=== PATIENT | female | born 1940 | race Caucasian/White ===

== ENCOUNTER → 2018-02-22 09:10 | Outpatient (CLI) | payer MEDICARE, SELFPAY ==
[2018-02-22 09:52] LABS: BUN Creatinine Ratio 17.3 (6-22); Blood Urea Nitrogen 19 mg/dL (7-17); Calcium 9.4 mg/dL (8.4-10.2); Carbon Dioxide 30 mmol/L (22-32); Chloride 100 mmol/L (98-107); Estimated Glomerular Filt Rate 48.2 mL/min (>60); Glucose 88 mg/dL (80-110); HEMOLYSIS < 15 (0-50); Potassium 3.7 mmol/L (3.4-5.1); Sodium 138 mmol/L (137-145)
== END ==
PROVIDERS: PCP Family Medicine; Visit Provider Family Medicine
DX: Z51.81 Encounter for therapeutic drug level monitoring (principal)
CPT/HCPCS: 36415; 80048

== ENCOUNTER → 2018-03-13 07:02 | Outpatient (CLI) | payer MEDICARE, SELFPAY ==
[2018-03-18 13:29] LABS: Creatinine, Random Urine 60 mg/dL (20-320); Metanephrine, Ur 80 (21-153); Normetanephrine, Urine 193 (108-524)
== END ==
PROVIDERS: PCP Family Medicine; Visit Provider Family Medicine
DX: I10 Essential (primary) hypertension (principal)
CPT/HCPCS: 83835

== ENCOUNTER → 2018-06-12 11:38 | Outpatient (CLI) | payer MEDICARE, SELFPAY ==
--- NOTE | 2018-06-12 11:40 | DI.MRI.S_ITS ---
PROCEDURE: MR HEAD/BRAIN WO CON INDICATIONS: confusion TECHNIQUE: Non-contrast axial T1 spin echo, axial T2 fast spin echo, sagittal and axial FLAIR, coronal T2 fast spin echo, axial gradient echo, axial diffusion and ADC through the brain. COMPARISON: [facility], CT, HEAD WITHOUT CONTRAST, 03/12/2017, 15:09. [facility], MR, STROKE PROTOCOL, 03/21/2017, 12:25. FINDINGS: Image quality: Excellent. CSF spaces: Ventricles appear symmetric in size and shape. Basal cisterns are patent. No extra-axial fluid collections. Brain: No intracranial bleeds or mass effects. There is cerebral volume loss for age. There are relatively prominent periventricular and deep white matter chronic small vessel ischemic changes. Brainstem appears normal. Diffusion-weighted images show no acute ischemic insults. No chronic ischemic insults. Normal intravascular flow voids are present. Skull and face: Calvarial bone marrow is normal in signal. Orbits are normal. Note is made of bilateral lens replacements. Sinuses: Sinuses and mastoids are clear. IMPRESSION: No findings of acute or subacute infarction can be seen. No masses or mass effect can be seen. Relatively prominent chronic small vessel ischemic change can be seen. Brain parenchymal volume loss is noted. Dictated by: Albert Del Real M.D. on 06/12/2018 at 12:00 Approved by: Albert Del Real M.D. on 06/12/2018 at 12:02
== END ==
PROVIDERS: PCP Family Medicine; Visit Provider Family Medicine
DX: R41.0 Disorientation, unspecified (principal)
CPT/HCPCS: 70551

== ENCOUNTER 2018-07-15 13:39 | Inpatient (IN) | payer MEDICARE, SELFPAY ==
[2018-07-15] VITALS (7 sets, daily range): BP systolic 116–158; BP diastolic 49–92; PULSE 86–114; RESP 14–97; TEMP 36.4–36.7; O2SAT 97–99; BMI 23.8
[2018-07-15] MEDS: SODIUM CHLORIDE 0.9% 1,000 ML 1000 ML IV (15:24)
[2018-07-15] MEDS: ONDANSETRON 4 MG/2 ML INJ IV (15:24)
[2018-07-15 15:28] LABS: Add Manual Diff / Slide Review NO; Basophils Percent Auto 0.4 % (0-2); Eosinophils Percent Auto 3.5 % (2-4); Hematocrit 33.8 % (36-46); Hemoglobin 11.7 g/dL (12.0-16.0); Mean Corpuscular HGB Conc 34.6 % (30-36); Mean Corpuscular Hemoglobin 29.5 PG (26-34); Mean Corpuscular Volume 85.2 fL (80-100); Monocytes Percent Auto 13.4 % (3-14); Neutrophils Absolute Auto 5500 /uL (3000-5900); Neutrophils Percent Auto 70.7 % (50-75); Platelet Count 195 X10^3/uL (150-400); Red Blood Cell Count 3.97 X10^6/uL (4.0-5.2); Red Cell Distribution Width 13.9 % (11.6-14.8); White Blood Cell Count 7.8 X10^3/uL (4.5-11.0)
[2018-07-15 15:34] LABS: Alanine Aminotransferase 19 IU/L (9-52); Albumin 4.5 g/dL (3.5-5.0); Albumin Globulin Ratio 1.5 (1.0-2.8); Alkaline Phosphatase 29 U/L (38-126); BUN Creatinine Ratio 11.8 (6-22); Blood Urea Nitrogen 26 mg/dL (7-17); Calcium 9.5 mg/dL (8.4-10.2); Carbon Dioxide 19 mmol/L (22-32); Chloride 89 mmol/L (98-107); Estimated Glomerular Filt Rate 21.6 mL/min (>60); Globulin 3.1 g/dL (1.7-4.1); Glucose 87 mg/dL (80-110); Sodium 126 mmol/L (137-145); Total Protein 7.6 g/dL (6.3-8.2)
[2018-07-15 15:39] LABS: HEMOLYSIS 133 (0-50)
--- NOTE | 2018-07-15 15:47 | ED.NAVMDI ---
HPI - Nausea/Vomiting/Diarrhea <YONNY White - Last Filed: 07/15/18 22:03> General Chief complaint: Nausea/Vomiting/Diarrhea Stated complaint: vomiting nausea x4 days Time Seen by Provider: 07/15/18 15:47 Source: patient Mode of arrival: ambulatory Limitations: no limitations History of Present Illness HPI Narrative: 78-year-old female with history of diverticulitis hypertension is a former smoker here for complaint of having nausea vomiting with left lower quadrant pain over the past 4 days. She states she has been unable to keep down any fluids. She states she is no longer making urine. She denies having any fevers or chills. She denies any trauma to the left lower quadrant. She has not had a bowel movement over the last few days. She denies any stressors or relievers of her symptoms. MD complaint: nausea, vomiting and abdominal pain Related Data Home Medications Medication Instructions Recorded Confirmed Vitamin D3 1 cap PO DAILY #0 01/09/12 07/15/18 ascorbic acid (vitamin C) [Vitamin 1,000 mg PO DAILY #0 01/09/12 07/15/18 C] omega [id number] oil [Omera] 1,280 mg PO DAILY #0 03/12/17 07/15/18 vitamin B complex [B 1 tab PO DAILY #0 04/17/17 07/15/18 Complex-Vitamin B12] prednisone 10 mg tablet 10 mg PO DAILY tab 06/03/18 07/15/18 ibuprofen [Advil] 200 mg PO PRN PRN 07/15/18 07/15/18 lactobacillus comb no.10 20,000 mmu cells PO DAILY 07/15/18 07/15/18 [Probiotic] metoprolol succinate 100 mg PO QPM 07/15/18 07/15/18 olmesartan 10 mg PO QPM 07/15/18 07/15/18 omeprazole 20 mg PO QPM 07/15/18 07/15/18 prednisone 2 mg PO DAILY 07/15/18 07/15/18 trazodone 100 mg PO BEDTIME 07/15/18 07/15/18 Previous Rx's Medication Instructions Recorded hydrochlorothiazide 25 mg tablet 25 mg PO DAILY #90 tab 07/09/18 Allergies Allergy/AdvReac Type Severity Reaction Status Date / Time ciprofloxacin [CIPROFLOXACIN] Allergy Severe MUSCLE PAIN Verified 10/08/18 11:49 ceftriaxone Allergy Mild Anxiety Verified 07/15/18 19:53 methocarbamol [METHOCARBAMOL] Allergy Mild RASH/ROBAXI Verified 06/03/18 11:49 N Penicillins [PENICILLINS] Allergy Mild HIVES Verified 06/03/18 11:49 piroxicam [PIROXICAM] Allergy Mild RASH/FELDEN Verified 06/03/18 11:49 E temazepam [TEMAZEPAM] Allergy Mild NERVOUNESS/ Verified 06/03/18 11:49 RESTORIL Review of Systems <YONNY White - Last Filed: 07/15/18 22:03> Review of Systems All systems reviewed & are unremarkable except as noted in HPI and below Constitutional Denies chills, Denies fever(s), Denies lethargy and Denies weakness Eyes Denies change in vision, Denies eye discharge, Denies irritation and Denies loss of vision ENT Ears, Nose, Mouth, and Throat: Denies change in voice, Denies neck pain and Denies sore throat Cardiovascular Denies chest pain, Denies irregular heart rhythm, Denies lightheadedness, Denies palpitations, Denies dyspnea, Denies dyspnea on exertion and Denies orthopnea Respiratory Denies cough, Denies dyspnea, Denies dyspnea on exertion and Denies wheezing Gastrointestinal Gastrointestinal: Reports abdominal pain, Denies change in bowel habits, Denies diarrhea, Reports nausea and Reports vomiting Genitourinary Denies hematuria, Denies flank pain, Denies urinary incontinence and Denies urinary urgency Musculoskeletal Denies neck pain Neurologic Denies confusion, Denies loss of vision and Denies weakness Psychiatric Denies anxiety, Denies confusion, Denies depression, Denies homicidal ideation and Denies suicidal ideation Endocrine Denies palpitations Hematologic/Lymphatic Denies easy bruising Allergic/Immunologic Denies wheezing Exam <YONNY White - Last Filed: 07/15/18 22:03> Initial Vital Signs Initial Vital Signs: Vital Signs Temperature 98.0 F 07/15/18 13:44 Pulse Rate 114 H 07/15/18 13:44 Respiratory Rate 20 07/15/18 13:44 Blood Pressure 116/73 07/15/18 13:44 Pulse Oximetry 97 07/15/18 13:44 Const General: cooperative and well developed Nutritional Appearance: well nourished Orientation: alert, awake, oriented x3 and not confused [facility] Mouth: oral mucosae normal and No moist mucous membranes Eyes Conjunctivae: conjunctivae normal Sclera: sclerae normal Pupils: PERRL EOM: EOM intact bilaterally Resp Effort & Inspection: normal respiratory effort, able to speak in complete sentences, no respiratory distress and no use of accessory muscles Auscultation: clear to auscultation bilaterally, no rales, no rhonchi and no wheezes Cardio Rate: regular rate Rhythm: regular rhythm Heart Sounds: no click, no gallops, no murmurs and no rubs Pulses: normal peripheral pulses GI Inspection: non-distended Palpation: soft, no hepatosplenomegaly, No guarding, No pulsatile mass and tender (Left lower quadrant tenderness) Auscultation: normal bowel sounds General: No CVA tenderness Skin General: no rashes or lesions noted, No jaundice and No petechiae <Kellie Jones MD - Last Filed: 07/16/18 07:40> Initial Vital Signs Initial Vital Signs: Vital Signs Temperature 98.0 F 07/15/18 13:44 Pulse Rate 114 H 07/15/18 13:44 Respiratory Rate 20 07/15/18 13:44 Blood Pressure 116/73 07/15/18 13:44 Pulse Oximetry 97 07/15/18 13:44 Course <YONNY White - Last Filed: 07/15/18 22:03> Orders Ordered: ED Orders 07/16/18 06:58 Basic Metabolic Panel Routine Complete Blood Count AUTO DIFF Routine Enoxaparin Sodium (Lovenox) 40 mg SUBCUT DAILY [facility] Sodium Chloride (Normal Saline 0.9%) 1,000 mls @ 150 mls/hr IV CONT [facility] Last Admin: 07/16/18 03:39 Dose: 150 mls/hr Infusion: 07/16/18 03:39 Dose: 150 mls/hr Admin: 07/15/18 21:08 Dose: 150 mls/hr Infusion: 07/15/18 19:51 Dose: 0 mls/hr Admin: 07/15/18 16:46 Dose: 150 mls/hr Metronidazole (Flagyl) 500 mg in 100 mls @ 100 mls/hr IV Q8H [facility] Last Infusion: 07/16/18 04:39 Dose: 0 mls/hr Admin: 07/16/18 03:39 Dose: 100 mls/hr Morphine Sulfate (Morphine) 4 mg IV Q4HR PRN PRN Reason: Pain, Severe (7-10) Last Admin: 07/15/18 21:19 Dose: 4 mg Ondansetron HCl (Zofran) 4 mg IV Q8HR PRN PRN Reason: Nausea And Vomiting Pantoprazole Sodium (Protonix) 40 mg IV DAILY [facility] Last Admin: 07/16/18 01:15 Dose: Discontinued Medications Diphenhydramine HCl (Benadryl) 50 mg IV NOW ONE Stop: 07/15/18 19:39 Last Admin: 07/15/18 19:42 Dose: 50 mg Sodium Chloride (Normal Saline 0.9%) 1,000 mls @ 1,000 mls/hr IV BOLUS ONE Stop: 07/15/18 16:04 Last Infusion: 07/15/18 16:42 Dose: 0 mls/hr Admin: 07/15/18 15:24 Dose: 1,000 mls/hr Sodium Chloride (Normal Saline 0.9%) 1,000 mls @ 150 mls/hr IV CONT [facility] Last Admin: 07/15/18 21:21 Dose: Ceftriaxone Sodium/Dextrose (Rocephin) 2 gm in 50 mls @ 100 mls/hr IV Q24H [facility] Last Infusion: 07/15/18 19:42 Dose: 0 mls/hr Admin: 07/15/18 19:10 Dose: 100 mls/hr Metronidazole (Flagyl) 500 mg in 100 mls @ 100 mls/hr IV NOW ONE Stop: 07/15/18 20:05 Last Admin: 07/15/18 21:10 Dose: 100 mls/hr Ceftriaxone Sodium/Dextrose (Rocephin) 2 gm in 50 mls @ 100 mls/hr IV Q24H [facility] Stop: 07/19/18 20:29 Methylprednisolone (Solu-Medrol 125 Mg Vial) 125 mg IV NOW ONE Stop: 07/15/18 19:39 Last Admin: 07/15/18 19:42 Dose: 125 mg Ondansetron HCl (Zofran) 4 mg IV NOW ONE Stop: 07/15/18 15:06 Last Admin: 07/15/18 15:24 Dose: 4 mg Vital Signs - 8 hr 07/16/18 00:32 07/16/18 03:30 Temperature 97.3 F L Pulse Rate 85 Respiratory Rate 18 Blood Pressure 136/84 Pulse Oximetry 98 97 <Kellie Jones MD - Last Filed: 07/16/18 07:40> Orders Ordered: ED Orders 07/16/18 06:58 Basic Metabolic Panel Routine Complete Blood Count AUTO DIFF Routine Enoxaparin Sodium (Lovenox) 40 mg SUBCUT DAILY [facility] Sodium Chloride (Normal Saline 0.9%) 1,000 mls @ 150 mls/hr IV CONT [facility] Last Admin: 07/16/18 03:39 Dose: 150 mls/hr Infusion: 07/16/18 03:39 Dose: 150 mls/hr Admin: 07/15/18 21:08 Dose: 150 mls/hr Infusion: 07/15/18 19:51 Dose: 0 mls/hr Admin: 07/15/18 16:46 Dose: 150 mls/hr Metronidazole (Flagyl) 500 mg in 100 mls @ 100 mls/hr IV Q8H [facility] Last Infusion: 07/16/18 04:39 Dose: 0 mls/hr Admin: 07/16/18 03:39 Dose: 100 mls/hr Morphine Sulfate (Morphine) 4 mg IV Q4HR PRN PRN Reason: Pain, Severe (7-10) Last Admin: 07/15/18 21:19 Dose: 4 mg Ondansetron HCl (Zofran) 4 mg IV Q8HR PRN PRN Reason: Nausea And Vomiting Pantoprazole Sodium (Protonix) 40 mg IV DAILY [facility] Last Admin: 07/16/18 01:15 Dose: Discontinued Medications Diphenhydramine HCl (Benadryl) 50 mg IV NOW ONE Stop: 07/15/18 19:39 Last Admin: 07/15/18 19:42 Dose: 50 mg Sodium Chloride (Normal Saline 0.9%) 1,000 mls @ 1,000 mls/hr IV BOLUS ONE Stop: 07/15/18 16:04 Last Infusion: 07/15/18 16:42 Dose: 0 mls/hr Admin: 07/15/18 15:24 Dose: 1,000 mls/hr Sodium Chloride (Normal Saline 0.9%) 1,000 mls @ 150 mls/hr IV CONT [facility] Last Admin: 07/15/18 21:21 Dose: Ceftriaxone Sodium/Dextrose (Rocephin) 2 gm in 50 mls @ 100 mls/hr IV Q24H [facility] Last Infusion: 07/15/18 19:42 Dose: 0 mls/hr Admin: 07/15/18 19:10 Dose: 100 mls/hr Metronidazole (Flagyl) 500 mg in 100 mls @ 100 mls/hr IV NOW ONE Stop: 07/15/18 20:05 Last Admin: 07/15/18 21:10 Dose: 100 mls/hr Ceftriaxone Sodium/Dextrose (Rocephin) 2 gm in 50 mls @ 100 mls/hr IV Q24H [facility] Stop: 07/19/18 20:29 Methylprednisolone (Solu-Medrol 125 Mg Vial) 125 mg IV NOW ONE Stop: 07/15/18 19:39 Last Admin: 07/15/18 19:42 Dose: 125 mg Ondansetron HCl (Zofran) 4 mg IV NOW ONE Stop: 07/15/18 15:06 Last Admin: 07/15/18 15:24 Dose: 4 mg Vital Signs - 8 hr 07/16/18 00:32 07/16/18 03:30 Temperature 97.3 F L Pulse Rate 85 Respiratory Rate 18 Blood Pressure 136/84 Pulse Oximetry 98 97 MDM - Nausea/Vomiting/Diarrhea <YONNY White - Last Filed: 07/15/18 22:03> Lab Data Result diagrams: 07/16/18 06:58 07/15/18 19:30 Lab Results 07/15/18 07/15/18 07/15/18 Range/Units 15:15 15:15 17:05 WBC 7.8 (4.5-11.0) X10^3/uL RBC 3.97 L (4.0-5.2) X10^6/uL Hgb 11.7 L (12.0-16.0) g/dL Hct 33.8 L (36-46) % MCV 85.2 (80-100) fL MCH 29.5 (26-34) PG MCHC 34.6 (30-36) % RDW 13.9 (11.6-14.8) % Plt Count 195 (150-400) X10^3/uL Neut % (Auto) 70.7 (50-75) % Lymph % (Auto) 12.0 L (25-40) % [place] % (Auto) 13.4 (3-14) % Eos % (Auto) 3.5 (2-4) % Baso % (Auto) 0.4 (0-2) % Neut # (Auto) 5500 (2666-0154) /uL Sodium 126 L (137-145) mmol/L Potassium TNP Chloride 89 L (98-107) mmol/L Carbon Dioxide 19 L (22-32) mmol/L BUN 26 H (7-17) mg/dL Creatinine 2.20 H (0.52-1.04) mg/dL Estimated GFR 21.6 L (>60) mL/min BUN/Creatinine Ratio 11.8 (6-22) Glucose 87 (80-110) mg/dL Calcium 9.5 (8.4-10.2) mg/dL Total Bilirubin TNP AST TNP ALT 19 (9-52) IU/L Alkaline Phosphatase 29 L (38-126) U/L Total Protein 7.6 (6.3-8.2) g/dL Albumin 4.5 (3.5-5.0) g/dL Globulin 3.1 (1.7-4.1) g/dL Albumin/Globulin Ratio 1.5 (1.0-2.8) Urine RBC 1-5/hpf (0-5/HPF) Urine WBC 1-5/hpf (0-5/HPF) Ur Squamous Epith Cells 1-5 /hpf Urine Bacteria Occasional (0-1) (None) Hyaline Casts 5-10/lpf (None) Urine Mucus 1+ H (Negative) Ur Culture Indicated? Cult not indicated Micro UA Comment Not Reportable 07/15/18 07/16/18 Range/Units 19:30 06:58 WBC 3.5 L D (4.5-11.0) X10^3/uL RBC 3.86 L (4.0-5.2) X10^6/uL Hgb 11.2 L (12.0-16.0) g/dL Hct 32.9 L (36-46) % MCV 85.1 (80-100) fL MCH 29.0 (26-34) PG MCHC 34.1 (30-36) % RDW 13.7 (11.6-14.8) % Plt Count 184 (150-400) X10^3/uL Neut % (Auto) 87.9 H (50-75) % Lymph % (Auto) 9.7 L (25-40) % [place] % (Auto) 2.2 L (3-14) % Eos % (Auto) 0.1 L (2-4) % Baso % (Auto) 0.1 (0-2) % Neut # (Auto) 3000 (2062-6046) /uL Sodium (137-145) mmol/L Potassium 3.4 Chloride (98-107) mmol/L Carbon Dioxide (22-32) mmol/L BUN (7-17) mg/dL Creatinine (0.52-1.04) mg/dL Estimated GFR (>60) mL/min BUN/Creatinine Ratio (6-22) Glucose (80-110) mg/dL Calcium (8.4-10.2) mg/dL Total Bilirubin AST ALT (9-52) IU/L Alkaline Phosphatase (38-126) U/L Total Protein (6.3-8.2) g/dL Albumin (3.5-5.0) g/dL Globulin (1.7-4.1) g/dL Albumin/Globulin Ratio (1.0-2.8) Urine RBC (0-5/HPF) Urine WBC (0-5/HPF) Ur Squamous Epith Cells Urine Bacteria (None) Hyaline Casts (None) Urine Mucus (Negative) Ur Culture Indicated? Micro UA Comment Urine Dip Bedside Urine Glucose Negative Bedside Urine Bilirubin - Negative Bedside Urine Ketone + 15 Urine Specific [place] 1.020 Bedside Urine Occult Blood - Negative Bedside Urine pH 6.0 Bedside Urine Protein - Negative Bedside Urine Urobilinogen - Negative Bedside Urine Nitrite - Negative Bedside Urine Leukocytes - Negative Esterase Imaging Data CT scan - abdomen: Radiologist's impression: [address] [address] [address] Scan Report Signed Patient: Michelle Bermeo [facility]#: [id number] : 1940Acct:[id number] Age/Sex: 78 / FDate of Service: 07/15/18 Loc: ED Accession Number: [id number] Procedure: CT abdomen pelvis wo con Ordering Provider: Redd Michelle PROCEDURE: CT ABDOMEN PELVIS WO CON INDICATIONS: Left lower quadrant pain TECHNIQUE: Noncontrast 5 mm thick sections acquired from the diaphragms to the symphysis. 5 mm coronal and sagittal reformats were then performed. For radiation dose reduction, the following was used: automated exposure control, adjustment of mA and/or kV according to patient size. COMPARISON: [facility], CT, ABDOMEN/PELVIS WITH CONTRAST, 04/17/2017, 10:59. FINDINGS: Image quality: Excellent. ABDOMEN: Lung bases: There are mild subpleural groundglass opacities in the lung bases likely representing atelectasis. Heart size is normal. A small hiatal hernia is noted. Solid organs: Noncontrast evaluation of the liver demonstrates no focal hepatic lesions. Gallbladder appears within normal limits without calcified gallstones. Pancreas is normal in contours. Spleen is normal in size. No adrenal nodules. Kidneys demonstrate no hydronephrosis. Peritoneum and bowel: Small bowel loops demonstrate normal wall thickness and caliber. There is colonic diverticulosis throughout the colon. Along the proximal sigmoid colon, there is associated mild segmental wall thickening and inflammatory fat stranding compatible with diverticulitis. No macroscopic free air or evidence of diverticular abscess. There is trace adjacent fluid in the left paracolic gutter. Nodes and vessels: No retroperitoneal or mesenteric adenopathy by size criteria. Aorta and inferior vena cava are normal in caliber. There is prominent vascular calcification at the origin of the right renal artery. Miscellaneous: No ventral hernias. PELVIS: Genitourinary: Bladder wall thickness is normal. Miscellaneous: No inguinal hernias or adenopathy. Bones: No suspicious bony lesions. No vertebral body compression fractures. IMPRESSION: 1. Mild acute diverticulitis in the proximal sigmoid colon. Dictated by: Brown Zepeda M.D. on 07/15/2018 at 18:42 Approved by: Brown Zepeda M.D. on 07/15/2018 at 18:46 MDM Narrative Medical decision making narrative: CBC shows mild anemia otherwise is unremarkable. Chem panel shows decreased GFR of 21 and creatinine of 2.2 indicating acute renal failure most likely secondary to dehydration. CMP also shows hyponatremia most likely secondary to the nausea vomiting. She was given fluids and Zofran in the emergency room. CT of the abdomen shows diverticulitis with no abscess or free air. She is allergic to a ciprofloxacin so she was placed on Rocephin and Flagyl. Due to acute renal failure and hyponatremia unable to tolerate fluids discussed case with hospitalist Dr. Aldrich except patient for IV fluids and antibiotics. Patient admitted inpatient or <Kellie Jones MD - Last Filed: 07/16/18 07:40> Lab Data Lab Results 07/15/18 07/15/18 07/15/18 Range/Units 15:15 15:15 17:05 WBC 7.8 (4.5-11.0) X10^3/uL RBC 3.97 L (4.0-5.2) X10^6/uL Hgb 11.7 L (12.0-16.0) g/dL Hct 33.8 L (36-46) % MCV 85.2 (80-100) fL MCH 29.5 (26-34) PG MCHC 34.6 (30-36) % RDW 13.9 (11.6-14.8) % Plt Count 195 (150-400) X10^3/uL Neut % (Auto) 70.7 (50-75) % Lymph % (Auto) 12.0 L (25-40) % [place] % (Auto) 13.4 (3-14) % Eos % (Auto) 3.5 (2-4) % Baso % (Auto) 0.4 (0-2) % Neut # (Auto) 5500 (8725-0386) /uL Sodium 126 L (137-145) mmol/L Potassium TNP Chloride 89 L (98-107) mmol/L Carbon Dioxide 19 L (22-32) mmol/L BUN 26 H (7-17) mg/dL Creatinine 2.20 H (0.52-1.04) mg/dL Estimated GFR 21.6 L (>60) mL/min BUN/Creatinine Ratio 11.8 (6-22) Glucose 87 (80-110) mg/dL Calcium 9.5 (8.4-10.2) mg/dL Total Bilirubin TNP AST TNP ALT 19 (9-52) IU/L Alkaline Phosphatase 29 L (38-126) U/L Total Protein 7.6 (6.3-8.2) g/dL Albumin 4.5 (3.5-5.0) g/dL Globulin 3.1 (1.7-4.1) g/dL Albumin/Globulin Ratio 1.5 (1.0-2.8) Urine RBC 1-5/hpf (0-5/HPF) Urine WBC 1-5/hpf (0-5/HPF) Ur Squamous Epith Cells 1-5 /hpf Urine Bacteria Occasional (0-1) (None) Hyaline Casts 5-10/lpf (None) Urine Mucus 1+ H (Negative) Ur Culture Indicated? Cult not indicated Micro UA Comment Not Reportable 07/15/18 07/16/18 Range/Units 19:30 06:58 WBC 3.5 L D (4.5-11.0) X10^3/uL RBC 3.86 L (4.0-5.2) X10^6/uL Hgb 11.2 L (12.0-16.0) g/dL Hct 32.9 L (36-46) % MCV 85.1 (80-100) fL MCH 29.0 (26-34) PG MCHC 34.1 (30-36) % RDW 13.7 (11.6-14.8) % Plt Count 184 (150-400) X10^3/uL Neut % (Auto) 87.9 H (50-75) % Lymph % (Auto) 9.7 L (25-40) % [place] % (Auto) 2.2 L (3-14) % Eos % (Auto) 0.1 L (2-4) % Baso % (Auto) 0.1 (0-2) % Neut # (Auto) 3000 (4932-4583) /uL Sodium (137-145) mmol/L Potassium 3.4 Chloride (98-107) mmol/L Carbon Dioxide (22-32) mmol/L BUN (7-17) mg/dL Creatinine (0.52-1.04) mg/dL Estimated GFR (>60) mL/min BUN/Creatinine Ratio (6-22) Glucose (80-110) mg/dL Calcium (8.4-10.2) mg/dL Total Bilirubin AST ALT (9-52) IU/L Alkaline Phosphatase (38-126) U/L Total Protein (6.3-8.2) g/dL Albumin (3.5-5.0) g/dL Globulin (1.7-4.1) g/dL Albumin/Globulin Ratio (1.0-2.8) Urine RBC (0-5/HPF) Urine WBC (0-5/HPF) Ur Squamous Epith Cells Urine Bacteria (None) Hyaline Casts (None) Urine Mucus (Negative) Ur Culture Indicated? Micro UA Comment Urine Dip Bedside Urine Glucose Negative Bedside Urine Bilirubin - Negative Bedside Urine Ketone + 15 Urine Specific [place] 1.020 Bedside Urine Occult Blood - Negative Bedside Urine pH 6.0 Bedside Urine Protein - Negative Bedside Urine Urobilinogen - Negative Bedside Urine Nitrite - Negative Bedside Urine Leukocytes - Negative Esterase Discharge Plan Departure Patient Disposition: Admitted As Inpatient Clinical Impression: Diverticulitis, Acute hyponatremia, Acute renal failure Discharge Date/Time: 07/15/18 20:00 Interventions: ED Discharge Assessment Last Done: 07/15/18 19:20 Admit Date/Time: 07/15/18 19:14 Admit Provider: Rosemary Aldrich
[2018-07-15] MEDS: SODIUM CHLORIDE 0.9% 1,000 ML 150 ML IV ×2 (16:46→21:08)
[2018-07-15 17:37] LABS: Bacteria Urine Occasional (0-1); Culture Indicated Urine Cult Not Indicated; Hyaline Casts Urine 5-10/LPF; Mucus Urine 1+ (Negative); RBC Urine 1-5/HPF (0-5/HPF); Squamous Epithelial Cell Urine 1-5 /HPF; WBC Urine 1-5/HPF (0-5/HPF)
--- NOTE | 2018-07-15 17:59 | DI.CT.S_ITS ---
PROCEDURE: CT ABDOMEN PELVIS WO CON INDICATIONS: Left lower quadrant pain TECHNIQUE: Noncontrast 5 mm thick sections acquired from the diaphragms to the symphysis. 5 mm coronal and sagittal reformats were then performed. For radiation dose reduction, the following was used: automated exposure control, adjustment of mA and/or kV according to patient size. COMPARISON: [facility], CT, ABDOMEN/PELVIS WITH CONTRAST, 04/17/2017, 10:59. FINDINGS: Image quality: Excellent. ABDOMEN: Lung bases: There are mild subpleural groundglass opacities in the lung bases likely representing atelectasis. Heart size is normal. A small hiatal hernia is noted. Solid organs: Noncontrast evaluation of the liver demonstrates no focal hepatic lesions. Gallbladder appears within normal limits without calcified gallstones. Pancreas is normal in contours. Spleen is normal in size. No adrenal nodules. Kidneys demonstrate no hydronephrosis. Peritoneum and bowel: Small bowel loops demonstrate normal wall thickness and caliber. There is colonic diverticulosis throughout the colon. Along the proximal sigmoid colon, there is associated mild segmental wall thickening and inflammatory fat stranding compatible with diverticulitis. No macroscopic free air or evidence of diverticular abscess. There is trace adjacent fluid in the left paracolic gutter. Nodes and vessels: No retroperitoneal or mesenteric adenopathy by size criteria. Aorta and inferior vena cava are normal in caliber. There is prominent vascular calcification at the origin of the right renal artery. Miscellaneous: No ventral hernias. PELVIS: Genitourinary: Bladder wall thickness is normal. Miscellaneous: No inguinal hernias or adenopathy. Bones: No suspicious bony lesions. No vertebral body compression fractures. IMPRESSION: 1. Mild acute diverticulitis in the proximal sigmoid colon. Dictated by: Brown Zepeda M.D. on 07/15/2018 at 18:42 Approved by: Brown Zepeda M.D. on 07/15/2018 at 18:46
[2018-07-15] MEDS: CEFTRIAXONE 2 GM/50 ML FROZ.PIGGY IV (19:10)
--- NOTE | 2018-07-15 19:11 | ED_ITS ---
HPI - Nausea/Vomiting/Diarrhea <YONNY White - Last Filed: 07/15/18 22:03> General Chief complaint: Nausea/Vomiting/Diarrhea Stated complaint: vomiting nausea x4 days Time Seen by Provider: 07/15/18 15:47 Source: patient Mode of arrival: ambulatory Limitations: no limitations History of Present Illness HPI Narrative: 78-year-old female with history of diverticulitis hypertension is a former smoker here for complaint of having nausea vomiting with left lower quadrant pain over the past 4 days. She states she has been unable to keep down any fluids. She states she is no longer making urine. She denies having any fevers or chills. She denies any trauma to the left lower quadrant. She has not had a bowel movement over the last few days. She denies any stressors or relievers of her symptoms. MD complaint: nausea, vomiting and abdominal pain Related Data Home Medications Medication Instructions Recorded Confirmed Vitamin D3 1 cap PO DAILY #0 01/09/12 07/15/18 ascorbic acid (vitamin C) [Vitamin 1,000 mg PO DAILY #0 01/09/12 07/15/18 C] omega [id number] oil [Omera] 1,280 mg PO DAILY #0 03/12/17 07/15/18 vitamin B complex [B 1 tab PO DAILY #0 04/17/17 07/15/18 Complex-Vitamin B12] prednisone 10 mg tablet 10 mg PO DAILY tab 06/03/18 07/15/18 ibuprofen [Advil] 200 mg PO PRN PRN 07/15/18 07/15/18 lactobacillus comb no.10 20,000 mmu cells PO DAILY 07/15/18 07/15/18 [Probiotic] metoprolol succinate 100 mg PO QPM 07/15/18 07/15/18 olmesartan 10 mg PO QPM 07/15/18 07/15/18 omeprazole 20 mg PO QPM 07/15/18 07/15/18 prednisone 2 mg PO DAILY 07/15/18 07/15/18 trazodone 100 mg PO BEDTIME 07/15/18 07/15/18 Previous Rx's Medication Instructions Recorded hydrochlorothiazide 25 mg tablet 25 mg PO DAILY #90 tab 07/09/18 Allergies Allergy/AdvReac Type Severity Reaction Status Date / Time ciprofloxacin [CIPROFLOXACIN] Allergy Severe MUSCLE PAIN Verified 10/08/18 11:49 ceftriaxone Allergy Mild Anxiety Verified 07/15/18 19:53 methocarbamol [METHOCARBAMOL] Allergy Mild RASH/ROBAXI Verified 06/03/18 11:49 N Penicillins [PENICILLINS] Allergy Mild HIVES Verified 06/03/18 11:49 piroxicam [PIROXICAM] Allergy Mild RASH/FELDEN Verified 06/03/18 11:49 E temazepam [TEMAZEPAM] Allergy Mild NERVOUNESS/ Verified 06/03/18 11:49 RESTORIL Review of Systems <YONNY White - Last Filed: 07/15/18 22:03> Review of Systems All systems reviewed & are unremarkable except as noted in HPI and below Constitutional Denies chills, Denies fever(s), Denies lethargy and Denies weakness Eyes Denies change in vision, Denies eye discharge, Denies irritation and Denies loss of vision ENT Ears, Nose, Mouth, and Throat: Denies change in voice, Denies neck pain and Denies sore throat Cardiovascular Denies chest pain, Denies irregular heart rhythm, Denies lightheadedness, Denies palpitations, Denies dyspnea, Denies dyspnea on exertion and Denies orthopnea Respiratory Denies cough, Denies dyspnea, Denies dyspnea on exertion and Denies wheezing Gastrointestinal Gastrointestinal: Reports abdominal pain, Denies change in bowel habits, Denies diarrhea, Reports nausea and Reports vomiting Genitourinary Denies hematuria, Denies flank pain, Denies urinary incontinence and Denies urinary urgency Musculoskeletal Denies neck pain Neurologic Denies confusion, Denies loss of vision and Denies weakness Psychiatric Denies anxiety, Denies confusion, Denies depression, Denies homicidal ideation and Denies suicidal ideation Endocrine Denies palpitations Hematologic/Lymphatic Denies easy bruising Allergic/Immunologic Denies wheezing Exam <YONNY White - Last Filed: 07/15/18 22:03> Initial Vital Signs Initial Vital Signs: Vital Signs Temperature 98.0 F 07/15/18 13:44 Pulse Rate 114 H 07/15/18 13:44 Respiratory Rate 20 07/15/18 13:44 Blood Pressure 116/73 07/15/18 13:44 Pulse Oximetry 97 07/15/18 13:44 Const General: cooperative and well developed Nutritional Appearance: well nourished Orientation: alert, awake, oriented x3 and not confused [facility] Mouth: oral mucosae normal and No moist mucous membranes Eyes Conjunctivae: conjunctivae normal Sclera: sclerae normal Pupils: PERRL EOM: EOM intact bilaterally Resp Effort & Inspection: normal respiratory effort, able to speak in complete sentences, no respiratory distress and no use of accessory muscles Auscultation: clear to auscultation bilaterally, no rales, no rhonchi and no wheezes Cardio Rate: regular rate Rhythm: regular rhythm Heart Sounds: no click, no gallops, no murmurs and no rubs Pulses: normal peripheral pulses GI Inspection: non-distended Palpation: soft, no hepatosplenomegaly, No guarding, No pulsatile mass and tender (Left lower quadrant tenderness) Auscultation: normal bowel sounds General: No CVA tenderness Skin General: no rashes or lesions noted, No jaundice and No petechiae <Kellie Jones MD - Last Filed: 07/16/18 07:40> Initial Vital Signs Initial Vital Signs: Vital Signs Temperature 98.0 F 07/15/18 13:44 Pulse Rate 114 H 07/15/18 13:44 Respiratory Rate 20 07/15/18 13:44 Blood Pressure 116/73 07/15/18 13:44 Pulse Oximetry 97 07/15/18 13:44 Course <YONNY White - Last Filed: 07/15/18 22:03> Orders Ordered: ED Orders 07/16/18 06:58 Basic Metabolic Panel Routine Complete Blood Count AUTO DIFF Routine Enoxaparin Sodium (Lovenox) 40 mg SUBCUT DAILY [facility] Sodium Chloride (Normal Saline 0.9%) 1,000 mls @ 150 mls/hr IV CONT [facility] Last Admin: 07/16/18 03:39 Dose: 150 mls/hr Infusion: 07/16/18 03:39 Dose: 150 mls/hr Admin: 07/15/18 21:08 Dose: 150 mls/hr Infusion: 07/15/18 19:51 Dose: 0 mls/hr Admin: 07/15/18 16:46 Dose: 150 mls/hr Metronidazole (Flagyl) 500 mg in 100 mls @ 100 mls/hr IV Q8H [facility] Last Infusion: 07/16/18 04:39 Dose: 0 mls/hr Admin: 07/16/18 03:39 Dose: 100 mls/hr Morphine Sulfate (Morphine) 4 mg IV Q4HR PRN PRN Reason: Pain, Severe (7-10) Last Admin: 07/15/18 21:19 Dose: 4 mg Ondansetron HCl (Zofran) 4 mg IV Q8HR PRN PRN Reason: Nausea And Vomiting Pantoprazole Sodium (Protonix) 40 mg IV DAILY [facility] Last Admin: 07/16/18 01:15 Dose: Discontinued Medications Diphenhydramine HCl (Benadryl) 50 mg IV NOW ONE Stop: 07/15/18 19:39 Last Admin: 07/15/18 19:42 Dose: 50 mg Sodium Chloride (Normal Saline 0.9%) 1,000 mls @ 1,000 mls/hr IV BOLUS ONE Stop: 07/15/18 16:04 Last Infusion: 07/15/18 16:42 Dose: 0 mls/hr Admin: 07/15/18 15:24 Dose: 1,000 mls/hr Sodium Chloride (Normal Saline 0.9%) 1,000 mls @ 150 mls/hr IV CONT [facility] Last Admin: 07/15/18 21:21 Dose: Ceftriaxone Sodium/Dextrose (Rocephin) 2 gm in 50 mls @ 100 mls/hr IV Q24H [facility] Last Infusion: 07/15/18 19:42 Dose: 0 mls/hr Admin: 07/15/18 19:10 Dose: 100 mls/hr Metronidazole (Flagyl) 500 mg in 100 mls @ 100 mls/hr IV NOW ONE Stop: 07/15/18 20:05 Last Admin: 07/15/18 21:10 Dose: 100 mls/hr Ceftriaxone Sodium/Dextrose (Rocephin) 2 gm in 50 mls @ 100 mls/hr IV Q24H [facility] Stop: 07/19/18 20:29 Methylprednisolone (Solu-Medrol 125 Mg Vial) 125 mg IV NOW ONE Stop: 07/15/18 19:39 Last Admin: 07/15/18 19:42 Dose: 125 mg Ondansetron HCl (Zofran) 4 mg IV NOW ONE Stop: 07/15/18 15:06 Last Admin: 07/15/18 15:24 Dose: 4 mg Vital Signs - 8 hr 07/16/18 00:32 07/16/18 03:30 Temperature 97.3 F L Pulse Rate 85 Respiratory Rate 18 Blood Pressure 136/84 Pulse Oximetry 98 97 <Kellie Jones MD - Last Filed: 07/16/18 07:40> Orders Ordered: ED Orders 07/16/18 06:58 Basic Metabolic Panel Routine Complete Blood Count AUTO DIFF Routine Enoxaparin Sodium (Lovenox) 40 mg SUBCUT DAILY [facility] Sodium Chloride (Normal Saline 0.9%) 1,000 mls @ 150 mls/hr IV CONT [facility] Last Admin: 07/16/18 03:39 Dose: 150 mls/hr Infusion: 07/16/18 03:39 Dose: 150 mls/hr Admin: 07/15/18 21:08 Dose: 150 mls/hr Infusion: 07/15/18 19:51 Dose: 0 mls/hr Admin: 07/15/18 16:46 Dose: 150 mls/hr Metronidazole (Flagyl) 500 mg in 100 mls @ 100 mls/hr IV Q8H [facility] Last Infusion: 07/16/18 04:39 Dose: 0 mls/hr Admin: 07/16/18 03:39 Dose: 100 mls/hr Morphine Sulfate (Morphine) 4 mg IV Q4HR PRN PRN Reason: Pain, Severe (7-10) Last Admin: 07/15/18 21:19 Dose: 4 mg Ondansetron HCl (Zofran) 4 mg IV Q8HR PRN PRN Reason: Nausea And Vomiting Pantoprazole Sodium (Protonix) 40 mg IV DAILY [facility] Last Admin: 07/16/18 01:15 Dose: Discontinued Medications Diphenhydramine HCl (Benadryl) 50 mg IV NOW ONE Stop: 07/15/18 19:39 Last Admin: 07/15/18 19:42 Dose: 50 mg Sodium Chloride (Normal Saline 0.9%) 1,000 mls @ 1,000 mls/hr IV BOLUS ONE Stop: 07/15/18 16:04 Last Infusion: 07/15/18 16:42 Dose: 0 mls/hr Admin: 07/15/18 15:24 Dose: 1,000 mls/hr Sodium Chloride (Normal Saline 0.9%) 1,000 mls @ 150 mls/hr IV CONT [facility] Last Admin: 07/15/18 21:21 Dose: Ceftriaxone Sodium/Dextrose (Rocephin) 2 gm in 50 mls @ 100 mls/hr IV Q24H [facility] Last Infusion: 07/15/18 19:42 Dose: 0 mls/hr Admin: 07/15/18 19:10 Dose: 100 mls/hr Metronidazole (Flagyl) 500 mg in 100 mls @ 100 mls/hr IV NOW ONE Stop: 07/15/18 20:05 Last Admin: 07/15/18 21:10 Dose: 100 mls/hr Ceftriaxone Sodium/Dextrose (Rocephin) 2 gm in 50 mls @ 100 mls/hr IV Q24H [facility] Stop: 07/19/18 20:29 Methylprednisolone (Solu-Medrol 125 Mg Vial) 125 mg IV NOW ONE Stop: 07/15/18 19:39 Last Admin: 07/15/18 19:42 Dose: 125 mg Ondansetron HCl (Zofran) 4 mg IV NOW ONE Stop: 07/15/18 15:06 Last Admin: 07/15/18 15:24 Dose: 4 mg Vital Signs - 8 hr 07/16/18 00:32 07/16/18 03:30 Temperature 97.3 F L Pulse Rate 85 Respiratory Rate 18 Blood Pressure 136/84 Pulse Oximetry 98 97 MDM - Nausea/Vomiting/Diarrhea <YONNY White - Last Filed: 07/15/18 22:03> Lab Data Result diagrams: 07/16/18 06:58 07/15/18 19:30 Lab Results 07/15/18 07/15/18 07/15/18 Range/Units 15:15 15:15 17:05 WBC 7.8 (4.5-11.0) X10^3/uL RBC 3.97 L (4.0-5.2) X10^6/uL Hgb 11.7 L (12.0-16.0) g/dL Hct 33.8 L (36-46) % MCV 85.2 (80-100) fL MCH 29.5 (26-34) PG MCHC 34.6 (30-36) % RDW 13.9 (11.6-14.8) % Plt Count 195 (150-400) X10^3/uL Neut % (Auto) 70.7 (50-75) % Lymph % (Auto) 12.0 L (25-40) % Isabella % (Auto) 13.4 (3-14) % Eos % (Auto) 3.5 (2-4) % Baso % (Auto) 0.4 (0-2) % Neut # (Auto) 5500 (9936-3779) /uL Sodium 126 L (137-145) mmol/L Potassium TNP Chloride 89 L (98-107) mmol/L Carbon Dioxide 19 L (22-32) mmol/L BUN 26 H (7-17) mg/dL Creatinine 2.20 H (0.52-1.04) mg/dL Estimated GFR 21.6 L (>60) mL/min BUN/Creatinine Ratio 11.8 (6-22) Glucose 87 (80-110) mg/dL Calcium 9.5 (8.4-10.2) mg/dL Total Bilirubin TNP AST TNP ALT 19 (9-52) IU/L Alkaline Phosphatase 29 L (38-126) U/L Total Protein 7.6 (6.3-8.2) g/dL Albumin 4.5 (3.5-5.0) g/dL Globulin 3.1 (1.7-4.1) g/dL Albumin/Globulin Ratio 1.5 (1.0-2.8) Urine RBC 1-5/hpf (0-5/HPF) Urine WBC 1-5/hpf (0-5/HPF) Ur Squamous Epith Cells 1-5 /hpf Urine Bacteria Occasional (0-1) (None) Hyaline Casts 5-10/lpf (None) Urine Mucus 1+ H (Negative) Ur Culture Indicated? Cult not indicated Micro UA Comment Not Reportable 07/15/18 07/16/18 Range/Units 19:30 06:58 WBC 3.5 L D (4.5-11.0) X10^3/uL RBC 3.86 L (4.0-5.2) X10^6/uL Hgb 11.2 L (12.0-16.0) g/dL Hct 32.9 L (36-46) % MCV 85.1 (80-100) fL MCH 29.0 (26-34) PG MCHC 34.1 (30-36) % RDW 13.7 (11.6-14.8) % Plt Count 184 (150-400) X10^3/uL Neut % (Auto) 87.9 H (50-75) % Lymph % (Auto) 9.7 L (25-40) % Isabella % (Auto) 2.2 L (3-14) % Eos % (Auto) 0.1 L (2-4) % Baso % (Auto) 0.1 (0-2) % Neut # (Auto) 3000 (4391-1763) /uL Sodium (137-145) mmol/L Potassium 3.4 Chloride (98-107) mmol/L Carbon Dioxide (22-32) mmol/L BUN (7-17) mg/dL Creatinine (0.52-1.04) mg/dL Estimated GFR (>60) mL/min BUN/Creatinine Ratio (6-22) Glucose (80-110) mg/dL Calcium (8.4-10.2) mg/dL Total Bilirubin AST ALT (9-52) IU/L Alkaline Phosphatase (38-126) U/L Total Protein (6.3-8.2) g/dL Albumin (3.5-5.0) g/dL Globulin (1.7-4.1) g/dL Albumin/Globulin Ratio (1.0-2.8) Urine RBC (0-5/HPF) Urine WBC (0-5/HPF) Ur Squamous Epith Cells Urine Bacteria (None) Hyaline Casts (None) Urine Mucus (Negative) Ur Culture Indicated? Micro UA Comment Urine Dip Bedside Urine Glucose Negative Bedside Urine Bilirubin - Negative Bedside Urine Ketone + 15 Urine Specific [place] 1.020 Bedside Urine Occult Blood - Negative Bedside Urine pH 6.0 Bedside Urine Protein - Negative Bedside Urine Urobilinogen - Negative Bedside Urine Nitrite - Negative Bedside Urine Leukocytes - Negative Esterase Imaging Data CT scan - abdomen: Radiologist's impression: [address] [address] [address] Scan Report Signed Patient: Michelle Bermeo [facility]#: [id number] : 1940Acct:[id number] Age/Sex: 78 / FDate of Service: 07/15/18 Loc: ED Accession Number: [id number] Procedure: CT abdomen pelvis wo con Ordering Provider: Redd Michelle PROCEDURE: CT ABDOMEN PELVIS WO CON INDICATIONS: Left lower quadrant pain TECHNIQUE: Noncontrast 5 mm thick sections acquired from the diaphragms to the symphysis. 5 mm coronal and sagittal reformats were then performed. For radiation dose reduction, the following was used: automated exposure control, adjustment of mA and/or kV according to patient size. COMPARISON: [facility], CT, ABDOMEN/PELVIS WITH CONTRAST, 04/17/2017, 10: 59. FINDINGS: Image quality: Excellent. ABDOMEN: Lung bases: There are mild subpleural groundglass opacities in the lung bases likely representing atelectasis. Heart size is normal. A small hiatal hernia is noted. Solid organs: Noncontrast evaluation of the liver demonstrates no focal hepatic lesions. Gallbladder appears within normal limits without calcified gallstones. Pancreas is normal in contours. Spleen is normal in size. No adrenal nodules. Kidneys demonstrate no hydronephrosis. Peritoneum and bowel: Small bowel loops demonstrate normal wall thickness and caliber. There is colonic diverticulosis throughout the colon. Along the proximal sigmoid colon, there is associated mild segmental wall thickening and inflammatory fat stranding compatible with diverticulitis. No macroscopic free air or evidence of diverticular abscess. There is trace adjacent fluid in the left paracolic gutter. Nodes and vessels: No retroperitoneal or mesenteric adenopathy by size criteria. Aorta and inferior vena cava are normal in caliber. There is prominent vascular calcification at the origin of the right renal artery. Miscellaneous: No ventral hernias. PELVIS: Genitourinary: Bladder wall thickness is normal. Miscellaneous: No inguinal hernias or adenopathy. Bones: No suspicious bony lesions. No vertebral body compression fractures. IMPRESSION: 1. Mild acute diverticulitis in the proximal sigmoid colon. Dictated by: Brown Zepeda M.D. on 07/15/2018 at 18:42 Approved by: Brown Zepeda M.D. on 07/15/2018 at 18:46 MDM Narrative Medical decision making narrative: CBC shows mild anemia otherwise is unremarkable. Chem panel shows decreased GFR of 21 and creatinine of 2.2 indicating acute renal failure most likely secondary to dehydration. CMP also shows hyponatremia most likely secondary to the nausea vomiting. She was given fluids and Zofran in the emergency room. CT of the abdomen shows diverticulitis with no abscess or free air. She is allergic to a ciprofloxacin so she was placed on Rocephin and Flagyl. Due to acute renal failure and hyponatremia unable to tolerate fluids discussed case with hospitalist Dr. Aldrich except patient for IV fluids and antibiotics. Patient admitted inpatient or <Kellie Jones MD - Last Filed: 07/16/18 07:40> Lab Data Lab Results 07/15/18 07/15/18 07/15/18 Range/Units 15:15 15:15 17:05 WBC 7.8 (4.5-11.0) X10^3/uL RBC 3.97 L (4.0-5.2) X10^6/uL Hgb 11.7 L (12.0-16.0) g/dL Hct 33.8 L (36-46) % MCV 85.2 (80-100) fL MCH 29.5 (26-34) PG MCHC 34.6 (30-36) % RDW 13.9 (11.6-14.8) % Plt Count 195 (150-400) X10^3/uL Neut % (Auto) 70.7 (50-75) % Lymph % (Auto) 12.0 L (25-40) % Isabella % (Auto) 13.4 (3-14) % Eos % (Auto) 3.5 (2-4) % Baso % (Auto) 0.4 (0-2) % Neut # (Auto) 5500 (5253-9449) /uL Sodium 126 L (137-145) mmol/L Potassium TNP Chloride 89 L (98-107) mmol/L Carbon Dioxide 19 L (22-32) mmol/L BUN 26 H (7-17) mg/dL Creatinine 2.20 H (0.52-1.04) mg/dL Estimated GFR 21.6 L (>60) mL/min BUN/Creatinine Ratio 11.8 (6-22) Glucose 87 (80-110) mg/dL Calcium 9.5 (8.4-10.2) mg/dL Total Bilirubin TNP AST TNP ALT 19 (9-52) IU/L Alkaline Phosphatase 29 L (38-126) U/L Total Protein 7.6 (6.3-8.2) g/dL Albumin 4.5 (3.5-5.0) g/dL Globulin 3.1 (1.7-4.1) g/dL Albumin/Globulin Ratio 1.5 (1.0-2.8) Urine RBC 1-5/hpf (0-5/HPF) Urine WBC 1-5/hpf (0-5/HPF) Ur Squamous Epith Cells 1-5 /hpf Urine Bacteria Occasional (0-1) (None) Hyaline Casts 5-10/lpf (None) Urine Mucus 1+ H (Negative) Ur Culture Indicated? Cult not indicated Micro UA Comment Not Reportable 07/15/18 07/16/18 Range/Units 19:30 06:58 WBC 3.5 L D (4.5-11.0) X10^3/uL RBC 3.86 L (4.0-5.2) X10^6/uL Hgb 11.2 L (12.0-16.0) g/dL Hct 32.9 L (36-46) % MCV 85.1 (80-100) fL MCH 29.0 (26-34) PG MCHC 34.1 (30-36) % RDW 13.7 (11.6-14.8) % Plt Count 184 (150-400) X10^3/uL Neut % (Auto) 87.9 H (50-75) % Lymph % (Auto) 9.7 L (25-40) % Isabella % (Auto) 2.2 L (3-14) % Eos % (Auto) 0.1 L (2-4) % Baso % (Auto) 0.1 (0-2) % Neut # (Auto) 3000 (2416-2619) /uL Sodium (137-145) mmol/L Potassium 3.4 Chloride (98-107) mmol/L Carbon Dioxide (22-32) mmol/L BUN (7-17) mg/dL Creatinine (0.52-1.04) mg/dL Estimated GFR (>60) mL/min BUN/Creatinine Ratio (6-22) Glucose (80-110) mg/dL Calcium (8.4-10.2) mg/dL Total Bilirubin AST ALT (9-52) IU/L Alkaline Phosphatase (38-126) U/L Total Protein (6.3-8.2) g/dL Albumin (3.5-5.0) g/dL Globulin (1.7-4.1) g/dL Albumin/Globulin Ratio (1.0-2.8) Urine RBC (0-5/HPF) Urine WBC (0-5/HPF) Ur Squamous Epith Cells Urine Bacteria (None) Hyaline Casts (None) Urine Mucus (Negative) Ur Culture Indicated? Micro UA Comment Urine Dip Bedside Urine Glucose Negative Bedside Urine Bilirubin - Negative Bedside Urine Ketone + 15 Urine Specific [place] 1.020 Bedside Urine Occult Blood - Negative Bedside Urine pH 6.0 Bedside Urine Protein - Negative Bedside Urine Urobilinogen - Negative Bedside Urine Nitrite - Negative Bedside Urine Leukocytes - Negative Esterase Discharge Plan Departure Patient Disposition: Admitted As Inpatient Clinical Impression: Diverticulitis, Acute hyponatremia, Acute renal failure Discharge Date/Time: 07/15/18 20:00 Interventions: ED Discharge Assessment Last Done: 07/15/18 19:20 Admit Date/Time: 07/15/18 19:14 Admit Provider: Rosemary Aldrich
[2018-07-15] MEDS: methylPREDNISolone 125 MG/2 ML VIAL IV (19:42)
[2018-07-15] MEDS: diphenhydrAMINE 50 MG/ML VIAL IV (19:42)
[2018-07-15 19:46] LABS: HEMOLYSIS < 15 (0-50); Potassium 3.4 mmol/L (3.4-5.1)
--- NOTE | 2018-07-15 19:46 | PC.NURSE ---
Called to pt room, c/o chest tightness and nausea, feels as if it is an allergic reaction to ceftriaxone. (just completed prior to call). Pt breath sounds distant but clear. Oral pharanx w/o swelling, airway clear, no hives. C/o anxiety feeling, able to deep breathe w/ relief of anxiety. Redd in to evaluate, medicated w/ solumedrol and benedryl IV.
--- NOTE | 2018-07-15 21:06 | P.HP_ITS ---
History of Present Illness Date Patient Seen: 07/15/18 Time Patient Seen: 18:39 Chief complaint: vomiting nausea x4 days Narrative: Patient is a very pleasant 78 yo female who usually see's Dr. Trejo. She was in her normal state of health until 3 days ago, Sunday morning, when she was feeling some soreness in her abdomen. She tried eating and ended up vomiting. Since that time she has been unable to keep anything in her stomach and has vomited a number of times. She has not had diarrhea. She has not had fever. She urinated last early yesterday. Came in today because she knows that she is dehydrated. Her skin is very dry and she is unable to eat, drink or urinate. Patient History Medical History Asthma (Chronic) Diverticular disease (Chronic) GERD (gastroesophageal reflux disease) (Chronic) GI bleeding (Chronic 03/2017) H. pylori infection (Chronic) Heart murmur (Chronic) Hyperlipidemia (Chronic) Hypertension (Chronic) Polymyalgia rheumatica (Chronic) Surgical History History of carpal tunnel repair (Resolved) History of cataract removal with insertion of prosthetic lens (Resolved) History of hemicolectomy (Resolved 10/2005) Status post appendectomy (Resolved) Status post arthroscopy (Resolved) Status post cardiac catheterization (Resolved 1998) Status post vaginal hysterectomy (Resolved 1999) Family & Social History Tobacco & Substance use: Smoking Status Former smoker alcohol intake never Meds Home Medications Medication Instructions Recorded Confirmed Type Vitamin D3 1 cap PO DAILY #0 01/09/12 07/15/18 History ascorbic acid (vitamin C) [Vitamin 1,000 mg PO DAILY #0 01/09/12 07/15/18 History C] omega [id number]-fish oil [[place]a] 1,280 mg PO DAILY #0 03/12/17 07/15/18 History vitamin B complex [B 1 tab PO DAILY #0 04/17/17 07/15/18 History Complex-Vitamin B12] prednisone 10 mg tablet 10 mg PO DAILY tab 06/03/18 07/15/18 History hydrochlorothiazide 25 mg tablet 25 mg PO DAILY #90 tab 07/09/18 07/15/18 Rx ibuprofen [Advil] 200 mg PO PRN PRN 07/15/18 07/15/18 History lactobacillus comb no.10 20,000 mmu cells PO DAILY 07/15/18 07/15/18 History [Probiotic] metoprolol succinate 100 mg PO QPM 07/15/18 07/15/18 History olmesartan 10 mg PO QPM 07/15/18 07/15/18 History omeprazole 20 mg PO QPM 07/15/18 07/15/18 History prednisone 2 mg PO DAILY 07/15/18 07/15/18 History trazodone 100 mg PO BEDTIME 07/15/18 07/15/18 History Allergies Allergy/AdvReac Type Severity Reaction Status Date / Time ciprofloxacin [CIPROFLOXACIN] Allergy Severe MUSCLE PAIN Verified 06/03/18 11:49 ceftriaxone Allergy Mild Anxiety Verified 07/15/18 19:53 methocarbamol [METHOCARBAMOL] Allergy Mild RASH/ROBAXI Verified 06/03/18 11:49 N Penicillins [PENICILLINS] Allergy Mild HIVES Verified 06/03/18 11:49 piroxicam [PIROXICAM] Allergy Mild RASH/FELDEN Verified 06/03/18 11:49 E temazepam [TEMAZEPAM] Allergy Mild NERVOUNESS/ Verified 06/03/18 11:49 RESTORIL Review of Systems Constitutional Constitutional: Reports anorexia, Reports difficulty sleeping, Denies fever(s), Reports lack of energy, Reports malaise and Reports weakness Cardiovascular Cardiovascular: Reports system reviewed; no additional complaints, except as documented Gastrointestinal Gastrointestinal: Reports abdominal pain, Denies melena, Reports change in bowel habits, Reports cramping, Reports nausea and Reports vomiting Genitourinary Genitourinary: Reports system reviewed and no additional complaints, except as documented Neurologic Neurologic: Reports weakness Exam Vital Signs (past 8 hours): - 07/15/18 13:44 07/15/18 16:05 07/15/18 18:38 Temperature 98.0 F Pulse Rate 114 H 91 H 98 H Respiratory Rate 20 14 14 Blood Pressure 116/73 Blood Pressure [Left Arm] 128/92 H 142/49 H Pulse Oximetry 97 99 98 07/15/18 19:43 07/15/18 19:50 Temperature Pulse Rate 105 H 100 H Respiratory Rate 97 H Blood Pressure Blood Pressure [Left Arm] 153/63 H 148/81 H Pulse Oximetry 97 97 Oxygen Delivery Method Room Air Const General: cooperative and well developed Nutritional Appearance: average body habitus and well nourished Orientation: alert, awake and oriented x3 Resp Effort & Inspection: normal respiratory effort and able to speak in complete sentences Auscultation: clear to auscultation bilaterally, no rales, no rhonchi and no wheezes Cardio Palpation: normal PMI Rate: regular rate Rhythm: regular rhythm Heart Sounds: murmur (LLSB) Pulses: radial pulses present and dorsalis pedis present GI Palpation: soft and guarding Extrem General: normal to inspection, no clubbing, cyanosis or edema and No pedal edema Psych Appearance: grossly normal and well kempt Mental Status: mental status grossly normal Speech and Movement: speech and movement normal Affect: normal affect Attitude: cooperative Thought Process: normal Thought Content: normal Judgment: judgment good Objective Labs Result Diagrams: 07/15/18 15:15 07/15/18 19:30 Labs: Laboratory Results - last 24 hr 07/15/18 07/15/18 07/15/18 15:15 15:15 17:05 WBC 7.8 RBC 3.97 L Hgb 11.7 L Hct 33.8 L MCV 85.2 MCH 29.5 MCHC 34.6 RDW 13.9 Plt Count 195 Neut % (Auto) 70.7 Lymph % (Auto) 12.0 L [place] % (Auto) 13.4 Eos % (Auto) 3.5 Baso % (Auto) 0.4 Neut # (Auto) 5500 Sodium 126 L Potassium TNP Chloride 89 L Carbon Dioxide 19 L BUN 26 H Creatinine 2.20 H Estimated GFR 21.6 L BUN/Creatinine Ratio 11.8 Glucose 87 Calcium 9.5 Total Bilirubin TNP AST TNP ALT 19 Alkaline Phosphatase 29 L Total Protein 7.6 Albumin 4.5 Globulin 3.1 Albumin/Globulin Ratio 1.5 Urine RBC 1-5/hpf Urine WBC 1-5/hpf Ur Squamous Epith Cells 1-5 /hpf Urine Bacteria Occasional (0-1) Hyaline Casts 5-10/lpf Urine Mucus 1+ H Ur Culture Indicated? Cult not indicated Micro UA Comment Not Reportable 07/15/18 19:30 WBC RBC Hgb Hct MCV MCH MCHC RDW Plt Count Neut % (Auto) Lymph % (Auto) [place] % (Auto) Eos % (Auto) Baso % (Auto) Neut # (Auto) Sodium Potassium 3.4 Chloride Carbon Dioxide BUN Creatinine Estimated GFR BUN/Creatinine Ratio Glucose Calcium Total Bilirubin AST ALT Alkaline Phosphatase Total Protein Albumin Globulin Albumin/Globulin Ratio Urine RBC Urine WBC Ur Squamous Epith Cells Urine Bacteria Hyaline Casts Urine Mucus Ur Culture Indicated? Micro UA Comment Assessment & Plan Plan: Assessment/Plan Narrative: 78 yo female with history of diverticulitis here today with another episode of diverticulitis. She has also developed acute renal failure secondary to dehydration. She did urinate after a liter of fluid in the emergency department. 1. Plan was to treat diverticulitis with ceftriaxone and metronidazole. Patient reacted to the ceftriaxone and was given benedryl and solumedrol. Unclear from chart if this was on her allergy list prior to administration. She has been treated for diverticulitis in the past and will discuss further with her in the morning about a replacement antibiotic for the ceftriaxone. 2. Will continue fluids for her dhydration and acute renal failure and hyponatremia. Repeat bmp in am. 3. NPO with sips and chips for now. Zofran. Consider NG tube if necessary. 4. Change omeprazole to protonix IV. 5. Resume home meds if able to tolerate PO in the morning. CODE STATUS: full code DVT prophylaxis: lovenox DISPOSITION: Home once recovered from the infection. She will require at least 2 midnights with fluids and parental antiboitics to make sure that this does not worsen. She has required colectomy for this in the past.
[2018-07-15] MEDS: metroNIDAZOLE 500 MG/100 ML PIGGYBACK 100 MG IV (21:10)
[2018-07-15] MEDS: MORPHINE 4 MG/ML INJ IV (21:19)
--- NOTE | 2018-07-15 21:39 | PC.NURSE ---
Pt arrived from ER this evening, stating weakness. Alert/awake oriented. States discomfort is on left side, hip, and across abdomen. Med w/ morphine 2mg per pt request (instead of 4mg as ordered) w/good relief. \ IV NS infusing into the LFA @ 150cc/hr via pump as per orders. Pt oriented to room and call system. Call light w/in reach, bed alarm on for pt safety.
[2018-07-16] VITALS (11 sets, daily range): BP systolic 131–150; BP diastolic 72–89; PULSE 66–85; RESP 16–19; TEMP 35.9–37.2; O2SAT 97–99
[2018-07-16] MEDS: metroNIDAZOLE 500 MG/100 ML PIGGYBACK 100 MG IV ×3 (03:39→20:02)
[2018-07-16] MEDS: SODIUM CHLORIDE 0.9% 1,000 ML 150 ML IV ×2 (03:39→12:24)
[2018-07-16 07:22] LABS: Add Manual Diff / Slide Review NO; Basophils Percent Auto 0.1 % (0-2); Eosinophils Percent Auto 0.1 % (2-4); Hematocrit 32.9 % (36-46); Hemoglobin 11.2 g/dL (12.0-16.0); Lymphocytes Percent Auto 9.7 % (25-40); Mean Corpuscular HGB Conc 34.1 % (30-36); Mean Corpuscular Volume 85.1 fL (80-100); Monocytes Percent Auto 2.2 % (3-14); Neutrophils Absolute Auto 3000 /uL (3000-5900); Neutrophils Percent Auto 87.9 % (50-75); Platelet Count 184 X10^3/uL (150-400); Red Blood Cell Count 3.86 X10^6/uL (4.0-5.2); Red Cell Distribution Width 13.7 % (11.6-14.8); White Blood Cell Count 3.5 X10^3/uL (4.5-11.0)
[2018-07-16 07:37] LABS: BUN Creatinine Ratio 12.8 (6-22); Blood Urea Nitrogen 23 mg/dL (7-17); Calcium 8.5 mg/dL (8.4-10.2); Carbon Dioxide 20 mmol/L (22-32); Chloride 97 mmol/L (98-107); Estimated Glomerular Filt Rate 27.2 mL/min (>60); Glucose 112 mg/dL (80-110); HEMOLYSIS < 15 (0-50); Potassium 4.1 mmol/L (3.4-5.1); Sodium 135 mmol/L (137-145)
--- NOTE | 2018-07-16 08:41 | CM.DANOTE ---
DCP: Case received, EMR reviewed and met with patient. Introduced self and role. DCP template completed with information currently available. Patient is a 78 year old female who admitted yesterday evening to the care of the hospitalist team. PCP: Dr. Trejo. Payer: confirmed: Medicare/[employer] Patient is a 78 year old female who presented symptoms of vomiting and dehydration. Patient carries diagnosis of acute renal failure, hyponatremia. Has had history of Diverticulitis. Patient alert and pleasant. Independent at home, lives with son. Stated she had not been feeling well for the last few days. P: DCP to continue to follow. Should be able to return home when stable. Sofya Durant RN/[employer] Machine Operator
[2018-07-16] MEDS: ENOXAPARIN 40 MG/0.4 ML SYRINGE SUBCUT (09:14)
--- NOTE | 2018-07-16 10:42 | PC.NURSE ---
Michelle is feeling a bit better this AM. She has tolerated taking in clear liquids. Denies nausea. Denies abd. pain. Labs slightly improved. VSS. Per Dr. Trejo she will select a new antibiotic for treatment. Michelle is able to move around in room and sit up in chair this AM.
--- NOTE | 2018-07-16 10:45 | PC.NURSE ---
Agree with student nurse assessment charting, though would add pt. does have a soft murmur, which she states is long-standing.
[2018-07-16] MEDS: DOXYCYCLINE 100 MG in SODIUM CHLORIDE 0.9% 100 ML IV ×2 (12:14→22:22)
--- NOTE | 2018-07-16 13:48 | P.PN_ITS ---
Subjective Date Patient Seen: 07/16/18 Time Patient Seen: 08:00 Interval history: Patient reports that she is feeling significantly improved this morning. She was able to sleep well last night. Her pain has decreased, and she is now feeling hungry again. She denies any significant nausea since coming into the hospital. She is very pleased with her progress. Exam Vital Signs (past 8 hours): - 07/16/18 07:00 07/16/18 07:40 07/16/18 11:00 Temperature 97.3 F L 97.4 F L Pulse Rate 82 83 Respiratory Rate 16 18 Blood Pressure 136/73 146/89 H Pulse Oximetry 98 97 97 Oxygen Delivery Method Room Air Oxygen Flow Rate 0 Narrative Exam Narrative: General: No acute distress, laying comfortably in bed, appears well Neck: No lymphadenopathy CV: Regular rate and rhythm, no murmurs Respiratory: Clear to auscultation bilaterally, no wheezes or crackles Abdomen: Soft, nondistended, normoactive bowel sounds, slight tenderness to the lower quadrants without rebound, guarding, or rigidity Extremities: No edema Objective Labs Result Diagrams: 07/16/18 06:58 07/16/18 06:58 Labs: Laboratory Results - last 24 hr 07/15/18 07/15/18 07/15/18 15:15 15:15 17:05 WBC 7.8 RBC 3.97 L Hgb 11.7 L Hct 33.8 L MCV 85.2 MCH 29.5 MCHC 34.6 RDW 13.9 Plt Count 195 Neut % (Auto) 70.7 Lymph % (Auto) 12.0 L [place] % (Auto) 13.4 Eos % (Auto) 3.5 Baso % (Auto) 0.4 Neut # (Auto) 5500 Sodium 126 L Potassium TNP Chloride 89 L Carbon Dioxide 19 L BUN 26 H Creatinine 2.20 H Estimated GFR 21.6 L BUN/Creatinine Ratio 11.8 Glucose 87 Calcium 9.5 Total Bilirubin TNP AST TNP ALT 19 Alkaline Phosphatase 29 L Total Protein 7.6 Albumin 4.5 Globulin 3.1 Albumin/Globulin Ratio 1.5 Urine RBC 1-5/hpf Urine WBC 1-5/hpf Ur Squamous Epith Cells 1-5 /hpf Urine Bacteria Occasional (0-1) Hyaline Casts 5-10/lpf Urine Mucus 1+ H Ur Culture Indicated? Cult not indicated Micro UA Comment Not Reportable 07/15/18 07/16/18 07/16/18 19:30 06:58 06:58 WBC 3.5 L D RBC 3.86 L Hgb 11.2 L Hct 32.9 L MCV 85.1 MCH 29.0 MCHC 34.1 RDW 13.7 Plt Count 184 Neut % (Auto) 87.9 H Lymph % (Auto) 9.7 L [place] % (Auto) 2.2 L Eos % (Auto) 0.1 L Baso % (Auto) 0.1 Neut # (Auto) 3000 Sodium 135 L Potassium 3.4 4.1 Chloride 97 L Carbon Dioxide 20 L BUN 23 H Creatinine 1.80 H Estimated GFR 27.2 L BUN/Creatinine Ratio 12.8 Glucose 112 H Calcium 8.5 Total Bilirubin AST ALT Alkaline Phosphatase Total Protein Albumin Globulin Albumin/Globulin Ratio Urine RBC Urine WBC Ur Squamous Epith Cells Urine Bacteria Hyaline Casts Urine Mucus Ur Culture Indicated? Micro UA Comment Assessment & Plan (1) Diverticulitis: Current visit: Yes Status: Acute (2) Acute hyponatremia: Current visit: Yes Status: Acute (3) Acute renal failure: Qualifiers: Acute renal failure type: unspecified Qualified Code(s): N17.9 - Acute kidney failure, unspecified Current visit: Yes Status: Acute (4) Essential hypertension: Current visit: No Status: Chronic Plan: Assessment/Plan Narrative: 78-year-old woman with hypertension, history of diverticulitis, and PMR who presented with abdominal pain and nausea. Found to have mild diverticulitis on CT scan of the abdomen, and evidence of MAKENNA with elevated creatinine. 1) Diverticulitis: Improving. Reaction to Ceftriaxone yesterday. - Doxycycline and Metronidazole - Continue mIVF - Advance to clear liquid diet 2) MAKENNA due to dehydration: Cr improved today - Continue to trend BMP - mIVF 3) HTN: BP stable - Continue HCTZ, Metoprolol, Olmesartan 4) PMR: - Continue Prednisone FEN: clear liquid diet Dispo: Pending continued improvement in abdominal pain and ability to advance diet. At least one additional midnight. Quality VTE Deep Vein Thrombosis/Pulmonary Embolism Present on Admission: No
[2018-07-16] MEDS: PANTOPRAZOLE 40 MG VIAL IV (14:17)
--- NOTE | 2018-07-16 14:27 | DIET.PN ---
Admit last night. Pt states she's been here before. Had colectomy r/t diverticulosis in 2005. Since then had small flairs which lead to blockage and difficulty with elimination. States she knows all about diet needs during different phases of diverticular dz. DX: Diverticulitis HX: colectomy 2005 Diet: Clear liquid MNA: 12 Normal nutrition status Assessment: Pt appears knowledgeable of diet recs for diverticular dz Intervention: Recommend when ready to start with low fiber diet. Once diverticular flare subsides, start advancing to high fiber diet. Encouraged a lot of fluid. Plan: Monitor progress
[2018-07-16] MEDS: predniSONE 1 MG TABLET 2 MG PO (15:47)
[2018-07-16] MEDS: predniSONE 10 MG TABLET PO (15:47)
[2018-07-16] MEDS: METOPROLOL ER 50 MG TABLET 100 MG PO (16:44)
[2018-07-16] MEDS: OLMESARTAN 5 MG TABLET 10 MG PO (16:45)
[2018-07-16] MEDS: TRAZODONE 100 MG TABLET PO (20:04)
[2018-07-16] MEDS: diphenhydrAMINE 25 MG TABLET PO (20:55)
[2018-07-17] VITALS (11 sets, daily range): BP systolic 131–152; BP diastolic 73–87; PULSE 62–83; RESP 16–18; TEMP 35.8–36.8; O2SAT 94–98
[2018-07-17] MEDS: HYDROCODONE/ACET 5/325 TABLET 1 TAB PO (00:04)
[2018-07-17] MEDS: metroNIDAZOLE 500 MG/100 ML PIGGYBACK 100 MG IV ×3 (03:54→20:25)
--- NOTE | 2018-07-17 08:51 | PM.PN.1 ---
Subjective Date Patient Seen: 07/17/18 Time Patient Seen: 08:20 Interval history: The pt reports that she feels significantly improved today. She is ready to try more advanced foods such as pudding. She states that her abdominal pain is minimal at this point. Her main concern is her weakness, which she feels has improved mildly since being in the hospital. She denies any nausea, diarrhea, blood in her stool, fevers, chills. Exam Vital Signs (past 8 hours): - 07/17/18 04:00 Temperature 97.4 F L Pulse Rate 83 Respiratory Rate 18 Blood Pressure 144/78 H Pulse Oximetry 97 Oxygen Delivery Method Room Air Oxygen Flow Rate 0 Narrative Exam Narrative: General: No acute distress, sitting comfortably in bed drinking tea, appears well Neck: No lymphadenopathy CV: Regular rate and rhythm, no murmurs Respiratory: Clear to auscultation bilaterally, no wheezes or crackles Abdomen: Soft, nondistended, normoactive bowel sounds, nontender to palpation Extremities: No edema Objective Labs Result Diagrams: 07/16/18 06:58 07/17/18 08:46 Assessment & Plan (1) Diverticulitis: Current visit: Yes Status: Acute (2) Acute hyponatremia: Current visit: Yes Status: Acute (3) Acute renal failure: Qualifiers: Acute renal failure type: unspecified Qualified Code(s): N17.9 - Acute kidney failure, unspecified Current visit: Yes Status: Acute (4) Essential hypertension: Current visit: No Status: Chronic Plan: Assessment/Plan Narrative: 78-year-old woman with hypertension, history of diverticulitis, and PMR who presented with abdominal pain and nausea. Found to have mild diverticulitis on CT scan of the abdomen, and evidence of MAKENNA with elevated creatinine. 1) Diverticulitis: Improved significantly. Reaction to Ceftriaxone on day of admission. - Continue IV Doxycycline and Metronidazole - Continue mIVF - Advance diet as tolerated 2) MAKENNA due to dehydration: Cr improved again today, not yet at baseline - Continue to trend BMP - mIVF 3) HTN: BP stable - Continue HCTZ, Metoprolol, Olmesartan 4) PMR: - Continue Prednisone Physical therapy evaluation today due to ongoing weakness. FEN: clear liquid diet Dispo: Likely ready for d/c tomorrow pending PT evaluation. Quality VTE Deep Vein Thrombosis/Pulmonary Embolism Present on Admission: No
[2018-07-17 09:51] LABS: BUN Creatinine Ratio 15.7 (6-22); Blood Urea Nitrogen 22 mg/dL (7-17); Calcium 7.3 mg/dL (8.4-10.2); Carbon Dioxide 20 mmol/L (22-32); Chloride 103 mmol/L (98-107); Estimated Glomerular Filt Rate 36.4 mL/min (>60); Glucose 91 mg/dL (80-110); HEMOLYSIS < 15 (0-50); Potassium 3.3 mmol/L (3.4-5.1); Sodium 136 mmol/L (137-145)
[2018-07-17] MEDS: FISH OIL 1,000 MG CAPSULE 1000 MG PO (10:21)
[2018-07-17] MEDS: ASCORBIC ACID 500 MG TABLET 1000 MG PO (10:21)
[2018-07-17] MEDS: predniSONE 1 MG TABLET 2 MG PO (10:21)
[2018-07-17] MEDS: predniSONE 10 MG TABLET PO (10:21)
[2018-07-17] MEDS: PANTOPRAZOLE 40 MG VIAL IV (10:22)
[2018-07-17] MEDS: hydroCHLOROthiazide 25 MG TABLET PO (10:22)
[2018-07-17] MEDS: DOXYCYCLINE 100 MG in SODIUM CHLORIDE 0.9% 100 ML IV ×2 (10:22→22:01)
[2018-07-17] MEDS: VITAMIN B COMPLEX 1 CAPSULE 1 CAP PO (10:22)
[2018-07-17] MEDS: LACTOBACILLUS ACIDOPHILUS TABLET 1 EACH PO (10:23)
[2018-07-17] MEDS: ENOXAPARIN 40 MG/0.4 ML SYRINGE SUBCUT (10:23)
--- NOTE | 2018-07-17 11:58 | PT.IPTN ---
Current Diagnoses Hypo-osmolality and hyponatremia (07/15/18) Essential (primary) hypertension (07/15/18) Diverticulitis of large intestine without perforation or abscess without bleeding (07/15/18) Diverticulitis of intestine, part unspecified, without perforation or abscess without bleeding (07/15/18) Acute kidney failure, unspecified (07/15/18) Physical Therapy Treatment Note M2 PT-IP Current Condition Start: 07/17/18 11:46 Freq: NEEDED Status: Active Protocol: Document 07/17/18 11:15 DCW (Rec: 07/17/18 11:57 DCW [id number]) Physical Therapy Current Condition Current Condition Evaluation Date 07/17/18 Treatment Diagnosis Weakness Onset Date 07/15/18 Weight Bearing Status Weight Bearing Status Full Weight Bearing M3 PT-IP Subjective Start: 07/17/18 11:46 Freq: NEEDED Status: Active Protocol: Document 07/17/18 11:15 DCW (Rec: 07/17/18 11:57 DCW [id number]) Subjective Physical Therapy Visit Type Type Initial Evaluation Visit Start Time 11:15 Visit Stop Time 11:43 Total Visit Minutes 28 Number of HANGERSMITH Visits 0 Physical Therapy Visit Comments Patient Comments I told them not to let me go home until I'm strong enough, because I don't want to come back here again. Therapy Pain Assessment Pain When Pain Assessed At Rest Pain Present Pain Present Pain Reported Location Abdomen Intensity 2 Scale Used Numeric (1 - 10) Description Aching M4 PT-IP Mobility and Gait Start: 07/17/18 11:46 Freq: NEEDED Status: Active Protocol: Document 07/17/18 11:15 DCW (Rec: 07/17/18 11:57 DCW [id number]) PT-Bed Mobility Assessment Rolling Type of Rolling Roll to Right Roll to Left Level of Assist Independent Supine to Sit Supine to Sit Independent Sit to Supine Sit to Supine Independent Scooting Scooting to Edge of Bed Independent PT-Transfer Assessment Sit to and From Stand Sit to and from Stand Standby Assistance Equipment Transfer Assistive Device Front Wheeled Walker Orthotic/Prosthetic Devices or Brace: No Transfer Ability Level of Assist Independent Gait Assessment Gait Gait Assistance Required: Standby Assistance Distance (Feet) 230 Able to Maintain Weight Bearing Status Yes During Gait Assistive Devices Assistive Device Gait Belt Front Wheeled Walker Orthotic/Prosthetic Devices or Brace: No Gait Deviations General Gait Pattern Within Normal Limits Comments Gait Comments Pt ambulated 200' using FWW, 30' using no assistive device Stair Climbing Assessment Evaluation Level of Assist On Stairs Standby Assistance Devices Stair Climbing Assistive Devices Left Railing Right Railing Technique/Endurance Stair Climbing Direction Ascend and Descend Stair Climbing Technique Step Over Step Number of Steps Climbed 3 Query Text: PT-Balance Assessment Sitting Balance and Reactions Static Sitting Balance Ability Normal Dynamic Sitting Balance Ability Normal Standing Balance and Reactions Static Standing Balance Ability Normal Dynamic Standing Balance Ability Good M5 PT-IP Objective Assessments Start: 07/17/18 11:46 Freq: NEEDED Status: Active Protocol: Document 07/17/18 11:15 DCW (Rec: 07/17/18 11:57 DCW [id number]) Orientation Orientation/Cognition Level of Alertness Alert Orientation Name Birthday Date Place Situation Language Function Ability No Deficits Noted Safety Awareness Understands Safety Issues Memory Description No Deficits Noted Gross Range of Motion Upper Extremity ROM Assessment Within Functional Limits Lower Extremity ROM Assessment Within Functional Limits Strength Upper Extremity Strength Assessment Within Functional Limits Lower Extremity Strength Assessment Bilaterally Impaired Comments Strength Comments LE MMT grossly 4/5, except left hip flexion 3+/5 M6 PT-IP Treatment Start: 07/17/18 11:46 Freq: NEEDED Status: Active Protocol: Document 07/17/18 11:15 DCW (Rec: 07/17/18 11:57 DCW [id number]) Physical Therapy Treatment Education Education Provided Safety M7 PT-IP Assessment and Plan Start: 07/17/18 11:46 Freq: NEEDED Status: Active Protocol: Document 07/17/18 11:15 DCW (Rec: 07/17/18 11:57 DCW [id number]) PT Summary Assessment and Plan Potential Rehabilitation Potential Excellent Status of Condition at Evaluation Stable Summary Impairments Strength Assessment Summary Pt admitted to [facility] two days ago due to vomiting, dehydration, and weakness secondary to Diverticulitis, as well as Acute Renal Failure and HTN. Pt is currently feeling much better, and displays safe ambulation both with and without an assistive device. Pt also demonstrates safe ascent/descent on stairs, and will likely be safe to return home when medically stable. Until pt is discharged , she would likely benefit from continuing with PT for LE strengthening. Goals Other Goals LE MMT grossly to 4+/5 Frequency of Treatment Frequency Of Treatment Once a Day Treatment Plan Physical Therapy Treatment Plan Therapeutic Exercise Balance Retraining Neuromuscular Re-ed Recommendations To Nursing Amount of Assist Needed Standby Assistance Discharge Recommendations PT Discharge Recommendations Home
--- NOTE | 2018-07-17 12:49 | PC.NURSE ---
Addendum entered by Ingrid Shepard R.N. 07/17/18 14:46: This Rn supervised and agrees with all SN charting. Original Note: Addendum entered by Jordan Bunch 07/17/18 13:31: pt c/o headache at 1330, medicated with tylenol per eMAR. Original Note: shift note assumed pt care at 0700. pt is a/o x3, no c/o nausea or pain during shift. ambulating SBA in room and with PT with FWW. pts diet was advanced and was able to tolerate full liquids for breakfast and regular diet for lunch. still presents with loose stools during shift. plan for d/c tomorrow. POC continues, bed in lowest locked position and call light within reach.
[2018-07-17] MEDS: ACETAMINOPHEN 325 MG TABLET 650 MG PO (13:27)
[2018-07-17] MEDS: SODIUM CHLORIDE 0.9% 1,000 ML 150 ML IV (16:25)
[2018-07-17] MEDS: IBUPROFEN 400 MG TABLET PO (16:49)
[2018-07-17] MEDS: OLMESARTAN 5 MG TABLET 10 MG PO (16:49)
[2018-07-17] MEDS: METOPROLOL ER 50 MG TABLET 100 MG PO (16:49)
[2018-07-17] MEDS: PANTOPRAZOLE 20 MG TABLET PO (21:59)
[2018-07-17] MEDS: ONDANSETRON 4 MG/2 ML INJ IV (22:30)
[2018-07-18] VITALS (9 sets, daily range): BP systolic 147–160; BP diastolic 79–99; PULSE 65–99; RESP 16–18; TEMP 36.4–36.8; O2SAT 98–100
--- NOTE | 2018-07-18 | DI.ECHO.S_ITS ---
[facility]---------+ [facility] +---------+ : : [address] : [place] [address] : : : : [id number] : : : : Phone: [phone]+ Echocardiogram Report + + :Name: SID SANCHEZ Study Date: 07/20/2018 Height: 66 in : :[facility] Exam Location: [facility] Weight: 161 lb : : Gender: Female BSA: 1.8 m2 : :: 1940 Age: 78 yrs BP: 160/90 mmHg: :Reason For Study: ELEVATED TROPONIN : : Performed By: James Amin : :Referring: ADITHYA ISLAS : + + Interpretation Summary Afib with controlled rate. Normal LV size, wall thickness, mild global hypokinesis. EF is 40-45%. Normal chamber sizes. Aortic sclerosis without stenosis. Otherwise no significant valvular abnormalities. Compared to prior study 09/14/2017 afib is new; cardiomyopathy is new. Procedure: A two-dimensional transthoracic echocardiogram with color flow and Doppler was performed. The study quality was technically adequate. Comparison is made with the echocardiogram of 09/14/17. The patient was in atrial fibrillation with controlled ventricular rate during the exam. Left Ventricle: The left ventricle is normal in size. There is normal left ventricular wall thickness. The ejection fraction is estimated to be 40-45%. Septal motion is consistent with conduction abnormality. Right Ventricle: The right ventricle is normal in size and function. Atria: Both atria are normal in size. The interatrial septum is intact with no evidence for an atrial septal defect. Mitral Valve: The mitral valve is normal in structure and function. There is mild mitral regurgitation. Aortic Valve: The aortic valve is trileaflet. The aortic valve is mildly calcified. There is no hemodynamically significant valvular aortic stenosis. No aortic regurgitation is present. Tricuspid Valve: The tricuspid valve is normal in structure and function. No tricuspid regurgitation. Pulmonary artery pressures cannot be estimated because of the lack of a measurable TR jet velocity. Pulmonic Valve: The pulmonic valve is normal in structure and function. There is no pulmonic valvular regurgitation. Great Vessels: The aortic root is normal size. The dimensions of the ascending aorta are normal. The pulmonary artery is normal size. The IVC is of normal diameter and collapses greater than 50% with a sniff. This suggests a low right atrial pressure of 3 mm Hg. Pericardium/ Pleura There is no pericardial effusion. There is no pleural effusion. MMode/2D Measurements & Calculations LVIDd: 5.3 cm LVOT diam: 2.1 cm LVIDs: 3.9 cm Ao root diam: 3.1 cm FS: 25.9 % Aortic Jxn: 2.4 cm EPSS: 1.1 cm asc Aorta Diam: 3.1 cm IVSd: 0.81 cm Ao Arch Diam (Prox Trans): 2.4 cm LVPWd: 0.89 cm LV arriaga. diameter/BSA (cm/m^2): 2.9 LV sys. diameter/BSA (cm/m^2): 2.1 LA dimension: 3.6 cm RA long axis: 4.1 cm LA A2 area: 19.0 cm2 RA area: 13.9 cm2 LA A4 area: 13.9 cm2 RA vol: 39.6 ml LA length (vol): 4.5 cm RA : 21.7 ml/m2 LA vol: 49.1 ml IVC diam: 1.2 cm LA vol index: 26.9 ml/m2 Doppler Measurements & Calculations Ao V2 max: 170.8 cm/sec LVOT Max Thony: 82.8 cm/sec Ao V2 mean: 132.0 cm/sec LV V1 max P.7 mmHg Ao max P.7 mmHg LV V1 VTI: 18.7 cm Ao mean P.5 mmHg VIC(I,D): 1.9 cm2 Ao V2 VTI: 35.1 cm VIC(V,D): 1.7 cm2 sev ratio: 0.53 VIC indexed to BSA (cm^2/m^2): 1.0 MV E max thony: 108.7 cm/sec PA V2 max: 61.6 cm/sec MV A max thony: 1.3 cm/sec PA V2 mean: 42.1 cm/sec MV E/A: 81.2 PA mean P.80 mmHg Med Peak E' Thony: 3.0 cm/sec PA pr(Accel): 44.1 mmHg E/E' med: 36.3 PA Accel Time: 0.07 sec Lat Peak E' Thony: 4.6 cm/sec E/E' lat: 23.4 E/e' average: 29.9 MV dec time: 0.10 sec Pulm A Revs Thony: 21.1 cm/sec Reading Physician:07:29 PM
--- NOTE | 2018-07-18 | DI.RAD.S_ITS ---
PROCEDURE: XR CHEST 1V INDICATIONS: short of breath TECHNIQUE: One view of the chest was acquired. COMPARISON: [facility], , CHEST 1 VIEW, 03/12/2017, 14:59. FINDINGS: Surgical changes and devices: None. Lungs and pleura: No pleural effusions or pneumothorax. Mild increased pulmonary vascularity is present. Calcification is unchanged overlying the right midlung. Mediastinum: Mediastinal contours appear normal. Heart size is normal. Bones and chest wall: No suspicious bony lesions. Overlying soft tissues appear unremarkable. IMPRESSION: Mild increased vascularity suggestive of edema. Dictated by: Prema Townsend M.D. on 07/18/2018 at 9:16 Approved by: Prema Townsend M.D. on 07/18/2018 at 9:17
[2018-07-18] MEDS: TRAZODONE 100 MG TABLET PO (00:37)
[2018-07-18] MEDS: SODIUM CHLORIDE 0.9% 1,000 ML 150 ML IV (00:43)
[2018-07-18] MEDS: FUROSEMIDE 40 MG/4 ML VIAL IV ×2 (03:20→13:15)
[2018-07-18] MEDS: metroNIDAZOLE 500 MG/100 ML PIGGYBACK 100 MG IV ×3 (04:05→15:52)
--- NOTE | 2018-07-18 05:23 | PC.NURSE ---
Addendum entered by Annmarie Luu R.N. 07/18/18 05:38: 0415 up to bed bs, voided 350ml yellow urine Original Note: [address] Michael w/call returned; notified of Pt incr'd sob, audible wheezing, crackles in L base, scattered wheezes, bp incr'd to 160/96 -171/92 hr 65-80. also that fluids had been stopped, hob incr'd to high fowlers and 02 at 2L placed. pt denied chest or other pain but did report heaviness in chest w/deep breaths & that it felt a bit better sitting up w/and 02 on. new orders rec'd for 40mg of iv lasix x's 1 now and to SL IV.
[2018-07-18 06:38] LABS: BUN Creatinine Ratio 15.8 (6-22); Blood Urea Nitrogen 19 mg/dL (7-17); Carbon Dioxide 19 mmol/L (22-32); Chloride 105 mmol/L (98-107); Estimated Glomerular Filt Rate 43.4 mL/min (>60); Glucose 78 mg/dL (80-110); HEMOLYSIS < 15 (0-50); Potassium 3.3 mmol/L (3.4-5.1); Sodium 136 mmol/L (137-145)
--- NOTE | 2018-07-18 07:51 | PM.PN.1 ---
Subjective Date Patient Seen: 07/18/18 Time Patient Seen: 07:51 Interval history: Patient seen and evaluated this morning. Had a difficult night last night. Had some chest heaviness and shortness of breath. Required her to be able to sit up in bed. Could not lay down flat. She has never had this before. She is requiring some oxygen. On duty night physician gave Lasix. It has helped a little bit. On my evaluation this morning she has nasal cannula oxygen. She is not in significant respiratory distress or oxygen status is stable and vital signs are stable. She says she did not sleep well she is tired and she does not want to go home. Has minimal abdominal discomfort. Exam Vital Signs (past 8 hours): - 07/18/18 03:05 07/18/18 07:30 Temperature 97.7 F Pulse Rate 66 Respiratory Rate 18 Blood Pressure 160/96 H Pulse Oximetry 98 99 Oxygen Delivery Method Nasal Cannula Oxygen Flow Rate 2 Narrative Exam Narrative: Gen.: Alert and oriented x3 no apparent distress. HEENT: NCAT PERRLA oral mucosa is moist no tonsillar hypertrophy neck is supple without lymphadenopathy Cardio: S1-S2 regular rate and rhythm no murmurs appreciated. Respiratory: Lungs show crackles at lung bases normal respiratory effort Abdomen: Mild tenderness right lower quadrant Extremities: Edema to the lower extremities. Mild Objective Labs Result Diagrams: 07/16/18 06:58 07/18/18 06:10 Labs: Laboratory Results - last 24 hr 07/17/18 07/18/18 08:46 06:10 Sodium 136 L 136 L Potassium 3.3 L 3.3 L Chloride 103 105 Carbon Dioxide 20 L 19 L BUN 22 H 19 H Creatinine 1.40 H 1.20 H Estimated GFR 36.4 L 43.4 L BUN/Creatinine Ratio 15.7 15.8 Glucose 91 78 L Calcium 7.3 L 7.0 L Assessment & Plan Plan: Assessment/Plan Narrative: Acute respiratory failure. Happened last night. Unsure etiology. Requiring oxygen. She was quite hypertensive tachycardic and hypoxic. She was given a dose of Lasix. Differential diagnosis includes fluid overload. Versus acute coronary event verses possible pulmonary emboli. Most likely is fluid overload. Obtain chest x-ray cardiac enzymes EKG BNP this morning. If all that is normal. May add in her included D-dimer and further evaluation of her lungs although I am reluctant to do that due to her recent kidney injury and giving her contrast. Diverticulitis. Currently on antibiotics. Afebrile white blood cell count is stable. Patient states she is improved from that standpoint. Diet was advanced yesterday and she is tolerating. Acute kidney injury. Kidney function is returning back to baseline. Although still not normal. Electrolytes are little bit out of balance. Continue to monitor kidney function. Hypokalemia. Given Lasix last night. Acute kidney injury. Provided K rider today of 40 mEq of potassium re-evaluate tomorrow. Essential hypertension. Blood pressure was a little high last night better now. Will continue to monitor. Disposition plan. Patient will be in the hospital for an additional 24-48 allergies further workup and evaluation of her acute respiratory event although she stabilized now. She will continue with her antibiotics for her diverticulitis monitor electrolytes and kidney function. Quality VTE Deep Vein Thrombosis/Pulmonary Embolism Present on Admission: No
[2018-07-18 08:34] LABS: Creatine Kinase 80 U/L (30-135)
--- NOTE | 2018-07-18 08:56 | PT.IPTN ---
Current Diagnoses Hypo-osmolality and hyponatremia (07/15/18) Essential (primary) hypertension (07/15/18) Diverticulitis of large intestine without perforation or abscess without bleeding (07/15/18) Diverticulitis of intestine, part unspecified, without perforation or abscess without bleeding (07/15/18) Acute kidney failure, unspecified (07/15/18) Physical Therapy Treatment Note M2 PT-IP Current Condition Start: 07/17/18 11:46 Freq: NEEDED Status: Active Protocol: Document 07/17/18 11:15 DCW (Rec: 07/17/18 11:57 DCW [id number]) Physical Therapy Current Condition Current Condition Evaluation Date 07/17/18 Treatment Diagnosis Weakness Onset Date 07/15/18 Weight Bearing Status Weight Bearing Status Full Weight Bearing M3 PT-IP Subjective Start: 07/17/18 11:46 Freq: NEEDED Status: Active Protocol: Document 07/18/18 08:55 LR (Rec: 07/18/18 11:56 LR [id number]) Subjective Physical Therapy Visit Type Type Patient Refusal Notes Pt refused treatment d/t difficulty breathing & a difficult night d/t breathing issues. Check on pt again in PM M4 PT-IP Mobility and Gait Start: 07/17/18 11:46 Freq: NEEDED Status: Active Protocol: Document 07/17/18 11:15 DCW (Rec: 07/17/18 11:57 DCW [id number]) PT-Bed Mobility Assessment Rolling Type of Rolling Roll to Right Roll to Left Level of Assist Independent Supine to Sit Supine to Sit Independent Sit to Supine Sit to Supine Independent Scooting Scooting to Edge of Bed Independent PT-Transfer Assessment Sit to and From Stand Sit to and from Stand Standby Assistance Equipment Transfer Assistive Device Front Wheeled Walker Orthotic/Prosthetic Devices or Brace: No Transfer Ability Level of Assist Independent Gait Assessment Gait Gait Assistance Required: Standby Assistance Distance (Feet) 230 Able to Maintain Weight Bearing Status Yes During Gait Assistive Devices Assistive Device Gait Belt Front Wheeled Walker Orthotic/Prosthetic Devices or Brace: No Gait Deviations General Gait Pattern Within Normal Limits Comments Gait Comments Pt ambulated 200' using FWW, 30' using no assistive device Stair Climbing Assessment Evaluation Level of Assist On Stairs Standby Assistance Devices Stair Climbing Assistive Devices Left Railing Right Railing Technique/Endurance Stair Climbing Direction Ascend and Descend Stair Climbing Technique Step Over Step Number of Steps Climbed 3 Query Text: PT-Balance Assessment Sitting Balance and Reactions Static Sitting Balance Ability Normal Dynamic Sitting Balance Ability Normal Standing Balance and Reactions Static Standing Balance Ability Normal Dynamic Standing Balance Ability Good M5 PT-IP Objective Assessments Start: 07/17/18 11:46 Freq: NEEDED Status: Active Protocol: Document 07/17/18 11:15 DCW (Rec: 07/17/18 11:57 DC [id number]) Orientation Orientation/Cognition Level of Alertness Alert Orientation Name Birthday Date Place Situation Language Function Ability No Deficits Noted Safety Awareness Understands Safety Issues Memory Description No Deficits Noted Gross Range of Motion Upper Extremity ROM Assessment Within Functional Limits Lower Extremity ROM Assessment Within Functional Limits Strength Upper Extremity Strength Assessment Within Functional Limits Lower Extremity Strength Assessment Bilaterally Impaired Comments Strength Comments LE MMT grossly 4/5, except left hip flexion 3+/5 M6 PT-IP Treatment Start: 07/17/18 11:46 Freq: NEEDED Status: Active Protocol: Document 07/17/18 11:15 DCW (Rec: 07/17/18 11:57 DCW [id number]) Physical Therapy Treatment Education Education Provided Safety M7 PT-IP Assessment and Plan Start: 07/17/18 11:46 Freq: NEEDED Status: Active Protocol: Document 07/17/18 11:15 DCW (Rec: 07/17/18 11:57 DC [id number]) PT Summary Assessment and Plan Potential Rehabilitation Potential Excellent Status of Condition at Evaluation Stable Summary Impairments Strength Assessment Summary Pt admitted to [facility] two days ago due to vomiting, dehydration, and weakness secondary to Diverticulitis, as well as Acute Renal Failure and HTN. Pt is currently feeling much better, and displays safe ambulation both with and without an assistive device. Pt also demonstrates safe ascent/descent on stairs, and will likely be safe to return home when medically stable. Until pt is discharged , she would likely benefit from continuing with PT for LE strengthening. Goals Other Goals LE MMT grossly to 4+/5 Frequency of Treatment Frequency Of Treatment Once a Day Treatment Plan Physical Therapy Treatment Plan Therapeutic Exercise Balance Retraining Neuromuscular Re-ed Recommendations To Nursing Amount of Assist Needed Standby Assistance Discharge Recommendations PT Discharge Recommendations Home
[2018-07-18 09:30] LABS: Troponin I 0.139 ng/mL (0.01-0.034)
[2018-07-18] MEDS: PANTOPRAZOLE 40 MG VIAL IV (10:17)
[2018-07-18] MEDS: ASPIRIN 325 MG TABLET PO (10:17)
[2018-07-18] MEDS: POTASSIUM CHLORIDE 40 MEQ in SODIUM CHLORIDE 0.9% 500 ML 130 ML IV (10:17)
[2018-07-18] MEDS: ENOXAPARIN 40 MG/0.4 ML SYRINGE SUBCUT (10:21)
[2018-07-18] MEDS: hydroCHLOROthiazide 25 MG TABLET PO (10:24)
[2018-07-18] MEDS: LACTOBACILLUS ACIDOPHILUS TABLET 1 EACH PO (10:24)
[2018-07-18] MEDS: predniSONE 10 MG TABLET PO (10:25)
[2018-07-18] MEDS: predniSONE 1 MG TABLET 2 MG PO (10:25)
--- NOTE | 2018-07-18 11:44 | PM.PN.1 ---
Subjective Date Patient Seen: 07/18/18 Time Patient Seen: 11:44 Interval history: Re-evaluation patient's blood work. Patient stable vital signs are stable respiratory status is stable. She is on oxygen and metal control coordinator. Reviewed recent cardiac enzymes and EKG chest x-ray. Exam Vital Signs (past 8 hours): - 07/18/18 07:30 07/18/18 10:27 Pulse Oximetry 99 99 Oxygen Delivery Method Nasal Cannula Oxygen Flow Rate 1 Objective Labs Result Diagrams: 07/16/18 06:58 07/18/18 06:10 Labs: Laboratory Results - last 24 hr 07/18/18 07/18/18 07/18/18 06:10 06:10 06:10 Sodium 136 L Potassium 3.3 L Chloride 105 Carbon Dioxide 19 L BUN 19 H Creatinine 1.20 H Estimated GFR 43.4 L BUN/Creatinine Ratio 15.8 Glucose 78 L Calcium 7.0 L Total Creatine Kinase 80 CK-MB (CK-2) TNP CK-MB (CK-2) Rel Index TNP Troponin I 0.139 H* B-Natriuretic Peptide 881.0 H Assessment & Plan Plan: Assessment/Plan Narrative: Elevated cardiac enzyme with episode of chest pressure last evening and respiratory distress. This could be acute coronary syndrome although her EKG looks completely normal now she is asymptomatic no pain no chest pressure shortness of breath has resolved. I am not sure if her elevated troponin is from an acute event or underlying kidney injury. Her BNP is elevated as well as well as her chest x-ray shows increased bronchovascular markings consistent with fluid overload. Will go ahead and add an aspirin into her daily regiment. He is already on a beta-pro. She is on Lovenox and we written for morphine. Patient is stable and having no pain or pressure. Will continue to monitor serial cardiac enzymes throughout the day. If they continue to elevate then that would make me consider more an acute event been something in the past. At that point we may be want to get Cardiology involved although she may not be a good candidate for cardiac catheterization due to her recent kidney injury and her elevated creatinine. So medical treatment may be best at this time. Will go ahead and treat her with aspirin beta-pro morphine she is already on an PATTIE-inhibitor oxygen and monitor with metal control coordinator serial cardiac enzymes. Acute respiratory distress. Chest x-ray shows fluid overload. Order an echocardiogram her BMP is elevated. The cause of the pulmonary edema could be fluid overload could be due to underlying heart event or heart failure. Echocardiogram is pending will give her another dose of Lasix. She is getting potassium are ready for her low potassium and will continue to monitor electrolytes. Quality VTE Deep Vein Thrombosis/Pulmonary Embolism Present on Admission: No
--- NOTE | 2018-07-18 11:47 | P.PN_ITS ---
Subjective Date Patient Seen: 07/18/18 Time Patient Seen: 11:44 Interval history: Re-evaluation patient's blood work. Patient stable vital signs are stable respiratory status is stable. She is on oxygen and library monitor. Reviewed recent cardiac enzymes and EKG chest x-ray. Exam Vital Signs (past 8 hours): - 07/18/18 07:30 07/18/18 10:27 Pulse Oximetry 99 99 Oxygen Delivery Method Nasal Cannula Oxygen Flow Rate 1 Objective Labs Result Diagrams: 07/16/18 06:58 07/18/18 06:10 Labs: Laboratory Results - last 24 hr 07/18/18 07/18/18 07/18/18 06:10 06:10 06:10 Sodium 136 L Potassium 3.3 L Chloride 105 Carbon Dioxide 19 L BUN 19 H Creatinine 1.20 H Estimated GFR 43.4 L BUN/Creatinine Ratio 15.8 Glucose 78 L Calcium 7.0 L Total Creatine Kinase 80 CK-MB (CK-2) TNP CK-MB (CK-2) Rel Index TNP Troponin I 0.139 H* B-Natriuretic Peptide 881.0 H Assessment & Plan Plan: Assessment/Plan Narrative: Elevated cardiac enzyme with episode of chest pressure last evening and respiratory distress. This could be acute coronary syndrome although her EKG looks completely normal now she is asymptomatic no pain no chest pressure shortness of breath has resolved. I am not sure if her elevated troponin is from an acute event or underlying kidney injury. Her BNP is elevated as well as well as her chest x-ray shows increased bronchovascular markings consistent with fluid overload. Will go ahead and add an aspirin into her daily regiment. He is already on a beta-pro. She is on Lovenox and we written for morphine. Patient is stable and having no pain or pressure. Will continue to monitor serial cardiac enzymes throughout the day. If they continue to elevate then that would make me consider more an acute event been something in the past. At that point we may be want to get Cardiology involved although she may not be a good candidate for cardiac catheterization due to her recent kidney injury and her elevated creatinine. So medical treatment may be best at this time. Will go ahead and treat her with aspirin beta-pro morphine she is already on an PATTIE-inhibitor oxygen and monitor with library monitor serial cardiac enzymes. Acute respiratory distress. Chest x-ray shows fluid overload. Order an echocardiogram her BMP is elevated. The cause of the pulmonary edema could be fluid overload could be due to underlying heart event or heart failure. Echocardiogram is pending will give her another dose of Lasix. She is getting potassium are ready for her low potassium and will continue to monitor electrolytes. Quality VTE Deep Vein Thrombosis/Pulmonary Embolism Present on Admission: No
[2018-07-18] MEDS: ONDANSETRON 4 MG/2 ML INJ IV (12:48)
--- NOTE | 2018-07-18 14:22 | PT.IPTN ---
Current Diagnoses Hypo-osmolality and hyponatremia (07/15/18) Essential (primary) hypertension (07/15/18) Diverticulitis of large intestine without perforation or abscess without bleeding (07/15/18) Diverticulitis of intestine, part unspecified, without perforation or abscess without bleeding (07/15/18) Acute kidney failure, unspecified (07/15/18) Physical Therapy Treatment Note M2 PT-IP Current Condition Start: 07/17/18 11:46 Freq: NEEDED Status: Active Protocol: Document 07/17/18 11:15 DCW (Rec: 07/17/18 11:57 DCW [id number]) Physical Therapy Current Condition Current Condition Evaluation Date 07/17/18 Treatment Diagnosis Weakness Onset Date 07/15/18 Weight Bearing Status Weight Bearing Status Full Weight Bearing M3 PT-IP Subjective Start: 07/17/18 11:46 Freq: NEEDED Status: Active Protocol: Document 07/18/18 14:21 GGD (Rec: 07/18/18 14:22 GGD [id number]) Subjective Physical Therapy Visit Type Notes Hold per RN, pt is very tired and been up to BSC a lot. Will check on pt in the AM. Amount of Assist Needed Standby Assistance Discharge Recommendations PT Discharge Recommendations Home
--- NOTE | 2018-07-18 14:28 | PC.NURSE ---
Day Shift-Pt states feeling slightly SOB on rest and SOBOE, less than the episode at 0300 this AM. OOB frequently to BSC, approx 10 times. Total urine output at this time has been 4680mls. Spoke with Dr. Oswald at 0750 and again at 1000 to be made aware of critical value of Troponin 0.139 and BNP of 881. New order rec'd for 325mg aspirin X1 and Telemetry monitoring. 2 Attempts made starting at [address] Oswald's office answering service. Spoke again with Dr. Oswald at 1150 for update, plan for cardiac emzymes repeat at 1500, ECHO, additional dose of 40mg IV lasix that was given at 1230. Potassium bolus IV started through left FA PIV, PIV attempt made by another RN that was unsuccessul, pt did not want another try, aware that staff wanted to place another IV for ABX infusion. Therefor ABX infusions are late on administration due to K+ infusion.
[2018-07-18] MEDS: DOXYCYCLINE 100 MG in SODIUM CHLORIDE 0.9% 100 ML IV ×2 (14:35→21:16)
[2018-07-18 14:59] LABS: Creatine Kinase 82 U/L (30-135)
[2018-07-18 15:13] LABS: Troponin I 0.219 ng/mL (0.01-0.034)
--- NOTE | 2018-07-18 16:36 | PM.PN.1 ---
Subjective Date Patient Seen: 07/18/18 Time Patient Seen: 16:37 Interval history: Patient seen and evaluated. Doing better. Respiratory status is improved. On oxygen. She says she feels better a little bit tired. Updated on recent laboratory tests. Reviewed labs and EKGs. Exam Vital Signs (past 8 hours): - 07/18/18 10:27 07/18/18 11:10 Temperature 98.0 F Pulse Rate 71 Respiratory Rate 18 Blood Pressure 147/80 H Pulse Oximetry 99 100 Oxygen Delivery Method Nasal Cannula Oxygen Flow Rate 1 Narrative Exam Narrative: General: Alert no apparent distress Cardio: S1-S2 Respiratory: Mild increased work of breathing mild crackles Extremities: Mild edema Objective Labs Result Diagrams: 07/16/18 06:58 07/18/18 06:10 Labs: Laboratory Results - last 24 hr 07/18/18 07/18/18 07/18/18 06:10 06:10 06:10 Sodium 136 L Potassium 3.3 L Chloride 105 Carbon Dioxide 19 L BUN 19 H Creatinine 1.20 H Estimated GFR 43.4 L BUN/Creatinine Ratio 15.8 Glucose 78 L Calcium 7.0 L Total Creatine Kinase 80 CK-MB (CK-2) TNP CK-MB (CK-2) Rel Index TNP Troponin I 0.139 H* B-Natriuretic Peptide 881.0 H 07/18/18 14:43 Sodium Potassium Chloride Carbon Dioxide BUN Creatinine Estimated GFR BUN/Creatinine Ratio Glucose Calcium Total Creatine Kinase 82 CK-MB (CK-2) TNP CK-MB (CK-2) Rel Index TNP Troponin I 0.219 H* B-Natriuretic Peptide Assessment & Plan Plan: Assessment/Plan Narrative: Non ST wave myocardial infarction. Patient's troponins have increased. EKG shows no changes. No a current chest pain. Discussed with Cardiology. Continue with medical treatment at this point due to no EKG changes. Also concerned about her recent elevation of her creatinine. Continue with beta-pro aspirin will go ahead and put her on a statin. She is on DVT prophylaxis thinks Lovenox. Continue to monitor for. Echocardiogram is pending at this point. Acute respiratory distress. Pulmonary edema. Can't exclude DVT. Go ahead and by a lateral duplex Doppler of her lower extremities as I imagine her to D-dimer is going to be high any ways. I will hold off on CT angiogram of her chest due to the fact that she recently had kidney failure and I do not want to have exacerbated that problem. Await echocardiogram results to determine if there is systemic heart failure. Or right heart strain due to possible DVT Discussed care with Cardiology on-call. Quality VTE Deep Vein Thrombosis/Pulmonary Embolism Present on Admission: No
--- NOTE | 2018-07-18 16:40 | P.PN_ITS ---
Subjective Date Patient Seen: 07/18/18 Time Patient Seen: 16:37 Interval history: Patient seen and evaluated. Doing better. Respiratory status is improved. On oxygen. She says she feels better a little bit tired. Updated on recent laboratory tests. Reviewed labs and EKGs. Exam Vital Signs (past 8 hours): - 07/18/18 10:27 07/18/18 11:10 Temperature 98.0 F Pulse Rate 71 Respiratory Rate 18 Blood Pressure 147/80 H Pulse Oximetry 99 100 Oxygen Delivery Method Nasal Cannula Oxygen Flow Rate 1 Narrative Exam Narrative: General: Alert no apparent distress Cardio: S1-S2 Respiratory: Mild increased work of breathing mild crackles Extremities: Mild edema Objective Labs Result Diagrams: 07/16/18 06:58 07/18/18 06:10 Labs: Laboratory Results - last 24 hr 07/18/18 07/18/18 07/18/18 06:10 06:10 06:10 Sodium 136 L Potassium 3.3 L Chloride 105 Carbon Dioxide 19 L BUN 19 H Creatinine 1.20 H Estimated GFR 43.4 L BUN/Creatinine Ratio 15.8 Glucose 78 L Calcium 7.0 L Total Creatine Kinase 80 CK-MB (CK-2) TNP CK-MB (CK-2) Rel Index TNP Troponin I 0.139 H* B-Natriuretic Peptide 881.0 H 07/18/18 14:43 Sodium Potassium Chloride Carbon Dioxide BUN Creatinine Estimated GFR BUN/Creatinine Ratio Glucose Calcium Total Creatine Kinase 82 CK-MB (CK-2) TNP CK-MB (CK-2) Rel Index TNP Troponin I 0.219 H* B-Natriuretic Peptide Assessment & Plan Plan: Assessment/Plan Narrative: Non ST wave myocardial infarction. Patient's troponins have increased. EKG shows no changes. No a current chest pain. Discussed with Cardiology. Continue with medical treatment at this point due to no EKG changes. Also concerned about her recent elevation of her creatinine. Continue with beta- pro aspirin will go ahead and put her on a statin. She is on DVT prophylaxis thinks Lovenox. Continue to monitor for. Echocardiogram is pending at this point. Acute respiratory distress. Pulmonary edema. Can't exclude DVT. Go ahead and by a lateral duplex Doppler of her lower extremities as I imagine her to D- dimer is going to be high any ways. I will hold off on CT angiogram of her chest due to the fact that she recently had kidney failure and I do not want to have exacerbated that problem. Await echocardiogram results to determine if there is systemic heart failure. Or right heart strain due to possible DVT Discussed care with Cardiology on-call. Quality VTE Deep Vein Thrombosis/Pulmonary Embolism Present on Admission: No
[2018-07-18] MEDS: METOPROLOL ER 50 MG TABLET 100 MG PO (17:28)
[2018-07-18] MEDS: OLMESARTAN 5 MG TABLET 10 MG PO (17:29)
[2018-07-18] MEDS: ATORVASTATIN 20 MG TABLET 40 MG PO (21:16)
[2018-07-18] MEDS: PANTOPRAZOLE 20 MG TABLET PO (21:16)
[2018-07-18 21:19] LABS: Creatine Kinase 57 U/L (30-135)
[2018-07-18 21:34] LABS: Troponin I 0.205 ng/mL (0.01-0.034)
[2018-07-19] VITALS (12 sets, daily range): BP systolic 123–151; BP diastolic 68–85; PULSE 67–85; RESP 16–18; TEMP 36.6–36.7; O2SAT 94–100
--- NOTE | 2018-07-19 | DI.US.S_ITS ---
PROCEDURE: US PERIPH VENOUS LOW EXTREM BI INDICATIONS: SOB TECHNIQUE: Real-time imaging, as well as color and pulse Doppler interrogation, were performed of the deep veins of both legs from the inguinal ligament to the popliteal fossa. COMPARISON: None. FINDINGS: The deep veins are normally compressible, and free of intraluminal thrombus. Color and pulse Doppler demonstrate normal phasic intravascular flow. There is normal augmentation response to distal compression maneuver. IMPRESSION: No DVT found bilaterally. Dictated by: Manoj Crum M.D. on 07/19/2018 at 9:10 Approved by: Manoj Crum M.D. on 07/19/2018 at 9:10
[2018-07-19] MEDS: TRAZODONE 100 MG TABLET PO ×2 (00:36→20:21)
[2018-07-19] MEDS: metroNIDAZOLE 500 MG/100 ML PIGGYBACK 100 MG IV ×2 (00:37→08:23)
[2018-07-19 07:45] LABS: BUN Creatinine Ratio 14.6 (6-22); Blood Urea Nitrogen 19 mg/dL (7-17); Calcium 7.5 mg/dL (8.4-10.2); Carbon Dioxide 27 mmol/L (22-32); Chloride 99 mmol/L (98-107); Estimated Glomerular Filt Rate 39.6 mL/min (>60); Glucose 75 mg/dL (80-110); HEMOLYSIS < 15 (0-50); Potassium 3.4 mmol/L (3.4-5.1); Sodium 137 mmol/L (137-145)
[2018-07-19] MEDS: SODIUM CHLORIDE 0.9% FLUSH 10 ML IV ×2 (08:22→20:21)
[2018-07-19] MEDS: SODIUM CHLORIDE 0.9% 250 ML 21 ML IV (08:23)
[2018-07-19] MEDS: ENOXAPARIN 40 MG/0.4 ML SYRINGE SUBCUT (08:30)
--- NOTE | 2018-07-19 08:39 | PM.PN.1 ---
Subjective Date Patient Seen: 07/19/18 Time Patient Seen: 08:15 Interval history: The pt reports that she is feeling significantly improved today. She primarily is just feeling tired. She is no longer feeling SOB. She has been able to get up to the bedside commode without any difficulty. She is anxious to find out more about what happened, and is very concerned that she had a NSTEMI. Exam Vital Signs (past 8 hours): - 07/19/18 06:30 07/19/18 08:21 07/19/18 08:38 Temperature 97.9 F Pulse Rate 67 Respiratory Rate 18 Blood Pressure 145/85 H Pulse Oximetry 100 99 97 Oxygen Delivery Method Room Air Oxygen Flow Rate 0 Narrative Exam Narrative: General: No acute distress, sitting comfortably in bed, appears well CV: Regular rate and rhythm, no murmurs Respiratory: Clear to auscultation bilaterally, no wheezes or crackles Abdomen: Soft, nondistended, normoactive bowel sounds, nontender to palpation Extremities: No edema Objective Imaging Venous US: Radiologist's impression: PROCEDURE: US PERIPH VENOUS LOW EXTREM BI INDICATIONS: SOB TECHNIQUE: Real-time imaging, as well as color and pulse Doppler interrogation, were performed of the deep veins of both legs from the inguinal ligament to the popliteal fossa. COMPARISON: None. FINDINGS: The deep veins are normally compressible, and free of intraluminal thrombus. Color and pulse Doppler demonstrate normal phasic intravascular flow. There is normal augmentation response to distal compression maneuver. IMPRESSION: No DVT found bilaterally. Labs Result Diagrams: 07/16/18 06:58 07/19/18 05:00 Labs: Laboratory Results - last 24 hr 07/18/18 07/18/18 07/18/18 06:10 06:10 14:43 Sodium Potassium Chloride Carbon Dioxide BUN Creatinine Estimated GFR BUN/Creatinine Ratio Glucose Calcium Total Creatine Kinase 80 82 CK-MB (CK-2) TNP TNP CK-MB (CK-2) Rel Index TNP TNP Troponin I 0.139 H* 0.219 H* B-Natriuretic Peptide 881.0 H 07/18/18 07/19/18 21:00 05:00 Sodium 137 Potassium 3.4 Chloride 99 Carbon Dioxide 27 BUN 19 H Creatinine 1.30 H Estimated GFR 39.6 L BUN/Creatinine Ratio 14.6 Glucose 75 L Calcium 7.5 L Total Creatine Kinase 57 CK-MB (CK-2) TNP CK-MB (CK-2) Rel Index TNP Troponin I 0.205 H* B-Natriuretic Peptide Assessment & Plan (1) NSTEMI (non-ST elevated myocardial infarction): Current visit: Yes Status: Acute (2) Diverticulitis: Current visit: Yes Status: Acute (3) Acute hyponatremia: Current visit: Yes Status: Acute (4) Acute renal failure: Qualifiers: Acute renal failure type: unspecified Qualified Code(s): N17.9 - Acute kidney failure, unspecified Current visit: Yes Status: Acute (5) Essential hypertension: Current visit: No Status: Chronic Plan: Assessment/Plan Narrative: 78-year-old woman with hypertension, history of diverticulitis, and PMR who presented with abdominal pain and nausea. Found to have mild diverticulitis on CT scan of the abdomen, and evidence of MAKENNA with elevated creatinine. While in the hospital with acute SOB and hypoxia. Evidence of pulmonary edema on CXR with mildly elevated BNP in addition to elevated troponin. No EKG changes. Dr Oswald discussed with Cardiology yesterday, consistent with NSTEMI. Negative LE doppler today, decreasing concern for PE. 1) NSTEMI: Pt currently asymptomatic, off oxygen now. Medical management - On beta-pro, ACEi - Started on statin yesterday, continue - Echocardiogram not completed today, should be done tomorrow AM - Start baby aspirin 2) Diverticulitis: Resolved. - D/C antibiotics today - Regular diet 3) MAKENNA due to dehydration: Cr increased slightly today, relatively stable - Continue to trend BMP 4) HTN: BP stable - Continue HCTZ, Metoprolol, Olmesartan 5) PMR: - Continue Prednisone FEN: Regular diet Dispo: Pending Echocardiogram. Should be ready for d/c tomorrow Quality VTE Deep Vein Thrombosis/Pulmonary Embolism Present on Admission: No
[2018-07-19] MEDS: predniSONE 1 MG TABLET 2 MG PO (09:38)
[2018-07-19] MEDS: predniSONE 10 MG TABLET PO (09:38)
[2018-07-19] MEDS: LACTOBACILLUS ACIDOPHILUS TABLET 1 EACH PO (09:38)
[2018-07-19] MEDS: hydroCHLOROthiazide 25 MG TABLET PO (09:38)
--- NOTE | 2018-07-19 09:49 | PT.IPTN ---
Current Diagnoses Hypo-osmolality and hyponatremia (07/15/18) Essential (primary) hypertension (07/15/18) Diverticulitis of large intestine without perforation or abscess without bleeding (07/15/18) Diverticulitis of intestine, part unspecified, without perforation or abscess without bleeding (07/15/18) Acute kidney failure, unspecified (07/15/18) Physical Therapy Treatment Note M2 PT-IP Current Condition Start: 07/17/18 11:46 Freq: NEEDED Status: Active Protocol: Document 07/17/18 11:15 DCW (Rec: 07/17/18 11:57 DCW [id number]) Physical Therapy Current Condition Current Condition Evaluation Date 07/17/18 Treatment Diagnosis Weakness Onset Date 07/15/18 Weight Bearing Status Weight Bearing Status Full Weight Bearing M3 PT-IP Subjective Start: 07/17/18 11:46 Freq: NEEDED Status: Active Protocol: Document 07/19/18 08:55 LJ (Rec: 07/19/18 09:40 LJ [id number]) Subjective Physical Therapy Visit Type Type Treatment Note Visit Start Time 08:55 Visit Stop Time 09:10 Total Visit Minutes 15 Physical Therapy Visit Comments Patient Comments Pt states she is feeling better and needs to use the toilet. Therapy Pain Assessment Pain Present Pain Present Denied Pain M4 PT-IP Mobility and Gait Start: 07/17/18 11:46 Freq: NEEDED Status: Active Protocol: Document 07/19/18 08:55 LJ (Rec: 07/19/18 09:40 LJ [id number]) PT-Bed Mobility Assessment Rolling Type of Rolling Roll to Right Roll to Left Level of Assist Standby Assistance Supine to Sit Supine to Sit Independent Sit to Supine Sit to Supine Independent Scooting Scooting to Edge of Bed Independent PT-Transfer Assessment Sit to and From Stand Sit to and from Stand Standby Assistance Equipment Transfer Assistive Device Front Wheeled Walker Orthotic/Prosthetic Devices or Brace: No Transfer Ability Level of Assist Independent Comments Mobility Comments Pt independent for mobility and transfers other than assist with IV tower Gait Assessment Gait Gait Assistance Required: Standby Assistance Distance (Feet) 250 Able to Maintain Weight Bearing Status Yes During Gait Assistive Devices Assistive Device Gait Belt Front Wheeled Walker Orthotic/Prosthetic Devices or Brace: No Gait Deviations General Gait Pattern Within Normal Limits Comments Gait Comments Pt ambulated in hallway using FWW. Gait within normal limits . Cues for slowing down. Ambulsted in room ~25' w/o assistive device. Stair Climbing Assessment Comments Stair Climbing Comments Pt states she has ramp into house and 13 steps into bedroom. She plans to sleep on first floor when returning home. M5 PT-IP Objective Assessments Start: 07/17/18 11:46 Freq: NEEDED Status: Active Protocol: Document 07/17/18 11:15 DCW (Rec: 07/17/18 11:57 DCW [id number]) Orientation Orientation/Cognition Level of Alertness Alert Orientation Name Birthday Date Place Situation Language Function Ability No Deficits Noted Safety Awareness Understands Safety Issues Memory Description No Deficits Noted Gross Range of Motion Upper Extremity ROM Assessment Within Functional Limits Lower Extremity ROM Assessment Within Functional Limits Strength Upper Extremity Strength Assessment Within Functional Limits Lower Extremity Strength Assessment Bilaterally Impaired Comments Strength Comments LE MMT grossly 4/5, except left hip flexion 3+/5 M6 PT-IP Treatment Start: 07/17/18 11:46 Freq: NEEDED Status: Active Protocol: Document 07/19/18 08:55 LAVONNE (Rec: 07/19/18 09:40 LAVONNE [id number]) Physical Therapy Treatment Education Education Provided Safety M7 PT-IP Assessment and Plan Start: 07/17/18 11:46 Freq: NEEDED Status: Active Protocol: Document 07/19/18 08:55 LAVONNE (Rec: 07/19/18 09:40 LAVONNE [id number]) PT Summary Assessment and Plan Frequency of Treatment Frequency Of Treatment Once a Day Treatment Plan Physical Therapy Treatment Plan Therapeutic Exercise Balance Retraining Neuromuscular Re-ed Recommendations To Nursing Amount of Assist Needed Standby Assistance
[2018-07-19] MEDS: DOXYCYCLINE 100 MG in SODIUM CHLORIDE 0.9% 100 ML IV (09:55)
[2018-07-19] MEDS: METOPROLOL ER 50 MG TABLET 100 MG PO (17:04)
[2018-07-19] MEDS: OLMESARTAN 5 MG TABLET 10 MG PO (17:04)
[2018-07-19] MEDS: ATORVASTATIN 20 MG TABLET 40 MG PO (20:21)
[2018-07-19] MEDS: PANTOPRAZOLE 20 MG TABLET PO (20:21)
[2018-07-20 00:09] VITALS: BP 146/71; PULSE 68; RESP 18; TEMP 36.9; O2SAT 99
[2018-07-20 04:36] VITALS: BP 135/76; PULSE 60; RESP 18; TEMP 36.7; O2SAT 99
[2018-07-20 08:00] VITALS: BP 167/90; PULSE 61; RESP 18; TEMP 36.8; O2SAT 100
[2018-07-20] MEDS: ENOXAPARIN 40 MG/0.4 ML SYRINGE SUBCUT (09:26)
[2018-07-20] MEDS: predniSONE 10 MG TABLET PO (09:26)
[2018-07-20] MEDS: LACTOBACILLUS ACIDOPHILUS TABLET 1 EACH PO (09:27)
[2018-07-20] MEDS: predniSONE 1 MG TABLET 2 MG PO (09:27)
[2018-07-20] MEDS: hydroCHLOROthiazide 25 MG TABLET PO (09:28)
[2018-07-20] MEDS: SODIUM CHLORIDE 0.9% FLUSH 10 ML IV (09:28)
[2018-07-20] MEDS: ASPIRIN EC 81 MG TABLET PO (09:29)
--- NOTE | 2018-07-20 10:04 | PM.DS.1 ---
History of Present Illness Chief complaint: vomiting nausea x4 days Discharge Providers Date of admission: 07/15/18 19:14 Primary care physician: Mary Trejo MD Consults: 07/15/18 19:41 Consult to Dietitian, Adult Routine Comment: Reason For Exam: diverticulitis 07/17/18 08:37 Consult to Physical Therapy Evaluate & Treat Comment: Physician Instructions: Evaluate and Treat Discharge provider: Edwin Oswald MD Discharge Date: 07/20/18 Summary Discharge Diagnosis: Non ST wave myocardial infarction Acute respiratory failure due to pulmonary edema Acute diverticulitis Acute kidney injury Hypertension PMR Hospital Course: Patient was admitted the hospital with abdominal pain and diverticulitis. Patient has a history of diverticulitis. On admission to the hospital she was started on appropriate IV antibiotics. She also was found to have an acute kidney injury. She was treated with IV fluids antibiotics and had gradual improvement. On the 3rd day of admission in the hospital she had sudden onset of acute shortness of breath and respiratory distress and failure. Required oxygen and Lasix. In the workup process of this. She was found have a normal EKG but elevated troponins. Her troponin was 0.2. During her acute shortness of breath she had an episode of chest pressure. This was resolved rather quickly with oxygen and Lasix. She was already on a beta-pro. She was started on aspirin and statin. She had further workup and evaluation for shortness of breath with bilateral lower extremity DVTs to rule out pulmonary emboli. Patient is unable to tolerate contrast because of her recent kidney injury. We discussed case with Cardiology. Patient was paced on a beta-pro which she already was on aspirin and started on a statin. Her echocardiogram is still pending at this point. Exam Vital Signs (past 8 hours): - 07/20/18 04:36 07/20/18 08:00 Temperature 98.0 F 98.3 F Pulse Rate 60 61 Respiratory Rate 18 18 Blood Pressure 135/76 167/90 H Pulse Oximetry 99 100 Oxygen Delivery Method Room Air Oxygen Flow Rate 0 Narrative Exam Narrative: Gen.: Alert and oriented x3 no apparent distress. HEENT: NCAT PERRLA tympanic membranes are clear nares are patent oral mucosa is moist no tonsillar hypertrophy neck is supple without lymphadenopathy no thyroid enlargement. Cardio: S1-S2 regular rate and rhythm no murmurs appreciated. Respiratory: Lungs are clear to auscultation no wheezes or crackles normal respiratory effort. Abdomen: Soft nontender no rebound or guarding no liver spleen enlargement no appreciable hernias Extremities: Full range of motion no appreciable weakness no cyanosis or edema. Neurologic: Grossly intact. Objective Labs Result Diagrams: 07/16/18 06:58 07/19/18 05:00 Discharge Plan Discharge Plan Discharge Problem: Diverticulitis, Acute hyponatremia, Acute renal failure Patient Disposition: Home Discharge comment: Follow-up with Dr. noemy rodriguez in 7 days Discharge Med Rec/Prescriptions Prescriptions: New atorvastatin [Lipitor] 20 mg Tablet 40 mg PO BEDTIME Qty: 30 RF: 0 aspirin 81 mg Tablet,Delayed Release (Dr/Ec) 81 mg PO DAILY Qty: 30 RF: 0 Continue Vitamin D3 1 cap PO DAILY Qty: 0 RF: 0 ascorbic acid (vitamin C) [Vitamin C] 1,000 mg Tablet 1,000 mg PO DAILY Qty: 0 RF: 0 omega 7-tfo-asj-fish oil [Omera] 1 EACH capsule 1,280 mg PO DAILY Qty: 0 RF: 0 vitamin B complex [B Complex-Vitamin B12] 1 EACH tablet 1 tab PO DAILY Qty: 0 RF: 0 prednisone 10 mg tablet 10 mg PO DAILY RF: 0 hydrochlorothiazide 25 mg tablet 25 mg PO DAILY Qty: 90 RF: 2 prednisone 1 mg tablet 2 mg PO DAILY RF: 0 olmesartan 5 mg tablet 10 mg PO QPM RF: 0 trazodone 100 MG tablet 100 mg PO BEDTIME RF: 0 ibuprofen [Advil] 200 mg Tablet 200 mg PO PRN PRN (Reason: pain) RF: 0 lactobacillus comb no.10 [Probiotic] 20 billion cell Capsule 20,000 mmu cells PO DAILY RF: 0 metoprolol succinate 100 mg tablet extended release 24 hr 100 mg PO QPM RF: 0 omeprazole 20 MG tablet,delayed release (DR/EC) 20 mg PO QPM RF: 0 Discharge Data Primary Care Provider: Mary Trejo Attending Provider: Mary Trejo Admit Date/Time: 07/15/18 19:14 Quality VTE Deep Vein Thrombosis/Pulmonary Embolism Present on Admission: No
--- NOTE | 2018-07-20 11:06 | CM.DPC ---
DCP Cont: Met with patient, pleasant lady. Stated, she really wants to go home, she has been here long enough. Patient lives on [address] [facility] [address] near her son. Stated that while she was here in hospital, she had mild heart attach. Patient had originally been in with dehydration secondary to Diverticulitis, and renal insufficiency. Patient stated that she is waiting for her echo, then she can go home. Patient indicated that her son will be picking her up. P: Patient is to be discharged home today after echocardiogram is complete. She will also follow up with her primary care provider, Dr. Stewart. Sofya Durant RN/[employer]
--- NOTE | 2018-07-20 11:50 | PT.IPTN ---
Current Diagnoses Hypo-osmolality and hyponatremia (07/15/18) Essential (primary) hypertension (07/15/18) Non-ST elevation (NSTEMI) myocardial infarction (07/15/18) Diverticulitis of large intestine without perforation or abscess without bleeding (07/15/18) Diverticulitis of intestine, part unspecified, without perforation or abscess without bleeding (07/15/18) Acute kidney failure, unspecified (07/15/18) Physical Therapy Treatment Note M2 PT-IP Current Condition Start: 07/17/18 11:46 Freq: NEEDED Status: Active Protocol: Document 07/17/18 11:15 DCW (Rec: 07/17/18 11:57 DCW [id number]) Physical Therapy Current Condition Current Condition Evaluation Date 07/17/18 Treatment Diagnosis Weakness Onset Date 07/15/18 Weight Bearing Status Weight Bearing Status Full Weight Bearing M3 PT-IP Subjective Start: 07/17/18 11:46 Freq: NEEDED Status: Active Protocol: Document 07/20/18 11:49 LJ (Rec: 07/20/18 11:50 LJ [id number]) Subjective Physical Therapy Visit Type Type Patient Refusal Notes Pt states she's tired of waiting and just wants to go home. States she can get up and move around just fine by herself. M4 PT-IP Mobility and Gait Start: 07/17/18 11:46 Freq: NEEDED Status: Active Protocol: Document 07/19/18 08:55 LJ (Rec: 07/19/18 09:40 LJ [id number]) PT-Bed Mobility Assessment Rolling Type of Rolling Roll to Right Roll to Left Level of Assist Standby Assistance Supine to Sit Supine to Sit Independent Sit to Supine Sit to Supine Independent Scooting Scooting to Edge of Bed Independent PT-Transfer Assessment Sit to and From Stand Sit to and from Stand Standby Assistance Equipment Transfer Assistive Device Front Wheeled Walker Orthotic/Prosthetic Devices or Brace: No Transfer Ability Level of Assist Independent Comments Mobility Comments Pt independent for mobility and transfers other than assist with IV tower Gait Assessment Gait Gait Assistance Required: Standby Assistance Distance (Feet) 250 Able to Maintain Weight Bearing Status Yes During Gait Assistive Devices Assistive Device Gait Belt Front Wheeled Walker Orthotic/Prosthetic Devices or Brace: No Gait Deviations General Gait Pattern Within Normal Limits Comments Gait Comments Pt ambulated in hallway using FWW. Gait within normal limits . Cues for slowing down. Ambulsted in room ~25' w/o assistive device. Stair Climbing Assessment Comments Stair Climbing Comments Pt states she has ramp into house and 13 steps into bedroom. She plans to sleep on first floor when returning home. M5 PT-IP Objective Assessments Start: 07/17/18 11:46 Freq: NEEDED Status: Active Protocol: Document 07/17/18 11:15 DCW (Rec: 07/17/18 11:57 DCW [id number]) Orientation Orientation/Cognition Level of Alertness Alert Orientation Name Birthday Date Place Situation Language Function Ability No Deficits Noted Safety Awareness Understands Safety Issues Memory Description No Deficits Noted Gross Range of Motion Upper Extremity ROM Assessment Within Functional Limits Lower Extremity ROM Assessment Within Functional Limits Strength Upper Extremity Strength Assessment Within Functional Limits Lower Extremity Strength Assessment Bilaterally Impaired Comments Strength Comments LE MMT grossly 4/5, except left hip flexion 3+/5 M6 PT-IP Treatment Start: 07/17/18 11:46 Freq: NEEDED Status: Active Protocol: Document 07/19/18 08:55 LAVONNE (Rec: 07/19/18 09:40 LAVONNE [id number]) Physical Therapy Treatment Education Education Provided Safety M7 PT-IP Assessment and Plan Start: 07/17/18 11:46 Freq: NEEDED Status: Active Protocol: Document 07/19/18 08:55 LAVONNE (Rec: 07/19/18 09:40 LAVONNE [id number]) PT Summary Assessment and Plan Frequency of Treatment Frequency Of Treatment Once a Day Treatment Plan Physical Therapy Treatment Plan Therapeutic Exercise Balance Retraining Neuromuscular Re-ed Recommendations To Nursing Amount of Assist Needed Standby Assistance
--- NOTE | 2018-07-20 14:41 | PC.NURSE ---
1305 ECHO completed. IV dc'd intact. Patient states understanding of discharge instructions and follow up care. She states she has no further questions or concerns and very eager to go home. Son in to pick patient up. Patient states she will follow up with Dr. Perez. Escorted out via wheelchair with all belongings to be discharged to home with son.
== END 2018-07-20 13:05 | disposition home or self-care (01) | DRG 391 ==
LOC: ED 15:47 → AC 19:15
PROVIDERS: Emergency Medicine; Family Medicine; Admitting Provider Family Medicine; Emergency Provider Nurse Practitioner Family; PCP Family Medicine; Visit Provider Family Medicine
DX: K57.32 Diverticulitis of large intestine without perforation or abscess without bleeding (principal); I21.4 Non-ST elevation (NSTEMI) myocardial infarction; N17.9 Acute kidney failure, unspecified; E87.1 Hypo-osmolality and hyponatremia; E86.0 Dehydration; R06.03 Acute respiratory distress; J45.909 Unspecified asthma, uncomplicated; K21.9 Gastro-esophageal reflux disease without esophagitis; R01.1 Cardiac murmur, unspecified; I10 Essential (primary) hypertension; E78.5 Hyperlipidemia, unspecified; M35.3 Polymyalgia rheumatica; Z79.52 Long term (current) use of systemic steroids; I50.9 Heart failure, unspecified
CPT/HCPCS: 36415; 36591; 71045; 74176; 80048; 80053; 81003; 81015; 82550; 83880; 84132; 84484; 85025; 93005; 93306; 93970; 96361; 96365; 96375; 97116; 97161; 99223; 99232; 99233; 99238; 99283; 99284; A9270; C9113; J0696; J1200; J1650; J1940; J2270; J2405; J2930; J3480

== ENCOUNTER 2018-07-23 21:06 | Emergency (ER) | payer MEDICARE, SELFPAY ==
[2018-07-15 20:58] VITALS: BMI 23.8
[2018-07-23 21:12] VITALS: BP 160/101; PULSE 108; RESP 15; TEMP 36.7; O2SAT 98
[2018-07-23 21:13] VITALS: PULSE 108; RESP 15; TEMP 36.7; O2SAT 98; BMI 23.8
[2018-07-23 21:30] VITALS: BP 150/84; O2SAT 97
--- NOTE | 2018-07-23 21:30 | ED.ABDPAIN ---
HPI - Abdominal Pain General Chief Complaint: Abdominal Pain Stated Complaint: Abd Pain Time Seen by Provider: 07/23/18 21:09 Source: patient Mode of arrival: EMS Limitations: no limitations History of Present Illness HPI narrative: Patient is a 78-year-old female who was recently admitted to the hospital for diverticulitis receiving IV antibiotics. No surgical intervention. Was not sent home with any antibiotics. Brought in by EMS for concerns of left lower quadrant abdominal pain. Patient states that this is the same pain that she had a brought her in to the hospital last week where she was diagnosed with diverticulitis. She expressed nausea and vomiting. Has not taken any of her medications because the nausea and vomiting. No fevers. No urinary symptoms. Related Data Home Medications Medication Instructions Recorded Confirmed Vitamin D3 1 cap PO DAILY #0 01/09/12 07/15/18 ascorbic acid (vitamin C) [Vitamin 1,000 mg PO DAILY #0 01/09/12 07/15/18 C] omega 2-lbh-otg-fish oil [Omera] 1,280 mg PO DAILY #0 03/12/17 07/15/18 vitamin B complex [B 1 tab PO DAILY #0 04/17/17 07/15/18 Complex-Vitamin B12] prednisone 10 mg tablet 10 mg PO DAILY tab 06/03/18 07/15/18 ibuprofen [Advil] 200 mg PO PRN PRN 07/15/18 07/15/18 lactobacillus comb no.10 20,000 mmu cells PO DAILY 07/15/18 07/15/18 [Probiotic] metoprolol succinate 100 mg PO QPM 07/15/18 07/15/18 olmesartan 10 mg PO QPM 07/15/18 07/15/18 omeprazole 20 mg PO QPM 07/15/18 07/15/18 prednisone 2 mg PO DAILY 07/15/18 07/15/18 trazodone 100 mg PO BEDTIME 07/15/18 07/15/18 Previous Rx's Medication Instructions Recorded hydrochlorothiazide 25 mg tablet 25 mg PO DAILY #90 tab 07/09/18 aspirin 81 mg PO DAILY #30 tab 07/20/18 atorvastatin [Lipitor] 40 mg PO BEDTIME #30 tab 07/20/18 doxycycline hyclate 100 mg PO BID 10 Days #20 tab 07/24/18 metronidazole 500 mg PO TID 10 Days #30 tab 07/24/18 ondansetron 4 mg PO Q6-8H PRN #10 tab 07/24/18 Allergies Allergy/AdvReac Type Severity Reaction Status Date / Time ciprofloxacin [CIPROFLOXACIN] Allergy Severe MUSCLE PAIN Verified 06/03/18 11:49 ceftriaxone Allergy Mild Anxiety Verified 07/15/18 19:53 methocarbamol [METHOCARBAMOL] Allergy Mild RASH/ROBAXI Verified 06/03/18 11:49 N Penicillins [PENICILLINS] Allergy Mild HIVES Verified 06/03/18 11:49 piroxicam [PIROXICAM] Allergy Mild RASH/FELDEN Verified 06/03/18 11:49 E temazepam [TEMAZEPAM] Allergy Mild NERVOUNESS/ Verified 06/03/18 11:49 RESTORIL Review of Systems Constitutional Denies fatigue, Denies fever(s) and Denies headache(s) ENT Ears, Nose, Mouth, and Throat: Denies headache(s) and Denies lip swelling Cardiovascular Denies chest pain and Denies dyspnea Respiratory Denies dyspnea Gastrointestinal Gastrointestinal: Reports abdominal pain, Reports bloating, Denies change in bowel habits, Denies coffee ground emesis, Reports nausea and Reports vomiting Genitourinary Denies dysuria Musculoskeletal Denies myalgias and Denies arthralgias Integumentary/Breasts Denies rash Neurologic Denies confusion and Denies headache(s) Psychiatric Denies confusion Endocrine Denies fatigue Hematologic/Lymphatic Comments: Not on anticoagulation Allergic/Immunologic Denies urticaria and Denies lip swelling PFSH Medical History NSTEMI (non-ST elevated myocardial infarction) (Acute) Asthma (Chronic) Diverticular disease (Chronic) GERD (gastroesophageal reflux disease) (Chronic) GI bleeding (Chronic 03/2017) H. pylori infection (Chronic) Heart murmur (Chronic) Hyperlipidemia (Chronic) Hypertension (Chronic) Polymyalgia rheumatica (Chronic) Surgical History History of carpal tunnel repair (Resolved) History of cataract removal with insertion of prosthetic lens (Resolved) History of hemicolectomy (Resolved 10/2005) Status post appendectomy (Resolved) Status post arthroscopy (Resolved) Status post cardiac catheterization (Resolved 1998) Status post vaginal hysterectomy (Resolved 1999) Social History household members: children Smoking Status: Former smoker alcohol intake: former substance use type: does not use Exam Initial Vital Signs Initial Vital Signs: Vital Signs Temperature 98.1 F 07/23/18 21:12 Pulse Rate 108 H 07/23/18 21:12 Respiratory Rate 15 07/23/18 21:12 Blood Pressure 160/101 H 07/23/18 21:12 Pulse Oximetry 98 07/23/18 21:12 Const General: cooperative, comfortable, well developed, well groomed and No acute distress Orientation: alert, awake and oriented x3 HENMT Head: normal to inspection and normocephalic Resp Effort & Inspection: normal respiratory effort Auscultation: clear to auscultation bilaterally Cardio Rate: regular rate Pulses: radial pulses present GI Inspection: non-distended Palpation: soft, No firm, No guarding, No rigid and tender ( left lower quadrant) Back/Spine/Pelvis Back: No CVA tenderness Skin Lesions: no lesions Rashes: no rashes Neuro General: alert and oriented x3 Cognition: normal cognition Speech: speech normal Sensory Exam: no sensory deficits noted Extrem General: normal to inspection, capillary refill normal, no pedal edema and No edema Psych Appearance: grossly normal and well kempt Course Orders Ordered: ED Orders 07/23/18 21:32 CT abdomen pelvis w con Stat 07/23/18 22:17 Complete Blood Count AUTO DIFF Stat Comprehensive Metabolic Panel Stat Lactate (Lactic Acid) Stat Lipase Stat Discontinued Medications Doxycycline Hyclate (Vibramycin) 100 mg PO NOW ONE Stop: 07/24/18 00:32 Last Admin: 07/24/18 00:42 Dose: 100 mg Hydromorphone HCl (Dilaudid) 1 mg IV NOW ONE Stop: 07/23/18 21:32 Last Admin: 07/23/18 21:43 Dose: 1 mg Sodium Chloride (Normal Saline 0.9%) 1,000 mls @ 1,000 mls/hr IV BOLUS ONE Stop: 07/23/18 22:30 Last Infusion: 07/23/18 23:44 Dose: 1,000 mls/hr Admin: 07/23/18 21:43 Dose: 1,000 mls/hr Metronidazole (Metronidazole) 500 mg PO NOW ONE Stop: 07/24/18 00:32 Last Admin: 07/24/18 00:47 Dose: 500 mg Ondansetron HCl (Zofran) 4 mg IV NOW ONE Stop: 07/23/18 21:32 Last Admin: 07/23/18 21:43 Dose: 4 mg Ondansetron HCl (Zofran Odt) 4 mg PO NOW ONE Stop: 07/24/18 00:32 Last Admin: 07/24/18 00:42 Dose: 4 mg Ondansetron HCl (Zofran Odt Prepack) 1 bottle MISC SEEINSTR ONE Stop: 07/24/18 00:57 Last Admin: 07/24/18 01:13 Dose: 1 bottle Vital Signs - 8 hr 07/23/18 21:12 07/23/18 21:13 07/23/18 21:30 Temperature 98.1 F 98.1 F Pulse Rate 108 H 108 H Respiratory Rate 15 15 Blood Pressure Blood Pressure [Left Arm] 160/101 H 150/84 H Pulse Oximetry 98 98 97 07/23/18 22:30 07/23/18 22:52 07/24/18 01:15 Temperature 98.1 F Pulse Rate 104 H 104 H 90 Respiratory Rate 17 17 15 Blood Pressure 140/74 Blood Pressure [Left Arm] 158/79 H Pulse Oximetry 95 95 95 MDM - Abdominal Pain Medical Records Attestation: I reviewed the patient's medical records. Lab Data Attestation: I reviewed the patient's lab results. Result diagrams: 07/23/18 22:17 07/23/18 22:17 Lab Results 07/23/18 07/23/18 07/23/18 Range/Units 22:17 22:17 22:17 WBC 8.0 (4.5-11.0) X10^3/uL RBC 4.12 (4.0-5.2) X10^6/uL Hgb 11.8 L (12.0-16.0) g/dL Hct 35.0 L (36-46) % MCV 84.9 (80-100) fL MCH 28.7 (26-34) PG MCHC 33.8 (30-36) % RDW 13.9 (11.6-14.8) % Plt Count 276 (150-400) X10^3/uL Neut % (Auto) 67.7 (50-75) % Lymph % (Auto) 16.2 L (25-40) % [place] % (Auto) 12.2 (3-14) % Eos % (Auto) 3.4 (2-4) % Baso % (Auto) 0.5 (0-2) % Neut # (Auto) 5400 (6743-4200) /uL Sodium 134 L (137-145) mmol/L Potassium 3.0 L (3.4-5.1) mmol/L Chloride 93 L (98-107) mmol/L Carbon Dioxide 30 (22-32) mmol/L BUN 10 (7-17) mg/dL Creatinine 1.00 (0.52-1.04) mg/dL Estimated GFR 53.6 L (>60) mL/min BUN/Creatinine Ratio 10.0 (6-22) Glucose 95 (80-110) mg/dL Lactate 0.9 (0.7-2.1) mmol/L Calcium 9.1 (8.4-10.2) mg/dL Total Bilirubin 0.9 (0.2-1.3) mg/dL AST 25 (14-36) IU/L ALT 20 (9-52) IU/L Alkaline Phosphatase 44 (38-126) U/L Total Protein 6.6 (6.3-8.2) g/dL Albumin 3.8 (3.5-5.0) g/dL Globulin 2.8 (1.7-4.1) g/dL Albumin/Globulin Ratio 1.4 (1.0-2.8) Lipase (23-300) U/L //18 Range/Units 22:17 WBC (4.5-11.0) X10^3/uL RBC (4.0-5.2) X10^6/uL Hgb (12.0-16.0) g/dL Hct (36-46) % MCV (80-100) fL MCH (26-34) PG MCHC (30-36) % RDW (11.6-14.8) % Plt Count (150-400) X10^3/uL Neut % (Auto) (50-75) % Lymph % (Auto) (25-40) % [place] % (Auto) (3-14) % Eos % (Auto) (2-4) % Baso % (Auto) (0-2) % Neut # (Auto) (5296-5549) /uL Sodium (137-145) mmol/L Potassium (3.4-5.1) mmol/L Chloride (98-107) mmol/L Carbon Dioxide (22-32) mmol/L BUN (7-17) mg/dL Creatinine (0.52-1.04) mg/dL Estimated GFR (>60) mL/min BUN/Creatinine Ratio (6-22) Glucose (80-110) mg/dL Lactate (0.7-2.1) mmol/L Calcium (8.4-10.2) mg/dL Total Bilirubin (0.2-1.3) mg/dL AST (14-36) IU/L ALT (9-52) IU/L Alkaline Phosphatase (38-126) U/L Total Protein (6.3-8.2) g/dL Albumin (3.5-5.0) g/dL Globulin (1.7-4.1) g/dL Albumin/Globulin Ratio (1.0-2.8) Lipase 58 (23-300) U/L Point of care testing: Urine Dip Bedside Urine Glucose Negative Bedside Urine Bilirubin - Negative Bedside Urine Ketone - Negative Urine Specific [place] 1.015 Bedside Urine Occult Blood - Negative Bedside Urine pH 6.0 Bedside Urine Protein - Negative Bedside Urine Urobilinogen - Negative Bedside Urine Nitrite - Negative Bedside Urine Leukocytes - Negative Esterase Imaging Data CT scan - abdomen: Radiologist's impression: findings consistent with acute diverticulitis of the transverse colon. There may also be a secondary diverticulitis involving the mid descending colon. [facility] Narrative Medical decision making narrative: Patient with CT scan finding consistent with diverticulitis. Her exam is consistent with diverticulitis plus the patient states that her symptoms that brought her in were consistent with a prior history of diverticulitis. Patient had a relatively benign abdominal exam. No signs of abscesses noted on the CT. The patient's renal function that she had a problem with during her last admission seem to have improved/ resolved. Patient was nontoxic appearing. Was tolerating oral intake. Patient states she cannot take Cipro. Is allergic to penicillins. It appears the last time she was admitted she was given doxycycline and Flagyl IV. that seem to have improved her symptoms during her hospital stay. Will send home with a prescription for these medications. I have some suspicion that her symptoms today are not a new episode of diverticulitis just a continuation of her prior episodes. Do not feel the patient needs emergent admission to the hospital. She was given her 1st dose of antibiotics here in the emergency department. She was given return precautions. She expressed understanding and agreement with plan. Discharge Plan Departure Patient Disposition: Home Clinical Impression: Diverticulitis Discharge Date/Time: 07/24/18 01:16 Interventions: ED Discharge Assessment Last Done: 07/24/18 01:15 Instructions: Diverticulitis, DI for Abdominal Pain-Adult Activity Restrictions/Additional Instructions: the CT scan today did show diverticulitis without any signs of an abscess. This can be managed at home with oral antibiotics. I do recommend you contact your primary care doctor for a follow-up. Return to the emergency department for any new or worsening symptoms Prescriptions: New metronidazole 500 mg tablet 500 mg PO TID 10 Days Qty: 30 RF: 0 ondansetron 4 mg tablet,disintegrating 4 mg PO Q6-8H PRN (Reason: nausea and vomiting) Qty: 10 RF: 0 doxycycline hyclate 100 mg tablet 100 mg PO BID 10 Days Qty: 20 RF: 0 No Action Vitamin D3 1 cap PO DAILY Qty: 0 RF: 0 ascorbic acid (vitamin C) [Vitamin C] 1,000 mg Tablet 1,000 mg PO DAILY Qty: 0 RF: 0 omega 5-nky-ulr-fish oil [Omera] 1 EACH capsule 1,280 mg PO DAILY Qty: 0 RF: 0 vitamin B complex [B Complex-Vitamin B12] 1 EACH tablet 1 tab PO DAILY Qty: 0 RF: 0 prednisone 10 mg tablet 10 mg PO DAILY RF: 0 hydrochlorothiazide 25 mg tablet 25 mg PO DAILY Qty: 90 RF: 2 prednisone 1 mg tablet 2 mg PO DAILY RF: 0 olmesartan 5 mg tablet 10 mg PO QPM RF: 0 trazodone 100 MG tablet 100 mg PO BEDTIME RF: 0 ibuprofen [Advil] 200 mg Tablet 200 mg PO PRN PRN (Reason: pain) RF: 0 lactobacillus comb no.10 [Probiotic] 20 billion cell Capsule 20,000 mmu cells PO DAILY RF: 0 metoprolol succinate 100 mg tablet extended release 24 hr 100 mg PO QPM RF: 0 omeprazole 20 MG tablet,delayed release (DR/EC) 20 mg PO QPM RF: 0 atorvastatin [Lipitor] 20 mg Tablet 40 mg PO BEDTIME Qty: 30 RF: 0 aspirin 81 mg Tablet,Delayed Release (Dr/Ec) 81 mg PO DAILY Qty: 30 RF: 0
--- NOTE | 2018-07-23 21:32 | DI.CT.S_ITS ---
PROCEDURE: CT ABDOMEN PELVIS W CON INDICATIONS: Left-sided abdominal pain TECHNIQUE: After the administration of intravenous contrast, 5 mm thick sections acquired from the diaphragm to the symphysis. 5 mm coronal and sagittal reformats were acquired. For radiation dose reduction, the following was used: automated exposure control, adjustment of mA and/or kV according to patient size. COMPARISON: [facility], CT, CT ABDOMEN PELVIS WO CON, 07/15/2018, 18:17. FINDINGS: Image quality: Excellent. ABDOMEN: Lung bases: Lung bases are clear. Heart size is normal. 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 Solid organs: Liver is normal in size and enhancement. Gallbladder is normal. Biliary system is non dilated. Pancreas enhances normally. Spleen is normal in size and enhancement. No adrenal nodules. Kidneys demonstrate normal size and enhancement, without hydronephrosis. Peritoneum and bowel: There are scattered colonic diverticula. There is fat stranding adjacent to a diverticulum in the transverse colon near the splenic flexure, consistent with acute diverticulitis. A second area of fat stranding is noted involving the descending colon consistent with acute diverticulitis. Bowel loops demonstrate normal wall thickness and caliber. No free air. A small amount of free fluid is noted in the left paracolic cutter. Nodes and vessels: No retroperitoneal or mesenteric adenopathy by size criteria. Aorta and inferior vena cava are normal in size. There is aortic atherosclerosis. Miscellaneous: No ventral hernias. PELVIS: Genitourinary: Bladder wall thickness is normal. Miscellaneous: No inguinal hernias or adenopathy. Bones: No suspicious bony lesions. No vertebral body compression fractures. Degenerative changes in lumbar spine. IMPRESSION: 1. Acute diverticulitis involving the transverse colon and descending colon. There is a trace amount of free fluid in the left paracolic cutter. No diverticular abscess at this time. No significant discrepancy with the highway technician radiology preliminary report. Dictated by: Karel Mckoy M.D. on 07/24/2018 at 8:02 Approved by: Karel Mckoy M.D. on 07/24/2018 at 8:10
[2018-07-23] MEDS: SODIUM CHLORIDE 0.9% 1,000 ML 1000 ML IV (21:43)
[2018-07-23] MEDS: HYDROMORPHONE 0.5 MG INJ 1 MG IV (21:43)
[2018-07-23] MEDS: ONDANSETRON 4 MG/2 ML INJ IV (21:43)
[2018-07-23 22:30] VITALS: BP 158/79; PULSE 104; RESP 17; O2SAT 95
[2018-07-23 22:34] LABS: Lactate (Lactic Acid) 0.9 mmol/L (0.7-2.1); Lipase 58 U/L (23-300)
[2018-07-23 22:36] LABS: Alanine Aminotransferase 20 IU/L (9-52); Albumin 3.8 g/dL (3.5-5.0); Albumin Globulin Ratio 1.4 (1.0-2.8); Alkaline Phosphatase 44 U/L (38-126); Aspartate Aminotransferase 25 IU/L (14-36); Bilirubin Total 0.9 mg/dL (0.2-1.3); Blood Urea Nitrogen 10 mg/dL (7-17); Calcium 9.1 mg/dL (8.4-10.2); Carbon Dioxide 30 mmol/L (22-32); Chloride 93 mmol/L (98-107); Estimated Glomerular Filt Rate 53.6 mL/min (>60); Globulin 2.8 g/dL (1.7-4.1); Glucose 95 mg/dL (80-110); HEMOLYSIS < 15 (0-50); Sodium 134 mmol/L (137-145); Total Protein 6.6 g/dL (6.3-8.2)
[2018-07-23 22:42] LABS: Add Manual Diff / Slide Review NO; Basophils Percent Auto 0.5 % (0-2); Eosinophils Percent Auto 3.4 % (2-4); Hemoglobin 11.8 g/dL (12.0-16.0); Lymphocytes Percent Auto 16.2 % (25-40); Mean Corpuscular HGB Conc 33.8 % (30-36); Mean Corpuscular Hemoglobin 28.7 PG (26-34); Mean Corpuscular Volume 84.9 fL (80-100); Monocytes Percent Auto 12.2 % (3-14); Neutrophils Absolute Auto 5400 /uL (3000-5900); Neutrophils Percent Auto 67.7 % (50-75); Platelet Count 276 X10^3/uL (150-400); Red Blood Cell Count 4.12 X10^6/uL (4.0-5.2); Red Cell Distribution Width 13.9 % (11.6-14.8)
[2018-07-23 22:52] VITALS: PULSE 104; RESP 17; TEMP 36.7; O2SAT 95; BMI 23.8
[2018-07-24] MEDS: DOXYCYCLINE HYCLATE 100 MG TABLET PO (00:42)
[2018-07-24] MEDS: ONDANSETRON 4 MG ODT PO (00:42)
[2018-07-24] MEDS: metroNIDAZOLE 250 MG TABLET 500 MG PO (00:47)
[2018-07-24] MEDS: ONDANSETRON 4 MG ODT PREPACK 1 BOTTLE MISC (01:13)
[2018-07-24 01:15] VITALS: BP 140/74; PULSE 90; RESP 15; O2SAT 95
== END 2018-07-24 01:16 | disposition home or self-care (01) ==
PROVIDERS: Emergency Provider Emergency Medicine; Family Provider Family Medicine; PCP Family Medicine
DX: R10.9 Unspecified abdominal pain (principal)
CPT/HCPCS: 36591; 74177; 80053; 81003; 83605; 83690; 85025; J1170; J2405; Q9967

== ENCOUNTER 2018-07-24 21:16 | Inpatient (IN) | payer MEDICARE, SELFPAY ==
[2018-07-15 20:58] VITALS: BMI 23.8
[2018-07-24 21:27] VITALS: BP 176/105; PULSE 128; RESP 26; O2SAT 95
--- NOTE | 2018-07-24 21:29 | ED_ITS ---
HPI - Abdominal Pain General Chief Complaint: Abdominal Pain Stated Complaint: Abdominal pain x2 days, nausea Time Seen by Provider: 07/24/18 21:28 Source: patient Mode of arrival: EMS Limitations: no limitations History of Present Illness HPI narrative: Patient is a 70-year-old female who I evaluated in the emergency department last evening and diagnosed with diverticulitis. She was just recently discharged from the hospital for the same diagnosis. Last evening she had a CT scan which showed transverse and descending colon diverticulitis. She was given doxycycline and Flagyl secondary to her allergies. This is what she was receiving during her last admission to the hospital. She did tolerate these medications last evening. Was discharged with these medications as a prescription. She returns today for worsening pain in her abdomen. She states is the same pain she had last evening just worse. Unable to tolerate oral intake. Related Data Home Medications Medication Instructions Recorded Confirmed Vitamin D3 1 cap PO DAILY #0 01/09/12 07/15/18 ascorbic acid (vitamin C) [Vitamin 1,000 mg PO DAILY #0 01/09/12 07/15/18 C] omega 0-zhf-noz-fish oil [Omera] 1,280 mg PO DAILY #0 03/12/17 07/15/18 vitamin B complex [B 1 tab PO DAILY #0 04/17/17 07/15/18 Complex-Vitamin B12] prednisone 10 mg tablet 10 mg PO DAILY tab 06/03/18 07/15/18 ibuprofen [Advil] 200 mg PO PRN PRN 07/15/18 07/15/18 lactobacillus comb no.10 20,000 mmu cells PO DAILY 07/15/18 07/15/18 [Probiotic] metoprolol succinate 100 mg PO QPM 07/15/18 07/15/18 olmesartan 10 mg PO QPM 07/15/18 07/15/18 omeprazole 20 mg PO QPM 07/15/18 07/15/18 prednisone 2 mg PO DAILY 07/15/18 07/15/18 trazodone 100 mg PO BEDTIME 07/15/18 07/15/18 Previous Rx's Medication Instructions Recorded hydrochlorothiazide 25 mg tablet 25 mg PO DAILY #90 tab 07/09/18 aspirin 81 mg PO DAILY #30 tab 07/20/18 atorvastatin [Lipitor] 40 mg PO BEDTIME #30 tab 07/20/18 doxycycline hyclate 100 mg PO BID 10 Days #20 tab 07/24/18 metronidazole 500 mg PO TID 10 Days #30 tab 07/24/18 ondansetron 4 mg PO Q6-8H PRN #10 tab 07/24/18 Allergies Allergy/AdvReac Type Severity Reaction Status Date / Time ciprofloxacin [CIPROFLOXACIN] Allergy Severe MUSCLE PAIN Verified 06/03/18 11:49 ceftriaxone Allergy Mild Anxiety Verified 07/15/18 19:53 methocarbamol [METHOCARBAMOL] Allergy Mild RASH/ROBAXI Verified 06/03/18 11:49 N Penicillins [PENICILLINS] Allergy Mild HIVES Verified 06/03/18 11:49 piroxicam [PIROXICAM] Allergy Mild RASH/FELDEN Verified 06/03/18 11:49 E temazepam [TEMAZEPAM] Allergy Mild NERVOUNESS/ Verified 06/03/18 11:49 RESTORIL Review of Systems Constitutional Denies fever(s) ENT Ears, Nose, Mouth, and Throat: Denies vertigo and Denies dizziness Cardiovascular Denies chest pain and Denies dyspnea Respiratory Denies dyspnea Gastrointestinal Gastrointestinal: Reports abdominal pain, Reports nausea and Reports vomiting Genitourinary Denies dysuria and Denies pelvic pain Musculoskeletal Denies myalgias and Denies arthralgias Integumentary/Breasts Denies rash Neurologic Denies vertigo and Denies dizziness Hematologic/Lymphatic Comments: Not on anticoagulation PFSH Medical History NSTEMI (non-ST elevated myocardial infarction) (Acute) Asthma (Chronic) Diverticular disease (Chronic) GERD (gastroesophageal reflux disease) (Chronic) GI bleeding (Chronic 03/2017) H. pylori infection (Chronic) Heart murmur (Chronic) Hyperlipidemia (Chronic) Hypertension (Chronic) Polymyalgia rheumatica (Chronic) Surgical History History of carpal tunnel repair (Resolved) History of cataract removal with insertion of prosthetic lens (Resolved) History of hemicolectomy (Resolved 10/2005) Status post appendectomy (Resolved) Status post arthroscopy (Resolved) Status post cardiac catheterization (Resolved 1998) Status post vaginal hysterectomy (Resolved 1999) Social History household members: children Smoking Status: Former smoker alcohol intake: former substance use type: does not use Exam Initial Vital Signs Initial Vital Signs: Vital Signs Pulse Rate 128 H 07/24/18 21:27 Respiratory Rate 26 H 07/24/18 21:27 Blood Pressure 176/105 H 07/24/18 21:27 Pulse Oximetry 95 07/24/18 21:27 Const General: cooperative, No comfortable ( uncomfortable.), well developed and well groomed Orientation: alert, awake and oriented x3 HENMT Head: normal to inspection and normocephalic Resp Effort & Inspection: normal respiratory effort Auscultation: clear to auscultation bilaterally Cardio Rate: tachycardic Rhythm: regular rhythm GI Inspection: non-distended Palpation: soft, No firm and tender ( Left-sided abdominal tenderness) Skin Lesions: no lesions Rashes: no rashes Neuro General: alert, awake and oriented x3 Extrem General: normal to inspection and capillary refill normal Psych Appearance: grossly normal and well kempt Course Orders Ordered: ED Orders 07/24/18 21:52 Consult to Physician Routine 07/24/18 21:55 Basic Metabolic Panel Stat Complete Blood Count AUTO DIFF Stat Sodium Chloride (Normal Saline 0.9%) 1,000 mls @ 150 mls/hr IV CONT [facility] Last Admin: 07/24/18 22:59 Dose: Metronidazole (Flagyl) 500 mg in 100 mls @ 100 mls/hr IV Q8H [facility] Last Infusion: 07/25/18 00:14 Dose: 0 mls/hr Admin: 07/24/18 22:57 Dose: 100 mls/hr Doxycycline Hyclate 100 mg/ (Sodium Chloride) 100 mls @ 100 mls/hr IV Q12HR [facility] Last Admin: 07/25/18 00:16 Dose: 100 mls/hr Sodium Chloride (Normal Saline 0.9%) 1,000 mls @ 125 mls/hr IV CONT [facility] Last Admin: 07/24/18 23:00 Dose: 125 mls/hr Morphine Sulfate (Morphine) 2 mg IV Q4HR PRN PRN Reason: Pain, Mild (1-3) Ondansetron HCl (Zofran) 4 mg IV Q4HR PRN PRN Reason: Nausea And Vomiting Discontinued Medications Hydroxyzine HCl (Vistaril) 50 mg IM NOW ONE Stop: 07/24/18 21:30 Last Admin: 07/24/18 21:35 Dose: 50 mg Sodium Chloride (Normal Saline 0.9%) 1,000 mls @ 1,000 mls/hr IV BOLUS ONE Stop: 07/24/18 22:30 Last Admin: 07/24/18 21:45 Dose: 1,000 mls/hr Vital Signs - 8 hr 07/24/18 21:27 07/24/18 22:10 07/24/18 22:15 Temperature 97.9 F 99.0 F Pulse Rate 128 H 104 H 117 H Respiratory Rate 26 H 19 18 Blood Pressure 176/105 H 143/101 H 148/97 H Pulse Oximetry 95 94 97 07/25/18 00:15 Temperature 98.4 F Pulse Rate 112 H Respiratory Rate 16 Blood Pressure 159/98 H Pulse Oximetry 98 MDM - Abdominal Pain Lab Data Attestation: I reviewed the patient's lab results. Result diagrams: 07/24/18 21:55 07/24/18 21:55 Lab Results 07/24/18 07/24/18 Range/Units 21:55 21:55 WBC 11.7 H (4.5-11.0) X10^3/uL RBC 4.04 (4.0-5.2) X10^6/uL Hgb 11.7 L (12.0-16.0) g/dL Hct 33.9 L (36-46) % MCV 83.8 (80-100) fL MCH 28.8 (26-34) PG MCHC 34.4 (30-36) % RDW 13.6 (11.6-14.8) % Plt Count 265 (150-400) X10^3/uL Neut % (Auto) 78.9 H (50-75) % Lymph % (Auto) 8.7 L (25-40) % [place] % (Auto) 10.4 (3-14) % Eos % (Auto) 1.1 L (2-4) % Baso % (Auto) 0.9 (0-2) % Neut # (Auto) 9200 H (9908-3430) /uL Sodium 131 L (137-145) mmol/L Potassium 2.9 L (3.4-5.1) mmol/L Chloride 90 L (98-107) mmol/L Carbon Dioxide 27 (22-32) mmol/L BUN 10 (7-17) mg/dL Creatinine 1.10 H (0.52-1.04) mg/dL Estimated GFR 48.0 L (>60) mL/min BUN/Creatinine Ratio 9.1 (6-22) Glucose 101 (80-110) mg/dL Calcium 9.1 (8.4-10.2) mg/dL MDM Narrative Medical decision making narrative: patient with no diverticulitis. Has worsening left-sided abdominal pain. Unable to take her medications at home. Discussed the case with Dr. Aldrich who is on-call for the patient's primary care doctor group. Will admit for IV antibiotics Had fluid. Discussed admission with the patient and the family. They expressed understanding and agreement. Discharge Plan Departure Patient Disposition: Admitted As Inpatient Clinical Impression: Diverticulitis Discharge Date/Time: 07/24/18 22:26 Interventions: ED Discharge Assessment Last Done: 07/24/18 22:10 Admit Date/Time: 07/24/18 22:01 Admit Provider: Rosemary Aldrich
[2018-07-24] MEDS: hydrOXYzine 50 MG/ML INJ IM (21:35)
[2018-07-24] MEDS: SODIUM CHLORIDE 0.9% 1,000 ML 1000 ML IV (21:45)
[2018-07-24 22:07] LABS: Add Manual Diff / Slide Review NO; Basophils Percent Auto 0.9 % (0-2); Eosinophils Percent Auto 1.1 % (2-4); Hematocrit 33.9 % (36-46); Hemoglobin 11.7 g/dL (12.0-16.0); Lymphocytes Percent Auto 8.7 % (25-40); Mean Corpuscular HGB Conc 34.4 % (30-36); Mean Corpuscular Hemoglobin 28.8 PG (26-34); Mean Corpuscular Volume 83.8 fL (80-100); Monocytes Percent Auto 10.4 % (3-14); Neutrophils Absolute Auto 9200 /uL (3000-5900); Neutrophils Percent Auto 78.9 % (50-75); Platelet Count 265 X10^3/uL (150-400); Red Blood Cell Count 4.04 X10^6/uL (4.0-5.2); Red Cell Distribution Width 13.6 % (11.6-14.8); White Blood Cell Count 11.7 X10^3/uL (4.5-11.0)
[2018-07-24 22:10] VITALS: BP 143/101; PULSE 104; RESP 19; TEMP 36.6; O2SAT 94
[2018-07-24 22:15] VITALS: BP 148/97; PULSE 117; RESP 18; TEMP 37.2; O2SAT 97
[2018-07-24 22:15] LABS: BUN Creatinine Ratio 9.1 (6-22); Blood Urea Nitrogen 10 mg/dL (7-17); Calcium 9.1 mg/dL (8.4-10.2); Carbon Dioxide 27 mmol/L (22-32); Chloride 90 mmol/L (98-107); Glucose 101 mg/dL (80-110); HEMOLYSIS < 15 (0-50); Potassium 2.9 mmol/L (3.4-5.1); Sodium 131 mmol/L (137-145)
[2018-07-24 22:38] VITALS: BMI 24.3
[2018-07-24] MEDS: metroNIDAZOLE 500 MG/100 ML PIGGYBACK 100 MG IV (22:57)
[2018-07-24] MEDS: SODIUM CHLORIDE 0.9% 1,000 ML 125 ML IV (23:00)
--- NOTE | 2018-07-24 23:20 | PC.NURSE ---
Addendum entered by Naila Aguillon R.N. 07/25/18 00:21: Pt mostly sleeping. Rouses easily to voice. Denies need to void. NPO. Original Note: Pt to room 216 from [facility]. drowsy, but rousable. Appropriate mentation and conversation. Accompanied by son and [id number]. Pt c/o nausea, but is sleeping soundly when not roused by staff. Denies pain. IV antibiotics infusing as ordered to right forearm iv site. Bed alarm in place. Pt's son is uncertain of pt's home meds and pt too somnulent s/p medication administration to address.
--- NOTE | 2018-07-24 23:57 | PC.NURSE ---
ns bolus continues at time of transfer to acute care
[2018-07-25] VITALS (9 sets, daily range): BP systolic 121–159; BP diastolic 73–98; PULSE 90–115; RESP 16–18; TEMP 36.7–38.5; O2SAT 95–99
[2018-07-25] MEDS: DOXYCYCLINE 100 MG in SODIUM CHLORIDE 0.9% 100 ML IV (00:16)
--- NOTE | 2018-07-25 03:43 | PC.NURSE ---
Patient c/o pain to LLQ 05/06. Refused morphine IVP. Call placed to waqas Liang MD of patients potassium of 2.9 and blood glucose of 84 by finger stick. New orders received.
[2018-07-25] MEDS: HYDROMORPHONE 2 MG INJ 1 MG IV (03:55)
[2018-07-25] MEDS: DEXTROSE 5%-0.45NS W/KCL 20MEQ 1,000 ML 125 MEQ IV ×2 (03:56→13:38)
[2018-07-25] MEDS: metroNIDAZOLE 500 MG/100 ML PIGGYBACK 100 MG IV ×2 (05:43→17:55)
[2018-07-25 09:14] LABS: Add Manual Diff / Slide Review NO; Basophils Percent Auto 0.3 % (0-2); Eosinophils Percent Auto 2.4 % (2-4); Hematocrit 29.7 % (36-46); Hemoglobin 10.4 g/dL (12.0-16.0); Lymphocytes Percent Auto 12.6 % (25-40); Mean Corpuscular HGB Conc 35.1 % (30-36); Mean Corpuscular Hemoglobin 29.5 PG (26-34); Monocytes Percent Auto 10.7 % (3-14); Neutrophils Absolute Auto 6600 /uL (3000-5900); Platelet Count 224 X10^3/uL (150-400); Red Blood Cell Count 3.53 X10^6/uL (4.0-5.2); Red Cell Distribution Width 13.8 % (11.6-14.8); White Blood Cell Count 8.9 X10^3/uL (4.5-11.0)
[2018-07-25 09:28] LABS: Blood Urea Nitrogen 11 mg/dL (7-17); Calcium 8.2 mg/dL (8.4-10.2); Carbon Dioxide 28 mmol/L (22-32); Chloride 93 mmol/L (98-107); Estimated Glomerular Filt Rate 53.6 mL/min (>60); Glucose 108 mg/dL (80-110); HEMOLYSIS < 15 (0-50); Potassium 2.8 mmol/L (3.4-5.1); Sodium 132 mmol/L (137-145)
--- NOTE | 2018-07-25 12:11 | CM.DANOTE ---
DCP: Case received, EMR reviewed and met with family. Patient ill, and has been resting. Spoke to son, Arjun. Introduced self and role to son. DCP template completed with information currently available. Patient is a 78 year old female who admitted yesterday evening to the care of the hospitalist team. PCP: Dr. Trejo. Payer: confirmed: Medicare/[employer]. Patient came to hospital via ambulance with increased abdominal pain. Patient had been here recently with same symptoms. Patient carries diagnosis of Diverticulitis. Patient has been sleeping, quite ill with nausea. Met with son, Arjun. His phone number is: [phone], which is his cell phone. Stated that he lives with patient, but they have stairs in their home. Stated that she has been independent at home, but this abdominal pain has been a problem. Discussed discharge planning, and son is wanting her to remain here until she is medically stable, since she was here for the same problem recently. Discussed discharge planning, and he does not feel that intermediate is necessary, but home health may be an option. Also stated that at discharge, patient may need to stay with his significant other, who was with son today, because she has no stairs in her home. When medically stable, it is hopeful that patient would work with therapy team here in hospital. P: DCP to continue to follow closely as plan unfolds, and will be determined by her progress here in hospital. Sofya Durant RN/[employer]
--- NOTE | 2018-07-25 13:11 | PC.NURSE ---
Pt reports hallucinating, hearing her sister talk to her, which is distressing to her. Pt sleeps intermittently and moves her arms around in the air. Her son is at the bedside and has expressed some concern. Dr. Aldrich has been contacted and a request for change in pain med has been made as the dosing of IV dilaudid is suspected to be the cause of the hallucinations. Pt reports that pain is intollerable and would like to have something for pain. Orders have been placed for PO dilaudid in place of IV dose.
[2018-07-25] MEDS: HYDROMORPHONE 2 MG TABLET PO (13:39)
[2018-07-25 14:06] LABS: Magnesium 0.7 mg/dL (1.6-2.3)
--- NOTE | 2018-07-25 14:25 | PC.NURSE ---
Critical lab reported on this pt by familia manzo at 14:17 for a Magnesium level of 0.7. Dr. Aldrich has been notified through her nurse at 14:20. Orders placed for IV supplementation.
[2018-07-25] MEDS: MAGNESIUM SULFATE 2 GM/50 ML PIGGYBACK IV (15:37)
[2018-07-25] MEDS: CEFTRIAXONE 1 GM/50 ML FROZ.PIGGY IV (17:11)
--- NOTE | 2018-07-25 17:23 | PC.NURSE ---
Addendum entered by Leilani Bhat R.N. 07/25/18 22:24: LARGE BROWN SOFT BM, EXPRESSED RELIEF. Original Note: Starr shift note: Patient awake and alert, oriented to self, place, time and situation. Son at bedside providing supportive care. Required to replace PIV by a midline IV to JORGE, and Peripheral IV to left forearm, place by Monique BOLANOS. Dr. Harris at patients bedside updating patient regarding plan of care. C/O left shoulder discomfort, post IV placement, MD aware. K-pad to be ordered. Call light within reach. Will continue to monitor closely.
[2018-07-25] MEDS: POTASSIUM CHLORIDE 40 MEQ in SODIUM CHLORIDE 0.9% 500 ML 130 ML IV (17:56)
[2018-07-25] MEDS: ONDANSETRON 4 MG/2 ML INJ IV ×2 (18:19→22:06)
--- NOTE | 2018-07-25 19:19 | P.HP_ITS ---
History of Present Illness Date Patient Seen: 07/25/18 Time Patient Seen: 07:30 Chief complaint: Abdominal pain x2 days, nausea Narrative: Patient is a 78 yo female with history of prior partial colectomy for diverticular disease who was discharge 5 days ago after a 5 day hospitalization for an acute episode of diverticulitis. She was treated with 5 days of metronidalzole and doxycycline. She started vomiting about 2 days ago again and has not been able to keep anything down. She was seen in the ED [address] scan showing transverse colon diverticulitis and was given antibiotics and fluids and discharged home. She was unable to tolerate the oral antibiotics so returned again to the ED last night because of ongoing vomiting. She hasn't stooled since then but has been passing gas. Her abdomen is very tender. She has not had any fever or diarrhea. She feels loopy and very sedated with the IV hydromorphone pain medication and is wondering if something else could be given. Patient History Medical History NSTEMI (non-ST elevated myocardial infarction) (Acute) Asthma (Chronic) Diverticular disease (Chronic) GERD (gastroesophageal reflux disease) (Chronic) GI bleeding (Chronic 03/2017) H. pylori infection (Chronic) Heart murmur (Chronic) Hyperlipidemia (Chronic) Hypertension (Chronic) Polymyalgia rheumatica (Chronic) Surgical History History of carpal tunnel repair (Resolved) History of cataract removal with insertion of prosthetic lens (Resolved) History of hemicolectomy (Resolved 10/2005) Status post appendectomy (Resolved) Status post arthroscopy (Resolved) Status post cardiac catheterization (Resolved 1998) Status post vaginal hysterectomy (Resolved 1999) Family & Social History Social History: household members children Prior Living Arrangements House Safety & Behavioral: Feels Safe in Current Yes Environment Been Physically Hurt or No Threatened By a Person Suicidal Ideation Description None Suicide Plan Description No Plan Tobacco & Substance use: Tobacco type cigars Smoking Status Former smoker alcohol intake former alcohol intake frequency holiday/special occasion Substance Use Type does not use Meds Home Medications Medication Instructions Recorded Confirmed Type Vitamin D3 1 cap PO DAILY #0 01/09/12 07/25/18 History ascorbic acid (vitamin C) [Vitamin 1 tab PO DAILY #0 01/09/12 07/25/18 History C] omega 0-[id number]-fish oil [Omera] 1 cap PO DAILY #0 03/12/17 07/25/18 History vitamin B complex [B 1 tab PO DAILY #0 04/17/17 07/25/18 History Complex-Vitamin B12] prednisone 10 mg tablet 10 mg PO DAILY tab 06/03/18 07/25/18 History hydrochlorothiazide 25 mg tablet 25 mg PO DAILY #90 tab 07/09/18 07/25/18 Rx ibuprofen [Advil] 200 mg PO PRN PRN 07/15/18 07/25/18 History lactobacillus comb no.10 20,000 mmu cells PO DAILY 07/15/18 07/25/18 History [Probiotic] metoprolol succinate 100 mg PO QPM 07/15/18 07/25/18 History olmesartan 15 mg PO QPM 07/15/18 07/25/18 History omeprazole 20 mg PO QPM 07/15/18 07/25/18 History prednisone 2 mg PO DAILY 07/15/18 07/25/18 History trazodone 100 mg PO BEDTIME 07/15/18 07/25/18 History aspirin 81 mg PO DAILY #30 tab 07/20/18 07/25/18 Rx atorvastatin [Lipitor] 40 mg PO BEDTIME #30 tab 07/20/18 07/25/18 Rx doxycycline hyclate 100 mg PO BID 10 Days #20 tab 07/24/18 07/25/18 Rx metronidazole 500 mg PO TID 10 Days #30 tab 07/24/18 07/25/18 Rx ondansetron 4 mg PO Q6-8H PRN #10 tab 07/24/18 07/25/18 Rx Allergies Allergy/AdvReac Type Severity Reaction Status Date / Time ciprofloxacin [CIPROFLOXACIN] Allergy Severe MUSCLE PAIN Verified 06/03/18 11:49 ceftriaxone Allergy Mild Anxiety Verified 07/15/18 19:53 methocarbamol [METHOCARBAMOL] Allergy Mild RASH/ROBAXI Verified 06/03/18 11:49 N Penicillins [PENICILLINS] Allergy Mild HIVES Verified 06/03/18 11:49 piroxicam [PIROXICAM] Allergy Mild RASH/FELDEN Verified 06/03/18 11:49 E temazepam [TEMAZEPAM] Allergy Mild NERVOUNESS/ Verified 06/03/18 11:49 RESTORIL Review of Systems Review of Systems All systems reviewed & are unremarkable except as noted in HPI and below Exam Vital Signs (past 8 hours): - 07/25/18 11:42 07/25/18 15:40 07/25/18 18:02 Temperature 98.1 F 98.4 F Pulse Rate 106 H 90 103 H Respiratory Rate 18 18 Blood Pressure 144/78 H 154/76 H 159/79 H Pulse Oximetry 97 98 Oxygen Delivery Method Room Air Oxygen Flow Rate 0 Const General: cooperative and well developed Nutritional Appearance: average body habitus and well nourished Orientation: alert, awake and oriented x3 Resp Effort & Inspection: normal respiratory effort and able to speak in complete sentences Auscultation: clear to auscultation bilaterally, no rales, no rhonchi and no wheezes Cardio Palpation: normal PMI Rate: regular rate Rhythm: regular rhythm Heart Sounds: S1 normal and S2 normal Pulses: brachial pulses present and dorsalis pedis present GI Palpation: soft and tender (left side) Auscultation: normal bowel sounds Extrem General: normal to inspection, no clubbing, cyanosis or edema and No pedal edema Psych Appearance: grossly normal and well kempt Mental Status: mental status grossly normal Speech and Movement: speech and movement normal Affect: normal affect Attitude: cooperative Thought Process: normal Thought Content: normal Judgment: judgment good Objective Labs Result Diagrams: 07/25/18 08:55 07/25/18 08:55 Labs: Laboratory Results - last 24 hr 07/24/18 07/24/18 07/25/18 21:55 21:55 08:55 WBC 11.7 H 8.9 RBC 4.04 3.53 L Hgb 11.7 L 10.4 L Hct 33.9 L 29.7 L MCV 83.8 84.0 MCH 28.8 29.5 MCHC 34.4 35.1 RDW 13.6 13.8 Plt Count 265 224 Neut % (Auto) 78.9 H 74.0 Lymph % (Auto) 8.7 L 12.6 L Sampson % (Auto) 10.4 10.7 Eos % (Auto) 1.1 L 2.4 Baso % (Auto) 0.9 0.3 Neut # (Auto) 9200 H 6600 H Sodium 131 L Potassium 2.9 L Chloride 90 L Carbon Dioxide 27 BUN 10 Creatinine 1.10 H Estimated GFR 48.0 L BUN/Creatinine Ratio 9.1 Glucose 101 Calcium 9.1 Magnesium B-Natriuretic Peptide 07/25/18 07/25/18 07/25/18 08:55 08:55 08:55 WBC RBC Hgb Hct MCV MCH MCHC RDW Plt Count Neut % (Auto) Lymph % (Auto) Sampson % (Auto) Eos % (Auto) Baso % (Auto) Neut # (Auto) Sodium 132 L Potassium 2.8 L Chloride 93 L Carbon Dioxide 28 BUN 11 Creatinine 1.00 Estimated GFR 53.6 L BUN/Creatinine Ratio 11.0 Glucose 108 Calcium 8.2 L Magnesium 0.7 L* B-Natriuretic Peptide 263.0 H Assessment & Plan Plan: Assessment/Plan Narrative: 78 yo female with recent history of diverticulitis presented last night with more pain, vomiting unable to tolerate PO antibiotics and diverticulitis on CT scan likely the same episode. 1. Plan to treat diverticulitis with ceftriaxone and metronidazole. She had been treated with this combination successfully in the past. Will give her bowel rest. She does have history of abscess and bleeding diverticuli. Consider surgical consult. 2. Electrolyte abnormalities from her vomiting, hyponatremia, hypokalemia, hypomagnesium. Replete magnesium, K-agustina, potassium in her fluids. Small bump in her creatinine. Repeat labs in AM. 3. NPO with sips and chips for now. Zofran. 4. Change omeprazole to protonix IV. 5. Will continue her metoprolol and will add back other antihypertensives as needed. 6. Prednisone for her PMR. CODE STATUS: full code DVT prophylaxis: SCD's, she has history of bleed with her diverticulitis DISPOSITION: Home once recovered from the infection. She will require at least 2 midnights and likely more with fluids and parental antiboitics to make sure she has recovered sufficiently. She has required colectomy for this in the past and may need surgical intervention in the future. Quality VTE Deep Vein Thrombosis/Pulmonary Embolism Present on Admission: No
[2018-07-25] MEDS: PANTOPRAZOLE 40 MG VIAL IV (20:36)
[2018-07-26] VITALS (12 sets, daily range): BP systolic 146–161; BP diastolic 78–88; PULSE 77–93; RESP 16–18; TEMP 36.2–37.7; O2SAT 96–99
[2018-07-26] MEDS: DEXTROSE 5%-0.45NS W/KCL 20MEQ 1,000 ML 125 MEQ IV ×2 (00:25→11:50)
--- NOTE | 2018-07-26 02:32 | PC.NURSE ---
Addendum entered by Ingrid Shepard R.N. 07/26/18 04:08: Orders for Reglan rec'd, given. Pt Continues with nausea, 1PA BSC. Small BM, soft and brown. Pt feels like pain is ok, but it would be nice to be comfortable. Supportive care given. Original Note: NOC Shift Pt A/o x3, anxious, gripping bedrails. I dont want to get sick, I think I need to throw up Zofran has been given by off going RN, Pt does not want to have PO meds with this level of nausea. will address nausea with score caller MD.
[2018-07-26] MEDS: metroNIDAZOLE 500 MG/100 ML PIGGYBACK 100 MG IV ×3 (03:56→19:59)
[2018-07-26 06:09] LABS: Add Manual Diff / Slide Review NO; Basophils Percent Auto 0.7 % (0-2); Eosinophils Percent Auto 1.9 % (2-4); Hemoglobin 9.7 g/dL (12.0-16.0); Lymphocytes Percent Auto 6.5 % (25-40); Mean Corpuscular HGB Conc 35.9 % (30-36); Mean Corpuscular Hemoglobin 30.2 PG (26-34); Mean Corpuscular Volume 84.3 fL (80-100); Monocytes Percent Auto 11.8 % (3-14); Neutrophils Absolute Auto 6300 /uL (3000-5900); Neutrophils Percent Auto 79.1 % (50-75); Platelet Count 225 X10^3/uL (150-400); Red Blood Cell Count 3.21 X10^6/uL (4.0-5.2); Red Cell Distribution Width 14.1 % (11.6-14.8)
[2018-07-26 06:14] LABS: BUN Creatinine Ratio 5.5 (6-22); Blood Urea Nitrogen 6 mg/dL (7-17); Calcium 7.7 mg/dL (8.4-10.2); Carbon Dioxide 23 mmol/L (22-32); Chloride 100 mmol/L (98-107); Glucose 121 mg/dL (80-110); HEMOLYSIS < 15 (0-50); Magnesium 1.3 mg/dL (1.6-2.3); Sodium 132 mmol/L (137-145)
[2018-07-26] MEDS: CEFTRIAXONE 1 GM/50 ML FROZ.PIGGY IV ×2 (06:24→19:00)
[2018-07-26] MEDS: predniSONE 10 MG TABLET PO (08:52)
[2018-07-26] MEDS: PANTOPRAZOLE 40 MG VIAL IV (09:17)
--- NOTE | 2018-07-26 17:06 | PM.PN.1 ---
Subjective Date Patient Seen: 07/26/18 Time Patient Seen: 08:00 Interval history: The pt reports that she is feeling approximately 2000 times improved from when she came into the hospital. She denies any recurrent nausea. Her abdominal pain is now relatively mild. She did have a BM this morning, which she states was still slightly loose but did have some formed components. She is pleased with her progress, and would like to try some Jello. She is primarily concerned about her ongoing weakness now. Exam Vital Signs (past 8 hours): - 07/26/18 11:57 07/26/18 15:50 07/26/18 17:00 Temperature 98.6 F 98.6 F Pulse Rate 88 89 Respiratory Rate 16 16 Blood Pressure 161/87 H 154/86 H Pulse Oximetry 99 97 97 Oxygen Delivery Method Room Air Oxygen Flow Rate 0 Narrative Exam Narrative: Gen: NAD, laying comfortably in bed, appears fatigued CV: RRR, grade 2/6 systolic murmur Resp: clear to auscultation bilaterally Abd: soft, normoactive bowel sounds, nondistended, tender to palpation LLQ without rebound/guarding rigidity, very mild tenderness LUQ, otherwise nontender to palpation Ext: no edema Objective Labs Result Diagrams: 07/26/18 05:45 07/26/18 05:45 Labs: Laboratory Results - last 24 hr 07/26/18 07/26/18 05:45 05:45 WBC 8.0 RBC 3.21 L Hgb 9.7 L Hct 27.0 L MCV 84.3 MCH 30.2 MCHC 35.9 RDW 14.1 Plt Count 225 Neut % (Auto) 79.1 H Lymph % (Auto) 6.5 L [place] % (Auto) 11.8 Eos % (Auto) 1.9 L Baso % (Auto) 0.7 Neut # (Auto) 6300 H Sodium 132 L Potassium 4.0 D Chloride 100 Carbon Dioxide 23 BUN 6 L Creatinine 1.10 H Estimated GFR 48.0 L BUN/Creatinine Ratio 5.5 L Glucose 121 H Calcium 7.7 L Magnesium 1.3 L Assessment & Plan (1) Diverticulitis: Current visit: Yes Status: Acute (2) Essential hypertension: Current visit: No Status: Chronic (3) Polymyalgia rheumatica: Current visit: No Status: Chronic (4) Atrial fibrillation: Current visit: Yes Status: Acute Plan: Assessment/Plan Narrative: 78-year-old woman with hypertension, history of diverticulitis with partial colectomy, and PMR who presented with abdominal pain and nausea after recent hospitalizations for diverticulitis. Found to have recurrent vs persistent diverticulitis on CT scan from the ER. Was unable to tolerate PO antibiotics, therefore was readmitted for further treatment. 1) Diverticulitis: Improving already on IV antibiotics - Continue Ceftriaxone and Flagyl - Advance to clear liquid diet - Zofran PRN for nausea - Continue mIVF, if able to tolerate clears plan to d/c tomorrow 2) Electrolyte abnormalities: Improved after replacement yesterday - Continue to track BMP 3) HTN: BP slightly elevated - Continue Metoprolol - Restart home HCTZ, Olmesartan 4) PMR: - Continue Prednisone 5) Atrial fibrillation: New diagnosis after last hospitalization. Seen on Echo obtained due to NSTEMI. Also noted to have EF 40-45%. - Telemetry while here to determine how prevalent DVT prophylaxis: SCDs Dispo: Pending continued improvement in pain and ability to advance diet. Anticipate at least 2 additional midnights. Quality VTE Deep Vein Thrombosis/Pulmonary Embolism Present on Admission: No
[2018-07-26] MEDS: METOPROLOL ER 50 MG TABLET 100 MG PO (17:13)
[2018-07-26] MEDS: ATORVASTATIN 20 MG TABLET 40 MG PO (20:37)
--- NOTE | 2018-07-26 22:11 | PC.NURSE ---
pt A&O x3, pleasant and cooperative. Pt is req. to not take 2100 Trazadone until noc shift comes on and assessments are done. Will notify nurse of this.
[2018-07-27] VITALS (11 sets, daily range): BP systolic 137–157; BP diastolic 72–91; PULSE 69–81; RESP 16–21; TEMP 36–36.4; O2SAT 94–99
[2018-07-27] MEDS: DEXTROSE 5%-0.45NS W/KCL 20MEQ 1,000 ML 125 MEQ IV ×2 (00:26→09:30)
[2018-07-27] MEDS: TRAZODONE 100 MG TABLET PO (00:26)
[2018-07-27] MEDS: metroNIDAZOLE 500 MG/100 ML PIGGYBACK 100 MG IV ×3 (03:10→18:29)
[2018-07-27] MEDS: CEFTRIAXONE 1 GM/50 ML FROZ.PIGGY IV ×2 (07:00→17:25)
[2018-07-27] MEDS: predniSONE 10 MG TABLET PO (08:40)
[2018-07-27] MEDS: LACTOBACILLUS ACIDOPHILUS TABLET 1 EACH PO (08:40)
[2018-07-27] MEDS: hydroCHLOROthiazide 25 MG TABLET PO (08:40)
[2018-07-27] MEDS: ASPIRIN EC 81 MG TABLET PO (08:40)
[2018-07-27] MEDS: PANTOPRAZOLE 40 MG VIAL IV (08:40)
--- NOTE | 2018-07-27 12:09 | PM.PN.1 ---
Subjective Date Patient Seen: 07/27/18 Time Patient Seen: 12:09 Interval history: Patient resting quietly in bed today. She tells me that she did not sleep well last night secondary to sleeping all day the day before. She is tolerating her clears and wants to know when she can start eating more food. She tells me that she is very hungry. No more abdominal pain. She is stooling with out melena or hematochezia. Exam Vital Signs (past 8 hours): - 07/27/18 08:00 07/27/18 10:31 Temperature 97.3 F L Pulse Rate 69 Respiratory Rate 18 Blood Pressure 142/77 H Pulse Oximetry 98 94 Oxygen Delivery Method Room Air Oxygen Flow Rate 0 Narrative Exam Narrative: General: Well-developed, well-nourished, female, no acute distress. Heart: Regular rate and rhythm, murmur heard at the right upper sternal border Lungs: Clear to auscultation bilaterally, no wheezes, rales or rhonchi Abdomen: Soft, bowel sounds present, minimal tenderness on the left side Extremities: Warm and well perfused, no edema Objective Labs Result Diagrams: 07/26/18 05:45 07/26/18 05:45 Assessment & Plan Plan: Assessment/Plan Narrative: 78-year-old woman with hypertension, history of diverticulitis with partial colectomy, and PMR who presented with abdominal pain and nausea after recent hospitalizations for diverticulitis. Found to have recurrent vs persistent diverticulitis on CT scan from the ER. Was unable to tolerate PO antibiotics, therefore was readmitted for further treatment. 1. Plan to treat diverticulitis with ceftriaxone and metronidazole. She had been treated with this combination successfully in the past and has improved considerably on this regimen. Will advance diet today. Stop fluids. Continue Protonix. 2. Electrolyte abnormalities from her vomiting, hyponatremia, hypokalemia, hypomagnesium. These have been replaced. Continue monitoring 3. Hypertension. Will continue her metoprolol, hydrochlorothiazide and olmesartan 4. Prednisone for her PMR. 5. Atrial fibrillation was seen on echo at last admission after her NSTEMI. Telemetry monitoring to see if this is persisting. CODE STATUS: full code DVT prophylaxis: SCD's, she has history of bleed with her diverticulitis DISPOSITION: Pending continued improvement will likely discharge tomorrow. Quality VTE Deep Vein Thrombosis/Pulmonary Embolism Present on Admission: No
[2018-07-27 15:41] LABS: Add Manual Diff / Slide Review NO; BUN Creatinine Ratio 4.4 (6-22); Basophils Percent Auto 0.5 % (0-2); Blood Urea Nitrogen 4 mg/dL (7-17); Calcium 8.1 mg/dL (8.4-10.2); Carbon Dioxide 22 mmol/L (22-32); Chloride 102 mmol/L (98-107); Eosinophils Percent Auto 0.3 % (2-4); Estimated Glomerular Filt Rate > 60.0 mL/min (>60); Glucose 165 mg/dL (80-110); HEMOLYSIS 48 (0-50); Hematocrit 28.2 % (36-46); Hemoglobin 9.7 g/dL (12.0-16.0); Lymphocytes Percent Auto 5.8 % (25-40); Mean Corpuscular HGB Conc 34.5 % (30-36); Mean Corpuscular Hemoglobin 29.4 PG (26-34); Mean Corpuscular Volume 85.1 fL (80-100); Neutrophils Absolute Auto 6700 /uL (3000-5900); Neutrophils Percent Auto 88.4 % (50-75); Platelet Count 268 X10^3/uL (150-400); Potassium 4.8 mmol/L (3.4-5.1); Red Blood Cell Count 3.31 X10^6/uL (4.0-5.2); Red Cell Distribution Width 13.6 % (11.6-14.8); Sodium 135 mmol/L (137-145); White Blood Cell Count 7.6 X10^3/uL (4.5-11.0)
[2018-07-27] MEDS: METOPROLOL ER 50 MG TABLET 100 MG PO (17:22)
[2018-07-27] MEDS: OLMESARTAN 5 MG TABLET 15 MG PO (17:23)
[2018-07-27] MEDS: ATORVASTATIN 20 MG TABLET 40 MG PO (20:13)
[2018-07-28] MEDS: TRAZODONE 100 MG TABLET PO
[2018-07-28] MEDS: metroNIDAZOLE 500 MG/100 ML PIGGYBACK 100 MG IV ×2 (03:03→12:20)
[2018-07-28 04:05] VITALS: BP 144/74; PULSE 71; RESP 18; TEMP 36.4; O2SAT 97
[2018-07-28 07:00] VITALS: O2SAT 97
[2018-07-28 07:25] VITALS: BP 147/91; PULSE 83; RESP 18; TEMP 36.4; O2SAT 99
[2018-07-28] MEDS: LACTOBACILLUS ACIDOPHILUS TABLET 1 EACH PO (08:11)
[2018-07-28] MEDS: ASPIRIN EC 81 MG TABLET PO (08:11)
[2018-07-28] MEDS: PANTOPRAZOLE 40 MG VIAL IV (08:11)
[2018-07-28] MEDS: predniSONE 10 MG TABLET PO (08:12)
[2018-07-28] MEDS: hydroCHLOROthiazide 25 MG TABLET PO (08:12)
[2018-07-28] MEDS: CEFTRIAXONE 1 GM/50 ML FROZ.PIGGY IV (08:31)
[2018-07-28] MEDS: MAGNESIUM SULFATE 2 GM/50 ML PIGGYBACK IV (10:02)
[2018-07-28 11:25] VITALS: BP 146/86; PULSE 79; RESP 16; TEMP 36.3; O2SAT 97
--- NOTE | 2018-07-28 11:31 | P.DS_ITS ---
History of Present Illness Date Patient Seen: 07/28/18 Time Patient Seen: 11:23 Chief complaint: Abdominal pain x2 days, nausea Narrative: Patient is a 78 yo female with history of prior partial colectomy for diverticular disease who was discharge 5 days ago after a 5 day hospitalization for an acute episode of diverticulitis. She was treated with 5 days of metronidalzole and doxycycline. She started vomiting about 2 days ago again and has not been able to keep anything down. She was seen in the ED [address] scan showing transverse colon diverticulitis and was given antibiotics and fluids and discharged home. She was unable to tolerate the oral antibiotics so returned again to the ED last night because of ongoing vomiting. She hasn't stooled since then but has been passing gas. Her abdomen is very tender. She has not had any fever or diarrhea. She feels loopy and very sedated with the IV hydromorphone pain medication and is wondering if something else could be given. Discharge Providers Date of admission: 07/24/18 22:01 Primary care physician: Mary Trejo MD Consults: 07/24/18 21:52 Consult to Physician Routine Comment: Consulting Provider: Rosemary Aldrich Reason for consultation: admission Has provider been notified: Yes 07/25/18 02:45 Consult to Dietitian, Adult Routine Comment: Reason For Exam: poor po intake Discharge provider: Rosemary Aldrich DO Discharge Date: 07/28/18 Summary Discharge Diagnosis: Relapsing diverticulitis Hypokalemia Hypomagnesium Hyponatremia Hypertension PMR Atrial fibrillation Hospital Course: 78-year-old woman with hypertension, history of diverticulitis with partial colectomy, and PMR who presented with abdominal pain and nausea after recent hospitalizations for diverticulitis. Found to have recurrent vs persistent diverticulitis on CT scan from the ER. Was unable to tolerate PO antibiotics, therefore was readmitted for further treatment. 1. Treated with ceftriaxone and metronidazole. She had been treated with this combination successfully in the past and has improved considerably on this regimen. Diet was advanced and she was tolerated a soft diet at discharge. 2. Electrolyte abnormalities from her vomiting, hyponatremia, hypokalemia, hypomagnesium. These have been replaced. Will need continued magnesium supplementation going forward. 3. Hypertension. Will continue her metoprolol, hydrochlorothiazide and olmesartan 4. Prednisone for her PMR. 5. Atrial fibrillation was seen on echo at last admission after her NSTEMI. Telemetry monitoring showed an incidence of this. Likely due to her significant magnesium deficiency. Consider monitoring as outpatient with normal magnesium levels. CODE STATUS: full code DVT prophylaxis: SCD's, she has history of bleed with her diverticulitis DISPOSITION: home with follow up with Dr. Trejo in the next week. Will have her electrolytes checked prior to this visit. Exam Vital Signs (past 8 hours): - 07/28/18 04:05 07/28/18 07:25 Temperature 97.5 F L 97.5 F L Pulse Rate 71 83 Respiratory Rate 18 18 Blood Pressure 144/74 H 147/91 H Pulse Oximetry 97 99 Oxygen Delivery Method Room Air Oxygen Flow Rate 0 Narrative Exam Narrative: General: Well-developed, well-nourished, female, no acute distress. Heart: Regular rate and rhythm, murmur heard at the right upper sternal border Lungs: Clear to auscultation bilaterally, no wheezes, rales or rhonchi Abdomen: Soft, bowel sounds present, minimal tenderness on the left side Extremities: Warm and well perfused, no edema Objective Imaging CT scan - abdomen: Radiologist's impression: IMPRESSION: 1. Acute diverticulitis involving the transverse colon and descending colon. There is a trace amount of free fluid in the left paracolic cutter. No diverticular abscess at this time. No significant discrepancy with the [facility] shift lead radiology preliminary report. Labs Result Diagrams: 07/27/18 15:00 07/27/18 15:00 Labs: Laboratory Results - last 24 hr 07/27/18 07/27/18 15:00 15:00 WBC 7.6 RBC 3.31 L Hgb 9.7 L Hct 28.2 L MCV 85.1 MCH 29.4 MCHC 34.5 RDW 13.6 Plt Count 268 Neut % (Auto) 88.4 H Lymph % (Auto) 5.8 L [place] % (Auto) 5.0 Eos % (Auto) 0.3 L Baso % (Auto) 0.5 Neut # (Auto) 6700 H Sodium 135 L Potassium 4.8 Chloride 102 Carbon Dioxide 22 BUN 4 L Creatinine 0.90 Estimated GFR > 60.0 BUN/Creatinine Ratio 4.4 L Glucose 165 H Calcium 8.1 L Magnesium 1.0 L Discharge Plan Discharge Plan Discharge Problem: Diverticulitis Patient Disposition: Home Discharge Med Rec/Prescriptions Prescriptions: New magnesium 250 mg tablet 250 mg PO BID Qty: 60 RF: 0 cefdinir 300 mg capsule 300 mg PO Q12H 5 Days Qty: 10 RF: 0 Continue Vitamin D3 1 cap PO DAILY Qty: 0 RF: 0 ascorbic acid (vitamin C) [Vitamin C] 1,000 mg Tablet 1 tab PO DAILY Qty: 0 RF: 0 omega [id number]-fish oil [Omera] 1 EACH capsule 1 cap PO DAILY Qty: 0 RF: 0 vitamin B complex [B Complex-Vitamin B12] 1 EACH tablet 1 tab PO DAILY Qty: 0 RF: 0 prednisone 10 mg tablet 10 mg PO DAILY RF: 0 hydrochlorothiazide 25 mg tablet 25 mg PO DAILY Qty: 90 RF: 2 prednisone 1 mg tablet 2 mg PO DAILY RF: 0 olmesartan 5 mg tablet 15 mg PO QPM RF: 0 trazodone 100 MG tablet 100 mg PO BEDTIME RF: 0 ibuprofen [Advil] 200 mg Tablet 200 mg PO PRN PRN (Reason: pain) RF: 0 lactobacillus comb no.10 [Probiotic] 20 billion cell Capsule 20,000 mmu cells PO DAILY RF: 0 metoprolol succinate 100 mg tablet extended release 24 hr 100 mg PO QPM RF: 0 omeprazole 20 MG tablet,delayed release (DR/EC) 20 mg PO QPM RF: 0 atorvastatin [Lipitor] 20 mg Tablet 40 mg PO BEDTIME Qty: 30 RF: 0 aspirin 81 mg Tablet,Delayed Release (Dr/Ec) 81 mg PO DAILY Qty: 30 RF: 0 metronidazole 500 mg tablet 500 mg PO TID 10 Days Qty: 30 RF: 0 ondansetron 4 mg tablet,disintegrating 4 mg PO Q6-8H PRN (Reason: nausea and vomiting) Qty: 10 RF: 0 Discontinued doxycycline hyclate 100 mg tablet 100 mg PO BID 10 Days Qty: 20 RF: 0 Other Ambulatory Orders: Basic Metabolic Panel (Stat) Timeframe: 1 Week Location: Laboratory Ordered By: Rosemary Aldrich Magnesium (Stat) Timeframe: 1 Week Location: Laboratory Ordered By: Rosemary Aldrich Follow up/Referrals: Mary Trejo MD [Primary Care Provider] - 1 Week Provider Discharge Instructions Diet: Diet as Tolerated Diet comment: low residue Activity: as tolerated Skin/Wound/Dressing Care Report to your healthcare provider any signs of infection, such as:: chills, fever, night sweats, increased pain, unusual drainage and unusual redness Discharge Data Primary Care Provider: Mary Trejo Attending Provider: Mary Trejo Admit Date/Time: 07/24/18 22:01 Quality VTE Deep Vein Thrombosis/Pulmonary Embolism Present on Admission: No
--- NOTE | 2018-07-28 11:48 | CM.DPC ---
DCP Continued: Discharge orders received for patient. Went to room to meet with her. She is sitting up in bed. She is in agreement with the discharge plan. She lives with her son and he will be her ride home. She does not identify any discharge needs or barriers to discharge. Plan: Home with son. Lucille Mosley RN Case Manager
--- NOTE | 2018-07-28 11:48 | PC.NURSE ---
Michelle is adamant that she Is going home today no matter what. VSS. Denies nausea or abd. pain. Taking full liquid diet. Able to amb. with only SBA in room. Currrently has Mg infusion running. This to be followed by Flagyl IV dose. Then OK to D/C home per Dr. Enciso.
--- NOTE | 2018-07-28 15:29 | PC.NURSE ---
Michelle was disch. in stable condition via w. chair to care of son to home at 1445. She verbalizes understanding of all disch. instructions.
== END 2018-07-28 14:45 | disposition home or self-care (01) | DRG 392 ==
LOC: ED 21:51 → AC 22:02
PROVIDERS: Admitting Provider Family Medicine; Emergency Provider Emergency Medicine; Family Provider Family Medicine; PCP Family Medicine; Visit Provider Family Medicine
DX: K57.32 Diverticulitis of large intestine without perforation or abscess without bleeding (principal); E87.1 Hypo-osmolality and hyponatremia; E87.6 Hypokalemia; E83.42 Hypomagnesemia; R10.9 Unspecified abdominal pain; K21.9 Gastro-esophageal reflux disease without esophagitis; I10 Essential (primary) hypertension; E78.5 Hyperlipidemia, unspecified; M35.3 Polymyalgia rheumatica; Z87.891 Personal history of nicotine dependence; I48.91 Unspecified atrial fibrillation; R01.1 Cardiac murmur, unspecified
CPT/HCPCS: 36415; 36591; 74177; 80048; 80053; 81003; 82962; 83605; 83690; 83735; 83880; 85025; 99223; 99232; 99238; 99282; 99283; C9113; J1170; J2405; J3410; J3480; Q9967

== ENCOUNTER 2018-08-01 09:00 | Emergency (ER) | payer MEDICARE, SELFPAY ==
[2018-08-01 09:10] VITALS: BP 153/75; PULSE 78; RESP 20; TEMP 36.4; O2SAT 98
[2018-08-01] MEDS: ONDANSETRON 4 MG/2 ML INJ IV (09:27)
[2018-08-01] MEDS: SODIUM CHLORIDE 0.9% 1,000 ML 150 ML IV (09:27)
--- NOTE | 2018-08-01 09:29 | ED_ITS ---
HPI - Nausea/Vomiting/Diarrhea General Chief complaint: Nausea/Vomiting/Diarrhea Stated complaint: nausea,not drinking/eating Time Seen by Provider: 08/01/18 09:23 Source: patient and old records reviewed Mode of arrival: ambulatory Limitations: no limitations History of Present Illness HPI Narrative: Patient is a 70-year-old female who presents with nausea and vomiting. She has actually been admitted twice for the same. She was most recently discharged on 07/28/2018. She was diagnosed with diverticulitis on . She was previously admitted July 15 through the for vomiting and diverticulitis. Today she is unable to keep anything down feels extremely nauseated despite Zofran at home. She has not been vomiting in the ED. Although she does appear dry. MD complaint: nausea and vomiting Related Data Home Medications Medication Instructions Recorded Confirmed Vitamin D3 1 cap PO DAILY #0 01/09/12 08/01/18 ascorbic acid (vitamin C) [Vitamin 1 tab PO DAILY #0 01/09/12 08/01/18 C] omega 9-bqe-vip-fish oil [Omera] 1 cap PO DAILY #0 03/12/17 08/01/18 vitamin B complex [B 1 tab PO DAILY #0 04/17/17 08/01/18 Complex-Vitamin B12] prednisone 10 mg tablet 10 mg PO DAILY tab 06/03/18 08/01/18 ibuprofen [Advil] 200 mg PO PRN PRN 07/15/18 08/01/18 lactobacillus comb no.10 20,000 mmu cells PO DAILY 07/15/18 08/01/18 [Probiotic] metoprolol succinate 100 mg PO QPM 07/15/18 08/01/18 olmesartan 10 mg PO QPM 07/15/18 08/01/18 omeprazole 20 mg PO QPM 07/15/18 08/01/18 trazodone 100 mg PO BEDTIME 07/15/18 08/01/18 atorvastatin 40 mg PO BEDTIME 08/01/18 08/01/18 doxycycline hyclate 100 mg PO BID 08/01/18 08/01/18 prednisone 2 mg PO DAILY 08/01/18 08/01/18 Previous Rx's Medication Instructions Recorded hydrochlorothiazide 25 mg tablet 25 mg PO DAILY #90 tab 07/09/18 aspirin 81 mg PO DAILY #30 tab 07/20/18 metronidazole 500 mg PO TID 10 Days #30 tab 07/24/18 ondansetron 4 mg PO Q6-8H PRN #10 tab 07/24/18 cefdinir 300 mg PO Q12H 5 Days #10 cap 07/28/18 magnesium 250 mg PO BID #60 tab 07/28/18 promethazine [Phenergan] 25 mg PA Q6H PRN #1 each 08/01/18 Allergies Allergy/AdvReac Type Severity Reaction Status Date / Time ciprofloxacin [CIPROFLOXACIN] Allergy Severe MUSCLE PAIN Verified 06/03/18 11:49 methocarbamol [METHOCARBAMOL] Allergy Mild RASH/ROBAXI Verified 06/03/18 11:49 N Penicillins [PENICILLINS] Allergy Mild HIVES Verified 06/03/18 11:49 piroxicam [PIROXICAM] Allergy Mild RASH/FELDEN Verified 06/03/18 11:49 E temazepam [TEMAZEPAM] Allergy Mild NERVOUNESS/ Verified 06/03/18 11:49 RESTORIL Review of Systems Review of Systems All systems reviewed & are unremarkable except as noted in HPI and below Constitutional Denies chills, Denies fever(s), Denies lethargy and Denies weakness Cardiovascular Denies chest pain, Denies irregular heart rhythm, Denies lightheadedness, Denies palpitations, Denies dyspnea, Denies dyspnea on exertion and Denies orthopnea Respiratory Denies cough, Denies dyspnea, Denies dyspnea on exertion and Denies wheezing Gastrointestinal Gastrointestinal: Reports as per HPI and Reports abdominal pain Musculoskeletal Denies back pain, Denies muscle weakness, Denies numbness and Denies tingling Integumentary/Breasts Denies pruritus, Denies erythema, Denies rash and Denies wounds Neurologic Denies numbness, Denies tingling and Denies weakness Endocrine Denies palpitations Allergic/Immunologic Denies wheezing PFSH Medical History CHF (congestive heart failure) (Acute) NSTEMI (non-ST elevated myocardial infarction) (Acute) Asthma (Chronic) Diverticular disease (Chronic) GERD (gastroesophageal reflux disease) (Chronic) GI bleeding (Chronic 03/2017) H. pylori infection (Chronic) Heart murmur (Chronic) Hyperlipidemia (Chronic) Hypertension (Chronic) Polymyalgia rheumatica (Chronic) Surgical History History of carpal tunnel repair (Resolved) History of cataract removal with insertion of prosthetic lens (Resolved) History of hemicolectomy (Resolved 10/2005) Status post appendectomy (Resolved) Status post arthroscopy (Resolved) Status post cardiac catheterization (Resolved 1998) Status post vaginal hysterectomy (Resolved 1999) Social History household members: children Smoking Status: Former smoker alcohol intake: former substance use type: does not use Exam Initial Vital Signs Initial Vital Signs: Vital Signs Temperature 97.6 F 08/01/18 09:10 Pulse Rate 78 08/01/18 09:10 Respiratory Rate 20 08/01/18 09:10 Blood Pressure 153/75 H 08/01/18 09:10 Pulse Oximetry 98 08/01/18 09:10 GENERAL: Weak elderly female no acute distress HEENT: Head atraumatic,EOMI, pupils reactive, dry mucous membranes CARDIOVASCULAR: Regular rate and rhythm without murmurs, rubs or gallops. RESPIRATORY: Breath sounds equal bilaterally, no wheezes rales or rhonchi. ABDOMEN: Soft, mild tenderness left lower quadrant no guarding or rebound EXTREMITIES: Normal range of motion, no clubbing or edema. Neurovascularly intact NEUROLOGICAL: Alert and oriented x4.Normal gait and speech. SKIN: Warm, dry, no laceration, no petechiae, no rashes or lesions. Skin has poor elasticity Course Orders Ordered: ED Orders 08/01/18 09:41 Complete Blood Count AUTO DIFF Stat Comprehensive Metabolic Panel Stat Lipase Stat 08/01/18 10:49 Urine Culture Stat Urine Microscopic Stat 08/01/18 12:32 XR acute abdomen series Stat Discontinued Medications Sodium Chloride (Normal Saline 0.9%) 1,000 mls @ 150 mls/hr IV CONT RADHA Last Infusion: 08/01/18 12:47 Dose: 0 mls/hr Admin: 08/01/18 09:27 Dose: 150 mls/hr Lorazepam (Ativan) 0.5 mg IV NOW ONE Stop: 08/01/18 11:52 Last Admin: 08/01/18 11:53 Dose: 0.5 mg Ondansetron HCl (Zofran) 4 mg IV NOW ONE Stop: 08/01/18 09:24 Last Admin: 08/01/18 09:27 Dose: 4 mg Vital Signs - 8 hr 08/01/18 10:30 08/01/18 11:25 08/01/18 13:11 Pulse Rate 69 71 73 Respiratory Rate 18 Blood Pressure 166/80 H Blood Pressure [Left Arm] 158/71 H 154/69 H Pulse Oximetry 97 98 98 MDM - Nausea/Vomiting/Diarrhea Lab Data Attestation: I reviewed the patient's lab results. Result diagrams: 08/01/18 09:41 08/01/18 09:41 Lab Results 08/01/18 08/01/18 08/01/18 Range/Units 09:41 09:41 10:49 WBC 7.3 (4.5-11.0) X10^3/uL RBC 3.97 L (4.0-5.2) X10^6/uL Hgb 11.3 L (12.0-16.0) g/dL Hct 33.3 L (36-46) % MCV 83.8 (80-100) fL MCH 28.4 (26-34) PG MCHC 33.9 (30-36) % RDW 13.6 (11.6-14.8) % Plt Count 293 (150-400) X10^3/uL Neut % (Auto) 64.4 (50-75) % Lymph % (Auto) 17.3 L (25-40) % [place] % (Auto) 14.0 (3-14) % Eos % (Auto) 3.6 (2-4) % Baso % (Auto) 0.7 (0-2) % Neut # (Auto) 4700 (6793-7396) /uL Sodium 132 L (137-145) mmol/L Potassium 3.8 (3.4-5.1) mmol/L Chloride 93 L (98-107) mmol/L Carbon Dioxide 24 (22-32) mmol/L BUN 8 (7-17) mg/dL Creatinine 1.00 (0.52-1.04) mg/dL Estimated GFR 53.6 L (>60) mL/min BUN/Creatinine Ratio 8.0 (6-22) Glucose 81 (80-110) mg/dL Calcium 9.3 (8.4-10.2) mg/dL Total Bilirubin 0.9 (0.2-1.3) mg/dL AST 32 (14-36) IU/L ALT 22 (9-52) IU/L Alkaline Phosphatase 37 L (38-126) U/L Total Protein 6.9 (6.3-8.2) g/dL Albumin 4.0 (3.5-5.0) g/dL Globulin 2.9 (1.7-4.1) g/dL Albumin/Globulin Ratio 1.4 (1.0-2.8) Lipase 62 (23-300) U/L Urine RBC 0-1/hpf (0-5/HPF) Urine WBC 1-5/hpf (0-5/HPF) Ur Squamous Epith Cells 1-5 /hpf Urine Bacteria Few (2-10) H (None) Hyaline Casts 1-5/lpf (None) Ur Culture Indicated? Specimen cultured Micro UA Comment Not Reportable Urine Dip Bedside Urine Glucose Negative Bedside Urine Bilirubin - Negative Bedside Urine Ketone +++ 80 Urine Specific Hersey 1.015 Bedside Urine Occult Blood - Negative Bedside Urine pH 6.0 Bedside Urine Protein +/- 15 Bedside Urine Urobilinogen - Negative Bedside Urine Nitrite - Negative Bedside Urine Leukocytes +/- 15 Esterase Imaging Data Abdominal x-ray: Radiologist's impression: [address] [id number] XRay Report Signed Patient: Michelle Bermeo [facility]#: [id number] : 1940Acct:[id number] Age/Sex: 78 / FDate of Service: 08/01/18 Loc: ED Accession Number: [id number] Procedure: XR acute abdomen series Ordering Provider: Cammie Fuller D.O. PROCEDURE: XR ACUTE ABDOMEN SERIES INDICATIONS: persistant vomiting TECHNIQUE: One view chest and two views of the abdomen were acquired. COMPARISON: [facility], CR, XR CHEST 1V, 07/18/2018, 8:37. [facility], CT, CT ABDOMEN PELVIS W CON, 07/23/2018, 21:33. FINDINGS: Surgical changes and devices: None. Chest: The original lungs is similar to the prior examination. No focal consolidation, effusion, or pneumothorax is evident. The distal right 3rd rib area sclerosis versus calcified pulmonary nodules in the right upper lobe is unchanged. Heart size is normal. There is aortic atherosclerosis. No pleural effusions. No pneumoperitoneum. Degenerative changes of the spine and shoulders are present. Abdomen: Bowel gas pattern is normal. No air filled distended small bowel loops are identified demonstrating air-fluid levels. Air is identified and stool throughout the colon. No suspicious calcifications. Visualized solid organ contours appear normal. Moderate degenerative changes of the lower lumbar spine and sacroiliac joints are present. There are mild to moderate degenerative changes of the bilateral hips and pubis symphysis. Nonspecific periostitis of the superior bilateral pubic rami and the bilateral ischial tuberosities is of doubtful significance. IMPRESSION: 1. No bowel obstruction. 2. No acute cardiopulmonary process is evident. Dictated by: Trent Edmondson M.D. on 08/01/2018 at 12:27 MDM Narrative Medical decision making narrative: patient really does have any vomiting while in the ED. She continues to feel nauseated. I discussed case with Dr. Michael who was on-call for Dr. Trejo. Recommend Ativan for persistent nausea. Patient tolerating oral fluids. She has appoint with her PCP tomorrow. At this time no need for the admission. Discharge Plan Departure Patient Disposition: Home Clinical Impression: Nausea & vomiting Discharge Date/Time: 08/01/18 13:12 Interventions: ED Discharge Assessment Last Done: 08/01/18 13:11 Instructions: Nausea and Vomiting-Adult Activity Restrictions/Additional Instructions: 1) You have been diagnosed with vomiting 2) What to do: Drink frequent but small amounts of fluids. -at this time there is no sign of dehydration and blood work is within normal limits I recommend Gatorade or a Gatorade-like product, as it has small amounts of sugar and salts that improve fluid retention. 3) Take medications as directed: FAXED TO [facility] [place] -Phenergan suppository every 6-8 hours if needed for persistent vomiting -take antibiotics after nausea medication 4) Follow up with your primary care provider tomorrow as previously scheduled 5) Return to ER if you should have any new or worsening symptoms such as, unable to hold down fluids despite use of anti-nausea medications and the small volume oral rehydration strategy. Prescriptions: New promethazine [Phenergan] 25 mg suppository 25 mg PA Q6H PRN (Reason: nausea and vomiting) Qty: 1 RF: 0 No Action Vitamin D3 1 cap PO DAILY Qty: 0 RF: 0 ascorbic acid (vitamin C) [Vitamin C] 1,000 mg Tablet 1 tab PO DAILY Qty: 0 RF: 0 omega 5-loj-uzh-fish oil [Omera] 1 EACH capsule 1 cap PO DAILY Qty: 0 RF: 0 vitamin B complex [B Complex-Vitamin B12] 1 EACH tablet 1 tab PO DAILY Qty: 0 RF: 0 prednisone 10 mg tablet 10 mg PO DAILY RF: 0 hydrochlorothiazide 25 mg tablet 25 mg PO DAILY Qty: 90 RF: 2 olmesartan 5 mg tablet 10 mg PO QPM RF: 0 trazodone 100 MG tablet 100 mg PO BEDTIME RF: 0 ibuprofen [Advil] 200 mg Tablet 200 mg PO PRN PRN (Reason: pain) RF: 0 lactobacillus comb no.10 [Probiotic] 20 billion cell Capsule 20,000 mmu cells PO DAILY RF: 0 metoprolol succinate 100 mg tablet extended release 24 hr 100 mg PO QPM RF: 0 omeprazole 20 MG tablet,delayed release (DR/EC) 20 mg PO QPM RF: 0 aspirin 81 mg Tablet,Delayed Release (Dr/Ec) 81 mg PO DAILY Qty: 30 RF: 0 metronidazole 500 mg tablet 500 mg PO TID 10 Days Qty: 30 RF: 0 ondansetron 4 mg tablet,disintegrating 4 mg PO Q6-8H PRN (Reason: nausea and vomiting) Qty: 10 RF: 0 cefdinir 300 mg capsule 300 mg PO Q12H 5 Days Qty: 10 RF: 0 magnesium 250 mg tablet 250 mg PO BID Qty: 60 RF: 0 atorvastatin 40 mg tablet 40 mg PO BEDTIME RF: 0 doxycycline hyclate 100 mg tablet 100 mg PO BID RF: 0 prednisone 1 mg tablet 2 mg PO DAILY RF: 0 Referrals: Mary Trejo MD [Primary Care Provider] -
[2018-08-01 09:54] LABS: Add Manual Diff / Slide Review NO; Basophils Percent Auto 0.7 % (0-2); Eosinophils Percent Auto 3.6 % (2-4); Hematocrit 33.3 % (36-46); Hemoglobin 11.3 g/dL (12.0-16.0); Lymphocytes Percent Auto 17.3 % (25-40); Mean Corpuscular HGB Conc 33.9 % (30-36); Mean Corpuscular Hemoglobin 28.4 PG (26-34); Mean Corpuscular Volume 83.8 fL (80-100); Neutrophils Absolute Auto 4700 /uL (3000-5900); Neutrophils Percent Auto 64.4 % (50-75); Platelet Count 293 X10^3/uL (150-400); Red Blood Cell Count 3.97 X10^6/uL (4.0-5.2); Red Cell Distribution Width 13.6 % (11.6-14.8); White Blood Cell Count 7.3 X10^3/uL (4.5-11.0)
[2018-08-01 10:12] LABS: Alanine Aminotransferase 22 IU/L (9-52); Albumin Globulin Ratio 1.4 (1.0-2.8); Alkaline Phosphatase 37 U/L (38-126); Aspartate Aminotransferase 32 IU/L (14-36); Bilirubin Total 0.9 mg/dL (0.2-1.3); Blood Urea Nitrogen 8 mg/dL (7-17); Calcium 9.3 mg/dL (8.4-10.2); Carbon Dioxide 24 mmol/L (22-32); Chloride 93 mmol/L (98-107); Estimated Glomerular Filt Rate 53.6 mL/min (>60); Globulin 2.9 g/dL (1.7-4.1); Glucose 81 mg/dL (80-110); HEMOLYSIS 28 (0-50); Lipase 62 U/L (23-300); Potassium 3.8 mmol/L (3.4-5.1); Sodium 132 mmol/L (137-145); Total Protein 6.9 g/dL (6.3-8.2)
[2018-08-01 10:30] VITALS: BP 158/71; PULSE 69; O2SAT 97
[2018-08-01 11:04] LABS: RBC Urine 0-1/HPF (0-5/HPF); WBC Urine 1-5/HPF (0-5/HPF)
[2018-08-01 11:07] LABS: Bacteria Urine Few (2-10); Hyaline Casts Urine 1-5/LPF; Squamous Epithelial Cell Urine 1-5 /HPF
[2018-08-01 11:08] LABS: Culture Indicated Urine Specimen Cultured
[2018-08-01 11:25] VITALS: BP 154/69; PULSE 71; O2SAT 98
[2018-08-01] MEDS: LORazepam 2 MG/ML SYRINGE 0.5 MG IV (11:53)
--- NOTE | 2018-08-01 12:32 | DI.RAD.S_ITS ---
PROCEDURE: XR ACUTE ABDOMEN SERIES INDICATIONS: persistant vomiting TECHNIQUE: One view chest and two views of the abdomen were acquired. COMPARISON: [facility], CR, XR CHEST 1V, 07/18/2018, 8:37. [facility], CT, CT ABDOMEN PELVIS W CON, 07/23/2018, 21:33. FINDINGS: Surgical changes and devices: None. Chest: The original lungs is similar to the prior examination. No focal consolidation, effusion, or pneumothorax is evident. The distal right 3rd rib area sclerosis versus calcified pulmonary nodules in the right upper lobe is unchanged. Heart size is normal. There is aortic atherosclerosis. No pleural effusions. No pneumoperitoneum. Degenerative changes of the spine and shoulders are present. Abdomen: Bowel gas pattern is normal. No air filled distended small bowel loops are identified demonstrating air-fluid levels. Air is identified and stool throughout the colon. No suspicious calcifications. Visualized solid organ contours appear normal. Moderate degenerative changes of the lower lumbar spine and sacroiliac joints are present. There are mild to moderate degenerative changes of the bilateral hips and pubis symphysis. Nonspecific periostitis of the superior bilateral pubic rami and the bilateral ischial tuberosities is of doubtful significance. IMPRESSION: 1. No bowel obstruction. 2. No acute cardiopulmonary process is evident. Dictated by: Trent Edmondson M.D. on 08/01/2018 at 12:27 Approved by: Trent Edmondson M.D. on 08/01/2018 at 12:30
[2018-08-01 13:11] VITALS: BP 166/80; PULSE 73; RESP 18; O2SAT 98
== END 2018-08-01 13:12 | disposition home or self-care (01) ==
PROVIDERS: Emergency Provider Emergency Medicine; Family Provider Family Medicine; PCP Family Medicine
DX: R11.2 Nausea with vomiting, unspecified (principal)
CPT/HCPCS: 36415; 74022; 80053; 81003; 81015; 83690; 85025; 87077; 87086; 96361; 96374; 96375; 99283; 99284; J2060; J2405

== ENCOUNTER 2018-09-03 09:48 | Observation (INO) | payer MEDICARE, SELFPAY ==
[2018-09-03] VITALS (9 sets, daily range): BP systolic 109–181; BP diastolic 56–89; PULSE 64–70; RESP 15–26; TEMP 36.3–36.9; O2SAT 98–100; BMI 22.8; BMI 23.3
--- NOTE | 2018-09-03 10:01 | DI.RAD.S_ITS ---
PROCEDURE: XR CHEST 1V INDICATIONS: chest pain, light headed dizzy TECHNIQUE: One view of the chest was acquired. COMPARISON: [facility], [facility], CHEST 1 VIEW, 03/12/2017, 14:59. [facility], [facility], XR CHEST 1V, 07/18/2018, 8:37. FINDINGS: Surgical changes and devices: None. Lungs and pleura: No pleural effusions or pneumothorax. No change in calcified right midlung granuloma. Lungs are otherwise clear. Mediastinum: Mediastinal contours appear normal. Heart size is normal. Bones and chest wall: No suspicious bony lesions. Overlying soft tissues appear unremarkable. IMPRESSION: No acute process. Dictated by: David Johnson M.D. on 09/03/2018 at 10:37 Approved by: David Johnson M.D. on 09/03/2018 at 10:37
[2018-09-03 10:18] LABS: Add Manual Diff / Slide Review NO; Basophils Percent Auto 0.5 % (0-2); Eosinophils Percent Auto 1.3 % (2-4); Hematocrit 29.6 % (36-46); Hemoglobin 10.2 g/dL (12.0-16.0); Lymphocytes Percent Auto 24.4 % (25-40); Mean Corpuscular HGB Conc 34.4 % (30-36); Mean Corpuscular Hemoglobin 29.4 PG (26-34); Mean Corpuscular Volume 85.4 fL (80-100); Monocytes Percent Auto 10.8 % (3-14); Neutrophils Absolute Auto 4800 /uL (1500-7000); Platelet Count 165 X10^3/uL (150-400); Red Blood Cell Count 3.47 X10^6/uL (4.0-5.2); Red Cell Distribution Width 15.2 % (11.6-14.8); White Blood Cell Count 7.7 X10^3/uL (4.5-11.0)
[2018-09-03 10:29] LABS: BUN Creatinine Ratio 13.3 (6-22); Blood Urea Nitrogen 12 mg/dL (7-17); Calcium 8.7 mg/dL (8.4-10.2); Carbon Dioxide 28 mmol/L (22-32); Chloride 89 mmol/L (98-107); Creatine Kinase 31 U/L (30-135); Estimated Glomerular Filt Rate > 60.0 mL/min (>60); Glucose 87 mg/dL (80-110); HEMOLYSIS < 15 (0-50); Potassium 3.2 mmol/L (3.4-5.1); Sodium 126 mmol/L (137-145)
[2018-09-03 10:41] LABS: Troponin I 0.068 ng/mL (0.01-0.034)
--- NOTE | 2018-09-03 12:08 | ED_ITS ---
HPI - Arrhythmia/Palpitations General Chief Complaint: Arrhythmia/Palpitations Stated Complaint: high heart rate/ light headedness Time Seen by Provider: 09/03/18 12:05 Source: patient and old records reviewed Mode of arrival: ambulatory Limitations: no limitations History of Present Illness HPI narrative: This 78-year-old female who comes to the emergency department with complaint of flip-flopping in her chest or palpitations. Patient states she has been having symptoms similar to atrial fibrillation for the last 2 weeks. She states that the frequency has actually been a little bit less intense and not as frequent but she has been noticing it continuing. She has not had any chest pain or pressure but has had a little bit of shortness of breath with these episodes. She often feels little bit dizzy. She had 1 episode that felt like she was going to pass out but that was several weeks ago. She has not been having any nausea or vomiting recently with them. She has not been diaphoretic. She denies any swelling in her lower extremities. She contacted her physician and they recommended that she take a full-dose aspirin last night come to the emergency department but she was undergoing [facility] and had difficulty getting here and did not wish to call aid car so she came today. She was in the hospital in June with diverticulitis she had congestive heart failure and was diagnosed with an NSTEMI when she had some chest pain and elevation in her troponin. She had an echo which she describes as normal. She states she has never had a stress test. She has never had a cardiac catheterization. She is set up to follow up with Cardiology but has not seen them yet. She does take medication for hypertension, she was prescribed a cholesterol medication but when it ran out she stopped it. She has been taking aspirin 81 mg daily, she denies any diabetes. She does have polymyalgia rheumatica. She has a history of colon resection from a twisted colon, hysterectomy, appendectomy and carpal tunnel surgery bilaterally. Related Data Home Medications Medication Instructions Recorded Confirmed Vitamin D3 1 cap PO DAILY #0 01/09/12 09/03/18 ascorbic acid (vitamin C) [Vitamin 1 tab PO DAILY #0 01/09/12 09/03/18 C] omega 3-gvj-mbs-fish oil [Omera] 1 cap PO DAILY #0 03/12/17 09/03/18 vitamin B complex [B 1 tab PO DAILY #0 04/17/17 09/03/18 Complex-Vitamin B12] prednisone 10 mg tablet 10 mg PO DAILY tab 06/03/18 09/03/18 ibuprofen [Advil] 200 mg PO PRN PRN 07/15/18 09/03/18 lactobacillus comb no.10 20,000 mmu cells PO DAILY 07/15/18 09/03/18 [Probiotic] metoprolol succinate 100 mg PO QPM 07/15/18 09/03/18 olmesartan 10 mg PO QPM 07/15/18 09/03/18 omeprazole 20 mg PO QPM 07/15/18 09/03/18 atorvastatin 40 mg PO BEDTIME 08/01/18 09/03/18 prednisone 2 mg PO DAILY 08/01/18 09/03/18 Previous Rx's Medication Instructions Recorded aspirin 81 mg PO DAILY #30 tab 07/20/18 ondansetron 4 mg PO Q6-8H PRN #10 tab 07/24/18 magnesium 250 mg PO BID #60 tab 07/28/18 promethazine 25 mg rectal 25 mg [place] Q6H PRN #12 each 08/02/18 suppository hydrochlorothiazide 25 mg tablet 25 mg PO DAILY #90 tab 08/12/18 trazodone 100 mg tablet 100 mg PO BEDTIME #90 tab 08/28/18 Allergies Allergy/AdvReac Type Severity Reaction Status Date / Time ciprofloxacin [CIPROFLOXACIN] Allergy Severe MUSCLE PAIN Verified 09/03/18 09:54 methocarbamol [METHOCARBAMOL] Allergy Mild RASH/ROBAXI Verified 09/03/18 09:54 N Penicillins [PENICILLINS] Allergy Mild HIVES Verified 09/03/18 09:54 piroxicam [PIROXICAM] Allergy Mild RASH/FELDEN Verified 09/03/18 09:54 E temazepam [TEMAZEPAM] Allergy Mild NERVOUNESS/ Verified 09/03/18 09:54 RESTORIL Review of Systems Review of Systems All systems reviewed & are unremarkable except as noted in HPI and below Constitutional Denies chills, Denies excessive sweating, Denies fever(s), Denies lethargy, Denies malaise and Denies weakness ENT Ears, Nose, Mouth, and Throat: Reports dizziness Cardiovascular Denies chest pain, Denies diaphoresis, Denies syncope, Denies rapid heart rate, Denies edema, Denies irregular heart rhythm, Reports lightheadedness, Reports palpitations, Reports dyspnea and Denies orthopnea Respiratory Denies change in phlegm color, Denies chest congestion, Denies cough and Reports dyspnea Gastrointestinal Gastrointestinal: Denies abdominal pain, Denies change in bowel habits, Denies diarrhea, Denies nausea and Denies vomiting Integumentary/Breasts Reports unusual bruising (Occasionally) Neurologic Reports dizziness, Denies syncope and Denies weakness Endocrine Denies excessive sweating and Reports palpitations PFSH Medical History CHF (congestive heart failure) (Acute) NSTEMI (non-ST elevated myocardial infarction) (Acute) Asthma (Chronic) Diverticular disease (Chronic) GERD (gastroesophageal reflux disease) (Chronic) GI bleeding (Chronic 03/2017) H. pylori infection (Chronic) Heart murmur (Chronic) Hyperlipidemia (Chronic) Hypertension (Chronic) Polymyalgia rheumatica (Chronic) Surgical History History of carpal tunnel repair (Resolved) History of cataract removal with insertion of prosthetic lens (Resolved) History of hemicolectomy (Resolved 10/2005) Status post appendectomy (Resolved) Status post arthroscopy (Resolved) Status post cardiac catheterization (Resolved 1998) Status post vaginal hysterectomy (Resolved 1999) Social History household members: children Smoking Status: Former smoker alcohol intake: current substance use type: does not use Exam Narrative Exam Narrative: GENERAL: Alert and oriented x three, well-nourished, well- appearing female in no acute distress. HEENT: Head normocephalic, atraumatic, EOMI, pupils reactive, face symmetric, moist mucous membranes NECK: Supple, full range of motion CARDIOVASCULAR: Regular rate and rhythm without murmurs, rubs or gallops. No JVD. No edema bilateral lower extremities. 2+ pulses in upper and lower extremities. RESPIRATORY: Breath sounds equal bilaterally, no wheezes rales or rhonchi. ABDOMEN: Soft, nontender. Normoactive bowel sounds all 4 quadrants. No guarding or rebound, rigidity, no mass : No CVA tenderness EXTREMITIES: Normal range of motion, no clubbing or edema. Neurovascularly intact NEUROLOGICAL: Cranial nerves II through XII grossly intact. Moving all extremities SKIN: Warm, dry, no petechiae, no rashes or lesions, patient has some mild bruising on her anterior shins bilaterally. Initial Vital Signs Initial Vital Signs: Vital Signs Temperature 97.7 F 09/03/18 09:54 Pulse Rate 66 09/03/18 09:54 Respiratory Rate 15 09/03/18 09:54 Blood Pressure 161/73 H 09/03/18 09:54 Pulse Oximetry 100 09/03/18 09:54 Scores HEART Score Heart Score history: Slightly Suspicious Heart Score EKG: Non-Specific repolarization disturbance Heart Score Age: > or = 65 years old Heart Score risk factors: > 3 risk factors or hx of atherosclerotic disease Heart Score troponin: 1-3 times normal limit Heart Score Total: 6 Course Orders Ordered: ED Orders 09/03/18 10:01 XR chest 1V Stat EKG-12 Lead Stat 09/03/18 10:10 Basic Metabolic Panel Stat Complete Blood Count AUTO DIFF Stat Troponin & CK Cardiac Panel Stat 09/03/18 14:33 Education, smoking cessation ONGOING 09/03/18 14:40 MRSA PCR Stat 09/03/18 16:26 Troponin I Stat Discontinued Medications Aspirin (Aspirin Ec) 81 mg PO DAILY [facility] Atorvastatin Calcium (Lipitor) 40 mg PO BEDTIME [facility] Hydrochlorothiazide (Hydrochlorothiazide) 25 mg PO DAILY [facility] Sodium Chloride (Normal Saline 0.9%) 1,000 mls @ 100 mls/hr IV CONT RADHA Last Admin: 09/03/18 14:43 Dose: 100 mls/hr Olmesartan (Benicar) 10 mg PO QPM RADHA Pantoprazole Sodium (Protonix) 20 mg PO QPM [facility] Potassium Chloride (Potassium Chloride) 40 meq PO NOW ONE Stop: 09/03/18 12:28 Last Admin: 09/03/18 12:49 Dose: 40 meq Prednisone (Deltasone) 10 mg PO DAILY [facility] Prednisone (Deltasone) 2 mg PO DAILY [facility] Trazodone HCl (Desyrel) 100 mg PO BEDTIME [facility] Vital Signs - 8 hr 09/03/18 11:00 09/03/18 11:30 09/03/18 12:00 Temperature Pulse Rate 64 64 66 Respiratory Rate 17 18 22 Blood Pressure Blood Pressure [Right Arm] 142/61 H 150/89 H 150/69 H Pulse Oximetry 99 100 100 09/03/18 12:30 09/03/18 13:00 09/03/18 13:30 Temperature Pulse Rate 65 70 67 Respiratory Rate 16 24 18 Blood Pressure Blood Pressure [Right Arm] 163/70 H 181/72 H 142/61 H Pulse Oximetry 100 99 09/03/18 14:28 09/03/18 15:48 Temperature 98.4 F 97.3 F L Pulse Rate 67 67 Respiratory Rate 22 26 H Blood Pressure 131/66 109/56 L Blood Pressure [Right Arm] Pulse Oximetry 100 98 MDM - Arrhythmia/Palpitations Lab Data Attestation: I reviewed the patient's lab results. Result diagrams: 09/03/18 10:10 09/03/18 10:10 Lab Results 09/03/18 09/03/18 09/03/18 Range/Units 10:10 10:10 14:40 WBC 7.7 (4.5-11.0) X10^3/uL RBC 3.47 L (4.0-5.2) X10^6/uL Hgb 10.2 L (12.0-16.0) g/dL Hct 29.6 L (36-46) % MCV 85.4 (80-100) fL MCH 29.4 (26-34) PG MCHC 34.4 (30-36) % RDW 15.2 H (11.6-14.8) % Plt Count 165 (150-400) X10^3/uL Neut % (Auto) 63.0 (50-75) % Lymph % (Auto) 24.4 L (25-40) % [place] % (Auto) 10.8 (3-14) % Eos % (Auto) 1.3 L (2-4) % Baso % (Auto) 0.5 (0-2) % Neut # (Auto) 4800 (6634-0715) /uL Sodium 126 L (137-145) mmol/L Potassium 3.2 L (3.4-5.1) mmol/L Chloride 89 L (98-107) mmol/L Carbon Dioxide 28 (22-32) mmol/L BUN 12 (7-17) mg/dL Creatinine 0.90 (0.52-1.04) mg/dL Estimated GFR > 60.0 (>60) mL/min BUN/Creatinine Ratio 13.3 (6-22) Glucose 87 (80-110) mg/dL Calcium 8.7 (8.4-10.2) mg/dL Total Creatine Kinase 31 (30-135) U/L CK-MB (CK-2) TNP CK-MB (CK-2) Rel Index TNP Troponin I 0.068 H (0.01-0.034) ng/mL Nasal Screen MRSA (PCR) Negative for mrsa (Negative) 09/03/18 Range/Units 16:26 WBC (4.5-11.0) X10^3/uL RBC (4.0-5.2) X10^6/uL Hgb (12.0-16.0) g/dL Hct (36-46) % MCV (80-100) fL MCH (26-34) PG MCHC (30-36) % RDW (11.6-14.8) % Plt Count (150-400) X10^3/uL Neut % (Auto) (50-75) % Lymph % (Auto) (25-40) % [place] % (Auto) (3-14) % Eos % (Auto) (2-4) % Baso % (Auto) (0-2) % Neut # (Auto) (0058-9596) /uL Sodium (137-145) mmol/L Potassium (3.4-5.1) mmol/L Chloride (98-107) mmol/L Carbon Dioxide (22-32) mmol/L BUN (7-17) mg/dL Creatinine (0.52-1.04) mg/dL Estimated GFR (>60) mL/min BUN/Creatinine Ratio (6-22) Glucose (80-110) mg/dL Calcium (8.4-10.2) mg/dL Total Creatine Kinase (30-135) U/L CK-MB (CK-2) CK-MB (CK-2) Rel Index Troponin I 0.059 H (0.01-0.034) ng/mL Nasal Screen MRSA (PCR) (Negative) Imaging Data Chest x-ray: Attestation: I personally reviewed and interpreted this imaging study as follows: Radiologist's impression: [address] [address] XRay Report Signed Patient: Michelle Bermeo MR#: [id number] : 1940 Acct:[id number] Age/Sex: 78 / F Date of Service: 09/03/18 Loc: ED Accession Number: [id number] Procedure: XR chest 1V Ordering Provider: Aicha Jaramillo D.O. PROCEDURE: XR CHEST 1V INDICATIONS: chest pain, light headed dizzy TECHNIQUE: One view of the chest was acquired. COMPARISON: [facility], , CHEST 1 VIEW, 03/12/2017, 14:59. [facility], , XR CHEST 1V, 07/18/2018, 8:37. FINDINGS: Surgical changes and devices: None. Lungs and pleura: No pleural effusions or pneumothorax. No change in calcified right midlung granuloma. Lungs are otherwise clear. Mediastinum: Mediastinal contours appear normal. Heart size is normal. Bones and chest wall: No suspicious bony lesions. Overlying soft tissues appear unremarkable. IMPRESSION: No acute process. Dictated by: David Johnson M.D. on 09/03/2018 at 10:37 Approved by: David Johnson M.D. on 09/03/2018 at 10:37 ECG Data Attestation: I personally reviewed and interpreted this ECG as follows: Prior ECG tracings: available for review Interpretation: Sinus bradycardia with a ventricular rate of 58, P are interval of 201, [place] 95 and QTC of 453. Patient has left axis deviation. Nonspecific ST changes. EKG appears similar from 07/18/2018. [facility] Narrative Medical decision making narrative: Patient comes in more with atrial fibrillation symptoms. She has had a little bit of shortness of breath occasionally with episodes. Patient's sodium is decreased at 126 which is slowly dropping from her last labs. Her potassium is 3.2 today which could be attributing or playing into her palpitations symptoms. Chloride was 89, she has a troponin that is indeterminate at 0.068. In June she had positive troponins in the 0.2+ range while having an NSTEMI after being treated for diverticulitis. She has not had a cardiac catheterization any time recently. With her symptoms she does not have any new EKG changes but I would recommend observation. Patient took aspirin 324 mg at home today. Plan replace her potassium, and speak with Dr. Trejo who accepts for observation. Patient has been asymptomatic, has not had any changes on telemetry here in the department. Discharge Plan Departure Patient Disposition: Admitted as Observation Clinical Impression: Arrhythmia, Hypokalemia Discharge Date/Time: 09/03/18 14:24 Interventions: ED Discharge Assessment Last Done: 09/03/18 14:24 Admit Date/Time: 09/03/18 13:04 Admit Provider: Mary Trejo
[2018-09-03] MEDS: POTASSIUM CHLORIDE 20 MEQ/15 ML UDC 40 MEQ PO (12:49)
--- NOTE | 2018-09-03 13:07 | PM.HP.1 ---
History of Present Illness Date Patient Seen: 09/03/18 Time Patient Seen: 12:30 Chief complaint: high heart rate/ light headedness Narrative: The pt is a 78yo woman with hx of diverticulitis, hyponatremia, hypokalemia, HTN, PMR and new diagnosis of atrial fibrillation and compensated systolic CHFT, with recent hospitalizations for diverticulitis during which she had an NSTEMI, who presents with palpitations. The pt reports that for the past several days she has been intermittently feeling that her heart is irregularly racing for very brief periods of time, and then self-resolves. She does sometimes feel slightly lightheaded when this happens. She denies passing out or needed to sit down due to the lightheadedness. His sensation usually lasts for a couple seconds. It seemed to be increasing in frequency over the past day. The patient contacted the clinic yesterday, and was told by the triage nurse to come to the emergency department for evaluation. The patient denies any associated chest pain, shortness of breath. She has no lower extremity edema. She has otherwise been feeling very well. She states that generally speaking she has been feeling significantly better than any time recently. Patient History Medical History CHF (congestive heart failure) (Acute) NSTEMI (non-ST elevated myocardial infarction) (Acute) Asthma (Chronic) Diverticular disease (Chronic) GERD (gastroesophageal reflux disease) (Chronic) GI bleeding (Chronic 03/2017) H. pylori infection (Chronic) Heart murmur (Chronic) Hyperlipidemia (Chronic) Hypertension (Chronic) Polymyalgia rheumatica (Chronic) Surgical History History of carpal tunnel repair (Resolved) History of cataract removal with insertion of prosthetic lens (Resolved) History of hemicolectomy (Resolved 10/2005) Status post appendectomy (Resolved) Status post arthroscopy (Resolved) Status post cardiac catheterization (Resolved 1998) Status post vaginal hysterectomy (Resolved 1999) Family & Social History Social History: household members children Tobacco & Substance use: Tobacco type cigars Smoking Status Former smoker alcohol intake former alcohol intake frequency holiday/special occasion Substance Use Type does not use Meds Home Medications Medication Instructions Recorded Confirmed Type Vitamin D3 1 cap PO DAILY #0 01/09/12 08/06/18 History ascorbic acid (vitamin C) [Vitamin 1 tab PO DAILY #0 01/09/12 09/03/18 History C] omega 6-ano-mxv-fish oil [Omera] 1 cap PO DAILY #0 03/12/17 08/06/18 History vitamin B complex [B 1 tab PO DAILY #0 04/17/17 08/06/18 History Complex-Vitamin B12] prednisone 10 mg tablet 10 mg PO DAILY tab 06/03/18 08/06/18 History ibuprofen [Advil] 200 mg PO PRN PRN 07/15/18 08/06/18 History lactobacillus comb no.10 20,000 mmu cells PO DAILY 07/15/18 08/06/18 History [Probiotic] metoprolol succinate 100 mg PO QPM 07/15/18 08/06/18 History olmesartan 10 mg PO QPM 07/15/18 08/06/18 History omeprazole 20 mg PO QPM 07/15/18 08/06/18 History aspirin 81 mg PO DAILY #30 tab 07/20/18 09/03/18 Rx ondansetron 4 mg PO Q6-8H PRN #10 tab 07/24/18 08/06/18 Rx magnesium 250 mg PO BID #60 tab 07/28/18 08/06/18 Rx atorvastatin 40 mg PO BEDTIME 08/01/18 09/03/18 History prednisone 2 mg PO DAILY 08/01/18 08/06/18 History promethazine 25 mg rectal 25 mg [place] Q6H PRN #12 each 08/02/18 08/06/18 Rx suppository hydrochlorothiazide 25 mg tablet 25 mg PO DAILY #90 tab 08/12/18 Rx trazodone 100 mg tablet 100 mg PO BEDTIME #90 tab 08/28/18 Rx Allergies Allergy/AdvReac Type Severity Reaction Status Date / Time ciprofloxacin [CIPROFLOXACIN] Allergy Severe MUSCLE PAIN Verified 09/03/18 09:54 methocarbamol [METHOCARBAMOL] Allergy Mild RASH/ROBAXI Verified 09/03/18 09:54 N Penicillins [PENICILLINS] Allergy Mild HIVES Verified 09/03/18 09:54 piroxicam [PIROXICAM] Allergy Mild RASH/FELDEN Verified 09/03/18 09:54 E temazepam [TEMAZEPAM] Allergy Mild NERVOUNESS/ Verified 09/03/18 09:54 RESTORIL Review of Systems Constitutional Constitutional: Denies chills, Denies fever(s) and Denies frequent falls Cardiovascular Cardiovascular: Denies chest pain, Denies excessive sweating, Reports fast heart rate, Denies foot swelling, Denies generalize swelling, Reports irregular heart rhythm, Reports lightheadedness and Denies shortness of breath Respiratory Respiratory: Denies cough, Denies dyspnea and Denies wheezing Gastrointestinal Gastrointestinal: Denies abdominal pain, Denies constipation, Denies nausea and Denies vomiting Neurologic Neurologic: Denies frequent falls Allergic/Immunologic Allergic/Immunologic: Denies wheezing Exam Vital Signs (past 8 hours): - 09/03/18 09:54 09/03/18 11:00 09/03/18 11:30 Temperature 97.7 F Pulse Rate 66 64 64 Respiratory Rate 15 17 18 Blood Pressure 161/73 H Blood Pressure [Right Arm] 142/61 H 150/89 H Pulse Oximetry 100 99 100 09/03/18 12:00 09/03/18 12:30 Temperature Pulse Rate 66 65 Respiratory Rate 22 16 Blood Pressure Blood Pressure [Right Arm] 150/69 H 163/70 H Pulse Oximetry 100 100 Oxygen Delivery Method Room Air Narrative Exam Narrative: General: No acute distress, sitting comfortably in bed, appears well, speaking easily in complete sentences HEENT: Normocephalic, atraumatic, sclera clear Neck: No JVD, no lymphadenopathy CV: Regular rate and rhythm, grade 3/6 systolic murmur Respiratory: Clear to auscultation Abdomen: Soft, nontender, nondistended Extremities: No edema Objective Labs Result Diagrams: 09/03/18 10:10 09/03/18 10:10 Labs: Laboratory Results - last 24 hr 09/03/18 09/03/18 10:10 10:10 WBC 7.7 RBC 3.47 L Hgb 10.2 L Hct 29.6 L MCV 85.4 MCH 29.4 MCHC 34.4 RDW 15.2 H Plt Count 165 Neut % (Auto) 63.0 Lymph % (Auto) 24.4 L [place] % (Auto) 10.8 Eos % (Auto) 1.3 L Baso % (Auto) 0.5 Neut # (Auto) 4800 Sodium 126 L Potassium 3.2 L Chloride 89 L Carbon Dioxide 28 BUN 12 Creatinine 0.90 Estimated GFR > 60.0 BUN/Creatinine Ratio 13.3 Glucose 87 Calcium 8.7 Total Creatine Kinase 31 CK-MB (CK-2) TNP CK-MB (CK-2) Rel Index TNP Troponin I 0.068 H Assessment & Plan (1) Atrial fibrillation: Current visit: Yes Status: Acute (2) Acute hyponatremia: Current visit: Yes Status: Acute (3) Hypokalemia: Current visit: Yes Status: Acute (4) Essential hypertension: Current visit: Yes Status: Chronic (5) Polymyalgia rheumatica: Current visit: Yes Status: Chronic (6) CHF (congestive heart failure): Problem details: EF 40-45% on 06/2018 Current visit: Yes Status: Acute Plan: Assessment/Plan Narrative: The pt is a 78yo woman with hx of diverticulitis, hyponatremia, hypokalemia, HTN, PMR and new diagnosis of atrial fibrillation and compensated systolic CHF, with recent hospitalizations for diverticulitis during which she had an NSTEMI, who presents with palpitations. Most likely symptoms due to atrial fibrillation, however symptoms not currently present, and pt is in sinus rhythm. Pt was found to have mildly elevated troponin, no EKG changes. 1) Atrial fibrillation: Currently not in a-fib, rate controlled - Continue Metoprolol - Telemetry while in the hospital 2) Elevated troponin: Improved from prior hospitalization with NSTEMI, however still elevated above baseline. Possibly due to strain if pt in and out of atrial fibrillation. - Continue to trend troponin - Repeat EKG if troponin trending up 3) Hypokalemia and hyponatremia: - Potassium bolus received in the ER - Gentle hydration with 100cc/hr NS for several hours to help with hyponatremia, being cautious due to CHF 4) PMR: Stable - Continue home Prednisone 5) HTN: BP elevated currently, however pt states currently very stressed. Will continue to monitor. - Continue home Olmesartan, Metoprolol, HCTZ FEN: Cardiac diet DVT prophylaxis: SCDs for now Dispo: Pending repeat Troponin. If improving/stable, will be okay for d/c today. Has f/u with Cardiology scheduled for
--- NOTE | 2018-09-03 14:22 | PC.NURSE ---
at time this nurse assumed care of pt, pt is alert, oriented x3, talkative, denies pain or discomfort, NSR on monitor, amb to restroom with steady gait and SBA
[2018-09-03] MEDS: SODIUM CHLORIDE 0.9% 1,000 ML 100 ML IV (14:43)
--- NOTE | 2018-09-03 14:53 | PC.ADMIT ---
[id number] Admission Note: The patient,Michelle Bermeo,78 y/o, was given written information regarding hospital policies, unit procedures and contact persons. Patient's smoking status: Former smoker. Vital Signs - 8 hr 09/03/18 09:54 09/03/18 11:00 09/03/18 11:30 Temperature 97.7 F Pulse Rate 66 64 64 Respiratory Rate 15 17 18 Blood Pressure 161/73 H Blood Pressure [Right Arm] 142/61 H 150/89 H Pulse Oximetry 100 99 100 09/03/18 12:00 09/03/18 12:30 09/03/18 13:00 Temperature Pulse Rate 66 65 70 Respiratory Rate 22 16 24 Blood Pressure Blood Pressure [Right Arm] 150/69 H 163/70 H 181/72 H Pulse Oximetry 100 100 09/03/18 13:30 09/03/18 14:28 Temperature 98.4 F Pulse Rate 67 67 Respiratory Rate 18 22 Blood Pressure 131/66 Blood Pressure [Right Arm] 142/61 H Pulse Oximetry 99 100 Pt rec'd from ED via stretcher to room 101 at 1420. AAO x3 and making needs known with clear, logical speech. Able to [id number] from stretcher to bed independently. Admission assessment and physical assessment complete. Pt denies any CP, palpitations, dizziness, lightheadedness at this time. Oriented to room, unit routine, and call light. Educated to fall risk. Pt verbalizes understanding and agrees to use call light before getting OOB or for any needs.
[2018-09-03 17:06] LABS: Troponin I 0.059 ng/mL (0.01-0.034)
== END 2018-09-03 17:45 | disposition home or self-care (01) ==
LOC: ED 12:30 → AC 13:05 → ICU 14:26
PROVIDERS: Admitting Provider Family Medicine; Emergency Provider Emergency Medicine; Family Provider Family Medicine; PCP Family Medicine; Visit Provider Family Medicine
DX: I48.91 Unspecified atrial fibrillation (principal); E87.1 Hypo-osmolality and hyponatremia; E87.6 Hypokalemia; M35.3 Polymyalgia rheumatica; I11.0 Hypertensive heart disease with heart failure; I50.9 Heart failure, unspecified; Z87.891 Personal history of nicotine dependence; I25.2 Old myocardial infarction; J45.909 Unspecified asthma, uncomplicated
CPT/HCPCS: 36591; 71045; 80048; 82550; 84484; 85025; 87797; 93005; 99235; 99283; 99285; G0378

== ENCOUNTER → 2018-09-10 07:56 | Outpatient (CLI) | payer MEDICARE, SELFPAY ==
[2018-09-04 13:25] VITALS: BMI 23.3
[2018-09-10 09:21] LABS: BUN Creatinine Ratio 14.6 (6-22); Blood Urea Nitrogen 19 mg/dL (7-17); Calcium 9.4 mg/dL (8.4-10.2); Carbon Dioxide 28 mmol/L (22-32); Chloride 93 mmol/L (98-107); Estimated Glomerular Filt Rate 39.6 mL/min (>60); Glucose 77 mg/dL (80-110); HEMOLYSIS < 15 (0-50); Potassium 3.9 mmol/L (3.4-5.1); Sodium 130 mmol/L (137-145)
[2018-09-10 10:10] LABS: Magnesium 1.5 mg/dL (1.6-2.3)
== END ==
PROVIDERS: Family Medicine; PCP Family Medicine; Visit Provider Family Medicine
DX: E87.1 Hypo-osmolality and hyponatremia (principal); E87.6 Hypokalemia; E61.2 Magnesium deficiency
CPT/HCPCS: 36415; 80048; 83735

== ENCOUNTER → 2018-09-18 09:43 | Outpatient (CLI) | payer MEDICARE, SELFPAY ==
[2018-09-04 13:25] VITALS: BMI 23.3
[2018-09-18 10:36] LABS: Blood Urea Nitrogen 14 mg/dL (7-17); Calcium 9.3 mg/dL (8.4-10.2); Carbon Dioxide 28 mmol/L (22-32); Chloride 85 mmol/L (98-107); Estimated Glomerular Filt Rate 53.6 mL/min (>60); Glucose 82 mg/dL (80-110); HEMOLYSIS < 15 (0-50); Potassium 3.8 mmol/L (3.4-5.1); Sodium 124 mmol/L (137-145)
== END ==
PROVIDERS: Family Provider Family Medicine; PCP Family Medicine; Visit Provider Family Medicine
DX: E87.1 Hypo-osmolality and hyponatremia (principal); I10 Essential (primary) hypertension; N17.9 Acute kidney failure, unspecified
CPT/HCPCS: 36415; 80048

== ENCOUNTER → 2018-10-03 09:42 | Outpatient (CLI) | payer MEDICARE, SELFPAY ==
[2018-09-04 13:25] VITALS: BMI 23.3
--- NOTE | 2018-10-03 09:45 | DI.MG.S_ITS ---
BILATERAL DIGITAL SCREENING MAMMOGRAM 3D/2D WITH CAD: 10/03/2018 CLINICAL: Routine screening. Comparison is made to exams dated: 10/21/2015 mammogram, 06/30/2014 mammogram, and 06/25/2013 mammogram - [facility]. The tissue of both breasts is heterogeneously dense. This may lower the sensitivity of mammography. Current study was also evaluated with a Computer Aided Detection (CAD) system. No significant masses, calcifications, or other findings are seen in either breast. There has been no significant interval change. IMPRESSION: NEGATIVE There is no mammographic evidence of malignancy. A 1 year screening mammogram is recommended. This exam was interpreted at Station ID: [id number]. NOTE: For mammograms, a report in lay terms will be sent to the patient. Approximately 15% of breast malignancies will not be visualized mammographically. In the management of a palpable breast mass, a negative mammogram must not discourage biopsy of a clinically suspicious lesion. Electronically Signed By: Brown [email or web address]/ugo:10/03/2018 10:20:23 letter sent: Normal Exam ACR BI-RADS Category 1: Negative [id number]
== END ==
PROVIDERS: Family Provider Family Medicine; PCP Family Medicine; Visit Provider Family Medicine
DX: Z12.31 Encounter for screening mammogram for malignant neoplasm of breast (principal)
CPT/HCPCS: 77063; 77067

== ENCOUNTER 2018-10-12 06:11 | Emergency (ER) | payer MEDICARE, SELFPAY ==
[2018-09-04 13:25] VITALS: BMI 23.3
--- NOTE | 2018-10-12 06:20 | ED.NAVMDI ---
HPI - Nausea/Vomiting/Diarrhea General Chief complaint: Nausea/Vomiting/Diarrhea Stated complaint: n/v x8 hours Time Seen by Provider: 10/12/18 06:20 Source: patient Mode of arrival: EMS Limitations: no limitations History of Present Illness HPI Narrative: The patient developed nausea with vomiting last night. She has had no associated diarrhea. She has had no hematemesis. She has no significant abdominal pain. She denies fever or chills. She has no sweats. She denies dysuria, or hematuria. She denies chronic GI problems. She has no associated chest pain. She was evaluated by EMS. She has received sublingual Zofran, and IV Zofran. She has ongoing nausea. She tells me she feels like she can vomit now. Related Data Home Medications Medication Instructions Recorded Confirmed Vitamin D3 1 cap PO DAILY #0 01/09/12 09/05/18 ascorbic acid (vitamin C) [Vitamin 1 tab PO DAILY #0 01/09/12 10/12/18 C] [place] 1 cap PO DAILY #0 03/12/17 10/12/18 vitamin B complex [B 1 tab PO DAILY #0 04/17/17 09/05/18 Complex-Vitamin B12] prednisone 10 mg tablet 10 mg PO DAILY tab 06/03/18 10/12/18 Probiotic 20,000 mmu cells PO DAILY 07/15/18 10/12/18 ibuprofen [Advil] 200 mg PO PRN PRN 07/15/18 10/12/18 omeprazole 20 mg PO QPM 07/15/18 10/12/18 prednisone 2 mg PO DAILY 08/01/18 10/12/18 olmesartan 15 mg PO QPM 10/12/18 Previous Rx's Medication Instructions Recorded aspirin 81 mg PO DAILY #30 tab 07/20/18 promethazine 25 mg rectal 25 mg CO Q6H PRN #12 each 08/02/18 suppository trazodone 100 mg tablet 100 mg PO BEDTIME #90 tab 08/28/[address] #2 each 09/10/18 metoprolol succinate ER 100 mg 100 mg PO QPM #90 tab 09/10/18 tablet,extended release 24 hr ondansetron 4 mg PO Q4H PRN #10 tab 10/12/18 Allergies Allergy/AdvReac Type Severity Reaction Status Date / Time ciprofloxacin [CIPROFLOXACIN] Allergy Severe MUSCLE PAIN Verified 10/12/18 06:35 methocarbamol [METHOCARBAMOL] Allergy Mild RASH/ROBAXI Verified 10/12/18 06:35 N Penicillins [PENICILLINS] Allergy Mild HIVES Verified 10/12/18 06:35 piroxicam [PIROXICAM] Allergy Mild RASH/FELDEN Verified 10/12/18 06:35 E temazepam [TEMAZEPAM] Allergy Mild NERVOUNESS/ Verified 10/12/18 06:35 RESTORIL Review of Systems Review of Systems ROS Unobtainable: All systems reviewed & are unremarkable except as noted in HPI and below Constitutional Denies body ache(s), Denies chills, Denies fever(s), Denies lethargy and Denies weakness ENT Ears, Nose, Mouth, and Throat: Denies change in voice, Denies neck pain and Denies sore throat Cardiovascular Denies chest pain, Denies diaphoresis, Denies syncope, Denies irregular heart rhythm, Denies lightheadedness, Denies palpitations, Denies dyspnea and Denies orthopnea Respiratory Denies cough, Denies dyspnea and Denies wheezing Gastrointestinal Gastrointestinal: Denies abdominal pain, Denies melena, Denies bloating, Denies change in bowel habits, Denies diarrhea, Reports nausea and Reports vomiting Genitourinary Denies dysuria Musculoskeletal Denies back pain and Denies neck pain Integumentary/Breasts Denies pruritus, Denies erythema, Denies rash and Denies wounds Neurologic Denies syncope and Denies weakness Endocrine Denies palpitations Allergic/Immunologic Denies wheezing [facility] Medical History CHF (congestive heart failure) (Acute) NSTEMI (non-ST elevated myocardial infarction) (Acute) Asthma (Chronic) Diverticular disease (Chronic) GERD (gastroesophageal reflux disease) (Chronic) GI bleeding (Chronic 03/2017) H. pylori infection (Chronic) Heart murmur (Chronic) Hyperlipidemia (Chronic) Hypertension (Chronic) Polymyalgia rheumatica (Chronic) Surgical History History of carpal tunnel repair (Resolved) History of cataract removal with insertion of prosthetic lens (Resolved) History of hemicolectomy (Resolved 10/2005) Status post appendectomy (Resolved) Status post arthroscopy (Resolved) Status post cardiac catheterization (Resolved 1998) Status post vaginal hysterectomy (Resolved 1999) Social History household members: children Smoking Status: Former smoker alcohol intake: current substance use type: does not use Social History household members: children Smoking Status: Former smoker alcohol intake: current substance use type: does not use Exam Initial Vital Signs Initial Vital Signs: Vital Signs Temperature 99.2 F 10/12/18 06:25 Pulse Rate 102 H 10/12/18 06:25 Respiratory Rate 18 10/12/18 06:25 Blood Pressure 186/112 H 10/12/18 06:25 Pulse Oximetry 97 10/12/18 06:25 See RN notes. Const General: cooperative and well developed Nutritional Appearance: well nourished Orientation: alert, awake, oriented x3 and not confused HENMT Head: normocephalic and atraumatic Nose: external nose normal Face and sinus: sinuses nontender, face symmetric and no sinus tenderness Mouth: oral mucosae normal and moist mucous membranes Throat: posterior oropharynx normal, tonsils normal and uvula midline Eyes General: appearance normal, both eyes and all related structures Eyelids: eyelids normal Conjunctivae: conjunctivae normal and other (No icterus.) Sclera: sclerae normal Pupils: PERRL EOM: EOM intact bilaterally Neck Neck: No JVD Lymphatic: No lymphadenopathy Chest Chest: normal inspection of the chest Resp Effort & Inspection: normal respiratory effort, able to speak in complete sentences, no respiratory distress and no use of accessory muscles Auscultation: clear to auscultation bilaterally, no rales, no rhonchi and no wheezes Cardio Rate: regular rate Rhythm: regular rhythm Heart Sounds: no click, no gallops, no murmurs and no rubs Pulses: normal peripheral pulses GI Inspection: normal to inspection and non-distended Palpation: no hepatosplenomegaly, No pulsatile mass and tender (Mild upper abdominal tenderness without guarding or rebound.) Auscultation: normal bowel sounds Back/Spine/Pelvis Back: No CVA tenderness Skin General: no rashes or lesions noted, No jaundice and No petechiae Neuro General: alert, oriented x3, gait normal and no focal motor deficits Speech: speech normal Extrem General: full ROM, no pedal edema and no calf tenderness Course Orders Ordered: Discontinued Medications Diphenhydramine HCl (Benadryl) 50 mg IV NOW ONE Stop: 10/12/18 06:22 Last Admin: 10/12/18 06:23 Dose: 50 mg Hydromorphone HCl (Dilaudid) 1 mg IV NOW ONE Stop: 10/12/18 08:46 Last Admin: 10/12/18 08:48 Dose: 1 mg Sodium Chloride (Normal Saline 0.9%) 1,000 mls @ 1,000 mls/hr IV BOLUS ONE Stop: 10/12/18 07:22 Last Infusion: 10/12/18 07:28 Dose: 0 mls/hr Admin: 10/12/18 06:34 Dose: 1,000 mls/hr Metoclopramide HCl (Reglan) 10 mg IV NOW ONE Stop: 10/12/18 06:22 Last Admin: 10/12/18 06:24 Dose: 10 mg Vital Signs - 8 hr 10/12/18 06:25 10/12/18 06:56 Temperature 99.2 F Pulse Rate 102 H 89 Respiratory Rate 18 19 Blood Pressure 186/112 H Blood Pressure [Left Arm] 182/94 H Pulse Oximetry 97 98 MDM - Nausea/Vomiting/Diarrhea Lab Data Result diagrams: 10/12/18 06:38 10/12/18 06:38 Lab Results 10/12/18 10/12/18 10/12/18 Range/Units 06:38 06:38 06:38 WBC 13.4 H (4.5-11.0) X10^3/uL RBC 3.95 L (4.0-5.2) X10^6/uL Hgb 11.6 L (12.0-16.0) g/dL Hct 35.3 L (36-46) % MCV 89.3 (80-100) fL MCH 29.5 (26-34) PG MCHC 33.0 (30-36) % RDW 15.2 H (11.6-14.8) % Plt Count 211 (150-400) X10^3/uL Neut % (Auto) 77.2 H (50-75) % Lymph % (Auto) 15.3 L (25-40) % [place] % (Auto) 7.1 (3-14) % Eos % (Auto) 0.3 L (2-4) % Baso % (Auto) 0.1 (0-2) % Neut # (Auto) 04841 H (4623-1282) /uL Lymph # (Auto) 2100 (2346-6983) /uL [place] # (Auto) 1000 H (0-900) /uL Eos # (Auto) 0 (0-450) /uL Baso # (Auto) 0 (0-100) /uL Sodium 134 L (137-145) mmol/L Potassium 3.2 L (3.4-5.1) mmol/L Chloride 96 L (98-107) mmol/L Carbon Dioxide 28 (22-32) mmol/L BUN 14 (7-17) mg/dL Creatinine 1.20 H (0.52-1.04) mg/dL Estimated GFR 43.4 L (>60) mL/min BUN/Creatinine Ratio 11.7 (6-22) Glucose 96 (80-110) mg/dL Calcium 9.7 (8.4-10.2) mg/dL Magnesium 1.4 L (1.6-2.3) mg/dL Total Bilirubin 0.9 (0.2-1.3) mg/dL AST 29 (14-36) IU/L ALT 25 (9-52) IU/L Alkaline Phosphatase 57 (38-126) U/L Total Protein 7.6 (6.3-8.2) g/dL Albumin 4.6 (3.5-5.0) g/dL Globulin 3.0 (1.7-4.1) g/dL Albumin/Globulin Ratio 1.5 (1.0-2.8) Lipase 85 (23-300) U/L Urine Dip Bedside Urine Glucose Negative Bedside Urine Bilirubin - Negative Bedside Urine Ketone - Negative Urine Specific [place] 1.015 Bedside Urine Occult Blood - Negative Bedside Urine pH 7.0 Bedside Urine Protein - Negative Bedside Urine Urobilinogen - Negative Bedside Urine Nitrite - Negative Bedside Urine Leukocytes - Negative Esterase Imaging Data Abdominal x-ray: My impression: No acute findings. No evidence of bowel obstruction or free air. ECG Data Attestation: I personally reviewed and interpreted this ECG as follows: (Normal sinus rhythm rate 99 bpm. Occasional PVCs. Incomplete RBBB. Left anterior fascicular block. LVH. No acute ST elevation.) MDM Narrative Medical decision making narrative: Her nausea has improved dramatically, vomiting has ceased. She has been hydrated. Her potassium is slightly low but labs are acceptable. She will be discharged home with antiemetics. Discharge Plan Departure Patient Disposition: Home Clinical Impression: Intractable nausea and vomiting Qualifiers: Vomiting type: unspecified Qualified Code(s): R11.2 - Nausea with vomiting, unspecified Discharge Date/Time: 10/12/18 09:31 Interventions: ED Discharge Assessment Last Done: 10/12/18 09:30 Instructions: DI for Nausea -- Adult Activity Restrictions/Additional Instructions: Rest at home. Zofran every 4 hr as needed for nausea. Sip clear fluids, advance her diet slowly at home. Return here if worse. Prescriptions: New ondansetron 4 mg tablet,disintegrating 4 mg PO Q4H PRN (Reason: nausea and vomiting) Qty: 10 RF: 0 No Action Vitamin D3 1 cap PO DAILY Qty: 0 RF: 0 ascorbic acid (vitamin C) [Vitamin C] 1,000 mg Tablet 1 tab PO DAILY Qty: 0 RF: 0 Omer[place] 1 EACH capsule 1 cap PO DAILY Qty: 0 RF: 0 vitamin B complex [B Complex-Vitamin B12] 1 EACH tablet 1 tab PO DAILY Qty: 0 RF: 0 trazodone 100 mg tablet 100 mg PO BEDTIME Qty: 90 RF: 1 metoprolol succinate 100 mg tablet extended release 24 hr 100 mg PO QPM Qty: 90 RF: 3 Disabled [address]ing .MEDSUPPLY Qty: 2 RF: 0 prednisone 10 mg tablet 10 mg PO DAILY RF: 0 promethazine [Phenergan] 25 mg suppository 25 mg CO Q6H PRN (Reason: nausea and vomiting) Qty: 12 RF: 2 ibuprofen [Advil] 200 mg Tablet 200 mg PO PRN PRN (Reason: pain) RF: 0 Probiotic 20 billion cell Capsule 20,000 mmu cells PO DAILY RF: 0 omeprazole 20 MG tablet,delayed release (DR/EC) 20 mg PO QPM RF: 0 aspirin 81 mg Tablet,Delayed Release (Dr/Ec) 81 mg PO DAILY Qty: 30 RF: 0 prednisone 1 mg tablet 2 mg PO DAILY RF: 0 olmesartan 5 mg tablet 15 mg PO QPM RF: 0 Referrals: Mary Trejo MD [Primary Care Provider] -
[2018-10-12] MEDS: diphenhydrAMINE 50 MG/ML VIAL IV (06:23)
--- NOTE | 2018-10-12 06:23 | DI.RAD.S_ITS ---
PROCEDURE: XR ACUTE ABDOMEN SERIES INDICATIONS: Abdominal pain. Vomiting. TECHNIQUE: One view chest and two views of the abdomen were acquired. COMPARISON: [facility], CR, XR ACUTE ABDOMEN SERIES, 08/01/2018, 12:46. FINDINGS: Surgical changes and devices: None. Chest: There is chronic small nodular right midlung density, and a few scattered parenchymal opacities in the right mid and lower lung. Heart size is normal. No pleural effusions. No pneumoperitoneum. Abdomen: Nondistended stomach. Relative paucity of bowel gas suggesting either decompressed bowel loops, less likely fluid filled bowel loops. No suspicious calcifications. Visualized solid organ contours appear normal. Bones: No suspicious bony lesions. Degenerative changes in lumbar spine and bilateral hip joints. IMPRESSION: 1. No radiographic evidence of acute bowel obstruction. 2. Chronic right midlung density with development of a few small parenchymal right mid and lower lung densities. This may be early infectious process. Correlate clinically and consider follow up 2 view chest following treatment. Dictated by: Kristen Conley M.D. on 10/12/2018 at 8:29 Approved by: Kristen Conley M.D. on 10/12/2018 at 8:34
[2018-10-12] MEDS: METOCLOPRAMIDE 10 MG/2 ML INJ IV (06:24)
[2018-10-12 06:25] VITALS: BP 186/112; PULSE 102; RESP 18; TEMP 37.3; O2SAT 97; BMI 22.8
[2018-10-12] MEDS: SODIUM CHLORIDE 0.9% 1,000 ML 1000 ML IV (06:34)
[2018-10-12 06:46] LABS: Add Manual Diff / Slide Review NO; Basophils Absolute Auto 0 /uL (0-100); Basophils Percent Auto 0.1 % (0-2); Eosinophils Absolute Auto 0 /uL (0-450); Eosinophils Percent Auto 0.3 % (2-4); Hematocrit 35.3 % (36-46); Hemoglobin 11.6 g/dL (12.0-16.0); Lymphocytes Absolute Auto 2100 /uL (1100-4500); Lymphocytes Percent Auto 15.3 % (25-40); Mean Corpuscular Hemoglobin 29.5 PG (26-34); Mean Corpuscular Volume 89.3 fL (80-100); Monocytes Absolute Auto 1000 /uL (0-900); Monocytes Percent Auto 7.1 % (3-14); Neutrophils Absolute Auto 10400 /uL (1500-7000); Neutrophils Percent Auto 77.2 % (50-75); Platelet Count 211 X10^3/uL (150-400); Red Blood Cell Count 3.95 X10^6/uL (4.0-5.2); Red Cell Distribution Width 15.2 % (11.6-14.8); White Blood Cell Count 13.4 X10^3/uL (4.5-11.0)
[2018-10-12 06:55] LABS: Alanine Aminotransferase 25 IU/L (9-52); Albumin 4.6 g/dL (3.5-5.0); Albumin Globulin Ratio 1.5 (1.0-2.8); Alkaline Phosphatase 57 U/L (38-126); Aspartate Aminotransferase 29 IU/L (14-36); BUN Creatinine Ratio 11.7 (6-22); Bilirubin Total 0.9 mg/dL (0.2-1.3); Blood Urea Nitrogen 14 mg/dL (7-17); Calcium 9.7 mg/dL (8.4-10.2); Carbon Dioxide 28 mmol/L (22-32); Chloride 96 mmol/L (98-107); Estimated Glomerular Filt Rate 43.4 mL/min (>60); Glucose 96 mg/dL (80-110); HEMOLYSIS < 15 (0-50); Lipase 85 U/L (23-300); Potassium 3.2 mmol/L (3.4-5.1); Sodium 134 mmol/L (137-145); Total Protein 7.6 g/dL (6.3-8.2)
[2018-10-12 06:56] VITALS: BP 182/94; PULSE 89; RESP 19; O2SAT 98
[2018-10-12 07:07] LABS: Magnesium 1.4 mg/dL (1.6-2.3)
[2018-10-12 07:45] VITALS: BP 171/78; PULSE 87; RESP 18; O2SAT 98
[2018-10-12] MEDS: HYDROMORPHONE 1 MG INJ IV (08:48)
[2018-10-12 09:30] VITALS: BP 146/71; PULSE 88; RESP 20; O2SAT 97
== END 2018-10-12 09:31 | disposition home or self-care (01) ==
PROVIDERS: Emergency Provider Emergency Medicine; Family Provider Family Medicine; PCP Family Medicine
DX: R11.2 Nausea with vomiting, unspecified (principal)
CPT/HCPCS: 36415; 74022; 80053; 81003; 83690; 83735; 85025; 93005; 96361; 96374; 96375; 99283; 99285; J1170; J1200; J2765

== ENCOUNTER → 2018-10-15 15:22 | Outpatient (CLI) | payer MEDICARE, SELFPAY ==
[2018-09-04 13:25] VITALS: BMI 23.3
[2018-10-15 15:50] LABS: Add Manual Diff / Slide Review NO; Basophils Absolute Auto 100 /uL (0-100); Basophils Percent Auto 1.5 % (0-2); Eosinophils Absolute Auto 100 /uL (0-450); Eosinophils Percent Auto 0.9 % (2-4); Hematocrit 35.9 % (36-46); Hemoglobin 11.9 g/dL (12.0-16.0); Lymphocytes Absolute Auto 2500 /uL (1100-4500); Lymphocytes Percent Auto 28.6 % (25-40); Mean Corpuscular HGB Conc 33.1 % (30-36); Mean Corpuscular Hemoglobin 29.3 PG (26-34); Mean Corpuscular Volume 88.4 fL (80-100); Monocytes Absolute Auto 1000 /uL (0-900); Neutrophils Absolute Auto 5100 /uL (1500-7000); Platelet Count 189 X10^3/uL (150-400); Red Blood Cell Count 4.06 X10^6/uL (4.0-5.2); Red Cell Distribution Width 14.7 % (11.6-14.8); White Blood Cell Count 8.8 X10^3/uL (4.5-11.0)
[2018-10-15 16:15] LABS: BUN Creatinine Ratio 13.3 (6-22); Blood Urea Nitrogen 20 mg/dL (7-17); Calcium 10.1 mg/dL (8.4-10.2); Carbon Dioxide 28 mmol/L (22-32); Chloride 99 mmol/L (98-107); Estimated Glomerular Filt Rate 33.6 mL/min (>60); Glucose 100 mg/dL (80-110); Potassium 3.8 mmol/L (3.4-5.1); Sodium 138 mmol/L (137-145); Triglycerides 177 mg/dL (35-150)
[2018-10-15 16:22] LABS: HEMOLYSIS 31 (0-50)
[2018-10-15 16:23] LABS: Cholesterol 337 mg/dL (140-199); HDL Cholesterol 177 mg/dL (40-60); LDL Cholesterol Calculated 125 mg/dL (<100)
== END ==
PROVIDERS: Family Provider Family Medicine; PCP Family Medicine; Visit Provider Internal Medicine Cardiovascular Disease
DX: I10 Essential (primary) hypertension (principal); E78.5 Hyperlipidemia, unspecified
CPT/HCPCS: 36415; 80048; 80061; 85025

== ENCOUNTER 2018-11-14 19:25 | Emergency (ER) | payer MEDICARE, SELFPAY ==
[2018-11-14 15:27] VITALS: BMI 23.3
[2018-11-14 19:24] VITALS: BP 120/61; PULSE 113; RESP 20; TEMP 36.4; O2SAT 100
[2018-11-14] MEDS: SODIUM CHLORIDE 0.9% 1,000 ML 1000 ML IV ×2 (19:50→23:22)
[2018-11-14 19:51] VITALS: BP 120/61; PULSE 117
[2018-11-14 19:51] LABS: Add Manual Diff / Slide Review NO; Basophils Absolute Auto 0 /uL (0-100); Basophils Percent Auto 0.6 % (0-2); Eosinophils Absolute Auto 100 /uL (0-450); Eosinophils Percent Auto 0.9 % (2-4); Hematocrit 43.2 % (36-46); Hemoglobin 14.5 g/dL (12.0-16.0); Lymphocytes Absolute Auto 1600 /uL (1100-4500); Lymphocytes Percent Auto 19.9 % (25-40); Mean Corpuscular HGB Conc 33.4 % (30-36); Mean Corpuscular Hemoglobin 28.3 PG (26-34); Mean Corpuscular Volume 84.8 fL (80-100); Monocytes Absolute Auto 800 /uL (0-900); Monocytes Percent Auto 10.1 % (3-14); Neutrophils Absolute Auto 5400 /uL (1500-7000); Neutrophils Percent Auto 68.5 % (50-75); Platelet Count 161 X10^3/uL (150-400); Red Cell Distribution Width 14.2 % (11.6-14.8); White Blood Cell Count 7.9 X10^3/uL (4.5-11.0)
[2018-11-14] MEDS: PROCHLORPERAZINE 10 MG/2 ML VIAL IV (19:51)
[2018-11-14 20:03] LABS: Alanine Aminotransferase 26 IU/L (9-52); Albumin 4.4 g/dL (3.5-5.0); Albumin Globulin Ratio 1.4 (1.0-2.8); Alkaline Phosphatase 43 U/L (38-126); Aspartate Aminotransferase 48 IU/L (14-36); BUN Creatinine Ratio 14.4 (6-22); Bilirubin Total 1.6 mg/dL (0.2-1.3); Blood Urea Nitrogen 23 mg/dL (7-17); Calcium 10.3 mg/dL (8.4-10.2); Carbon Dioxide 19 mmol/L (22-32); Chloride 96 mmol/L (98-107); Estimated Glomerular Filt Rate 31.2 mL/min (>60); Globulin 3.2 g/dL (1.7-4.1); Glucose 101 mg/dL (80-110); HEMOLYSIS 49 (0-50); Potassium 3.4 mmol/L (3.4-5.1); Sodium 135 mmol/L (137-145); Total Protein 7.6 g/dL (6.3-8.2)
--- NOTE | 2018-11-14 20:31 | ED_ITS ---
HPI - Arrhythmia/Palpitations General Chief Complaint: Arrhythmia/Palpitations Stated Complaint: Abdominal pain, nausea, vomiting Time Seen by Provider: 11/14/18 19:29 Source: patient and EMS Mode of arrival: EMS Limitations: no limitations History of Present Illness HPI narrative: Patient comes to the emergency department complaining of vomiting, diarrhea, and left lower quadrant abdominal pain for the last 2 days. Patient states it feels like her diverticulitis, which she has had on several occasions before. Patient denies fevers. She states that she vomited all day today, and felt very dehydrated, so decided to come in. She states that she has had a combination of runny stools and clear liquid coming from her rectum. Patient states she is not currently on antibiotics. She is an established patient of Dr. Mccormick on for this issue, and did try calling Dr. Mccormick's office today. However, the patient lives in [facility], and felt concerned about her situation worsening tonight, so decided to come in. She felt some palpitations prior to coming, and medics found the patient to be in atrial fibrillation RVR at 190. They gave her a dose of diltiazem en route, after which her heart rate did come down to the 90s. However, they did state that this also dropped her blood pressure, which had previously been borderline normal to high. Patient denies any chest pain or shortness of breath. No cough. No dysuria. No back pain. Related Data Home Medications Medication Instructions Recorded Confirmed Vitamin D3 1 cap PO DAILY #0 01/09/12 09/05/18 ascorbic acid (vitamin C) [Vitamin 1 tab PO DAILY #0 01/09/12 10/12/18 C] Omera 1 cap PO DAILY #0 03/12/17 10/12/18 vitamin B complex [B 1 tab PO DAILY #0 04/17/17 09/05/18 Complex-Vitamin B12] Probiotic 20,000 mmu cells PO DAILY 07/15/18 10/12/18 ibuprofen [Advil] 200 mg PO PRN PRN 07/15/18 10/12/18 olmesartan 15 mg PO QPM 10/12/18 Previous Rx's Medication Instructions Recorded aspirin 81 mg PO DAILY #30 tab 07/20/18 promethazine 25 mg rectal 25 mg OH Q6H PRN #12 each 12/07/18 suppository trazodone 100 mg tablet 100 mg PO BEDTIME #90 tab 08/28/18 [address]ing #2 each 09/10/18 metoprolol succinate ER 100 mg 100 mg PO QPM #90 tab 09/10/18 tablet,extended release 24 hr ondansetron 4 mg PO Q4H PRN #10 tab 10/12/18 omeprazole 20 mg tablet,delayed 20 mg PO QPM #90 tab 10/14/18 release prednisone 1 mg tablet 2 mg PO DAILY #180 tab 10/16/18 prednisone 10 mg tablet 10 mg PO DAILY #100 tab 10/16/18 ondansetron 4 mg PO QID PRN #20 tab 11/15/18 prochlorperazine [Compazine] 25 mg OH Q12H PRN #12 each 11/15/18 Allergies Allergy/AdvReac Type Severity Reaction Status Date / Time ciprofloxacin [CIPROFLOXACIN] Allergy Severe MUSCLE PAIN Verified 10/12/18 06:35 methocarbamol [METHOCARBAMOL] Allergy Mild RASH/ROBAXI Verified 10/12/18 06:35 N Penicillins [PENICILLINS] Allergy Mild HIVES Verified 10/12/18 06:35 piroxicam [PIROXICAM] Allergy Mild RASH/FELDEN Verified 10/12/18 06:35 E temazepam [TEMAZEPAM] Allergy Mild NERVOUNESS/ Verified 10/12/18 06:35 RESTORIL Review of Systems Constitutional Denies chills, Denies fever(s), Denies lethargy and Denies weakness Eyes Denies change in vision, Denies eye discharge, Denies irritation and Denies loss of vision ENT Ears, Nose, Mouth, and Throat: Denies change in voice, Denies neck pain and Denies sore throat Cardiovascular Denies chest pain, Denies irregular heart rhythm, Denies lightheadedness, Reports palpitations, Denies dyspnea, Denies dyspnea on exertion and Denies orthopnea Respiratory Denies cough, Denies dyspnea, Denies dyspnea on exertion and Denies wheezing Gastrointestinal Gastrointestinal: Reports abdominal pain, Denies change in bowel habits, Reports diarrhea, Reports nausea and Reports vomiting Genitourinary Denies hematuria, Denies flank pain, Denies urinary incontinence and Denies urinary urgency Musculoskeletal Denies neck pain Integumentary/Breasts Denies pruritus, Denies erythema, Denies rash and Denies wounds Neurologic Denies confusion, Denies loss of vision and Denies weakness Psychiatric Denies anxiety, Denies confusion, Denies depression, Denies homicidal ideation and Denies suicidal ideation Endocrine Reports palpitations Hematologic/Lymphatic Denies easy bruising Allergic/Immunologic Denies wheezing [facility] Medical History CHF (congestive heart failure) (Acute) NSTEMI (non-ST elevated myocardial infarction) (Acute) Asthma (Chronic) Diverticular disease (Chronic) GERD (gastroesophageal reflux disease) (Chronic) GI bleeding (Chronic 03/2017) H. pylori infection (Chronic) Heart murmur (Chronic) Hyperlipidemia (Chronic) Hypertension (Chronic) Polymyalgia rheumatica (Chronic) Surgical History History of carpal tunnel repair (Resolved) History of cataract removal with insertion of prosthetic lens (Resolved) History of hemicolectomy (Resolved 10/2005) Status post appendectomy (Resolved) Status post arthroscopy (Resolved) Status post cardiac catheterization (Resolved 1998) Status post vaginal hysterectomy (Resolved 1999) Social History household members: children Smoking Status: Former smoker alcohol intake: current substance use type: does not use Social History household members: children Smoking Status: Former smoker alcohol intake: current substance use type: does not use Exam Initial Vital Signs Initial Vital Signs: Vital Signs Temperature 97.6 F 11/14/18 19:24 Pulse Rate 113 H 11/14/18 19:24 Respiratory Rate 20 11/14/18 19:24 Blood Pressure 120/61 11/14/18 19:24 Pulse Oximetry 100 11/14/18 19:24 Const General: cooperative and well developed Nutritional Appearance: well nourished Orientation: alert, awake, oriented x3 and not confused [facility] Head: normocephalic and atraumatic Ears: external ears normal and TM's normal bilaterally Nose: external nose normal and No nasal discharge Face and sinus: sinuses nontender, face symmetric, no sinus tenderness and No dry mucous membranes Mouth: oral mucosae normal and moist mucous membranes Teeth and gingiva: dentition normal Throat: tonsils normal and uvula midline Eyes General: appearance normal, both eyes and all related structures Eyelids: eyelids normal Conjunctivae: conjunctivae normal Sclera: sclerae normal Pupils: PERRL EOM: EOM intact bilaterally Neck Neck: normal visual inspection, trachea midline, No lymphadenopathy, No midline deformity and No JVD Lymphatic: No lymphedema Chest Chest: normal inspection of the chest Resp Effort & Inspection: normal respiratory effort, able to speak in complete sentences, no respiratory distress and no use of accessory muscles Auscultation: clear to auscultation bilaterally, no rales, no rhonchi and no wheezes Cardio Rate: regular rate Rhythm: regular rhythm Heart Sounds: no click, no gallops, no murmurs and no rubs Pulses: normal peripheral pulses GI Inspection: non-distended Palpation: soft, no hepatosplenomegaly, No guarding, No pulsatile mass and tender (Moderate, left lower quadrant) Auscultation: normal bowel sounds Back/Spine/Pelvis Back: No CVA tenderness Cervical Spine: cervical ROM normal and No pain with cervical ROM Thoracic/Lumbar Spine: thoracic and lumbar spine normal to inspection Skin General: no rashes or lesions noted, No jaundice and No petechiae Neuro General: alert, oriented x3, gait normal and no focal motor deficits Speech: speech normal Extrem General: full ROM, no clubbing, cyanosis or edema, no pedal edema and no calf tenderness Psych Appearance: well kempt Mental Status: mental status grossly normal Attitude: cooperative Thought Content: normal and suicidality Judgment: judgment good Course Course Narrative: Patient was given a L of IV fluid in the emergency department, as well as a dose of Compazine, as she was still nauseated after the Zofran. Patient did not display vomiting in the ED. She was worked up with labs and CT scan of the abdomen and pelvis, given her symptoms and history. She was also given a dose of digoxin, as she was still mildly hypotensive after the Cardizem, and her heart rate was creeping back up into the 130s, in the setting of un derlying atrial fibrillation. this did improve her heart rate somewhat, but the patient still stayed mildly tachycardic in the low 100s. She ultimately received 2 L of 0.9 normal saline, with improvement in her blood pressure. Her workup, including CT scan of the abdomen and pelvis was arm remarkable for acute pathology. Her kidney function was roughly at baseline. After hydration, patient's heart rate responded very well to diltiazem, and sustained a normal rate in the 80s after this. The patient tolerated p.o. fluids in the emergency department, and during her 6 hr stay, did not have a single episode of vomiting. I felt she was stable for discharge with her companions. We have discussed the use of Zofran and Compazine, both of which patient has received in the emergency department, at home. We have discussed that patient should take only small amounts of clear liquids at a time, until her symptoms have passed. Patient's recreational sports director expresses concern that patient has had 3 episodes of this sort of illness in the last 5 months, and we have discussed that patient should speak with her primary care physician about GI follow-up. We have discussed the usual indications for return. Orders Ordered: Discontinued Medications Digoxin (Lanoxin) 250 mcg IV NOW ONE Stop: 11/14/18 20:26 Last Admin: 11/14/18 20:44 Dose: 250 mcg Diltiazem HCl (Cardizem) 20 mg IV NOW ONE Stop: 11/15/18 00:44 Last Admin: 11/15/18 00:55 Dose: 20 mg Sodium Chloride (Normal Saline 0.9%) 1,000 mls @ 1,000 mls/hr IV BOLUS ONE Stop: 11/14/18 20:28 Last Infusion: 11/14/18 23:20 Dose: 0 mls/hr Admin: 11/14/18 19:50 Dose: 1,000 mls/hr Sodium Chloride (Normal Saline 0.9%) 1,000 mls @ 1,000 mls/hr IV BOLUS ONE Stop: 11/15/18 00:19 Last Infusion: 11/15/18 00:48 Dose: 0 mls/hr Admin: 11/14/18 23:22 Dose: 1,000 mls/hr Prochlorperazine (Compazine) 10 mg IV NOW ONE Stop: 11/14/18 19:50 Last Admin: 11/14/18 19:51 Dose: 10 mg Vital Signs - 8 hr 11/14/18 19:24 11/14/18 19:51 Temperature 97.6 F Pulse Rate 113 H 117 H Respiratory Rate 20 Blood Pressure 120/61 120/61 Pulse Oximetry 100 MDM - Arrhythmia/Palpitations Medical Records Attestation: I reviewed the patient's medical records. Lab Data Attestation: I reviewed the patient's lab results. Result diagrams: 11/14/18 19:45 11/14/18 19:45 Lab Results 11/14/18 11/14/18 Range/Units 19:45 19:45 WBC 7.9 (4.5-11.0) X10^3/uL RBC 5.10 (4.0-5.2) X10^6/uL Hgb 14.5 (12.0-16.0) g/dL Hct 43.2 (36-46) % MCV 84.8 (80-100) fL MCH 28.3 (26-34) PG MCHC 33.4 (30-36) % RDW 14.2 (11.6-14.8) % Plt Count 161 (150-400) X10^3/uL Neut % (Auto) 68.5 (50-75) % Lymph % (Auto) 19.9 L (25-40) % [place] % (Auto) 10.1 (3-14) % Eos % (Auto) 0.9 L (2-4) % Baso % (Auto) 0.6 (0-2) % Neut # (Auto) 5400 (3082-0830) /uL Lymph # (Auto) 1600 (9320-2168) /uL [place] # (Auto) 800 (0-900) /uL Eos # (Auto) 100 (0-450) /uL Baso # (Auto) 0 (0-100) /uL Sodium 135 L (137-145) mmol/L Potassium 3.4 (3.4-5.1) mmol/L Chloride 96 L (98-107) mmol/L Carbon Dioxide 19 L (22-32) mmol/L BUN 23 H (7-17) mg/dL Creatinine 1.60 H (0.52-1.04) mg/dL Estimated GFR 31.2 L (>60) mL/min BUN/Creatinine Ratio 14.4 (6-22) Glucose 101 (80-110) mg/dL Calcium 10.3 H (8.4-10.2) mg/dL Total Bilirubin 1.6 H (0.2-1.3) mg/dL AST 48 H (14-36) IU/L ALT 26 (9-52) IU/L Alkaline Phosphatase 43 (38-126) U/L Total Protein 7.6 (6.3-8.2) g/dL Albumin 4.4 (3.5-5.0) g/dL Globulin 3.2 (1.7-4.1) g/dL Albumin/Globulin Ratio 1.4 (1.0-2.8) Imaging Data CT scan - abdomen: Radiologist's impression: PROCEDURE: CT ABDOMEN PELVIS W CON INDICATIONS: LLQ abd pain, nausea/vomiting TECHNIQUE: After the administration of rectal, oral and intravenous contrast, 5 mm thick sections acquired from the diaphragms to the symphysis. 5 mm thick coronal and sagittal reformats were performed. For radiation dose reduction, the following was used: automated exposure control, adjustment of mA and/or kV according to patient size. COMPARISON: [facility], CT, CT ABDOMEN PELVIS W CON, 07/23/2018, 21:33. [facility], CT, ABDOMEN/PELVIS WITH CONTRAST, 04/17/2017, 10:59. FINDINGS: Image quality: Excellent. ABDOMEN: Lung bases: Lung bases are clear. Heart size is normal. Solid organs: Liver is normal in size and enhancement. Gallbladder is decompressed but otherwise unremarkable in CT appearance. Biliary system is non-dilated. Pancreas enhances normally. Spleen is normal in size and enhancement. No adrenal nodules. Kidneys are normal in size and enhancement, without hydronephrosis. Peritoneum and bowel: Stomach, and small bowel are normal in caliber and wall thickness. Stable postoperative changes from partial colonic resection of the distal sigmoid colon. Numerous scattered colonic diverticula without acute inflammation. Previously noted peridiverticular inflammatory changes involving the distal descending colon and proximal sigmoid colon has resolved. There is mild wall thickening of this segment of previously inflamed colon. Suggestion of mild asymmetric wall thickening at this segment. No free fluid or air. Nodes and vessels: No retroperitoneal or mesenteric adenopathy. Aorta and inferior vena cava are normal in caliber. Miscellaneous: No ventral hernias. PELVIS: Genitourinary: Bladder wall thickness is normal. Miscellaneous: No inguinal hernias or adenopathy. Bones: No suspicious bony lesions. No acute vertebral body compression fractures. Multilevel lumbar spondylosis. IMPRESSION: Scattered colonic diverticula without acute diverticulitis. There is mild wall thickening, somewhat asymmetric in appearance involving the segment of distal descending colon/proximal sigmoid colon that was previously inflamed as noted on CT dated 04/17/2017. This may be related to sequela of prior/chronic inflammation although an und erlying neoplastic process not excluded. Recommend outpatient evaluation with direct visualization. Otherwise, no acute abnormalities identified in the abdomen or pelvis to explain patient's left lower quadrant pain. Dictated by: Dillon Rosa M.D. on 11/14/2018 at 21:53 Approved by: Dillon Roas M.D. on 11/14/2018 at 22:06 Discharge Plan Departure Patient Disposition: Home Clinical Impression: Gastroenteritis Discharge Date/Time: 11/15/18 01:47 Interventions: ED Discharge Assessment Last Done: 11/15/18 01:45 Instructions: DI for Vomiting -- Adult Activity Restrictions/Additional Instructions: Your labs look good. Your CT scan does not show diverticulitis or any other acute problems. You have been given two full bags of IV fluids to help rehydrate you. You have also been without vomiting for 6 hr in the emergency department, and have tolerated oral fluids. It is important that you take the nausea medicine at home, and take only small amounts of fluid at a time, as frequently as 20 min apart. Now that your hydrated, your heart rate has responded very well to medication. Please continue your plans to follow up with Dr. Mccormick, as you have previously scheduled. Prescriptions: New prochlorperazine [Compazine] 25 mg suppository 25 mg OH Q12H PRN (Reason: nausea and vomiting) Qty: 12 RF: 0 ondansetron 4 mg tablet,disintegrating 4 mg PO QID PRN (Reason: nausea and vomiting) Qty: 20 RF: 0 No Action Vitamin D3 1 cap PO DAILY Qty: 0 RF: 0 ascorbic acid (vitamin C) [Vitamin C] 1,000 mg Tablet 1 tab PO DAILY Qty: 0 RF: 0 Omera 1 EACH capsule 1 cap PO DAILY Qty: 0 RF: 0 vitamin B complex [B Complex-Vitamin B12] 1 EACH tablet 1 tab PO DAILY Qty: 0 RF: 0 trazodone 100 mg tablet 100 mg PO BEDTIME Qty: 90 RF: 1 metoprolol succinate 100 mg tablet extended release 24 hr 100 mg PO QPM Qty: 90 RF: 3 [address] .MEDSUPPLY Qty: 2 RF: 0 omeprazole 20 mg tablet,delayed release (DR/EC) 20 mg PO QPM Qty: 90 RF: 3 prednisone 10 mg tablet 10 mg PO DAILY Qty: 100 RF: 0 prednisone 1 mg tablet 2 mg PO DAILY Qty: 180 RF: 3 promethazine [Phenergan] 25 mg suppository 25 mg OH Q6H PRN (Reason: nausea and vomiting) Qty: 12 RF: 2 ibuprofen [Advil] 200 mg Tablet 200 mg PO PRN PRN (Reason: pain) RF: 0 Probiotic 20 billion cell Capsule 20,000 mmu cells PO DAILY RF: 0 aspirin 81 mg Tablet,Delayed Release (Dr/Ec) 81 mg PO DAILY Qty: 30 RF: 0 olmesartan 5 mg tablet 15 mg PO QPM RF: 0 ondansetron 4 mg tablet,disintegrating 4 mg PO Q4H PRN (Reason: nausea and vomiting) Qty: 10 RF: 0 Referrals: Mary Trejo MD [Primary Care Provider] - Amna Mccormick MD [Physician] -
[2018-11-14 20:35] VITALS: BP 108/65; PULSE 97; RESP 18; O2SAT 96
--- NOTE | 2018-11-14 20:40 | DI.CT.S_ITS ---
PROCEDURE: CT ABDOMEN PELVIS W CON INDICATIONS: LLQ abd pain, nausea/vomiting TECHNIQUE: After the administration of rectal, oral and intravenous contrast, 5 mm thick sections acquired from the diaphragms to the symphysis. 5 mm thick coronal and sagittal reformats were performed. For radiation dose reduction, the following was used: automated exposure control, adjustment of mA and/or kV according to patient size. COMPARISON: [facility], CT, CT ABDOMEN PELVIS W CON, 07/23/2018, 21:33. [facility], CT, ABDOMEN/PELVIS WITH CONTRAST, 04/17/2017, 10:59. FINDINGS: Image quality: Excellent. ABDOMEN: Lung bases: Lung bases are clear. Heart size is normal. Solid organs: Liver is normal in size and enhancement. Gallbladder is decompressed but otherwise unremarkable in CT appearance. Biliary system is non-dilated. Pancreas enhances normally. Spleen is normal in size and enhancement. No adrenal nodules. Kidneys are normal in size and enhancement, without hydronephrosis. Peritoneum and bowel: Stomach, and small bowel are normal in caliber and wall thickness. Stable postoperative changes from partial colonic resection of the distal sigmoid colon. Numerous scattered colonic diverticula without acute inflammation. Previously noted peridiverticular inflammatory changes involving the distal descending colon and proximal sigmoid colon has resolved. There is mild wall thickening of this segment of previously inflamed colon. Suggestion of mild asymmetric wall thickening at this segment. No free fluid or air. Nodes and vessels: No retroperitoneal or mesenteric adenopathy. Aorta and inferior vena cava are normal in caliber. Miscellaneous: No ventral hernias. PELVIS: Genitourinary: Bladder wall thickness is normal. Miscellaneous: No inguinal hernias or adenopathy. Bones: No suspicious bony lesions. No acute vertebral body compression fractures. Multilevel lumbar spondylosis. IMPRESSION: Scattered colonic diverticula without acute diverticulitis. There is mild wall thickening, somewhat asymmetric in appearance involving the segment of distal descending colon/proximal sigmoid colon that was previously inflamed as noted on CT dated 04/17/2017. This may be related to sequela of prior/chronic inflammation although an underlying neoplastic process not excluded. Recommend outpatient evaluation with direct visualization. Otherwise, no acute abnormalities identified in the abdomen or pelvis to explain patient's left lower quadrant pain. Dictated by: Dillon Rosa M.D. on 11/14/2018 at 21:53 Approved by: Dillon Rosa M.D. on 11/14/2018 at 22:06
[2018-11-14] MEDS: DIGOXIN 500 MCG/2 ML AMPUL 250 MCG IV (20:44)
[2018-11-14 22:36] VITALS: PULSE 126
--- NOTE | 2018-11-14 22:36 | PC.NURSE ---
Pts HR increased with sitting up.
[2018-11-14 23:08] VITALS: BP 135/57; PULSE 94; RESP 18; O2SAT 97
[2018-11-14 23:30] VITALS: BP 140/81; PULSE 99; RESP 17; O2SAT 96
[2018-11-15] MEDS: dilTIAZem 5 MG/ML SDV 20 MG IV (00:55)
[2018-11-15 00:58] VITALS: BP 145/85; PULSE 115; RESP 14; O2SAT 98
[2018-11-15 01:38] VITALS: BP 127/56; PULSE 87; RESP 20; O2SAT 99
== END 2018-11-15 01:47 | disposition home or self-care (01) ==
PROVIDERS: Emergency Provider Emergency Medicine; Family Provider Family Medicine; PCP Family Medicine
DX: K52.9 Noninfective gastroenteritis and colitis, unspecified (principal)
CPT/HCPCS: 36415; 74177; 80053; 85025; 93005; 96361; 96374; 96375; 99283; 99285; J0780; J1160

== ENCOUNTER → 2018-11-20 10:48 | Outpatient (CLI) | payer MEDICARE, SELFPAY ==
[2018-11-14 15:27] VITALS: BMI 23.3
--- NOTE | 2018-11-20 10:51 | DI.RAD.S_ITS ---
PROCEDURE: XR HIP W PEL IF DONE RT 2V INDICATIONS: right hip pain TECHNIQUE: AP pelvis with lateral view(s) of the right hip. COMPARISON: None. FINDINGS: Bones: No fractures or dislocations. Pelvic ring appears intact. No suspicious bony lesions. Soft tissues: The visualized bowel gas pattern is normal. No suspicious soft tissue calcifications. IMPRESSION: Bilateral mild hip arthroplasty, symmetric on the frontal view of the pelvis. No trauma found. Dictated by: Manoj Crum M.D. on 11/20/2018 at 11:25 Approved by: Manoj Crum M.D. on 11/20/2018 at 11:26
== END ==
PROVIDERS: PCP Family Medicine; Visit Provider Family Medicine
DX: M25.551 Pain in right hip (principal); Z96.643 Presence of artificial hip joint, bilateral
CPT/HCPCS: 73502

== ENCOUNTER → 2018-11-26 08:22 | Outpatient (CLI) | payer MEDICARE, SELFPAY ==
[2018-11-14 15:27] VITALS: BMI 23.3
--- NOTE | 2018-11-26 | DI.ECHO.S_ITS ---
[facility] +[facility]+ : : [address] : : : : [id number] : : : : Phone: [phone] Echocardiogram Report + + :Name: SID SANCHEZ Study Date: 11/26/2018 Height: 66 in : :[facility] Weight: 150 lb : : Gender: Female BSA: 1.8 m2 : :: 1940 Age: 78 yrs BP: 150/88 mmHg: :Reason For Study: Cardiomyopathy : :Ordering Physician: Maribel : :Chayami Performed By: Denia Lakhani : :Referring: Dr. Edwin Oswald : + + Interpretation Summary 1) Normal left ventricular thickness and size with low normal systolic function (EF 50-55%). 2) Mild basal to mid inferolateral wall hypokinesis. 3) Grossly, normal right ventricular size and function. 4) 'The left atrium is moderately dilated. 5) There is moderate mitral regurgitation. 6) Mild aortic stenosis present. 7) The right ventricular systolic pressure is estimated to be at least 42 mmHg based on an estimated right atrial pressure of 3 mm Hg. 8) There is mild luminal irregularity and echogenicity in the abdominal aorta, suggestive of aortic atherosclerotic disease. 9) Compared to the Echo done 07/20/2018, LVEF has improved from 40-45% to about 50-55% but the mitral regurgitation is has worsened from mild to moderate on this study. Procedure: A two-dimensional transthoracic echocardiogram with color flow and Doppler was performed. The study quality was technically adequate. Comparison is made with the echocardiogram of 07-20-18. The patient was in normal sinus rhythm during the exam. Left Ventricle: The left ventricle is normal in size. There is normal left ventricular wall thickness. The ejection fraction is estimated to be 50-55%. Left ventricular systolic function is low normal. Mild basal to mid inferolateral wall hypokinesis. Diastolic parameters suggest a pseudonormalization pattern, consistent with probable elevated filling pressures. Right Ventricle: The right ventricle grossly appears normal in size with probable normal systolic function. Atria: The left atrium is moderately dilated. Right atrial size is normal. The interatrial septum is intact with no evidence for an atrial septal defect. Mitral Valve: The mitral valve leaflets appear borderline thickened, but open well. There is moderate mitral regurgitation. Aortic Valve: The aortic valve is trileaflet. There is mild aortic valve sclerosis. Leaflet mobility is mild to moderately reduced. The aortic valve area is 1.3 centimeters squared by planimetry. The peak aortic velocity is 2.2 m/sec. The peak aortic velocity on the previous exam was 1.7 m/sec. No aortic regurgitation is present. Tricuspid Valve: The tricuspid valve leaflets are thin and pliable. There is mild tricuspid regurgitation. The right ventricular systolic pressure is estimated to be at least 42 mmHg based on an estimated right atrial pressure of 3 mm Hg. Pulmonic Valve: The pulmonic valve is normal in structure and function. There is no pulmonic valvular regurgitation. Great Vessels: The aortic root is normal size. The dimensions of the ascending aorta are normal. The aortic arch is normal in size. There is mild luminal irregularity and echogenicity in the abdominal aorta, suggestive of aortic atherosclerotic disease. The IVC is of normal diameter and collapses greater than 50% with a sniff. This suggests a low right atrial pressure of 3 mm Hg. Pericardium/ Pleura There is no pericardial effusion. There is no pleural effusion. MMode/2D Measurements & Calculations LVIDd: 4.8 cm Ao root diam: 3.1 cm LVIDs: 3.7 cm Aortic Jxn: 2.4 cm FS: 21.3 % asc Aorta Diam: 3.2 cm EPSS: 0.93 cm Ao Arch Diam (Prox Trans): 2.1 cm IVSd: 1.0 cm LVPWd: 1.00 cm LV arriaga. diameter/BSA (cm/m^2): 2.7 LV sys. diameter/BSA (cm/m^2): 2.1 LA dimension: 4.8 cm RA long axis: 4.9 cm LA A2 area: 26.9 cm2 RA area: 16.4 cm2 LA A4 area: 21.3 cm2 RA vol: 46.7 ml LA length (vol): 5.7 cm RA : 26.4 ml/m2 LA vol: 86.0 ml IVC diam: 1.9 cm LA vol index: 48.6 ml/m2 RVDd major: 6.0 cm RVD1 (basal): 2.5 cm RVD2 (mid): 2.5 cm VIC (plan): 1.3 cm2 Doppler Measurements & Calculations Ao V2 max: 217.8 cm/sec MV E max thony: 112.0 cm/sec Ao V2 mean: 148.9 cm/sec MV A max thony: 60.0 cm/sec Ao max P.0 mmHg MV E/A: 1.9 Ao mean P.3 mmHg Med Peak E' Thony: 4.1 cm/sec Ao V2 VTI: 47.9 cm E/E' med: 27.3 Lat Peak E' Thony: 6.3 cm/sec E/E' lat: 17.7 E/e' average: 22.5 MV dec time: 0.17 sec MV P1/2t: 41.8 msec MR ERO: 0.13 cm2 TR max thony: 310.2 cm/sec MV P1/2t max thony: 100.4 cm/sec TR max P.5 mmHg MVA(P1/2t): 5.3 cm2 PA V2 max: 90.1 cm/sec PA V2 mean: 54.6 cm/sec PA mean P.4 mmHg MR flow rate: 81.4 cm3/sec MR PISA radius: 0.58 cm Reading Physician:01:56 PM
== END ==
PROVIDERS: PCP Family Medicine; Visit Provider Internal Medicine Cardiovascular Disease
DX: I08.3 Combined rheumatic disorders of mitral, aortic and tricuspid valves (principal); I42.9 Cardiomyopathy, unspecified
CPT/HCPCS: 93306

== ENCOUNTER → 2018-12-15 09:59 | Outpatient (CLI) | payer MEDICARE, SELFPAY | PROVIDERS: PCP Family Medicine; Visit Provider Physician Assistant | DX: R30.0 Dysuria (principal) | CPT/HCPCS: 87077; 87086; 87186 ==

== ENCOUNTER → 2019-02-14 17:21 | Outpatient (CLI) | payer MEDICARE, SELFPAY | PROVIDERS: PCP Family Medicine; Visit Provider Physician Assistant | DX: N39.0 Urinary tract infection, site not specified (principal); R31.9 Hematuria, unspecified | CPT/HCPCS: 87077; 87086; 87186 ==

== ENCOUNTER 2019-02-16 10:53 | Emergency (ER) | payer MEDICARE, SELFPAY ==
[2019-02-16] VITALS (10 sets, daily range): BP systolic 150–165; BP diastolic 94–114; PULSE 77–95; RESP 18–23; TEMP 37.1; O2SAT 96–99
--- NOTE | 2019-02-16 10:57 | DI.RAD.S_ITS ---
PROCEDURE: XR CHEST 1V INDICATIONS: chest pain TECHNIQUE: One view of the chest was acquired. COMPARISON: None. FINDINGS: Surgical changes and devices: None. Lungs and pleura: Mild patchy bilateral perihilar and basilar airspace opacity. No pleural effusions or pneumothorax. Mediastinum: Mediastinal contours appear normal. Heart size is normal. Bones and chest wall: No suspicious bony lesions. Overlying soft tissues appear unremarkable. IMPRESSION: Atypical pneumonia. Dictated by: David Johnson M.D. on 02/16/2019 at 10:25 Approved by: David Johnson M.D. on 02/16/2019 at 10:25
[2019-02-16 11:39] LABS: Add Manual Diff / Slide Review NO; Basophils Absolute Auto 0 /uL (0-100); Basophils Percent Auto 0.3 % (0-2); Eosinophils Absolute Auto 100 /uL (0-450); Eosinophils Percent Auto 1.1 % (2-4); Hematocrit 32.7 % (36-46); Hemoglobin 10.7 g/dL (12.0-16.0); Lymphocytes Absolute Auto 1600 /uL (1100-4500); Lymphocytes Percent Auto 18.5 % (25-40); Mean Corpuscular HGB Conc 32.6 % (30-36); Mean Corpuscular Hemoglobin 26.2 PG (26-34); Mean Corpuscular Volume 80.3 fL (80-100); Monocytes Absolute Auto 700 /uL (0-900); Monocytes Percent Auto 8.3 % (3-14); Neutrophils Absolute Auto 6200 /uL (1500-7000); Neutrophils Percent Auto 71.8 % (50-75); Platelet Count 192 X10^3/uL (150-400); Red Blood Cell Count 4.07 X10^6/uL (4.0-5.2); Red Cell Distribution Width 15.9 % (11.6-14.8); White Blood Cell Count 8.7 X10^3/uL (4.5-11.0)
[2019-02-16 11:45] LABS: INR 1.5 (0.9-1.3); Prothrombin Time 17.9 SECONDS (10.1-12.7)
[2019-02-16 11:48] LABS: PTT Partial Thromboplastin Tim 32 SECONDS (26.4-36.2)
[2019-02-16 11:49] LABS: Alanine Aminotransferase 33 IU/L (9-52); Albumin 3.7 g/dL (3.5-5.0); Albumin Globulin Ratio 1.4 (1.0-2.8); Alkaline Phosphatase 59 U/L (38-126); Aspartate Aminotransferase 27 IU/L (14-36); BUN Creatinine Ratio 15.7 (6-22); Bilirubin Total 1.3 mg/dL (0.2-1.3); Blood Urea Nitrogen 22 mg/dL (7-17); Calcium 9.4 mg/dL (8.4-10.2); Carbon Dioxide 25 mmol/L (22-32); Chloride 104 mmol/L (98-107); Creatine Kinase 23 U/L (30-135); Estimated Glomerular Filt Rate 36.4 mL/min (>60); Globulin 2.6 g/dL (1.7-4.1); Glucose 90 mg/dL (80-110); HEMOLYSIS < 15 (0-50); Lipase 60 U/L (23-300); Potassium 3.4 mmol/L (3.4-5.1); Sodium 138 mmol/L (137-145); Total Protein 6.3 g/dL (6.3-8.2)
--- NOTE | 2019-02-16 12:00 | ED.CHESTPAIN ---
HPI - Chest Pain General Chief Complaint: Chest Pain Stated Complaint: Chest Pressure Time Seen by Provider: 02/16/19 11:00 Source: patient and EMS Mode of arrival: EMS Limitations: no limitations History of Present Illness HPI narrative: Patient comes emergency department complaining of chest pressure and shortness of breath for the last few days. She states she was seeing on the initial day in [facility]iology [facility], brine tank tender found her to be in AFib. She was started on Eliquis and amiodarone, but states she is not feeling any better. She also was found to have a urinary tract infection on the same day, and was started on Macrobid for this. She states she has had 3 doses of this, but did not take her dose this morning, secondary to nausea. Patient's son points out that the patient is very sensitive to antibiotics, and gets nauseated easily with them. Patient denies pain in her chest, but states that she just has a constant pressure sensation. She denies swelling or pain in her lower extremities. No known history of heart problems prior to the AFib, though she does see a brine tank tender for reasons she cannot explain. Patient denies any lung problems that she knows of. No history DVT or PE. No history of coronary artery disease. No other complaints at this time. Related Data Home Medications Medication Instructions Recorded Confirmed Omera 1 cap PO DAILY #0 03/12/17 02/16/19 vitamin B complex [B 1 tab PO DAILY #0 04/17/17 02/16/19 Complex-Vitamin B12] Probiotic 20,000 mmu cells PO DAILY 07/15/18 02/16/19 ibuprofen [Advil] 200 mg PO PRN PRN 07/15/18 02/16/19 olmesartan 10 mg PO QPM 10/12/18 02/16/19 amiodarone 200 mg PO BID 02/16/19 02/16/19 apixaban [Eliquis] 5 mg PO BID 02/16/19 02/16/19 trazodone 50 mg PO BEDTIME 02/16/19 02/16/19 Previous Rx's Medication Instructions Recorded Disabled Parking #2 each 09/10/18 omeprazole 20 mg tablet,delayed 20 mg PO QPM #90 tab 10/14/18 release prednisone 1 mg tablet 2 mg PO DAILY #180 tab 10/16/18 ondansetron 4 mg PO QID PRN #20 tab 11/15/18 tramadol 50 mg tablet 50 mg PO Q6H PRN #20 tab 11/20/18 prednisone 10 mg tablet 10 mg PO DAILY #100 tab 01/27/19 nitrofurantoin 100 mg PO BID 7 Days #14 cap 02/14/19 monohydrate/macrocrystals 100 mg capsule azithromycin [Zithromax Z-Aba] See Rx Instructions .ROUTE 02/16/19 .COMPLEX #6 tab ondansetron 4 mg PO Q6H PRN #14 tab 02/16/19 cephalexin 500 mg capsule 500 mg PO BID #10 cap 02/18/19 Allergies Allergy/AdvReac Type Severity Reaction Status Date / Time ciprofloxacin [CIPROFLOXACIN] Allergy Severe MUSCLE PAIN Verified 02/16/19 11:01 methocarbamol [METHOCARBAMOL] Allergy Mild RASH/ROBAXI Verified 02/16/19 11:01 N Penicillins [PENICILLINS] Allergy Mild HIVES Verified 02/16/19 11:01 piroxicam [PIROXICAM] Allergy Mild RASH/FELDEN Verified 02/16/19 11:01 E temazepam [TEMAZEPAM] Allergy Mild NERVOUNESS/ Verified 02/16/19 11:01 RESTORIL nitrofurantoin AdvReac Intermediate Horrible Verified 02/17/19 16:26 Nausea Review of Systems Review of Systems ROS Unobtainable: All systems reviewed & are unremarkable except as noted in HPI and below Constitutional Denies chills, Denies fever(s), Denies lethargy and Denies weakness Eyes Denies change in vision, Denies eye discharge, Denies irritation and Denies loss of vision ENT Ears, Nose, Mouth, and Throat: Denies change in voice, Denies neck pain and Denies sore throat Cardiovascular Reports irregular heart rhythm, Denies lightheadedness, Denies palpitations, Reports dyspnea, Denies dyspnea on exertion and Denies orthopnea Comments: Chest pressure Respiratory Denies cough, Reports dyspnea, Denies dyspnea on exertion and Denies wheezing Gastrointestinal Gastrointestinal: Denies abdominal pain, Denies change in bowel habits, Denies diarrhea, Reports nausea and Denies vomiting Genitourinary Denies hematuria, Denies flank pain, Denies urinary incontinence and Denies urinary urgency Musculoskeletal Denies neck pain Integumentary/Breasts Denies pruritus, Denies erythema, Denies rash and Denies wounds Neurologic Denies confusion, Denies loss of vision and Denies weakness Psychiatric Denies anxiety, Denies confusion, Denies depression, Denies homicidal ideation and Denies suicidal ideation Endocrine Denies palpitations Hematologic/Lymphatic Denies easy bruising Allergic/Immunologic Denies wheezing [facility] Medical History CHF (congestive heart failure) (Acute) NSTEMI (non-ST elevated myocardial infarction) (Acute) Asthma (Chronic) Diverticular disease (Chronic) GERD (gastroesophageal reflux disease) (Chronic) GI bleeding (Chronic 03/2017) H. pylori infection (Chronic) Heart murmur (Chronic) Hyperlipidemia (Chronic) Hypertension (Chronic) Polymyalgia rheumatica (Chronic) Surgical History History of carpal tunnel repair (Resolved) History of cataract removal with insertion of prosthetic lens (Resolved) History of hemicolectomy (Resolved 10/2005) Status post appendectomy (Resolved) Status post arthroscopy (Resolved) Status post cardiac catheterization (Resolved 1998) Status post vaginal hysterectomy (Resolved 1999) Social History household members: children Smoking Status: Former smoker alcohol intake: current substance use type: does not use Social History household members: children Smoking Status: Former smoker alcohol intake: current substance use type: does not use Exam Initial Vital Signs Initial Vital Signs: Vital Signs Temperature 98.7 F 02/16/19 11:01 Pulse Rate 91 H 02/16/19 11:01 Respiratory Rate 20 02/16/19 11:01 Blood Pressure 152/103 H 02/16/19 11:01 Pulse Oximetry 98 02/16/19 11:01 Const General: cooperative and well developed Nutritional Appearance: well nourished Orientation: alert, awake, oriented x3 and not confused HENHI Head: normocephalic and atraumatic Ears: external ears normal Nose: external nose normal and No nasal discharge Face and sinus: face symmetric and No dry mucous membranes Mouth: oral mucosae normal and moist mucous membranes Teeth and gingiva: dentition normal Eyes General: appearance normal, both eyes and all related structures Eyelids: eyelids normal Conjunctivae: conjunctivae normal Sclera: sclerae normal Pupils: PERRL EOM: EOM intact bilaterally Neck Neck: normal visual inspection, trachea midline, No lymphadenopathy, No midline deformity and No JVD Lymphatic: No lymphedema Chest Chest: normal inspection of the chest Resp Effort & Inspection: normal respiratory effort, no respiratory distress and no use of accessory muscles Auscultation: clear to auscultation bilaterally, no rales, no rhonchi and no wheezes Other: Patient displays no respiratory distress, and breathes very comfortably while sitting in bed. She will occasionally speak full sentences but trails off into a whisper at the end of phrases while speaking. Cardio Rate: regular rate Rhythm: abnormal rhythm irregularly irregular Heart Sounds: no click, no gallops, no murmurs and no rubs Pulses: normal peripheral pulses GI Inspection: non-distended Palpation: soft, no hepatosplenomegaly, No guarding, No pulsatile mass and No tender Auscultation: normal bowel sounds Back/Spine/Pelvis Back: No CVA tenderness Cervical Spine: cervical ROM normal and No pain with cervical ROM Thoracic/Lumbar Spine: thoracic and lumbar spine normal to inspection Skin General: no rashes or lesions noted, No jaundice and No petechiae Neuro General: alert, oriented x3, gait normal and no focal motor deficits Speech: speech normal Extrem General: full ROM, no clubbing, cyanosis or edema, no pedal edema and no calf tenderness Psych Appearance: well kempt Mental Status: mental status grossly normal Attitude: cooperative Thought Content: normal and suicidality Judgment: judgment good Course Course Narrative: Patient overall appeared fairly well, but was worked up for her shortness of breath and chest pressure. Labs were unremarkable. Patient was found to be in atrial fibrillation with out rapid ventricular response. Her chest x-ray showed evidence of atypical pneumonia, and for this, patient was started on antibiotics. Her results were discussed with her. On re-evaluation, patient was found to be feeling much better. We have discussed home management of the symptoms, the need for follow-up, and the usual indications for return. No emergent condition identified today. Orders Ordered: Discontinued Medications Azithromycin (Zithromax) 500 mg PO NOW ONE Stop: 02/16/19 15:26 Last Admin: 02/16/19 15:39 Dose: 500 mg Ceftriaxone Sodium/Dextrose (Rocephin) 1 gm in 50 mls @ 100 mls/hr IV NOW ONE Stop: 02/16/19 15:55 Last Infusion: 02/16/19 16:14 Dose: 0 mls/hr Admin: 02/16/19 15:38 Dose: 100 mls/hr Lorazepam (Ativan) 0.5 mg IV NOW ONE Stop: 02/16/19 12:08 Last Admin: 02/16/19 12:35 Dose: 0.5 mg Ondansetron HCl (Zofran) 4 mg IV NOW ONE Stop: 02/16/19 16:26 Last Admin: 02/16/19 16:24 Dose: 4 mg Vital Signs - 8 hr 02/16/19 11:01 02/16/19 11:30 Temperature 98.7 F Pulse Rate 91 H 89 Respiratory Rate 20 18 Blood Pressure 152/103 H Blood Pressure [Right Arm] 159/98 H Pulse Oximetry 98 99 MDM - Chest Pain Medical Records Data Attestation: I reviewed the patient's medical records. Lab Data Attestation: I reviewed the patient's lab results. Result diagrams: 02/16/19 11:30 02/16/19 11:30 Lab Results 02/16/19 02/16/19 02/16/19 Range/Units 11:30 11:30 11:30 WBC 8.7 (4.5-11.0) X10^3/uL RBC 4.07 (4.0-5.2) X10^6/uL Hgb 10.7 L (12.0-16.0) g/dL Hct 32.7 L (36-46) % MCV 80.3 (80-100) fL MCH 26.2 (26-34) PG MCHC 32.6 (30-36) % RDW 15.9 H (11.6-14.8) % Plt Count 192 (150-400) X10^3/uL Neut % (Auto) 71.8 (50-75) % Lymph % (Auto) 18.5 L (25-40) % Edmonson % (Auto) 8.3 (3-14) % Eos % (Auto) 1.1 L (2-4) % Baso % (Auto) 0.3 (0-2) % Neut # (Auto) 6200 (9266-8963) /uL Lymph # (Auto) 1600 (2485-7390) /uL Edmonson # (Auto) 700 (0-900) /uL Eos # (Auto) 100 (0-450) /uL Baso # (Auto) 0 (0-100) /uL PT 17.9 H (10.1-12.7) SECONDS INR 1.5 H (0.9-1.3) APTT 32 (26.4-36.2) SECONDS Sodium 138 (137-145) mmol/L Potassium 3.4 (3.4-5.1) mmol/L Chloride 104 (98-107) mmol/L Carbon Dioxide 25 (22-32) mmol/L BUN 22 H (7-17) mg/dL Creatinine 1.40 H (0.52-1.04) mg/dL Estimated GFR 36.4 L (>60) mL/min BUN/Creatinine Ratio 15.7 (6-22) Glucose 90 (80-110) mg/dL Calcium 9.4 (8.4-10.2) mg/dL Total Bilirubin 1.3 (0.2-1.3) mg/dL AST 27 (14-36) IU/L ALT 33 (9-52) IU/L Alkaline Phosphatase 59 (38-126) U/L Total Creatine Kinase 23 L (30-135) U/L CK-MB (CK-2) TNP CK-MB (CK-2) Rel Index TNP Troponin I 0.052 H (0.01-0.034) ng/mL B-Natriuretic Peptide (<100) Total Protein 6.3 (6.3-8.2) g/dL Albumin 3.7 (3.5-5.0) g/dL Globulin 2.6 (1.7-4.1) g/dL Albumin/Globulin Ratio 1.4 (1.0-2.8) Lipase 60 (23-300) U/L 02/16/19 02/16/19 Range/Units 11:30 14:20 WBC (4.5-11.0) X10^3/uL RBC (4.0-5.2) X10^6/uL Hgb (12.0-16.0) g/dL Hct (36-46) % MCV (80-100) fL MCH (26-34) PG MCHC (30-36) % RDW (11.6-14.8) % Plt Count (150-400) X10^3/uL Neut % (Auto) (50-75) % Lymph % (Auto) (25-40) % Edmonson % (Auto) (3-14) % Eos % (Auto) (2-4) % Baso % (Auto) (0-2) % Neut # (Auto) (1516-2686) /uL Lymph # (Auto) (8843-4736) /uL Edmonson # (Auto) (0-900) /uL Eos # (Auto) (0-450) /uL Baso # (Auto) (0-100) /uL PT (10.1-12.7) SECONDS INR (0.9-1.3) APTT (26.4-36.2) SECONDS Sodium (137-145) mmol/L Potassium (3.4-5.1) mmol/L Chloride (98-107) mmol/L Carbon Dioxide (22-32) mmol/L BUN (7-17) mg/dL Creatinine (0.52-1.04) mg/dL Estimated GFR (>60) mL/min BUN/Creatinine Ratio (6-22) Glucose (80-110) mg/dL Calcium (8.4-10.2) mg/dL Total Bilirubin (0.2-1.3) mg/dL AST (14-36) IU/L ALT (9-52) IU/L Alkaline Phosphatase (38-126) U/L Total Creatine Kinase (30-135) U/L CK-MB (CK-2) CK-MB (CK-2) Rel Index Troponin I 0.057 H (0.01-0.034) ng/mL B-Natriuretic Peptide 1150 H (<100) Total Protein (6.3-8.2) g/dL Albumin (3.5-5.0) g/dL Globulin (1.7-4.1) g/dL Albumin/Globulin Ratio (1.0-2.8) Lipase (23-300) U/L Imaging Data Chest x-ray: Radiologist's impression: [address] [address] XRay Report Signed Patient: BermeoGloryMichelle [facility]#: [id number] : 1940Acct:[id number] Age/Sex: 78 / FDate of Service: 02/16/19 Loc: ED Accession Number: [id number] Procedure: XR chest 1V Ordering Provider: Kellie Jones MD PROCEDURE: XR CHEST 1V INDICATIONS: chest pain TECHNIQUE: One view of the chest was acquired. COMPARISON: None. FINDINGS: Surgical changes and devices: None. Lungs and pleura: Mild patchy bilateral perihilar and basilar airspace opacity. No pleural effusions or pneumothorax. Mediastinum: Mediastinal contours appear normal. Heart size is normal. Bones and chest wall: No suspicious bony lesions. Overlying soft tissues appear unremarkable. IMPRESSION: Atypical pneumonia. Dictated by: David Johnson M.D. on 02/16/2019 at 10:25 Approved by: David Johnson M.D. on 02/16/2019 at 10:25 ECG Data Attestation: I personally reviewed and interpreted this ECG as follows: (See below) Interpretation: Irregularly irregular ventricular rhythm with no P waves identified; normal rate; no significant ST T wave changes; QRS complexes are narrow; Interpretation: Atrial fibrillation with normal ventricular response; no signs of acute ischemia; abnormal EKG as interpreted by ED MD. Discharge Plan Departure Patient Disposition: Home Clinical Impression: Atypical pneumonia Atrial fibrillation Qualifiers: Atrial fibrillation type: unspecified Qualified Code(s): I48.91 - Unspecified atrial fibrillation Discharge Date/Time: 02/16/19 17:00 Interventions: ED Discharge Assessment Last Done: 02/16/19 17:00 Instructions: DI for Atrial Fibrillation, DI for Atypical Pneumonia Activity Restrictions/Additional Instructions: Your labs show no evidence of a heart attack. You do have evidence of some weakening of your heart muscle, but this is not causing you to build up fluid in your lungs or legs. As such, no ?water pill? has been added to your regimen. You were found to have a very small area of infection in your left lower lung, and this may be why you have felt short of breath. You have been started on antibiotics for this today. You should finish the antibiotics that you are on for urinary tract infection, as well. Please take the nausea medicine, as needed, while you are on the antibiotics. Please call your primary doctor and your brine tank tender for a follow-up appointment. Your prescriptions have been sent to [facility] [address]. Prescriptions: New azithromycin [Zithromax Z-Aba] 250 mg tablet See Rx Instructions .ROUTE .COMPLEX Qty: 6 RF: 0 ondansetron 4 mg tablet,disintegrating 4 mg PO Q6H PRN (Reason: nausea and vomiting) Qty: 14 RF: 0 No Action nitrofurantoin monohyd/m-cryst 100 mg capsule 100 mg PO BID 7 Days Qty: 14 RF: 0 Omera 1 EACH capsule 1 cap PO DAILY Qty: 0 RF: 0 vitamin B complex [B Complex-Vitamin B12] 1 EACH tablet 1 tab PO DAILY Qty: 0 RF: 0 Disabled [address]ing .MEDSUPPLY Qty: 2 RF: 0 omeprazole 20 mg tablet,delayed release (DR/EC) 20 mg PO QPM Qty: 90 RF: 3 prednisone 1 mg tablet 2 mg PO DAILY Qty: 180 RF: 3 prednisone 10 mg tablet 10 mg PO DAILY Qty: 100 RF: 0 cephalexin 500 mg capsule 500 mg PO BID Qty: 10 RF: 0 tramadol 50 mg tablet 50 mg PO Q6H PRN (Reason: pain) Qty: 20 RF: 0 ibuprofen [Advil] 200 mg Tablet 200 mg PO PRN PRN (Reason: pain) RF: 0 Probiotic 20 billion cell Capsule 20,000 mmu cells PO DAILY RF: 0 amiodarone 200 mg Tablet 200 mg PO BID RF: 0 Eliquis 5 mg Tablet 5 mg PO BID RF: 0 trazodone 100 mg tablet 50 mg PO BEDTIME RF: 0 olmesartan 5 mg tablet 10 mg PO QPM RF: 0 ondansetron 4 mg tablet,disintegrating 4 mg PO QID PRN (Reason: nausea and vomiting) Qty: 20 RF: 0 Referrals: Mary Trejo MD [Primary Care Provider] -
[2019-02-16 12:01] LABS: Troponin I 0.052 ng/mL (0.01-0.034)
--- NOTE | 2019-02-16 12:04 | ED_ITS ---
HPI - Chest Pain General Chief Complaint: Chest Pain Stated Complaint: Chest Pressure Time Seen by Provider: 02/16/19 11:00 Source: patient and EMS Mode of arrival: EMS Limitations: no limitations History of Present Illness HPI narrative: Patient comes emergency department complaining of chest pressure and shortness of breath for the last few days. She states she was seeing on the initial day in [facility], extermination supervisor found her to be in AFib. She was started on Eliquis and amiodarone, but states she is not feeling any better. She also was found to have a urinary tract infection on the same day, and was started on Macrobid for this. She states she has had 3 doses of this, but did not take her dose this morning, secondary to nausea. Patient's son points out that the patient is very sensitive to antibiotics, and gets nauseated easily with them. Patient denies pain in her chest, but states that she just has a constant pressure sensation. She denies swelling or pain in her lower extremities. No known history of heart problems prior to the AFib, though she does see a extermination supervisor for reasons she cannot explain. Patient denies any lung problems that she knows of. No history DVT or PE. No history of coronary artery disease. No other complaints at this time. Related Data Home Medications Medication Instructions Recorded Confirmed Omera 1 cap PO DAILY #0 03/12/17 02/16/19 vitamin B complex [B 1 tab PO DAILY #0 04/17/17 02/16/19 Complex-Vitamin B12] Probiotic 20,000 mmu cells PO DAILY 07/15/18 02/16/19 ibuprofen [Advil] 200 mg PO PRN PRN 07/15/18 02/16/19 olmesartan 10 mg PO QPM 10/12/18 02/16/19 amiodarone 200 mg PO BID 02/16/19 02/16/19 apixaban [Eliquis] 5 mg PO BID 02/16/19 02/16/19 trazodone 50 mg PO BEDTIME 02/16/19 02/16/19 Previous Rx's Medication Instructions Recorded Disabled Parking #2 each 09/10/18 omeprazole 20 mg tablet,delayed 20 mg PO QPM #90 tab 10/14/18 release prednisone 1 mg tablet 2 mg PO DAILY #180 tab 10/16/18 ondansetron 4 mg PO QID PRN #20 tab 11/15/18 tramadol 50 mg tablet 50 mg PO Q6H PRN #20 tab 11/20/18 prednisone 10 mg tablet 10 mg PO DAILY #100 tab 01/27/19 nitrofurantoin 100 mg PO BID 7 Days #14 cap 02/14/19 monohydrate/macrocrystals 100 mg capsule azithromycin [Zithromax Z-Aba] See Rx Instructions .ROUTE 02/16/19 .COMPLEX #6 tab ondansetron 4 mg PO Q6H PRN #14 tab 02/16/19 cephalexin 500 mg capsule 500 mg PO BID #10 cap 02/18/19 Allergies Allergy/AdvReac Type Severity Reaction Status Date / Time ciprofloxacin [CIPROFLOXACIN] Allergy Severe MUSCLE PAIN Verified 02/16/19 11:01 methocarbamol [METHOCARBAMOL] Allergy Mild RASH/ROBAXI Verified 02/16/19 11:01 N Penicillins [PENICILLINS] Allergy Mild HIVES Verified 02/16/19 11:01 piroxicam [PIROXICAM] Allergy Mild RASH/FELDEN Verified 02/16/19 11:01 E temazepam [TEMAZEPAM] Allergy Mild NERVOUNESS/ Verified 02/16/19 11:01 RESTORIL nitrofurantoin AdvReac Intermediate Horrible Verified 02/17/19 16:26 Nausea Review of Systems Review of Systems ROS Unobtainable: All systems reviewed & are unremarkable except as noted in HPI and below Constitutional Denies chills, Denies fever(s), Denies lethargy and Denies weakness Eyes Denies change in vision, Denies eye discharge, Denies irritation and Denies loss of vision ENT Ears, Nose, Mouth, and Throat: Denies change in voice, Denies neck pain and Denies sore throat Cardiovascular Reports irregular heart rhythm, Denies lightheadedness, Denies palpitations, Reports dyspnea, Denies dyspnea on exertion and Denies orthopnea Comments: Chest pressure Respiratory Denies cough, Reports dyspnea, Denies dyspnea on exertion and Denies wheezing Gastrointestinal Gastrointestinal: Denies abdominal pain, Denies change in bowel habits, Denies diarrhea, Reports nausea and Denies vomiting Genitourinary Denies hematuria, Denies flank pain, Denies urinary incontinence and Denies urinary urgency Musculoskeletal Denies neck pain Integumentary/Breasts Denies pruritus, Denies erythema, Denies rash and Denies wounds Neurologic Denies confusion, Denies loss of vision and Denies weakness Psychiatric Denies anxiety, Denies confusion, Denies depression, Denies homicidal ideation and Denies suicidal ideation Endocrine Denies palpitations Hematologic/Lymphatic Denies easy bruising Allergic/Immunologic Denies wheezing [facility] Medical History CHF (congestive heart failure) (Acute) NSTEMI (non-ST elevated myocardial infarction) (Acute) Asthma (Chronic) Diverticular disease (Chronic) GERD (gastroesophageal reflux disease) (Chronic) GI bleeding (Chronic 03/2017) H. pylori infection (Chronic) Heart murmur (Chronic) Hyperlipidemia (Chronic) Hypertension (Chronic) Polymyalgia rheumatica (Chronic) Surgical History History of carpal tunnel repair (Resolved) History of cataract removal with insertion of prosthetic lens (Resolved) History of hemicolectomy (Resolved 10/2005) Status post appendectomy (Resolved) Status post arthroscopy (Resolved) Status post cardiac catheterization (Resolved 1998) Status post vaginal hysterectomy (Resolved 1999) Social History household members: children Smoking Status: Former smoker alcohol intake: current substance use type: does not use Social History household members: children Smoking Status: Former smoker alcohol intake: current substance use type: does not use Exam Initial Vital Signs Initial Vital Signs: Vital Signs Temperature 98.7 F 02/16/19 11:01 Pulse Rate 91 H 02/16/19 11:01 Respiratory Rate 20 02/16/19 11:01 Blood Pressure 152/103 H 02/16/19 11:01 Pulse Oximetry 98 02/16/19 11:01 Const General: cooperative and well developed Nutritional Appearance: well nourished Orientation: alert, awake, oriented x3 and not confused HENPA Head: normocephalic and atraumatic Ears: external ears normal Nose: external nose normal and No nasal discharge Face and sinus: face symmetric and No dry mucous membranes Mouth: oral mucosae normal and moist mucous membranes Teeth and gingiva: dentition normal Eyes General: appearance normal, both eyes and all related structures Eyelids: eyelids normal Conjunctivae: conjunctivae normal Sclera: sclerae normal Pupils: PERRL EOM: EOM intact bilaterally Neck Neck: normal visual inspection, trachea midline, No lymphadenopathy, No midline deformity and No JVD Lymphatic: No lymphedema Chest Chest: normal inspection of the chest Resp Effort & Inspection: normal respiratory effort, no respiratory distress and no use of accessory muscles Auscultation: clear to auscultation bilaterally, no rales, no rhonchi and no wheezes Other: Patient displays no respiratory distress, and breathes very comfortably while sitting in bed. She will occasionally speak full sentences but trails off into a whisper at the end of phrases while speaking. Cardio Rate: regular rate Rhythm: abnormal rhythm irregularly irregular Heart Sounds: no click, no gallops, no murmurs and no rubs Pulses: normal peripheral pulses GI Inspection: non-distended Palpation: soft, no hepatosplenomegaly, No guarding, No pulsatile mass and No tender Auscultation: normal bowel sounds Back/Spine/Pelvis Back: No CVA tenderness Cervical Spine: cervical ROM normal and No pain with cervical ROM Thoracic/Lumbar Spine: thoracic and lumbar spine normal to inspection Skin General: no rashes or lesions noted, No jaundice and No petechiae Neuro General: alert, oriented x3, gait normal and no focal motor deficits Speech: speech normal Extrem General: full ROM, no clubbing, cyanosis or edema, no pedal edema and no calf tenderness Psych Appearance: well kempt Mental Status: mental status grossly normal Attitude: cooperative Thought Content: normal and suicidality Judgment: judgment good Course Course Narrative: Patient overall appeared fairly well, but was worked up for her shortness of breath and chest pressure. Labs were unremarkable. Patient was found to be in atrial fibrillation with out rapid ventricular response. Her chest x-ray showed evidence of atypical pneumonia, and for this, patient was started on antibiotics. Her results were discussed with her. On re-evaluation, patient was found to be feeling much better. We have discussed home management of the symptoms, the need for follow-up, and the usual indications for return. No emergent condition identified today. Orders Ordered: Discontinued Medications Azithromycin (Zithromax) 500 mg PO NOW ONE Stop: 02/16/19 15:26 Last Admin: 02/16/19 15:39 Dose: 500 mg Ceftriaxone Sodium/Dextrose (Rocephin) 1 gm in 50 mls @ 100 mls/hr IV NOW ONE Stop: 02/16/19 15:55 Last Infusion: 02/16/19 16:14 Dose: 0 mls/hr Admin: 02/16/19 15:38 Dose: 100 mls/hr Lorazepam (Ativan) 0.5 mg IV NOW ONE Stop: 02/16/19 12:08 Last Admin: 02/16/19 12:35 Dose: 0.5 mg Ondansetron HCl (Zofran) 4 mg IV NOW ONE Stop: 02/16/19 16:26 Last Admin: 02/16/19 16:24 Dose: 4 mg Vital Signs - 8 hr 02/16/19 11:01 02/16/19 11:30 Temperature 98.7 F Pulse Rate 91 H 89 Respiratory Rate 20 18 Blood Pressure 152/103 H Blood Pressure [Right Arm] 159/98 H Pulse Oximetry 98 99 MDM - Chest Pain Medical Records Data Attestation: I reviewed the patient's medical records. Lab Data Attestation: I reviewed the patient's lab results. Result diagrams: 02/16/19 11:30 02/16/19 11:30 Lab Results 02/16/19 02/16/19 02/16/19 Range/Units 11:30 11:30 11:30 WBC 8.7 (4.5-11.0) X10^3/uL RBC 4.07 (4.0-5.2) X10^6/uL Hgb 10.7 L (12.0-16.0) g/dL Hct 32.7 L (36-46) % MCV 80.3 (80-100) fL MCH 26.2 (26-34) PG MCHC 32.6 (30-36) % RDW 15.9 H (11.6-14.8) % Plt Count 192 (150-400) X10^3/uL Neut % (Auto) 71.8 (50-75) % Lymph % (Auto) 18.5 L (25-40) % Christian % (Auto) 8.3 (3-14) % Eos % (Auto) 1.1 L (2-4) % Baso % (Auto) 0.3 (0-2) % Neut # (Auto) 6200 (7435-6564) /uL Lymph # (Auto) 1600 (7452-4642) /uL Christian # (Auto) 700 (0-900) /uL Eos # (Auto) 100 (0-450) /uL Baso # (Auto) 0 (0-100) /uL PT 17.9 H (10.1-12.7) SECONDS INR 1.5 H (0.9-1.3) APTT 32 (26.4-36.2) SECONDS Sodium 138 (137-145) mmol/L Potassium 3.4 (3.4-5.1) mmol/L Chloride 104 (98-107) mmol/L Carbon Dioxide 25 (22-32) mmol/L BUN 22 H (7-17) mg/dL Creatinine 1.40 H (0.52-1.04) mg/dL Estimated GFR 36.4 L (>60) mL/min BUN/Creatinine Ratio 15.7 (6-22) Glucose 90 (80-110) mg/dL Calcium 9.4 (8.4-10.2) mg/dL Total Bilirubin 1.3 (0.2-1.3) mg/dL AST 27 (14-36) IU/L ALT 33 (9-52) IU/L Alkaline Phosphatase 59 (38-126) U/L Total Creatine Kinase 23 L (30-135) U/L CK-MB (CK-2) TNP CK-MB (CK-2) Rel Index TNP Troponin I 0.052 H (0.01-0.034) ng/mL B-Natriuretic Peptide (<100) Total Protein 6.3 (6.3-8.2) g/dL Albumin 3.7 (3.5-5.0) g/dL Globulin 2.6 (1.7-4.1) g/dL Albumin/Globulin Ratio 1.4 (1.0-2.8) Lipase 60 (23-300) U/L 02/16/19 02/16/19 Range/Units 11:30 14:20 WBC (4.5-11.0) X10^3/uL RBC (4.0-5.2) X10^6/uL Hgb (12.0-16.0) g/dL Hct (36-46) % MCV (80-100) fL MCH (26-34) PG MCHC (30-36) % RDW (11.6-14.8) % Plt Count (150-400) X10^3/uL Neut % (Auto) (50-75) % Lymph % (Auto) (25-40) % Christian % (Auto) (3-14) % Eos % (Auto) (2-4) % Baso % (Auto) (0-2) % Neut # (Auto) (8055-8569) /uL Lymph # (Auto) (8096-3851) /uL Christian # (Auto) (0-900) /uL Eos # (Auto) (0-450) /uL Baso # (Auto) (0-100) /uL PT (10.1-12.7) SECONDS INR (0.9-1.3) APTT (26.4-36.2) SECONDS Sodium (137-145) mmol/L Potassium (3.4-5.1) mmol/L Chloride (98-107) mmol/L Carbon Dioxide (22-32) mmol/L BUN (7-17) mg/dL Creatinine (0.52-1.04) mg/dL Estimated GFR (>60) mL/min BUN/Creatinine Ratio (6-22) Glucose (80-110) mg/dL Calcium (8.4-10.2) mg/dL Total Bilirubin (0.2-1.3) mg/dL AST (14-36) IU/L ALT (9-52) IU/L Alkaline Phosphatase (38-126) U/L Total Creatine Kinase (30-135) U/L CK-MB (CK-2) CK-MB (CK-2) Rel Index Troponin I 0.057 H (0.01-0.034) ng/mL B-Natriuretic Peptide 1150 H (<100) Total Protein (6.3-8.2) g/dL Albumin (3.5-5.0) g/dL Globulin (1.7-4.1) g/dL Albumin/Globulin Ratio (1.0-2.8) Lipase (23-300) U/L Imaging Data Chest x-ray: Radiologist's impression: [address] [id number] XRay Report Signed Patient: BermeoGloryMichelle [facility]#: [id number] : 1940Acct:[id number] Age/Sex: 78 / FDate of Service: 02/16/19 Loc: ED Accession Number: [id number] Procedure: XR chest 1V Ordering Provider: Kellie Jones MD PROCEDURE: XR CHEST 1V INDICATIONS: chest pain TECHNIQUE: One view of the chest was acquired. COMPARISON: None. FINDINGS: Surgical changes and devices: None. Lungs and pleura: Mild patchy bilateral perihilar and basilar airspace opacity. No pleural effusions or pneumothorax. Mediastinum: Mediastinal contours appear normal. Heart size is normal. Bones and chest wall: No suspicious bony lesions. Overlying soft tissues appear unremarkable. IMPRESSION: Atypical pneumonia. Dictated by: David Johnson M.D. on 02/16/2019 at 10:25 Approved by: David Johnson M.D. on 02/16/2019 at 10:25 ECG Data Attestation: I personally reviewed and interpreted this ECG as follows: (See below) Interpretation: Irregularly irregular ventricular rhythm with no P waves identified; normal rate; no significant ST T wave changes; QRS complexes are narrow; Interpretation: Atrial fibrillation with normal ventricular response; no signs of acute ischemia; abnormal EKG as interpreted by ED MD. Discharge Plan Departure Patient Disposition: Home Clinical Impression: Atypical pneumonia Atrial fibrillation Qualifiers: Atrial fibrillation type: unspecified Qualified Code(s): I48.91 - Unspecified atrial fibrillation Discharge Date/Time: 02/16/19 17:00 Interventions: ED Discharge Assessment Last Done: 02/16/19 17:00 Instructions: DI for Atrial Fibrillation, DI for Atypical Pneumonia Activity Restrictions/Additional Instructions: Your labs show no evidence of a heart attack. You do have evidence of some weakening of your heart muscle, but this is not causing you to build up fluid in your lungs or legs. As such, no ?water pill? has been added to your regimen. You were found to have a very small area of infection in your left lower lung, and this may be why you have felt short of breath. You have been started on antibiotics for this today. You should finish the antibiotics that you are on for urinary tract infection, as well. Please take the nausea medicine, as needed, while you are on the antibiotics. Please call your primary doctor and your extermination supervisor for a follow-up appointment. Your prescriptions have been sent to [facility]. Prescriptions: New azithromycin [Zithromax Z-Aba] 250 mg tablet See Rx Instructions .ROUTE .COMPLEX Qty: 6 RF: 0 ondansetron 4 mg tablet,disintegrating 4 mg PO Q6H PRN (Reason: nausea and vomiting) Qty: 14 RF: 0 No Action nitrofurantoin monohyd/m-cryst 100 mg capsule 100 mg PO BID 7 Days Qty: 14 RF: 0 Omera 1 EACH capsule 1 cap PO DAILY Qty: 0 RF: 0 vitamin B complex [B Complex-Vitamin B12] 1 EACH tablet 1 tab PO DAILY Qty: 0 RF: 0 Disabled [address]ing .MEDSUPPLY Qty: 2 RF: 0 omeprazole 20 mg tablet,delayed release (DR/EC) 20 mg PO QPM Qty: 90 RF: 3 prednisone 1 mg tablet 2 mg PO DAILY Qty: 180 RF: 3 prednisone 10 mg tablet 10 mg PO DAILY Qty: 100 RF: 0 cephalexin 500 mg capsule 500 mg PO BID Qty: 10 RF: 0 tramadol 50 mg tablet 50 mg PO Q6H PRN (Reason: pain) Qty: 20 RF: 0 ibuprofen [Advil] 200 mg Tablet 200 mg PO PRN PRN (Reason: pain) RF: 0 Probiotic 20 billion cell Capsule 20,000 mmu cells PO DAILY RF: 0 amiodarone 200 mg Tablet 200 mg PO BID RF: 0 Eliquis 5 mg Tablet 5 mg PO BID RF: 0 trazodone 100 mg tablet 50 mg PO BEDTIME RF: 0 olmesartan 5 mg tablet 10 mg PO QPM RF: 0 ondansetron 4 mg tablet,disintegrating 4 mg PO QID PRN (Reason: nausea and vomiting) Qty: 20 RF: 0 Referrals: Mary Trejo MD [Primary Care Provider] -
[2019-02-16 12:32] LABS: B Type Natriuretic Peptide 1150 (<100)
[2019-02-16] MEDS: LORazepam 2 MG/ML INJ 0.5 MG IV (12:35)
[2019-02-16 14:48] LABS: Troponin I 0.057 ng/mL (0.01-0.034)
[2019-02-16] MEDS: CEFTRIAXONE 1 GM/50 ML FROZ.PIGGY IV (15:38)
[2019-02-16] MEDS: AZITHROMYCIN 250 MG TABLET 500 MG PO (15:39)
[2019-02-16] MEDS: ONDANSETRON 4 MG/2 ML INJ IV (16:24)
== END 2019-02-16 17:00 | disposition home or self-care (01) ==
PROVIDERS: Emergency Provider Emergency Medicine; PCP Family Medicine
DX: J18.9 Pneumonia, unspecified organism (principal); I48.91 Unspecified atrial fibrillation
CPT/HCPCS: 36415; 36591; 71045; 80053; 82550; 83690; 83880; 84484; 85025; 85610; 85730; 93005; 93010; 96365; 96375; 99284; 99285; J2060; J2405

== ENCOUNTER 2019-02-28 17:03 | Emergency (ER) | payer MEDICARE, SELFPAY ==
[2019-02-28] VITALS (7 sets, daily range): BP systolic 126–157; BP diastolic 80–100; PULSE 77–85; RESP 15–23; TEMP 37.1; O2SAT 95–99; BMI 23.3
--- NOTE | 2019-02-28 17:17 | DI.RAD.S_ITS ---
PROCEDURE: XR CHEST 1V INDICATIONS: chest pain TECHNIQUE: One view of the chest was acquired. COMPARISON: [facility], , CHEST 2 VIEW, 09/24/2012, 9:20. [facility], , XR CHEST 1V, 02/16/2019, 11:14. FINDINGS: Surgical changes and devices: None. Lungs and pleura: There is a small left pleural effusion. Left basilar pulmonary radiopacities have a similar appearance to the prior study. Calcified nodule is redemonstrated within the right lung. The right lung is otherwise clear. No pneumothorax. Mediastinum: Mediastinal contours appear normal. Heart size is normal. Bones and chest wall: No suspicious bony lesions. Overlying soft tissues appear unremarkable. IMPRESSION: Small left pleural effusion, new when compared with the study dated 02/16/19. Left basilar airspace opacities are unchanged. Dictated by: Bella Monsivais M.D. on 02/28/2019 at 17:29 Approved by: Bella Monsivais M.D. on 02/28/2019 at 17:34
--- NOTE | 2019-02-28 17:45 | PC.NURSE ---
treated for pneumonia and urinary infections, has been on two antibiotics, not better, still has shortness of breath,. Heavyness on chest, non radiating, generalized weakness for 3 days, appetite decrease due to nausea and vomiting.
--- NOTE | 2019-02-28 17:47 | PC.NURSE ---
chest heaviness, waiting for breathing tx. skin warm dry pink.
[2019-02-28 18:07] LABS: Add Manual Diff / Slide Review NO; Basophils Absolute Auto 100 /uL (0-100); Basophils Percent Auto 1.1 % (0-2); Eosinophils Absolute Auto 100 /uL (0-450); Eosinophils Percent Auto 1.1 % (2-4); Hematocrit 30.7 % (36-46); Lymphocytes Absolute Auto 1400 /uL (1100-4500); Lymphocytes Percent Auto 20.2 % (25-40); Mean Corpuscular HGB Conc 32.5 % (30-36); Mean Corpuscular Hemoglobin 25.8 PG (26-34); Mean Corpuscular Volume 79.4 fL (80-100); Monocytes Absolute Auto 600 /uL (0-900); Monocytes Percent Auto 8.4 % (3-14); Neutrophils Absolute Auto 4900 /uL (1500-7000); Neutrophils Percent Auto 69.2 % (50-75); Platelet Count 188 X10^3/uL (150-400); Red Blood Cell Count 3.87 X10^6/uL (4.0-5.2); Red Cell Distribution Width 15.5 % (11.6-14.8)
[2019-02-28] MEDS: ALBUTEROL 2.5 MG/3 ML NEB (ADULT) INH (18:08)
--- NOTE | 2019-02-28 18:11 | ED.CHESTPAIN ---
HPI - Chest Pain General Chief Complaint: Chest Pain Stated Complaint: SOB Time Seen by Provider: 02/28/19 17:20 Source: patient and family Mode of arrival: ambulatory Limitations: no limitations History of Present Illness HPI narrative: 70-year-old female nonsmoker with relatively recent diagnosis of atrial fibrillation presents with a chief complaint anterior chest pressure shortness of breath, fatigue and poor appetite for at least a few days him closer to about 2 weeks. Her symptoms started on the day her atrial fibrillation kicked in and was noticed and diagnosed by local cardiology. She was started on amiodarone and Eliquis. She has recent diagnoses of urinary tract infection and pneumonia. She denies any fever or shaking chills. She denies any ongoing cough. She has had poor appetite in is very intolerant of her ongoing AFib. MD complaint: chest pain Onset (ago): day(s) Duration: constant Pain location: substernal Severity: moderate Quality: heaviness Pain radiation: none Exacerbating factors: nothing Related Data Home Medications Medication Instructions Recorded Confirmed Omera 1 cap PO DAILY #0 03/12/17 02/16/19 vitamin B complex [B 1 tab PO DAILY #0 04/17/17 02/16/19 Complex-Vitamin B12] Probiotic 20,000 mmu cells PO DAILY 07/15/18 02/16/19 ibuprofen [Advil] 200 mg PO PRN PRN 07/15/18 02/16/19 olmesartan 10 mg PO QPM 10/12/18 02/16/19 amiodarone 200 mg PO BID 02/16/19 02/16/19 apixaban [Eliquis] 5 mg PO BID 02/16/19 02/16/19 trazodone 50 mg PO BEDTIME 02/16/19 02/16/19 Previous Rx's Medication Instructions Recorded Disabled Parking #2 each 09/10/18 omeprazole 20 mg tablet,delayed 20 mg PO QPM #90 tab 10/14/18 release prednisone 1 mg tablet 2 mg PO DAILY #180 tab 10/16/18 ondansetron 4 mg PO QID PRN #20 tab 11/15/18 tramadol 50 mg tablet 50 mg PO Q6H PRN #20 tab 11/20/18 prednisone 10 mg tablet 10 mg PO DAILY #100 tab 01/27/19 azithromycin [Zithromax Z-Aba] See Rx Instructions .ROUTE 02/16/19 .COMPLEX #6 tab ondansetron 4 mg PO Q6H PRN #14 tab 02/16/19 cephalexin 500 mg capsule 500 mg PO BID #10 cap 02/18/19 Allergies Allergy/AdvReac Type Severity Reaction Status Date / Time ciprofloxacin [CIPROFLOXACIN] Allergy Severe MUSCLE PAIN Verified 02/16/19 11:01 methocarbamol [METHOCARBAMOL] Allergy Mild RASH/ROBAXI Verified 02/16/19 11:01 N Penicillins [PENICILLINS] Allergy Mild HIVES Verified 02/16/19 11:01 piroxicam [PIROXICAM] Allergy Mild RASH/FELDEN Verified 02/16/19 11:01 E temazepam [TEMAZEPAM] Allergy Mild NERVOUNESS/ Verified 02/16/19 11:01 RESTORIL nitrofurantoin AdvReac Intermediate Horrible Verified 02/17/19 16:26 Nausea Review of Systems Constitutional Denies chills, Denies fever(s), Denies lethargy and Denies weakness Eyes Denies change in vision, Denies eye discharge, Denies irritation and Denies loss of vision ENT Ears, Nose, Mouth, and Throat: Denies change in voice, Denies neck pain and Denies sore throat Cardiovascular Reports chest pain, Denies irregular heart rhythm, Reports lightheadedness, Denies palpitations, Reports dyspnea and Denies orthopnea Respiratory Denies cough, Reports dyspnea and Denies wheezing Gastrointestinal Gastrointestinal: Denies abdominal pain, Denies change in bowel habits, Denies diarrhea, Denies nausea and Denies vomiting Genitourinary Denies hematuria, Denies flank pain, Denies urinary incontinence and Denies urinary urgency Musculoskeletal Denies neck pain Integumentary/Breasts Denies pruritus, Denies erythema, Denies rash and Denies wounds Neurologic Denies confusion, Denies loss of vision and Denies weakness Psychiatric Denies anxiety, Denies confusion, Denies depression, Denies homicidal ideation and Denies suicidal ideation Endocrine Denies palpitations Hematologic/Lymphatic Denies easy bruising Allergic/Immunologic Denies wheezing PFSH Medical History CHF (congestive heart failure) (Acute) NSTEMI (non-ST elevated myocardial infarction) (Acute) Asthma (Chronic) Diverticular disease (Chronic) GERD (gastroesophageal reflux disease) (Chronic) GI bleeding (Chronic 03/2017) H. pylori infection (Chronic) Heart murmur (Chronic) Hyperlipidemia (Chronic) Hypertension (Chronic) Polymyalgia rheumatica (Chronic) Surgical History History of carpal tunnel repair (Resolved) History of cataract removal with insertion of prosthetic lens (Resolved) History of hemicolectomy (Resolved 10/2005) Status post appendectomy (Resolved) Status post arthroscopy (Resolved) Status post cardiac catheterization (Resolved 1998) Status post vaginal hysterectomy (Resolved 1999) Social History household members: children Smoking Status: Former smoker alcohol intake: current substance use type: does not use Social History household members: children Smoking Status: Former smoker alcohol intake: current substance use type: does not use Exam Narrative Exam Narrative: GENERAL: 78-year-old female appears stated age, clearly not feeling well HEAD: Atraumatic. Normocephalic. No temporal or scalp tenderness. EYES: Pupils equal round and reactive. Extraocular motions intact. No scleral icterus. No injection or drainage. ENT: Nose without bleeding, purulent drainage or septal hematoma. Throat without erythema, tonsillar hypertrophy or exudate. Uvula midline. Airway patent. NECK: Trachea midline. No JVD or lymphadenopathy. Supple, nontender, no meningeal signs. CARDIOVASCULAR: Irregular rate and rhythm without murmurs, gallops, or rubs. RESPIRATORY: Faint crackles in bilateral bases GASTROINTESTINAL: Abdomen soft, non-tender, nondistended. No hepato-splenomegaly, or palpable masses. No guarding. EXTREMITIES: No clubbing, cyanosis, or edema. No joint tenderness, effusion, or edema noted. BACK: Nontender without deformity or crepitance. No flank tenderness. NEURO: AOx3. SKIN: No rash or erythema. Initial Vital Signs Initial Vital Signs: Vital Signs Temperature 98.8 F 02/28/19 17:15 Pulse Rate 78 02/28/19 17:15 Respiratory Rate 16 02/28/19 17:15 Blood Pressure 148/100 H 02/28/19 17:15 Pulse Oximetry 96 02/28/19 17:15 Course Orders Ordered: ED Orders 02/28/19 17:12 EKG-12 Lead Stat 02/28/19 17:17 XR chest 1V Stat 02/28/19 17:53 BNP [B Type Natriuretic Peptide] Stat Complete Blood Count AUTO DIFF Stat Comprehensive Metabolic Panel Stat Lipase Stat Partial Thromboplastin Time Stat Prothrombin Time INR Stat Troponin & CK Cardiac Panel Stat 02/28/19 18:50 Arterial Blood Gas Stat Discontinued Medications Albuterol (Ventolin) 2.5 mg INH NOW ONE Stop: 02/28/19 18:06 Last Admin: 02/28/19 18:08 Dose: 2.5 mg Consultations Consultation #1: Upon receipt of labs call placed to [facility]. We sure the opinion that the patient is not tolerating her atrial fibrillation and will require transfer for HUAN and electrocardioversion. Hospitalist at [facility] happy to accept Vital Signs - 8 hr 02/28/19 17:15 02/28/19 17:47 02/28/19 18:04 Temperature 98.8 F Pulse Rate 78 80 81 Respiratory Rate 16 23 16 Blood Pressure 148/100 H Blood Pressure [Right Arm] 145/95 H 126/91 H Pulse Oximetry 96 98 99 02/28/19 18:09 02/28/19 19:23 02/28/19 21:00 Temperature Pulse Rate 82 83 77 Respiratory Rate 18 19 15 Blood Pressure Blood Pressure [Right Arm] 153/95 H 157/100 H Pulse Oximetry 96 95 96 02/28/19 21:30 Temperature Pulse Rate 85 Respiratory Rate 17 Blood Pressure Blood Pressure [Right Arm] 154/80 H Pulse Oximetry 97 MDM - Chest Pain Lab Data Result diagrams: 02/28/19 17:53 02/28/19 17:53 Lab Results 02/28/19 02/28/19 02/28/19 Range/Units 17:53 17:53 17:53 WBC 7.0 (4.5-11.0) X10^3/uL RBC 3.87 L (4.0-5.2) X10^6/uL Hgb 10.0 L (12.0-16.0) g/dL Hct 30.7 L (36-46) % MCV 79.4 L (80-100) fL MCH 25.8 L (26-34) PG MCHC 32.5 (30-36) % RDW 15.5 H (11.6-14.8) % Plt Count 188 (150-400) X10^3/uL Neut % (Auto) 69.2 (50-75) % Lymph % (Auto) 20.2 L (25-40) % [place] % (Auto) 8.4 (3-14) % Eos % (Auto) 1.1 L (2-4) % Baso % (Auto) 1.1 (0-2) % Neut # (Auto) 4900 (1565-4748) /uL Lymph # (Auto) 1400 (0720-1614) /uL [place] # (Auto) 600 (0-900) /uL Eos # (Auto) 100 (0-450) /uL Baso # (Auto) 100 (0-100) /uL PT 20.2 H (10.1-12.7) SECONDS INR 1.7 H (0.9-1.3) APTT 35 D (26.4-36.2) SECONDS ABG pH (7.35-7.45) ABG pCO2 (35-45) mmHg ABG pO2 (80-100) mmHg ABG HCO3 (22-26) mmol/L ABG Total CO2 (21-31) mmol/L ABG O2 Saturation (95-100) % ABG Base Excess (-2-2) mmol/L FiO2 Sodium 137 (137-145) mmol/L Potassium 3.3 L (3.4-5.1) mmol/L Chloride 105 (98-107) mmol/L Carbon Dioxide 26 (22-32) mmol/L BUN 14 (7-17) mg/dL Creatinine 1.50 H (0.52-1.04) mg/dL Estimated GFR 33.6 L (>60) mL/min BUN/Creatinine Ratio 9.3 (6-22) Glucose 78 L (80-110) mg/dL Lactate Calcium 9.0 (8.4-10.2) mg/dL Total Bilirubin 1.4 H (0.2-1.3) mg/dL AST 19 (14-36) IU/L ALT 20 (9-52) IU/L Alkaline Phosphatase 47 (38-126) U/L Total Creatine Kinase 23 L (30-135) U/L CK-MB (CK-2) TNP CK-MB (CK-2) Rel Index TNP Troponin I 0.046 H (0.01-0.034) ng/mL B-Natriuretic Peptide 1010 H (<100) Total Protein 6.1 L (6.3-8.2) g/dL Albumin 3.6 (3.5-5.0) g/dL Globulin 2.5 (1.7-4.1) g/dL Albumin/Globulin Ratio 1.4 (1.0-2.8) Lipase 73 (23-300) U/L 02/28/19 02/28/19 Range/Units 17:53 18:50 WBC (4.5-11.0) X10^3/uL RBC (4.0-5.2) X10^6/uL Hgb (12.0-16.0) g/dL Hct (36-46) % MCV (80-100) fL MCH (26-34) PG MCHC (30-36) % RDW (11.6-14.8) % Plt Count (150-400) X10^3/uL Neut % (Auto) (50-75) % Lymph % (Auto) (25-40) % [place] % (Auto) (3-14) % Eos % (Auto) (2-4) % Baso % (Auto) (0-2) % Neut # (Auto) (5768-8535) /uL Lymph # (Auto) (5001-6104) /uL [place] # (Auto) (0-900) /uL Eos # (Auto) (0-450) /uL Baso # (Auto) (0-100) /uL PT (10.1-12.7) SECONDS INR (0.9-1.3) APTT (26.4-36.2) SECONDS ABG pH 7.41 (7.35-7.45) ABG pCO2 35.2 (35-45) mmHg ABG pO2 76 L (80-100) mmHg ABG HCO3 22 (22-26) mmol/L ABG Total CO2 23 (21-31) mmol/L ABG O2 Saturation 95 (95-100) % ABG Base Excess -2.0 (-2-2) mmol/L FiO2 0.21 Sodium (137-145) mmol/L Potassium (3.4-5.1) mmol/L Chloride (98-107) mmol/L Carbon Dioxide (22-32) mmol/L BUN (7-17) mg/dL Creatinine (0.52-1.04) mg/dL Estimated GFR (>60) mL/min BUN/Creatinine Ratio (6-22) Glucose (80-110) mg/dL Lactate Cancelled Calcium (8.4-10.2) mg/dL Total Bilirubin (0.2-1.3) mg/dL AST (14-36) IU/L ALT (9-52) IU/L Alkaline Phosphatase (38-126) U/L Total Creatine Kinase (30-135) U/L CK-MB (CK-2) CK-MB (CK-2) Rel Index Troponin I (0.01-0.034) ng/mL B-Natriuretic Peptide (<100) Total Protein (6.3-8.2) g/dL Albumin (3.5-5.0) g/dL Globulin (1.7-4.1) g/dL Albumin/Globulin Ratio (1.0-2.8) Lipase (23-300) U/L Imaging Data Chest x-ray: Radiologist's impression: Michelle Bermeo 78 [address] [place] [address] XRay Report Signed Patient: Glory Bermeoyce AMR#: [id number] : 1940Acct:[id number] Age/Sex: 78 / FDate of Service: 02/28/19 Loc: ED Accession Number: [id number] Procedure: XR chest 1V Ordering Provider: Cammie Fuller D.O. PROCEDURE: XR CHEST 1V INDICATIONS: chest pain TECHNIQUE: One view of the chest was acquired. COMPARISON: [facility], , CHEST 2 VIEW, 09/24/2012, 9:20. [facility], , XR CHEST 1V, 02/16/2019, 11:14. FINDINGS: Surgical changes and devices: None. Lungs and pleura: There is a small left pleural effusion. Left basilar pulmonary radiopacities have a similar appearance to the prior study. Calcified nodule is redemonstrated within the right lung. The right lung is otherwise clear. No pneumothorax. Mediastinum: Mediastinal contours appear normal. Heart size is normal. Bones and chest wall: No suspicious bony lesions. Overlying soft tissues appear unremarkable. IMPRESSION: Small left pleural effusion, new when compared with the study dated 02/16/19. Left basilar airspace opacities are unchanged. Dictated by: Bella Monsivais M.D. on 02/28/2019 at 17:29 ECG Data Attestation: I personally reviewed and interpreted this ECG as follows: Prior ECG tracings: available for review Interpretation: Atrial fibrillation with interventricular conduction delay, rate 73. No obvious ischemia or other ectopy MDM Narrative Medical decision making narrative: Patient with gradual, slow decline and general failure to thrive and intolerance of her atrial fibrillation. She has been feeling poorly ever since her AFib started about 2 weeks ago. No other, obviously he and easily reversible causes of her symptoms are noted. Discussion with Cardiology, we sure opinion the patient is best served being at [facility] for a more complete cardiac evaluation, with echocardiogram and cardioversion Critical Care Time Critical Care Time: Yes Total Critical Care Time: 30 Attestation: The high probability of a clinically significant, sudden or life threatening deterioration of the [cardiovascular] system(s) required my full and direct attention, intervention and personal management. The aggregate critical care time was [30] minutes. This time is in addition to time spent performing reported procedures but includes the following: [x] Data Review and interpretation [x] Patient assessment and monitoring of vital signs [x] Documentation [x] Medication orders and management Discharge Plan Departure Patient Disposition: [facility] Clinical Impression: Atrial fibrillation Qualifiers: Atrial fibrillation type: unspecified Qualified Code(s): I48.91 - Unspecified atrial fibrillation Discharge Date/Time: 02/28/19 22:00 Interventions: ED Discharge Assessment Last Done: 02/28/19 22:00 Prescriptions: No Action Omera 1 EACH capsule 1 cap PO DAILY Qty: 0 RF: 0 vitamin B complex [B Complex-Vitamin B12] 1 EACH tablet 1 tab PO DAILY Qty: 0 RF: 0 Disabled Parking .MEDSUPPLY Qty: 2 RF: 0 omeprazole 20 mg tablet,delayed release (DR/EC) 20 mg PO QPM Qty: 90 RF: 3 prednisone 1 mg tablet 2 mg PO DAILY Qty: 180 RF: 3 prednisone 10 mg tablet 10 mg PO DAILY Qty: 100 RF: 0 cephalexin 500 mg capsule 500 mg PO BID Qty: 10 RF: 0 tramadol 50 mg tablet 50 mg PO Q6H PRN (Reason: pain) Qty: 20 RF: 0 ibuprofen [Advil] 200 mg Tablet 200 mg PO PRN PRN (Reason: pain) RF: 0 Probiotic 20 billion cell Capsule 20,000 mmu cells PO DAILY RF: 0 amiodarone 200 mg Tablet 200 mg PO BID RF: 0 Eliquis 5 mg Tablet 5 mg PO BID RF: 0 trazodone 100 mg tablet 50 mg PO BEDTIME RF: 0 azithromycin [Zithromax Z-Aba] 250 mg tablet See Rx Instructions .ROUTE .COMPLEX Qty: 6 RF: 0 ondansetron 4 mg tablet,disintegrating 4 mg PO Q6H PRN (Reason: nausea and vomiting) Qty: 14 RF: 0 olmesartan 5 mg tablet 10 mg PO QPM RF: 0 ondansetron 4 mg tablet,disintegrating 4 mg PO QID PRN (Reason: nausea and vomiting) Qty: 20 RF: 0 Referrals: Mary Trejo MD [Primary Care Provider] -
[2019-02-28 18:14] LABS: Alanine Aminotransferase 20 IU/L (9-52); Albumin 3.6 g/dL (3.5-5.0); Albumin Globulin Ratio 1.4 (1.0-2.8); Alkaline Phosphatase 47 U/L (38-126); Aspartate Aminotransferase 19 IU/L (14-36); BUN Creatinine Ratio 9.3 (6-22); Bilirubin Total 1.4 mg/dL (0.2-1.3); Blood Urea Nitrogen 14 mg/dL (7-17); Carbon Dioxide 26 mmol/L (22-32); Chloride 105 mmol/L (98-107); Creatine Kinase 23 U/L (30-135); Estimated Glomerular Filt Rate 33.6 mL/min (>60); Globulin 2.5 g/dL (1.7-4.1); Glucose 78 mg/dL (80-110); HEMOLYSIS < 15 (0-50); Lipase 73 U/L (23-300); Potassium 3.3 mmol/L (3.4-5.1); Sodium 137 mmol/L (137-145); Total Protein 6.1 g/dL (6.3-8.2)
[2019-02-28 18:25] LABS: Troponin I 0.046 ng/mL (0.01-0.034)
[2019-02-28 18:30] LABS: B Type Natriuretic Peptide 1010 (<100)
[2019-02-28 18:38] LABS: INR 1.7 (0.9-1.3); Prothrombin Time 20.2 SECONDS (10.1-12.7)
[2019-02-28 18:41] LABS: PTT Partial Thromboplastin Tim 35 SECONDS (26.4-36.2)
--- NOTE | 2019-02-28 18:58 | ED_ITS ---
HPI - Chest Pain General Chief Complaint: Chest Pain Stated Complaint: SOB Time Seen by Provider: 02/28/19 17:20 Source: patient and family Mode of arrival: ambulatory Limitations: no limitations History of Present Illness HPI narrative: 70-year-old female nonsmoker with relatively recent diagnosis of atrial fibrillation presents with a chief complaint anterior chest pressure shortness of breath, fatigue and poor appetite for at least a few days him closer to about 2 weeks. Her symptoms started on the day her atrial fibrillation kicked in and was noticed and diagnosed by local cardiology. She was started on amiodarone and Eliquis. She has recent diagnoses of urinary tract infection and pneumonia. She denies any fever or shaking chills. She denies any ongoing cough. She has had poor appetite in is very intolerant of her ongoing AFib. MD complaint: chest pain Onset (ago): day(s) Duration: constant Pain location: substernal Severity: moderate Quality: heaviness Pain radiation: none Exacerbating factors: nothing Related Data Home Medications Medication Instructions Recorded Confirmed Omera 1 cap PO DAILY #0 03/12/17 02/16/19 vitamin B complex [B 1 tab PO DAILY #0 04/17/17 02/16/19 Complex-Vitamin B12] Probiotic 20,000 mmu cells PO DAILY 07/15/18 02/16/19 ibuprofen [Advil] 200 mg PO PRN PRN 07/15/18 02/16/19 olmesartan 10 mg PO QPM 10/12/18 02/16/19 amiodarone 200 mg PO BID 02/16/19 02/16/19 apixaban [Eliquis] 5 mg PO BID 02/16/19 02/16/19 trazodone 50 mg PO BEDTIME 02/16/19 02/16/19 Previous Rx's Medication Instructions Recorded Disabled Parking #2 each 09/10/18 omeprazole 20 mg tablet,delayed 20 mg PO QPM #90 tab 10/14/18 release prednisone 1 mg tablet 2 mg PO DAILY #180 tab 10/16/18 ondansetron 4 mg PO QID PRN #20 tab 11/15/18 tramadol 50 mg tablet 50 mg PO Q6H PRN #20 tab 11/20/18 prednisone 10 mg tablet 10 mg PO DAILY #100 tab 01/27/19 azithromycin [Zithromax Z-Aba] See Rx Instructions .ROUTE 02/16/19 .COMPLEX #6 tab ondansetron 4 mg PO Q6H PRN #14 tab 02/16/19 cephalexin 500 mg capsule 500 mg PO BID #10 cap 02/18/19 Allergies Allergy/AdvReac Type Severity Reaction Status Date / Time ciprofloxacin [CIPROFLOXACIN] Allergy Severe MUSCLE PAIN Verified 02/16/19 11:01 methocarbamol [METHOCARBAMOL] Allergy Mild RASH/ROBAXI Verified 02/16/19 11:01 N Penicillins [PENICILLINS] Allergy Mild HIVES Verified 02/16/19 11:01 piroxicam [PIROXICAM] Allergy Mild RASH/FELDEN Verified 02/16/19 11:01 E temazepam [TEMAZEPAM] Allergy Mild NERVOUNESS/ Verified 02/16/19 11:01 RESTORIL nitrofurantoin AdvReac Intermediate Horrible Verified 02/17/19 16:26 Nausea Review of Systems Constitutional Denies chills, Denies fever(s), Denies lethargy and Denies weakness Eyes Denies change in vision, Denies eye discharge, Denies irritation and Denies loss of vision ENT Ears, Nose, Mouth, and Throat: Denies change in voice, Denies neck pain and Denies sore throat Cardiovascular Reports chest pain, Denies irregular heart rhythm, Reports lightheadedness, Denies palpitations, Reports dyspnea and Denies orthopnea Respiratory Denies cough, Reports dyspnea and Denies wheezing Gastrointestinal Gastrointestinal: Denies abdominal pain, Denies change in bowel habits, Denies diarrhea, Denies nausea and Denies vomiting Genitourinary Denies hematuria, Denies flank pain, Denies urinary incontinence and Denies urinary urgency Musculoskeletal Denies neck pain Integumentary/Breasts Denies pruritus, Denies erythema, Denies rash and Denies wounds Neurologic Denies confusion, Denies loss of vision and Denies weakness Psychiatric Denies anxiety, Denies confusion, Denies depression, Denies homicidal ideation and Denies suicidal ideation Endocrine Denies palpitations Hematologic/Lymphatic Denies easy bruising Allergic/Immunologic Denies wheezing PFSH Medical History CHF (congestive heart failure) (Acute) NSTEMI (non-ST elevated myocardial infarction) (Acute) Asthma (Chronic) Diverticular disease (Chronic) GERD (gastroesophageal reflux disease) (Chronic) GI bleeding (Chronic 03/2017) H. pylori infection (Chronic) Heart murmur (Chronic) Hyperlipidemia (Chronic) Hypertension (Chronic) Polymyalgia rheumatica (Chronic) Surgical History History of carpal tunnel repair (Resolved) History of cataract removal with insertion of prosthetic lens (Resolved) History of hemicolectomy (Resolved 10/2005) Status post appendectomy (Resolved) Status post arthroscopy (Resolved) Status post cardiac catheterization (Resolved 1998) Status post vaginal hysterectomy (Resolved 1999) Social History household members: children Smoking Status: Former smoker alcohol intake: current substance use type: does not use Social History household members: children Smoking Status: Former smoker alcohol intake: current substance use type: does not use Exam Narrative Exam Narrative: GENERAL: 78-year-old female appears stated age, clearly not feeling well HEAD: Atraumatic. Normocephalic. No temporal or scalp tenderness. EYES: Pupils equal round and reactive. Extraocular motions intact. No scleral icterus. No injection or drainage. ENT: Nose without bleeding, purulent drainage or septal hematoma. Throat without erythema, tonsillar hypertrophy or exudate. Uvula midline. Airway patent. NECK: Trachea midline. No JVD or lymphadenopathy. Supple, nontender, no meningeal signs. CARDIOVASCULAR: Irregular rate and rhythm without murmurs, gallops, or rubs. RESPIRATORY: Faint crackles in bilateral bases GASTROINTESTINAL: Abdomen soft, non-tender, nondistended. No hepato- splenomegaly, or palpable masses. No guarding. EXTREMITIES: No clubbing, cyanosis, or edema. No joint tenderness, effusion, or edema noted. BACK: Nontender without deformity or crepitance. No flank tenderness. NEURO: AOx3. SKIN: No rash or erythema. Initial Vital Signs Initial Vital Signs: Vital Signs Temperature 98.8 F 02/28/19 17:15 Pulse Rate 78 02/28/19 17:15 Respiratory Rate 16 02/28/19 17:15 Blood Pressure 148/100 H 02/28/19 17:15 Pulse Oximetry 96 02/28/19 17:15 Course Orders Ordered: ED Orders 02/28/19 17:12 EKG-12 Lead Stat 02/28/19 17:17 XR chest 1V Stat 02/28/19 17:53 BNP [B Type Natriuretic Peptide] Stat Complete Blood Count AUTO DIFF Stat Comprehensive Metabolic Panel Stat Lipase Stat Partial Thromboplastin Time Stat Prothrombin Time INR Stat Troponin & CK Cardiac Panel Stat 02/28/19 18:50 Arterial Blood Gas Stat Discontinued Medications Albuterol (Ventolin) 2.5 mg INH NOW ONE Stop: 02/28/19 18:06 Last Admin: 02/28/19 18:08 Dose: 2.5 mg Consultations Consultation #1: Upon receipt of labs call placed to [facility]. We sure the opinion that the patient is not tolerating her atrial fibrillation and will require transfer for HUAN and electrocardioversion. Hospitalist at [facility] happy to accept Vital Signs - 8 hr 02/28/19 17:15 02/28/19 17:47 02/28/19 18:04 Temperature 98.8 F Pulse Rate 78 80 81 Respiratory Rate 16 23 16 Blood Pressure 148/100 H Blood Pressure [Right Arm] 145/95 H 126/91 H Pulse Oximetry 96 98 99 02/28/19 18:09 02/28/19 19:23 02/28/19 21:00 Temperature Pulse Rate 82 83 77 Respiratory Rate 18 19 15 Blood Pressure Blood Pressure [Right Arm] 153/95 H 157/100 H Pulse Oximetry 96 95 96 02/28/19 21:30 Temperature Pulse Rate 85 Respiratory Rate 17 Blood Pressure Blood Pressure [Right Arm] 154/80 H Pulse Oximetry 97 MDM - Chest Pain Lab Data Result diagrams: 02/28/19 17:53 02/28/19 17:53 Lab Results 02/28/19 02/28/19 02/28/19 Range/Units 17:53 17:53 17:53 WBC 7.0 (4.5-11.0) X10^3/uL RBC 3.87 L (4.0-5.2) X10^6/uL Hgb 10.0 L (12.0-16.0) g/dL Hct 30.7 L (36-46) % MCV 79.4 L (80-100) fL MCH 25.8 L (26-34) PG MCHC 32.5 (30-36) % RDW 15.5 H (11.6-14.8) % Plt Count 188 (150-400) X10^3/uL Neut % (Auto) 69.2 (50-75) % Lymph % (Auto) 20.2 L (25-40) % Clark % (Auto) 8.4 (3-14) % Eos % (Auto) 1.1 L (2-4) % Baso % (Auto) 1.1 (0-2) % Neut # (Auto) 4900 (9947-7276) /uL Lymph # (Auto) 1400 (8589-2829) /uL Clark # (Auto) 600 (0-900) /uL Eos # (Auto) 100 (0-450) /uL Baso # (Auto) 100 (0-100) /uL PT 20.2 H (10.1-12.7) SECONDS INR 1.7 H (0.9-1.3) APTT 35 D (26.4-36.2) SECONDS ABG pH (7.35-7.45) ABG pCO2 (35-45) mmHg ABG pO2 (80-100) mmHg ABG HCO3 (22-26) mmol/L ABG Total CO2 (21-31) mmol/L ABG O2 Saturation (95-100) % ABG Base Excess (-2-2) mmol/L FiO2 Sodium 137 (137-145) mmol/L Potassium 3.3 L (3.4-5.1) mmol/L Chloride 105 (98-107) mmol/L Carbon Dioxide 26 (22-32) mmol/L BUN 14 (7-17) mg/dL Creatinine 1.50 H (0.52-1.04) mg/dL Estimated GFR 33.6 L (>60) mL/min BUN/Creatinine Ratio 9.3 (6-22) Glucose 78 L (80-110) mg/dL Lactate Calcium 9.0 (8.4-10.2) mg/dL Total Bilirubin 1.4 H (0.2-1.3) mg/dL AST 19 (14-36) IU/L ALT 20 (9-52) IU/L Alkaline Phosphatase 47 (38-126) U/L Total Creatine Kinase 23 L (30-135) U/L CK-MB (CK-2) TNP CK-MB (CK-2) Rel Index TNP Troponin I 0.046 H (0.01-0.034) ng/mL B-Natriuretic Peptide 1010 H (<100) Total Protein 6.1 L (6.3-8.2) g/dL Albumin 3.6 (3.5-5.0) g/dL Globulin 2.5 (1.7-4.1) g/dL Albumin/Globulin Ratio 1.4 (1.0-2.8) Lipase 73 (23-300) U/L 02/28/19 02/28/19 Range/Units 17:53 18:50 WBC (4.5-11.0) X10^3/uL RBC (4.0-5.2) X10^6/uL Hgb (12.0-16.0) g/dL Hct (36-46) % MCV (80-100) fL MCH (26-34) PG MCHC (30-36) % RDW (11.6-14.8) % Plt Count (150-400) X10^3/uL Neut % (Auto) (50-75) % Lymph % (Auto) (25-40) % Clark % (Auto) (3-14) % Eos % (Auto) (2-4) % Baso % (Auto) (0-2) % Neut # (Auto) (1449-7965) /uL Lymph # (Auto) (3088-2555) /uL Clark # (Auto) (0-900) /uL Eos # (Auto) (0-450) /uL Baso # (Auto) (0-100) /uL PT (10.1-12.7) SECONDS INR (0.9-1.3) APTT (26.4-36.2) SECONDS ABG pH 7.41 (7.35-7.45) ABG pCO2 35.2 (35-45) mmHg ABG pO2 76 L (80-100) mmHg ABG HCO3 22 (22-26) mmol/L ABG Total CO2 23 (21-31) mmol/L ABG O2 Saturation 95 (95-100) % ABG Base Excess -2.0 (-2-2) mmol/L FiO2 0.21 Sodium (137-145) mmol/L Potassium (3.4-5.1) mmol/L Chloride (98-107) mmol/L Carbon Dioxide (22-32) mmol/L BUN (7-17) mg/dL Creatinine (0.52-1.04) mg/dL Estimated GFR (>60) mL/min BUN/Creatinine Ratio (6-22) Glucose (80-110) mg/dL Lactate Cancelled Calcium (8.4-10.2) mg/dL Total Bilirubin (0.2-1.3) mg/dL AST (14-36) IU/L ALT (9-52) IU/L Alkaline Phosphatase (38-126) U/L Total Creatine Kinase (30-135) U/L CK-MB (CK-2) CK-MB (CK-2) Rel Index Troponin I (0.01-0.034) ng/mL B-Natriuretic Peptide (<100) Total Protein (6.3-8.2) g/dL Albumin (3.5-5.0) g/dL Globulin (1.7-4.1) g/dL Albumin/Globulin Ratio (1.0-2.8) Lipase (23-300) U/L Imaging Data Chest x-ray: Radiologist's impression: Michelle Bermeo 78 [address] [place] [address] XRay Report Signed Patient: Glory Bermeoyce AMR#: [id number] : 1940Acct:[id number] Age/Sex: 78 / FDate of Service: 02/28/19 Loc: ED Accession Number: [id number] Procedure: XR chest 1V Ordering Provider: Cammie Fuller D.O. PROCEDURE: XR CHEST 1V INDICATIONS: chest pain TECHNIQUE: One view of the chest was acquired. COMPARISON: [facility], , CHEST 2 VIEW, 09/24/2012, 9:20. [facility], , XR CHEST 1V, 02/16/2019, 11:14. FINDINGS: Surgical changes and devices: None. Lungs and pleura: There is a small left pleural effusion. Left basilar pulmonary radiopacities have a similar appearance to the prior study. Calcified nodule is redemonstrated within the right lung. The right lung is otherwise clear. No pneumothorax. Mediastinum: Mediastinal contours appear normal. Heart size is normal. Bones and chest wall: No suspicious bony lesions. Overlying soft tissues appear unremarkable. IMPRESSION: Small left pleural effusion, new when compared with the study dated 02/16/19. Left basilar airspace opacities are unchanged. Dictated by: Bella Monsivais M.D. on 02/28/2019 at 17:29 ECG Data Attestation: I personally reviewed and interpreted this ECG as follows: Prior ECG tracings: available for review Interpretation: Atrial fibrillation with interventricular conduction delay, rate 73. No obvious ischemia or other ectopy MDM Narrative Medical decision making narrative: Patient with gradual, slow decline and general failure to thrive and intolerance of her atrial fibrillation. She has been feeling poorly ever since her AFib started about 2 weeks ago. No other, obviously he and easily reversible causes of her symptoms are noted. Discussion with Cardiology, we sure opinion the patient is best served being at [facility] for a more complete cardiac evaluation, with echocardiogram and cardioversion Critical Care Time Critical Care Time: Yes Total Critical Care Time: 30 Attestation: The high probability of a clinically significant, sudden or life threatening deterioration of the [cardiovascular] system(s) required my full and direct attention, intervention and personal management. The aggregate critical care time was [30] minutes. This time is in addition to time spent performing reported procedures but includes the following: [x] Data Review and interpretation [x] Patient assessment and monitoring of vital signs [x] Documentation [x] Medication orders and management Discharge Plan Departure Patient Disposition: [facility] Clinical Impression: Atrial fibrillation Qualifiers: Atrial fibrillation type: unspecified Qualified Code(s): I48.91 - Unspecified atrial fibrillation Discharge Date/Time: 02/28/19 22:00 Interventions: ED Discharge Assessment Last Done: 02/28/19 22:00 Prescriptions: No Action Omera 1 EACH capsule 1 cap PO DAILY Qty: 0 RF: 0 vitamin B complex [B Complex-Vitamin B12] 1 EACH tablet 1 tab PO DAILY Qty: 0 RF: 0 Disabled Parking .MEDSUPPLY Qty: 2 RF: 0 omeprazole 20 mg tablet,delayed release (DR/EC) 20 mg PO QPM Qty: 90 RF: 3 prednisone 1 mg tablet 2 mg PO DAILY Qty: 180 RF: 3 prednisone 10 mg tablet 10 mg PO DAILY Qty: 100 RF: 0 cephalexin 500 mg capsule 500 mg PO BID Qty: 10 RF: 0 tramadol 50 mg tablet 50 mg PO Q6H PRN (Reason: pain) Qty: 20 RF: 0 ibuprofen [Advil] 200 mg Tablet 200 mg PO PRN PRN (Reason: pain) RF: 0 Probiotic 20 billion cell Capsule 20,000 mmu cells PO DAILY RF: 0 amiodarone 200 mg Tablet 200 mg PO BID RF: 0 Eliquis 5 mg Tablet 5 mg PO BID RF: 0 trazodone 100 mg tablet 50 mg PO BEDTIME RF: 0 azithromycin [Zithromax Z-Aba] 250 mg tablet See Rx Instructions .ROUTE .COMPLEX Qty: 6 RF: 0 ondansetron 4 mg tablet,disintegrating 4 mg PO Q6H PRN (Reason: nausea and vomiting) Qty: 14 RF: 0 olmesartan 5 mg tablet 10 mg PO QPM RF: 0 ondansetron 4 mg tablet,disintegrating 4 mg PO QID PRN (Reason: nausea and vomiting) Qty: 20 RF: 0 Referrals: Mary Trejo MD [Primary Care Provider] -
[2019-02-28 19:05] LABS: Fractionated Inspired Oxygen 0.21; HCO3 ABG 22 mmol/L (22-26); Oxygen Saturation ABG 95 % (95-100); PCO2 ABG 35.2 mmHg (35-45); PO2 ABG 76 mmHg (80-100); TCO2 ABG 23 mmol/L (21-31); pH ABG 7.41 (7.35-7.45)
--- NOTE | 2019-02-28 20:50 | PC.NURSE ---
Wilner Díaz left bedside and can be reached at [phone] or cell [phone] or Evi at [phone].
== END 2019-02-28 22:00 | disposition short-term general hospital (02) ==
PROVIDERS: Emergency Medicine; Emergency Provider Emergency Medicine; PCP Family Medicine
DX: I48.91 Unspecified atrial fibrillation (principal); R06.02 Shortness of breath
CPT/HCPCS: 36415; 36600; 71045; 80053; 82550; 82805; 83690; 83880; 84484; 85025; 85610; 85730; 93005; 94640; 99285; J7613

== ENCOUNTER → 2019-03-13 11:30 | Outpatient (CLI) | payer MEDICARE, SELFPAY ==
[2019-03-13 12:28] LABS: Add Manual Diff / Slide Review NO; Basophils Absolute Auto 0 /uL (0-100); Basophils Percent Auto 0.4 % (0-2); Eosinophils Absolute Auto 100 /uL (0-450); Hematocrit 32.2 % (36-46); Hemoglobin 10.3 g/dL (12.0-16.0); Lymphocytes Absolute Auto 1500 /uL (1100-4500); Lymphocytes Percent Auto 22.7 % (25-40); Mean Corpuscular Volume 78.4 fL (80-100); Monocytes Absolute Auto 600 /uL (0-900); Monocytes Percent Auto 9.1 % (3-14); Neutrophils Absolute Auto 4300 /uL (1500-7000); Neutrophils Percent Auto 66.8 % (50-75); Platelet Count 214 X10^3/uL (150-400); Red Blood Cell Count 4.11 X10^6/uL (4.0-5.2); Red Cell Distribution Width 15.2 % (11.6-14.8); White Blood Cell Count 6.5 X10^3/uL (4.5-11.0)
== END ==
PROVIDERS: PCP Family Medicine; Visit Provider Internal Medicine Cardiovascular Disease
DX: I48.0 Paroxysmal atrial fibrillation (principal)
CPT/HCPCS: 36415; 85025

== ENCOUNTER → 2019-04-23 10:30 | Outpatient (CLI) | payer MEDICARE, SELFPAY ==
[2019-03-24 13:18] VITALS: BMI 23.3
[2019-04-23 11:07] LABS: Reticulocyte Count, Percent 1.2 % (1.06-2.63)
[2019-04-23 11:08] LABS: Add Manual Diff / Slide Review NO; Basophils Absolute Auto 0 /uL (0-100); Eosinophils Absolute Auto 0 /uL (0-450); Hematocrit 31.8 % (36-46); Hemoglobin 10.3 g/dL (12.0-16.0); Lymphocytes Absolute Auto 1100 /uL (1100-4500); Lymphocytes Percent Auto 13.8 % (25-40); Mean Corpuscular HGB Conc 32.3 % (30-36); Mean Corpuscular Hemoglobin 25.4 PG (26-34); Mean Corpuscular Volume 78.4 fL (80-100); Monocytes Absolute Auto 600 /uL (0-900); Monocytes Percent Auto 7.8 % (3-14); Neutrophils Absolute Auto 6400 /uL (1500-7000); Neutrophils Percent Auto 78.4 % (50-75); Platelet Count 225 X10^3/uL (150-400); Red Blood Cell Count 4.06 X10^6/uL (4.0-5.2); White Blood Cell Count 8.2 X10^3/uL (4.5-11.0)
[2019-04-23 11:28] LABS: Appearance Urine UA CLEAR; Bilirubin Urine UA NEGATIVE (NEGATIVE); Color Urine UA YELLOW; Glucose Urine UA NEGATIVE (Negative); Ketones Urine UA NEGATIVE (NEGATIVE); Leukocyte Esterase Urine UA NEGATIVE (NEGATIVE); Nitrite Urine UA NEGATIVE (Negative); Occult Blood Urine UA TRACE-LYSED (Negative); Protein Urine UA NEGATIVE (Negative); Urobilinogen Urine UA 0.2 E.U./dL (0.2); pH Urine UA 6.5 (4.5-8.0)
[2019-04-23 11:48] LABS: Bacteria Urine Occasional (0-1); RBC Urine 0-1/HPF (0-5/HPF); Squamous Epithelial Cell Urine 0-1 /HPF (0-5/HPF); WBC Urine 0-1/HPF (0-5/HPF)
[2019-04-23 12:17] LABS: HEMOLYSIS < 15 (0-50); Iron 48 ug/dL (37-170)
[2019-04-23 12:19] LABS: Creatinine Urine Random 88.3 mg/dL
[2019-04-23 12:22] LABS: Albumin 4.1 g/dL (3.5-5.0); Blood Urea Nitrogen 24 mg/dL (7-17); Calcium 9.2 mg/dL (8.4-10.2); Carbon Dioxide 26 mmol/L (22-32); Chloride 98 mmol/L (98-107); Estimated Glomerular Filt Rate 33.5 mL/min (>60); Glucose 91 mg/dL (80-110); HEMOLYSIS < 15 (0-50); Phosphorous 3.4 mg/dL (2.8-4.1); Potassium 3.5 mmol/L (3.4-5.1); Sodium 136 mmol/L (137-145)
[2019-04-23 12:23] LABS: Microalbumin Urine Random 0.8 mg/dL (0-1.6)
[2019-04-23 12:31] LABS: Percent Iron Saturation 14 % (15-50); Total Iron Binding Capacity 351 ug/dL (265-497); Transferrin 319 mg/dL (206-381)
[2019-04-23 12:49] LABS: Thyroid Stimulating Hormone 0.99 uIU/mL (0.47-4.68)
[2019-04-23 13:30] LABS: Folate 8.6 ng/mL (2.76-20.0); Vitamin B12 259 pg/mL (239-931)
[2019-04-26 14:12] LABS: Haptoglobin 163 mg/dL (43-212)
== END ==
PROVIDERS: PCP Family Medicine; Visit Provider Family Medicine
DX: D50.9 Iron deficiency anemia, unspecified (principal); N18.3 Chronic kidney disease, stage 3 (moderate)
CPT/HCPCS: 36415; 80069; 81001; 82043; 82570; 82607; 82728; 82746; 83010; 83540; 83550; 84443; 85025; 85045

== ENCOUNTER 2019-05-01 13:49 | Emergency (ER) | payer MEDICARE, SELFPAY ==
[2019-03-24 13:18] VITALS: BMI 23.3
[2019-05-01 13:52] VITALS: BP 178/100; PULSE 59; RESP 20; TEMP 36.4; O2SAT 98
--- NOTE | 2019-05-01 14:03 | DI.RAD.S_ITS ---
PROCEDURE: XR CHEST 1V INDICATIONS: presyncope TECHNIQUE: One view of the chest was acquired. COMPARISON: [facility], CR, XR CHEST 1 VIEW, 03/01/2019, 9:21. FINDINGS: Surgical changes and devices: None. Lungs and pleura: No focal pulmonary consolidation is evident. Calcification within the right upper lobe is unchanged since the prior study. No pleural effusions or pneumothorax. Mediastinum: Mediastinal contours appear normal. The heart is enlarged. There is aortic atherosclerosis. Bones and chest wall: No suspicious bony lesions. Overlying soft tissues appear unremarkable. IMPRESSION: Stable chest. Cardiomegaly without an acute cardiopulmonary process evident. Dictated by: Trent Edmondson M.D. on 05/01/2019 at 13:48 Approved by: Trent Edmondson M.D. on 05/01/2019 at 13:51
--- NOTE | 2019-05-01 14:06 | DI.CT.S_ITS ---
PROCEDURE: CT HEAD/BRAIN WO CON INDICATIONS: presyncope, numb/tingling both arms, greater right TECHNIQUE: Noncontrast 4.5 mm thick angled axial sections acquired from the foramen magnum to the vertex, with coronal and sagittal reformats. For radiation dose reduction, the following was used: automated exposure control, adjustment of mA and/or kV according to patient size. COMPARISON: [facility], MR, MR HEAD/BRAIN WO CON, 06/12/2018, 11:42. [facility], CT, HEAD WITHOUT CONTRAST, 03/12/2017, 15:09. FINDINGS: Image quality: Excellent. CSF spaces: Basal cisterns are patent. No extra-axial fluid collections. The ventricles are symmetric in size and shape. Brain: No intracranial bleeds or masses. There is cerebral volume loss for age, with resultant ventricular and sulcal prominence. There are moderate to severe periventricular and deep white matter chronic small vessel ischemic changes. There is intracranial internal carotid artery atherosclerosis. Skull and face: Calvarium and visualized facial bones appear intact, without suspicious lesions. Sinuses: Visualized sinuses and mastoids are clear. IMPRESSION: 1. No acute intracranial abnormalities. 2. Mild cerebral volume loss and prominent chronic microvascular ischemic changes. The result was discussed with Dr. Jaramillo in ER on 05/01/2019 at 14:31 hours. Dictated by: Karel Mckoy M.D. on 05/01/2019 at 14:29 Approved by: Karel Mckoy M.D. on 05/01/2019 at 14:34
--- NOTE | 2019-05-01 14:09 | ED.SYNCOPE ---
HPI - Syncope General Chief Complaint: Syncope Stated Complaint: Feels like she is going to pass out, tongue going Time Seen by Provider: 05/01/19 14:02 Source: patient Mode of arrival: wheelchair Limitations: no limitations History of Present Illness HPI narrative: This was a 79-year-old female comes to the emergency department with complaint of feeling like she is going to pass out. Patient was sitting in the car in the parking lot the hospital while her son was having a procedure at the spinal office. Patient was waiting with the nursing staff came out to get her states she got a car. [place] like she was going to pass out. She did tunnel vision but felt very lightheaded. She states she was able to walk a few steps that sort of fell into the nurses arms. She did hit her head or have any injuries. She denies headache, she denies vision changes, denies any chest pain or shortness of breath, she does not feel lightheaded at this time. She denies any nausea or vomiting currently. No new GI or urinary symptoms. No weakness in any of her extremities other than she felt like she was going to pass out. She states that she felt sort of numb in both her upper extremities maybe a little more on her right. Patient states that she has not had anything to eat or drink today except for some water 1st thing in the morning. She has not had breakfast or lunch. She is on a blood thinner. Related Data Home Medications Medication Instructions Recorded Confirmed vitamin B complex [B 1 tab PO DAILY #0 04/17/17 05/01/19 Complex-Vitamin B12] Probiotic 20,000 mmu cells PO QPM 07/15/18 05/01/19 ibuprofen [Advil] 200 mg PO PRN PRN 07/15/18 05/01/19 apixaban [Eliquis] 5 mg PO BID 02/16/19 05/01/19 prednisone 1 mg tablet 2 mg PO DAILY 04/11/19 05/01/19 diclofenac sodium 2 g TOPICAL QID PRN MDD 8 G 05/01/19 05/01/19 ferrous sulfate 650 mg PO Q OTHER DAY 05/01/19 05/01/19 nebivolol [Bystolic] 10 mg PO DAILY 05/01/19 05/01/19 olmesartan 20 mg PO DAILY 05/01/19 05/01/19 Previous Rx's Medication Instructions Recorded Disabled Parking #2 each 09/10/18 omeprazole 20 mg tablet,delayed 20 mg PO QPM #90 tab 10/14/18 release tramadol 50 mg tablet 50 mg PO Q6H PRN #20 tab 11/20/18 prednisone 10 mg tablet 10 mg PO DAILY #100 tab 01/27/19 trazodone 100 mg tablet 100 mg PO BEDTIME #90 tab 03/21/19 Allergies Allergy/AdvReac Type Severity Reaction Status Date / Time ciprofloxacin [CIPROFLOXACIN] Allergy Severe MUSCLE PAIN Verified 04/21/19 08:11 methocarbamol [METHOCARBAMOL] Allergy Mild RASH/ROBAXI Verified 04/21/19 08:11 N Penicillins [PENICILLINS] Allergy Mild HIVES Verified 04/21/19 08:11 piroxicam [PIROXICAM] Allergy Mild RASH/FELDEN Verified 04/21/19 08:11 E temazepam [TEMAZEPAM] Allergy Mild NERVOUNESS/ Verified 04/21/19 08:11 RESTORIL nitrofurantoin AdvReac Intermediate Horrible Verified 04/21/19 08:11 Nausea Review of Systems Review of Systems ROS Unobtainable: All systems reviewed & are unremarkable except as noted in HPI and below Constitutional Constitutional: Denies chills, Denies excessive sweating, Denies fever(s), Denies lethargy, Denies malaise and Denies weakness Eyes Eyes: Denies change in vision Cardiovascular Cardiovascular: Denies chest pain, Denies diaphoresis, Denies syncope, Denies rapid heart rate, Denies edema, Denies irregular heart rhythm, Reports lightheadedness, Denies palpitations, Denies dyspnea, Denies dyspnea on exertion and Denies orthopnea Respiratory Respiratory: Denies change in phlegm color, Denies chest congestion, Denies cough, Denies dyspnea, Denies dyspnea on exertion, Denies stridor and Denies wheezing Gastrointestinal Gastrointestinal: Denies abdominal pain, Denies melena, Denies hematochezia, Denies change in bowel habits, Denies diarrhea, Denies nausea and Denies vomiting Genitourinary Genitourinary: Denies hematuria, Denies urinary frequency, Denies flank pain, Denies urinary incontinence, Denies urinary hesitancy and Denies urinary urgency Musculoskeletal Musculoskeletal: Denies back pain, Denies muscle weakness, Denies numbness and Denies tingling Neurologic Neurologic: Denies syncope, Denies numbness, Denies tingling and Denies weakness Endocrine Endocrine: Denies excessive sweating and Denies palpitations Allergic/Immunologic Allergic/Immunologic: Denies wheezing PFSH Medical History Asthma (Chronic) CHF (congestive heart failure) (Acute) Diverticular disease (Chronic) GERD (gastroesophageal reflux disease) (Chronic) GI bleeding (Chronic 03/2017) H. pylori infection (Chronic) Heart murmur (Chronic) Hyperlipidemia (Chronic) Hypertension (Chronic) NSTEMI (non-ST elevated myocardial infarction) (Acute) Polymyalgia rheumatica (Chronic) Surgical History History of carpal tunnel repair (Resolved) History of cataract removal with insertion of prosthetic lens (Resolved) History of hemicolectomy (Resolved 10/2005) Status post appendectomy (Resolved) Status post arthroscopy (Resolved) Status post cardiac catheterization (Resolved 1998) Status post vaginal hysterectomy (Resolved 1999) Social History household members: children Smoking Status: Former smoker alcohol intake: current substance use type: does not use Social History household members: children Smoking Status: Former smoker alcohol intake: current substance use type: does not use Exam Narrative Exam Narrative: GEN: well nourished, well appearing female, alert and oriented x 3, patient appears to be in mild distress. HEENT: Atraumatic, pupils are equal round reactive to light, extraocular movements are intact, nares are clear, TMs are clear with no fluid, there is no conjunctival pallor. Throat is clear without any exudates, erythema, tonsillar enlargement or uvular deviation, no facial droop. No dysarthria. HEART: Regular rate and rhythm without murmur, clicks, rubs. No carotid bruits, pulses are equal in upper and lower extremities LUNGS:Lungs clear to auscultation, no wheezes, rales, crackles, chest moves symmetrically ABD:bowel sounds normal, soft, non-tender, no guarding, rebound, rigidity, no masses noted, no hepatosplenomegaly :No CVA tenderness MSCL: Non-tender, no muscle atrophy, muscles strength 5/5 upper and lower extremities, full range of motion, normal gait NEURO:CN 2-12 intact, sensation normal, reflexes 2/4 upper and lower extremities. finger nose finger test normal, heel morillo test normal Initial Vital Signs Initial Vital Signs: Vital Signs Temperature 97.5 F L 05/01/19 13:52 Pulse Rate 59 L 05/01/19 13:52 Respiratory Rate 20 05/01/19 13:52 Blood Pressure 178/100 H 05/01/19 13:52 Pulse Oximetry 98 05/01/19 13:52 Scores NIH Stroke Scale Level of Conciousness: Alert, keenly responsive Ask month/age: Answers both questions correctly. Open/close eyes, close hand: Performs both tasks correctly Best gaze horizontal: Normal Visual rachel: No visual loss Facial palsy: Normal symetrical movement Left arm drift: No drift for full 10 sec Right arm drift: No drift for full 10 sec Left leg drift: No drift for full 10 sec Right leg drift: No drift for full 10 sec Limb ataxia: Absent Sensory on face/arms/legs: Normal, no sensory loss Best language: No aphasia, normal Dysarthria: Normal Extinction or inattention: No abnormality Total NIH Stroke scale score: 0 Course Orders Ordered: ED Orders 05/01/19 14:02 EKG-12 Lead Stat 05/01/19 14:03 XR chest 1V Stat 05/01/19 14:06 CT head/brain wo con Stat 05/01/19 14:30 Complete Blood Count AUTO DIFF Stat Comprehensive Metabolic Panel Stat Troponin & CK Cardiac Panel Stat Heparin Sodium/Dextrose (Heparin Drip) 25,000 unit in 500 mls @ 15.023 mls/hr IV CONT RADHA; Protocol Last Admin: 05/01/19 16:44 Dose: 12 units/kg/hr, 15.023 mls/hr Documented by: VENKATA Discontinued Medications Aspirin (Aspirin Chew) 324 mg PO NOW ONE Stop: 05/01/19 15:46 Last Admin: 05/01/19 15:58 Dose: 324 mg Documented by: VENKATA Heparin Sodium (Porcine) (Heparin) 4,000 unit IV NOW ONE Stop: 05/01/19 15:58 Last Admin: 05/01/19 16:43 Dose: 4,000 unit Documented by: VENKATA Sodium Chloride (Normal Saline 0.9%) 1,000 mls @ 1,000 mls/hr IV BOLUS ONE Stop: 05/01/19 15:01 Last Admin: 05/01/19 15:04 Dose: Not Given Documented by: RONNELL Nitroglycerin (Nitro-Bid) 0.5 inch TOP NOW ONE Stop: 05/01/19 15:47 Last Admin: 05/01/19 16:00 Dose: 0.5 inch Documented by: VENKATA Vital Signs Vital signs: Vital Signs - 8 hr 05/01/19 13:52 05/01/19 15:57 05/01/19 16:00 Temperature 97.5 F L Pulse Rate 59 L 56 L 60 Respiratory Rate 20 15 Blood Pressure 178/100 H 167/73 H Blood Pressure [Right Arm] 167/73 H Pulse Oximetry 98 100 05/01/19 17:06 Temperature Pulse Rate 62 Respiratory Rate 16 Blood Pressure Blood Pressure [Right Arm] 186/87 H Pulse Oximetry 97 MDM - Syncope Lab Data Attestation: I reviewed the patient's lab results. Result diagrams: 05/01/19 14:30 05/01/19 14:30 Labs: Lab Results 05/01/19 05/01/19 Range/Units 14:30 14:30 WBC 8.4 (4.5-11.0) X10^3/uL RBC 3.83 L (4.0-5.2) X10^6/uL Hgb 9.9 L (12.0-16.0) g/dL Hct 30.4 L (36-46) % MCV 79.4 L (80-100) fL MCH 25.8 L (26-34) PG MCHC 32.5 (30-36) % RDW 18.7 H (11.6-14.8) % Plt Count 168 (150-400) X10^3/uL Neut % (Auto) 68.9 (50-75) % Lymph % (Auto) 22.4 L (25-40) % Foster % (Auto) 8.0 (3-14) % Eos % (Auto) 0.2 L (2-4) % Baso % (Auto) 0.5 (0-2) % Neut # (Auto) 5800 (1556-5731) /uL Lymph # (Auto) 1900 (7598-8095) /uL Foster # (Auto) 700 (0-900) /uL Eos # (Auto) 0 (0-450) /uL Baso # (Auto) 0 (0-100) /uL Sodium 133 L (137-145) mmol/L Potassium 3.7 (3.4-5.1) mmol/L Chloride 101 (98-107) mmol/L Carbon Dioxide 24 (22-32) mmol/L BUN 16 (7-17) mg/dL Creatinine 1.20 H (0.52-1.04) mg/dL Estimated GFR 43.3 L (>60) mL/min BUN/Creatinine Ratio 13.3 (6-22) Glucose 86 (80-110) mg/dL Calcium 8.9 (8.4-10.2) mg/dL Total Bilirubin 0.9 (0.2-1.3) mg/dL AST 26 (14-36) IU/L ALT 11 (9-52) IU/L Alkaline Phosphatase 48 (38-126) U/L Total Creatine Kinase 35 (30-135) U/L CK-MB (CK-2) TNP CK-MB (CK-2) Rel Index TNP Troponin I 0.127 H* (0.01-0.034) ng/mL Total Protein 6.0 L (6.3-8.2) g/dL Albumin 3.5 (3.5-5.0) g/dL Globulin 2.5 (1.7-4.1) g/dL Albumin/Globulin Ratio 1.4 (1.0-2.8) Point of Care Testing Glucose POC [address] scan - head: Radiologist's impression: [address] [address] [address] Scan Report Signed Patient: Michelle Bermeo [facility]#: [id number] : 1940Acct:[id number] Age/Sex: 79 / FDate of Service: 05/01/19 Loc: ED Accession Number: [id number] Procedure: CT head/brain wo con Ordering Provider: Aicha Jaramillo D.O. PROCEDURE: CT HEAD/BRAIN WO CON INDICATIONS: presyncope, numb/tingling both arms, greater right TECHNIQUE: Noncontrast 4.5 mm thick angled axial sections acquired from the foramen magnum to the vertex, with coronal and sagittal reformats. For radiation dose reduction, the following was used: automated exposure control, adjustment of mA and/or kV according to patient size. COMPARISON: [facility], MR, MR HEAD/BRAIN WO CON, 06/12/2018, 11:42. [facility], CT, HEAD WITHOUT CONTRAST, 03/12/2017, 15:09. FINDINGS: Image quality: Excellent. CSF spaces: Basal cisterns are patent. No extra-axial fluid collections. The ventricles are symmetric in size and shape. Brain: No intracranial bleeds or masses. There is cerebral volume loss for age, with resultant ventricular and sulcal prominence. There are moderate to severe periventricular and deep white matter chronic small vessel ischemic changes. There is intracranial internal carotid artery atherosclerosis. Skull and face: Calvarium and visualized facial bones appear intact, without suspicious lesions. Sinuses: Visualized sinuses and mastoids are clear. IMPRESSION: 1. No acute intracranial abnormalities. 2. Mild cerebral volume loss and prominent chronic microvascular ischemic changes. The result was discussed with Dr. Jaramillo in ER on 05/01/2019 at 14:31 hours. Dictated by: Karel Mckoy M.D. on 05/01/2019 at 14:29 Approved by: Karel Mckoy M.D. on 05/01/2019 at 14:34 Chest x-ray: Radiologist's impression: [place] [address] XRay Report Signed Patient: Michelle Bermeo [facility]#: [id number] : 1940Acct:[id number] Age/Sex: 79 / FDate of Service: 05/01/19 Loc: ED Accession Number: [id number] Procedure: XR chest 1V Ordering Provider: Aicha Jaramillo D.O. PROCEDURE: XR CHEST 1V INDICATIONS: presyncope TECHNIQUE: One view of the chest was acquired. COMPARISON: [facility], , XR CHEST 1 VIEW, 03/01/2019, 9:21. FINDINGS: Surgical changes and devices: None. Lungs and pleura: No focal pulmonary consolidation is evident. Calcification within the right upper lobe is unchanged since the prior study. No pleural effusions or pneumothorax. Mediastinum: Mediastinal contours appear normal. The heart is enlarged. There is aortic atherosclerosis. Bones and chest wall: No suspicious bony lesions. Overlying soft tissues appear unremarkable. IMPRESSION: Stable chest. Cardiomegaly without an acute cardiopulmonary process evident. Dictated by: Trent Edmondson M.D. on 05/01/2019 at 13:48 Approved by: Trent Edmondson M.D. on 05/01/2019 at 13:51 ECG Data Attestation: I personally reviewed and interpreted this ECG as follows: Prior ECG tracings: available for review Interpretation: Sinus bradycardia with a rate of 54 P are 200 QRS of 105 and QTC of 444. Patient has EKG was similar ST changes. Patient has left anterior fascicular block with LVH. No new ST changes. Prior EKG did show atrial fibrillation. MDM Narrative Medical decision making narrative: Patient's blood glucose was 89, she was given some juice she is feeling a lot better at this point. Patient's head CT is negative, EKG appears similar to priors with a sinus bradycardia. Patient has anemia but appears chronic with priors being 10 in the last 2 months. No elevation in white count platelets are 168. INR is 1.7, PTT is 35. Patient is on Eliquis. Electrolytes show sodium 133, creatinine is 1.2 but patient has been at the 1.5 and 1.6 range in the past. LFTs are normal, troponin is positive at 0.127 patient's chest x-ray does not show any acute abnormalities. I spoke with Dr. Navarro, he recommends transfer to [facility]. Spoke with Dr. Trinidad who accepts for transfer as a hospitalist at [facility]. Patient has received aspirin, she started on heparin as well as a small amount of nitro paste placed for her hypertension which was improving although still elevated. Patient has been asymptomatic other than initially when she 1st arrived. She is aware the plan. Patient's family also informed and aware of plan for transfer. Discharge Plan Departure Patient Disposition: [facility] Clinical Impression: Non-ST elevation ND (NSTEMI), Pre-syncope Instructions: DI for Syncope in Adults (Fainting) Prescriptions: No Action prednisone 1 mg tablet 2 mg PO DAILY RF: 0 vitamin B complex [B Complex-Vitamin B12] 1 EACH tablet 1 tab PO DAILY Qty: 0 RF: 0 (DME) Disabled Parking 0 .MEDSUPPLY Qty: 2 RF: 0 omeprazole 20 mg tablet,delayed release (DR/EC) 20 mg PO QPM Qty: 90 RF: 3 prednisone 10 mg tablet 10 mg PO DAILY Qty: 100 RF: 0 trazodone 100 mg tablet 100 mg PO BEDTIME Qty: 90 RF: 0 tramadol 50 mg tablet 50 mg PO Q6H PRN (Reason: pain) Qty: 20 RF: 0 ibuprofen [Advil] 200 mg Tablet 200 mg PO PRN PRN (Reason: pain) RF: 0 Probiotic 20 billion cell Capsule 20,000 mmu cells PO QPM RF: 0 Eliquis 5 mg Tablet 5 mg PO BID RF: 0 olmesartan 20 mg tablet 20 mg PO DAILY RF: 0 diclofenac sodium 1 % gel 2 g TOPICAL QID MDD 8 G PRN (Reason: RIGHT HIP PAIN) RF: 0 Bystolic 10 mg tablet 10 mg PO DAILY RF: 0 ferrous sulfate 325 mg (65 mg iron) tablet 650 mg PO Q OTHER DAY RF: 0 Referrals: Mary Trejo MD [Primary Care Provider] -
[2019-05-01 14:44] LABS: Add Manual Diff / Slide Review NO; Basophils Absolute Auto 0 /uL (0-100); Basophils Percent Auto 0.5 % (0-2); Eosinophils Absolute Auto 0 /uL (0-450); Eosinophils Percent Auto 0.2 % (2-4); Hematocrit 30.4 % (36-46); Hemoglobin 9.9 g/dL (12.0-16.0); Lymphocytes Absolute Auto 1900 /uL (1100-4500); Lymphocytes Percent Auto 22.4 % (25-40); Mean Corpuscular HGB Conc 32.5 % (30-36); Mean Corpuscular Hemoglobin 25.8 PG (26-34); Mean Corpuscular Volume 79.4 fL (80-100); Monocytes Absolute Auto 700 /uL (0-900); Neutrophils Absolute Auto 5800 /uL (1500-7000); Neutrophils Percent Auto 68.9 % (50-75); Platelet Count 168 X10^3/uL (150-400); Red Blood Cell Count 3.83 X10^6/uL (4.0-5.2); Red Cell Distribution Width 18.7 % (11.6-14.8); White Blood Cell Count 8.4 X10^3/uL (4.5-11.0)
[2019-05-01 14:51] LABS: Alanine Aminotransferase 11 IU/L (9-52); Albumin 3.5 g/dL (3.5-5.0); Albumin Globulin Ratio 1.4 (1.0-2.8); Alkaline Phosphatase 48 U/L (38-126); Aspartate Aminotransferase 26 IU/L (14-36); BUN Creatinine Ratio 13.3 (6-22); Bilirubin Total 0.9 mg/dL (0.2-1.3); Blood Urea Nitrogen 16 mg/dL (7-17); Calcium 8.9 mg/dL (8.4-10.2); Carbon Dioxide 24 mmol/L (22-32); Chloride 101 mmol/L (98-107); Creatine Kinase 35 U/L (30-135); Estimated Glomerular Filt Rate 43.3 mL/min (>60); Globulin 2.5 g/dL (1.7-4.1); Glucose 86 mg/dL (80-110); HEMOLYSIS < 15 (0-50); Potassium 3.7 mmol/L (3.4-5.1); Sodium 133 mmol/L (137-145)
[2019-05-01 15:27] LABS: Troponin I 0.127 ng/mL (0.01-0.034)
[2019-05-01 15:57] VITALS: BP 167/73; PULSE 56; RESP 15; O2SAT 100
[2019-05-01] MEDS: ASPIRIN 81 MG CHEW TAB 324 MG PO (15:58)
[2019-05-01 16:00] VITALS: BP 167/73; PULSE 60
[2019-05-01] MEDS: NITROGLYCERIN OINT 1 INCH/GM OINT...G. 0.5 INCH TOP (16:00)
--- NOTE | 2019-05-01 16:22 | PC.NURSE ---
Janel RN in for US guided IV. pt tolerating welll.
[2019-05-01] MEDS: HEPARIN 5,000 UNIT/ML VIAL 4000 UNIT IV (16:43)
[2019-05-01] MEDS: HEPARIN DRIP 25,000 UNIT/500 ML IV.SOLN 15.023 UNIT IV (16:44)
[2019-05-01 17:06] VITALS: BP 186/87; PULSE 62; RESP 16; O2SAT 97
[2019-05-01 17:45] VITALS: BP 186/88; PULSE 60; RESP 16; O2SAT 97
--- NOTE | 2019-05-01 17:52 | PC.NURSE ---
report called to LUIS MIGUEL Esparza.
--- NOTE | 2019-05-11 13:48 | PC.NURSE ---
Late entry related to IV stop time of Heparin gtt. Heparin started at 16:44 per EMR and stopped at 17:45 on pts departure to transfer facility.
== END 2019-05-01 17:45 | disposition short-term general hospital (02) ==
PROVIDERS: Emergency Provider Emergency Medicine; PCP Family Medicine
DX: I21.4 Non-ST elevation (NSTEMI) myocardial infarction (principal); R55 Syncope and collapse
CPT/HCPCS: 36415; 70450; 71045; 80053; 82550; 82962; 84484; 85025; 93005; 96365; 96375; 99283; 99285; J1644

== ENCOUNTER → 2019-05-06 10:30 | Outpatient (CLI) | payer MEDICARE, SELFPAY ==
[2019-03-24 13:18] VITALS: BMI 23.3
[2019-05-06 11:08] LABS: Add Manual Diff / Slide Review NO; Basophils Absolute Auto 0 /uL (0-100); Basophils Percent Auto 0.4 % (0-2); Eosinophils Absolute Auto 0 /uL (0-450); Eosinophils Percent Auto 0.3 % (2-4); Hematocrit 30.4 % (36-46); Hemoglobin 9.9 g/dL (12.0-16.0); Lymphocytes Absolute Auto 1000 /uL (1100-4500); Lymphocytes Percent Auto 13.4 % (25-40); Mean Corpuscular HGB Conc 32.7 % (30-36); Mean Corpuscular Volume 79.2 fL (80-100); Monocytes Absolute Auto 500 /uL (0-900); Monocytes Percent Auto 6.2 % (3-14); Neutrophils Absolute Auto 6200 /uL (1500-7000); Neutrophils Percent Auto 79.7 % (50-75); Platelet Count 173 X10^3/uL (150-400); Red Blood Cell Count 3.83 X10^6/uL (4.0-5.2); Red Cell Distribution Width 19.4 % (11.6-14.8); White Blood Cell Count 7.8 X10^3/uL (4.5-11.0)
[2019-05-06 11:28] LABS: Erythrocyte Sedimentation Rate 16 MM/HR (0-20)
[2019-05-06 11:30] LABS: B Type Natriuretic Peptide 966 (<100)
[2019-05-06 11:34] LABS: BUN Creatinine Ratio 13.3 (6-22); Blood Urea Nitrogen 16 mg/dL (7-17); Calcium 9.7 mg/dL (8.4-10.2); Carbon Dioxide 25 mmol/L (22-32); Chloride 101 mmol/L (98-107); Estimated Glomerular Filt Rate 43.3 mL/min (>60); Glucose 92 mg/dL (80-110); HEMOLYSIS 18 (0-50); Sodium 136 mmol/L (137-145)
[2019-05-06 11:37] LABS: C-Reactive Protein Quant < 0.5 mg/dL (<1.0)
[2019-05-09 23:01] LABS: Methylmalonic Acid 362 nmol/L (87-318)
== END ==
PROVIDERS: Visit Provider Family Medicine
DX: M35.3 Polymyalgia rheumatica (principal); I50.9 Heart failure, unspecified; N18.3 Chronic kidney disease, stage 3 (moderate); E53.8 Deficiency of other specified B group vitamins; D50.9 Iron deficiency anemia, unspecified
CPT/HCPCS: 36415; 80048; 83880; 83921; 85025; 85651; 86140

== ENCOUNTER → 2019-05-08 10:24 | Outpatient (CLI) | payer MEDICARE, SELFPAY ==
[2019-03-24 13:18] VITALS: BMI 23.3
[2019-05-11 21:16] LABS: Fecal Immunochemical Test DETECTED (NOT DETECTED)
== END ==
PROVIDERS: Visit Provider Family Medicine
DX: D50.9 Iron deficiency anemia, unspecified (principal)
CPT/HCPCS: 82274

== ENCOUNTER → 2019-05-15 08:57 | Outpatient (CLI) | payer MEDICARE, SELFPAY ==
[2019-03-24 13:18] VITALS: BMI 23.3
[2019-05-17 16:36] LABS: Homocysteine 21.4 umol/L (< 10.4)
[2019-05-18 15:17] LABS: Intrinsic Factor Blocking Aby NEGATIVE
== END ==
PROVIDERS: PCP Family Medicine; Visit Provider Family Medicine
DX: D50.9 Iron deficiency anemia, unspecified (principal); I10 Essential (primary) hypertension; N18.3 Chronic kidney disease, stage 3 (moderate); R19.5 Other fecal abnormalities
CPT/HCPCS: 36415; 83090; 86340

== ENCOUNTER → 2019-09-15 10:13 | Outpatient (CLI) | payer MEDICARE, SELFPAY ==
[2019-03-24 13:18] VITALS: BMI 23.3
[2019-09-15 12:19] LABS: Add Manual Diff / Slide Review NO; Basophils Absolute Auto 0 /uL (0-100); Basophils Percent Auto 0.2 % (0-2); Eosinophils Absolute Auto 0 /uL (0-450); Eosinophils Percent Auto 0.4 % (2-4); Hemoglobin 10.5 g/dL (12.0-16.0); Lymphocytes Absolute Auto 1600 /uL (1100-4500); Lymphocytes Percent Auto 15.4 % (25-40); Mean Corpuscular HGB Conc 33.9 % (30-36); Mean Corpuscular Hemoglobin 28.7 PG (26-34); Mean Corpuscular Volume 84.7 fL (80-100); Monocytes Absolute Auto 900 /uL (0-900); Monocytes Percent Auto 8.6 % (3-14); Neutrophils Absolute Auto 7700 /uL (1500-7000); Neutrophils Percent Auto 75.4 % (50-75); Platelet Count 237 X10^3/uL (150-400); Red Blood Cell Count 3.66 X10^6/uL (4.0-5.2); Red Cell Distribution Width 15.7 % (11.6-14.8); White Blood Cell Count 10.2 X10^3/uL (4.5-11.0)
== END ==
PROVIDERS: PCP Family Medicine; Visit Provider Family Medicine
DX: D50.9 Iron deficiency anemia, unspecified (principal)
CPT/HCPCS: 36415; 85025

== ENCOUNTER 2019-10-20 13:57 | Inpatient (IN) | payer MEDICARE, SELFPAY ==
[2019-03-24 13:18] VITALS: BMI 23.3
--- NOTE | 2019-10-20 14:00 | ED.WEAKNESS ---
HPI - Weakness General Chief complaint: Weakness Stated complaint: weakness Time Seen by Provider: 10/20/19 13:57 Source: patient, EMS and old records reviewed Mode of arrival: EMS Limitations: no limitations History of Present Illness HPI Narrative: This is a pleasant 79-year-old female comes emergency department with complaint of nausea vomiting. Patient states she was vomiting all day yesterday she has just been nauseated today. She denies any fevers. She denies any chest pain or shortness of breath. She denies any abdominal pain. She denies any diarrhea or constipation. She denies any urinary frequency, dysuria urgency. Patient states urine has been dark but does not feel that there is a small amount. She denies any back or flank pain. No lightheadedness or passing out she states she has had similar symptoms in the past and has not had a anyone figure out why it is occurring. She is on Xarelto for atrial fibrillation. She also takes prednisone daily for polymyalgia rheumatica and has not had any major changes in dose recently. 12 mg is her usual dose. She does take tramadol and trazodone as well. She has multiple allergies. Related Data Home Medications Medication Instructions Recorded Confirmed ibuprofen [Advil] 200 mg PO PRN PRN 07/15/18 10/20/19 apixaban [Eliquis] 5 mg PO BID 02/16/19 10/20/19 nebivolol [Bystolic] 10 mg PO DAILY 05/01/19 10/20/19 nifedipine 30 mg tablet,extended 30 mg PO DAILY 07/07/19 10/20/19 release famotidine 40 mg PO DAILY 10/20/19 10/20/19 olmesartan 40 mg PO QPM 10/20/19 10/20/19 Previous Rx's Medication Instructions Recorded Disabled Parking #2 each 09/10/18 omeprazole 20 mg tablet,delayed 20 mg PO QPM #90 tab 10/14/18 release prednisone 1 mg tablet 2 mg PO DAILY #180 tab 07/04/19 prednisone 10 mg tablet 10 mg PO DAILY #100 tab 07/04/19 tramadol 50 mg tablet 50 mg PO Q6H PRN #30 tab 09/01/19 trazodone 100 mg tablet 100 mg PO BEDTIME #90 tab 09/15/19 Allergies Allergy/AdvReac Type Severity Reaction Status Date / Time methocarbamol [METHOCARBAMOL] Allergy Mild RASH/ROBAXI Verified 10/20/19 14:10 N Penicillins [PENICILLINS] Allergy Mild Rash Verified 10/20/19 15:10 piroxicam [PIROXICAM] Allergy Mild RASH/FELDEN Verified 10/20/19 14:10 E ciprofloxacin [CIPROFLOXACIN] AdvReac Severe MUSCLE PAIN Verified 10/20/19 15:10 metoprolol AdvReac Intermediate Dizziness Verified 10/20/19 15:10 nitrofurantoin AdvReac Intermediate Horrible Verified 10/20/19 14:10 Nausea temazepam [TEMAZEPAM] AdvReac Mild NERVOUNESS/ Verified 10/20/19 15:10 RESTORIL Review of Systems Review of Systems ROS Unobtainable: All systems reviewed & are unremarkable except as noted in HPI and below Patient History Medical History Asthma (Chronic) CHF (congestive heart failure) (Resolved) Diverticular disease (Chronic) GERD (gastroesophageal reflux disease) (Chronic) GI bleeding (Chronic 03/2017) H. pylori infection (Chronic) Heart murmur (Chronic) Hyperlipidemia (Chronic) Hypertension (Chronic) NSTEMI (non-ST elevated myocardial infarction) (Inactive) Polymyalgia rheumatica (Chronic) Vitamin B12 deficiency (Acute) Surgical History History of carpal tunnel repair (Resolved) History of cataract removal with insertion of prosthetic lens (Resolved) History of hemicolectomy (Resolved 10/2005) Status post appendectomy (Resolved) Status post arthroscopy (Resolved) Status post cardiac catheterization (Resolved 1998) Status post vaginal hysterectomy (Resolved 1999) Social History household members: children Smoking Status: Former smoker alcohol intake: current substance use type: does not use Smoking Status: Former smoker alcohol intake frequency: a few times a week Substance Use Type: does not use Exam Narrative Exam Narrative: GENERAL: Alert and oriented x three, thin, well nourished elderly female in mild distress. HEENT: Head normocephalic, atraumatic, EOMI, pupils reactive, face symmetric, moist mucous membranes NECK: Supple, full range of motion CARDIOVASCULAR: Regular rate and rhythm without murmurs, rubs or gallops. RESPIRATORY: Breath sounds equal bilaterally, no wheezes rales or rhonchi. ABDOMEN: Soft, nontender. Nondistended. Normoactive bowel sounds all 4 quadrants. No guarding or rebound, rigidity, no mass : No CVA tenderness EXTREMITIES: Normal range of motion, no clubbing or edema. Neurovascularly intact NEUROLOGICAL: Cranial nerves II through XII grossly intact. Moving all extremities SKIN: Warm, dry, no petechiae, no rashes or lesions. Initial Vital Signs Initial Vital Signs: Vital Signs Temperature 98.4 F 10/20/19 14:04 Pulse Rate 113 H 10/20/19 14:04 Respiratory Rate 16 10/20/19 14:04 Blood Pressure 152/70 H 10/20/19 14:04 Pulse Oximetry 97 10/20/19 14:04 Course Orders Ordered: ED Orders 10/20/19 14:13 CT abdomen pelvis w con Stat EKG-12 Lead Stat 10/20/19 16:00 Complete Blood Count AUTO DIFF Stat Comprehensive Metabolic Panel Stat Lipase Stat Partial Thromboplastin Time Stat Prothrombin Time INR Stat Troponin & CK Cardiac Panel Stat Discontinued Medications Sodium Chloride (Normal Saline 0.9%) 1,000 mls @ 1,000 mls/hr IV BOLUS ONE Stop: 10/20/19 15:11 Last Infusion: 10/20/19 19:12 Dose: 0 mls/hr Documented by: Admin: 10/20/19 16:50 Dose: 1,000 mls/hr Documented by: NICKY Vital Signs Vital signs: Vital Signs - 8 hr 10/20/19 14:04 10/20/19 17:12 10/20/19 18:47 Temperature 98.4 F Pulse Rate 113 H 106 H 112 H Respiratory Rate 16 18 18 Blood Pressure 152/70 H Blood Pressure [Left Arm] 138/77 136/67 Pulse Oximetry 97 99 98 MDM - Weakness Lab Data Attestation: I reviewed the patient's lab results. Result diagrams: 10/20/19 16:00 10/20/19 16:00 Labs: Lab Results 10/20/19 10/20/19 10/20/19 Range/Units 16:00 16:00 16:00 WBC 12.3 H (4.5-11.0) X10^3/uL RBC 3.67 L (4.0-5.2) X10^6/uL Hgb 10.0 L (12.0-16.0) g/dL Hct 30.8 L (36-46) % MCV 83.8 (80-100) fL MCH 27.2 (26-34) PG MCHC 32.5 (30-36) % RDW 14.6 (11.6-14.8) % Plt Count 195 (150-400) X10^3/uL Neut % (Auto) 80.2 H (50-75) % Lymph % (Auto) 7.6 L (25-40) % [place] % (Auto) 11.7 (3-14) % Eos % (Auto) 0.2 L (2-4) % Baso % (Auto) 0.3 (0-2) % Neut # (Auto) 9800 H (8231-1129) /uL Lymph # (Auto) 900 L (5091-6369) /uL [place] # (Auto) 1400 H (0-900) /uL Eos # (Auto) 0 (0-450) /uL Baso # (Auto) 0 (0-100) /uL PT 18.4 H (10.1-12.7) SECONDS INR 1.6 H (0.9-1.3) APTT 37 H D (26.4-36.2) SECONDS Sodium 132 L (137-145) mmol/L Potassium 3.7 (3.4-5.1) mmol/L Chloride 96 L (98-107) mmol/L Carbon Dioxide 24 (22-32) mmol/L BUN 15 (7-17) mg/dL Creatinine 1.30 H (0.52-1.04) mg/dL Estimated GFR 39.5 L (>60) mL/min BUN/Creatinine Ratio 11.5 (6-22) Glucose 72 L (80-110) mg/dL Calcium 8.6 (8.4-10.2) mg/dL Total Bilirubin 1.9 H (0.2-1.3) mg/dL AST 22 (14-36) IU/L ALT 8 (<35) IU/L Alkaline Phosphatase 41 (38-126) U/L Total Creatine Kinase (30-135) U/L CK-MB (CK-2) CK-MB (CK-2) Rel Index Troponin I (0.01-0.034) ng/mL Total Protein 6.7 (6.3-8.2) g/dL Albumin 3.6 (3.5-5.0) g/dL Globulin 3.1 (1.7-4.1) g/dL Albumin/Globulin Ratio 1.2 (1.0-2.8) Lipase 27 (23-300) U/L 10/20/19 Range/Units 16:00 WBC (4.5-11.0) X10^3/uL RBC (4.0-5.2) X10^6/uL Hgb (12.0-16.0) g/dL Hct (36-46) % MCV (80-100) fL MCH (26-34) PG MCHC (30-36) % RDW (11.6-14.8) % Plt Count (150-400) X10^3/uL Neut % (Auto) (50-75) % Lymph % (Auto) (25-40) % [place] % (Auto) (3-14) % Eos % (Auto) (2-4) % Baso % (Auto) (0-2) % Neut # (Auto) (1685-9538) /uL Lymph # (Auto) (6618-5731) /uL [place] # (Auto) (0-900) /uL Eos # (Auto) (0-450) /uL Baso # (Auto) (0-100) /uL PT (10.1-12.7) SECONDS INR (0.9-1.3) APTT (26.4-36.2) SECONDS Sodium (137-145) mmol/L Potassium (3.4-5.1) mmol/L Chloride (98-107) mmol/L Carbon Dioxide (22-32) mmol/L BUN (7-17) mg/dL Creatinine (0.52-1.04) mg/dL Estimated GFR (>60) mL/min BUN/Creatinine Ratio (6-22) Glucose (80-110) mg/dL Calcium (8.4-10.2) mg/dL Total Bilirubin (0.2-1.3) mg/dL AST (14-36) IU/L ALT (<35) IU/L Alkaline Phosphatase (38-126) U/L Total Creatine Kinase 55 (30-135) U/L CK-MB (CK-2) TNP CK-MB (CK-2) Rel Index TNP Troponin I 0.066 H (0.01-0.034) ng/mL Total Protein (6.3-8.2) g/dL Albumin (3.5-5.0) g/dL Globulin (1.7-4.1) g/dL Albumin/Globulin Ratio (1.0-2.8) Lipase (23-300) U/L Urine Dip Bedside Urine Glucose Negative Bedside Urine Bilirubin - Negative Bedside Urine Ketone +++ 80 Urine Specific Only 1.020 Bedside Urine Occult Blood - Negative Bedside Urine pH 6.0 Bedside Urine Protein +/- 15 Bedside Urine Urobilinogen - Negative Bedside Urine Nitrite - Negative Bedside Urine Leukocytes - Negative Esterase Imaging Data CT scan - abdomen/pelvis: Radiologist Impression: [address] [address] [address] Scan Report Signed Patient: Michelle Bermeo [facility]#: [id number] : 1940Acct:[id number] Age/Sex: 79 / FDate of Service: 10/20/19 Loc: ED Accession Number: [id number] Procedure: CT abdomen pelvis w con Ordering Provider: Aicha Jaramillo D.O. PROCEDURE: CT ABDOMEN PELVIS W CON INDICATIONS: vomiting, normal BM's. TECHNIQUE: After the administration of intravenous contrast, 5 mm thick sections acquired from the diaphragm to the symphysis. 5 mm coronal and sagittal reformats were acquired. For radiation dose reduction, the following was used: automated exposure control, adjustment of mA and/or kV according to patient size. COMPARISON: [facility], CT, CT ABDOMEN PELVIS W CON, 11/14/2018, 21:16. FINDINGS: Image quality: Excellent. ABDOMEN: Lung bases: There is a small left pleural effusion and minimal dependent atelectasis in the lung bases. Heart size is at the upper limits of normal. Solid organs: There is a small hypodensity within the inferior right hepatic lobe which is too small to characterize but likely represents a cyst. The gallbladder appears within normal limits without calcified gallstones. There is minimal intrahepatic biliary duct dilatation centrally. The extrahepatic ducts appear normal in caliber. No calcified common duct stones. Pancreas enhances normally. No peripancreatic fat stranding or fluid collections. No pancreatic duct dilatation. The spleen is normal in size. No adrenal nodules. Kidneys demonstrate no hydronephrosis. Peritoneum and bowel: Small bowel loops demonstrate normal wall thickness and caliber. There is colonic diverticulosis. There is a short segment of mild colonic wall thickening in the descending colon with mild associated fat stranding and trace fluid in the left paracolic gutter. No intraperitoneal free air. Nodes and vessels: No retroperitoneal or mesenteric adenopathy by size criteria. Aorta and inferior vena cava are normal in size. Miscellaneous: No ventral hernias. PELVIS: Genitourinary: Bladder wall thickness is normal. The uterus is surgically absent. Miscellaneous: No inguinal hernias or adenopathy. Bones: No suspicious bony lesions. No vertebral body compression fractures. IMPRESSION: 1. Colonic diverticulosis with mild segmental colonic wall thickening in the descending colon associated with mild faster and trace free fluid suggestive of mild diverticulitis or colitis. No evidence of diverticular abscess or macroscopic free air. Dictated by: Brown Zepeda M.D. on 10/20/2019 at 18:28 Approved by: Brown Zepeda M.D. on 10/20/2019 at 18:34 ECG Data Attestation: I personally reviewed and interpreted this ECG as follows: Prior ECG tracings: available for review Interpretation: AFib with rapid of regular response rate of 107 QRS of 123 and QTC of 420. Patient has some ST depression in 1 and aVL. No noted other leads. Elevation is not appreciated. Patient has left axis deviation. She has a prior EKG from 05/01/2019 which showed inverted T-waves in 3 and AVF which are not present today but EKG from 02/16 does show upright T-waves. Patient's depression is also noted in 1 and aVL on some prior EKG. [facility] Narrative Medical decision making narrative: Patient comes in with recent vomiting as well as some nausea. She does not any chest pain or shortness of breath but with her extensive cardiac history troponin was included in her workup. EKG shows fairly similar ST changes to old EKGs except for April 2019 when patient was transferred for an NSTEMI. Patient has a mildly elevated white count, CT shows maybe mild diverticulitis. Hemoglobin appears stable. Troponin is indeterminate normal range without any symptoms at this time. EKG does not show any new changes. Patient is positive for ketones with no infectious changes. Patient has had weakness and she does have ketones she is likely dehydrated. She does not appear to have any acute cardiac events. I spoke with Dr. Bernstein who is covering for her primary care and plan for observation to start antibiotics this evening and re-evaluate in the morning. Patient has allergy to and states penicillins when asked specifically about penicillins she is not sure if she truly has 1 but it says rash and mild under her allergy list. Discharge Plan Departure Patient Disposition: Admitted as Observation Clinical Impression: Diverticulitis, Weakness Referrals: Mary Trejo MD [Primary Care Provider] -
[2019-10-20 14:04] VITALS: BP 152/70; PULSE 113; RESP 16; TEMP 36.9; O2SAT 97; BMI 21.7
--- NOTE | 2019-10-20 14:13 | DI.CT.S_ITS ---
PROCEDURE: CT ABDOMEN PELVIS W CON INDICATIONS: vomiting, normal BM's. TECHNIQUE: After the administration of intravenous contrast, 5 mm thick sections acquired from the diaphragm to the symphysis. 5 mm coronal and sagittal reformats were acquired. For radiation dose reduction, the following was used: automated exposure control, adjustment of mA and/or kV according to patient size. COMPARISON: [facility], CT, CT ABDOMEN PELVIS W CON, 11/14/2018, 21:16. FINDINGS: Image quality: Excellent. ABDOMEN: Lung bases: There is a small left pleural effusion and minimal dependent atelectasis in the lung bases. Heart size is at the upper limits of normal. Solid organs: There is a small hypodensity within the inferior right hepatic lobe which is too small to characterize but likely represents a cyst. The gallbladder appears within normal limits without calcified gallstones. There is minimal intrahepatic biliary duct dilatation centrally. The extrahepatic ducts appear normal in caliber. No calcified common duct stones. Pancreas enhances normally. No peripancreatic fat stranding or fluid collections. No pancreatic duct dilatation. The spleen is normal in size. No adrenal nodules. Kidneys demonstrate no hydronephrosis. Peritoneum and bowel: Small bowel loops demonstrate normal wall thickness and caliber. There is colonic diverticulosis. There is a short segment of mild colonic wall thickening in the descending colon with mild associated fat stranding and trace fluid in the left paracolic gutter. No intraperitoneal free air. Nodes and vessels: No retroperitoneal or mesenteric adenopathy by size criteria. Aorta and inferior vena cava are normal in size. Miscellaneous: No ventral hernias. PELVIS: Genitourinary: Bladder wall thickness is normal. The uterus is surgically absent. Miscellaneous: No inguinal hernias or adenopathy. Bones: No suspicious bony lesions. No vertebral body compression fractures. IMPRESSION: 1. Colonic diverticulosis with mild segmental colonic wall thickening in the descending colon associated with mild faster and trace free fluid suggestive of mild diverticulitis or colitis. No evidence of diverticular abscess or macroscopic free air. Dictated by: Brown Zepeda M.D. on 10/20/2019 at 18:28 Approved by: Brown Zepeda M.D. on 10/20/2019 at 18:34
[2019-10-20 16:26] LABS: Add Manual Diff / Slide Review NO; Basophils Absolute Auto 0 /uL (0-100); Basophils Percent Auto 0.3 % (0-2); Eosinophils Absolute Auto 0 /uL (0-450); Eosinophils Percent Auto 0.2 % (2-4); Hematocrit 30.8 % (36-46); Lymphocytes Absolute Auto 900 /uL (1100-4500); Lymphocytes Percent Auto 7.6 % (25-40); Mean Corpuscular HGB Conc 32.5 % (30-36); Mean Corpuscular Hemoglobin 27.2 PG (26-34); Mean Corpuscular Volume 83.8 fL (80-100); Monocytes Absolute Auto 1400 /uL (0-900); Monocytes Percent Auto 11.7 % (3-14); Neutrophils Absolute Auto 9800 /uL (1500-7000); Neutrophils Percent Auto 80.2 % (50-75); Platelet Count 195 X10^3/uL (150-400); Red Blood Cell Count 3.67 X10^6/uL (4.0-5.2); Red Cell Distribution Width 14.6 % (11.6-14.8); White Blood Cell Count 12.3 X10^3/uL (4.5-11.0)
[2019-10-20 16:38] LABS: INR 1.6 (0.9-1.3); Prothrombin Time 18.4 SECONDS (10.1-12.7)
[2019-10-20 16:40] LABS: Creatine Kinase 55 U/L (30-135); PTT Partial Thromboplastin Tim 37 SECONDS (26.4-36.2)
[2019-10-20 16:42] LABS: Alanine Aminotransferase 8 IU/L (<35); Albumin 3.6 g/dL (3.5-5.0); Albumin Globulin Ratio 1.2 (1.0-2.8); Alkaline Phosphatase 41 U/L (38-126); Aspartate Aminotransferase 22 IU/L (14-36); BUN Creatinine Ratio 11.5 (6-22); Bilirubin Total 1.9 mg/dL (0.2-1.3); Blood Urea Nitrogen 15 mg/dL (7-17); Calcium 8.6 mg/dL (8.4-10.2); Carbon Dioxide 24 mmol/L (22-32); Chloride 96 mmol/L (98-107); Estimated Glomerular Filt Rate 39.5 mL/min (>60); Globulin 3.1 g/dL (1.7-4.1); Glucose 72 mg/dL (80-110); HEMOLYSIS < 15 (0-50); Lipase 27 U/L (23-300); Potassium 3.7 mmol/L (3.4-5.1); Sodium 132 mmol/L (137-145); Total Protein 6.7 g/dL (6.3-8.2)
[2019-10-20] MEDS: SODIUM CHLORIDE 0.9% 1,000 ML 1000 ML IV (16:50)
[2019-10-20 16:53] LABS: Troponin I 0.066 ng/mL (0.01-0.034)
[2019-10-20 17:12] VITALS: BP 138/77; PULSE 106; RESP 18; O2SAT 99
[2019-10-20 18:47] VITALS: BP 136/67; PULSE 112; RESP 18; O2SAT 98
[2019-10-20] MEDS: CEFTRIAXONE 1 GM/50 ML FROZ.PIGGY IV (20:16)
[2019-10-20] MEDS: metroNIDAZOLE 500 MG/100 ML PIGGYBACK 100 MG IV (21:07)
[2019-10-20] MEDS: ACETAMINOPHEN 325 MG TABLET 650 MG PO (21:22)
[2019-10-20] MEDS: ONDANSETRON 4 MG/2 ML INJ IV (21:23)
--- NOTE | 2019-10-20 21:49 | PC.NURSE ---
flagyl to continue in acute care
[2019-10-20 22:00] VITALS: BP 120/67; PULSE 108; RESP 20; TEMP 37.2; O2SAT 97
[2019-10-20 22:24] VITALS: BMI 21.7
[2019-10-20] MEDS: APIXABAN 5 MG TABLET PO (22:37)
[2019-10-20] MEDS: DEXTROSE 5%-0.45% NS 1,000 ML 100 ML IV (22:40)
[2019-10-20 23:00] VITALS: O2SAT 96
[2019-10-20 23:50] VITALS: BP 100/65; PULSE 90; RESP 18; TEMP 36.2; O2SAT 96
[2019-10-20] MEDS: TRAZODONE 100 MG TABLET PO (23:52)
[2019-10-21] VITALS (7 sets, daily range): BP systolic 94–140; BP diastolic 52–75; PULSE 84–96; RESP 16–20; TEMP 36.1–37.3; O2SAT 95–99
[2019-10-21] MEDS: DEXTROSE 5%-0.45% NS 1,000 ML 100 ML IV ×2 (06:37→16:21)
--- NOTE | 2019-10-21 08:33 | PM.HP.1 ---
History of Present Illness History of Present Illness Date Patient Seen: 10/21/19 Time Patient Seen: 08:10 Chief complaint: weakness Narrative: Pt is a 79yo woman with PMR, atrial fibrillation, hx of diverticulitis, hx of NSTEMI, CKD, HTN, and chronic anemia who presented with significant weakness. The pt reports that on the evening of 10/17 she started to feel very nauseous and weak. Then, on 10/18 she had multiple episodes of emesis. This continued into 10/19. Her weakness worsened, to the point that she wasn't really able to get out of bed. She ate very little to nothing for over a day. The emesis resolved the evening of 10/19, but the nausea persisted. Yesterday, when her son came to visit, he found her at home too weak to move. He had to help her scoot down the stairs on her bottom. She was brought to the ER for further evaluation. The pt denies any recent abdominal pain, diarrhea, fevers, chills, chest pain, SOB. Her emesis was nonbilious and had no blood in it. Prior to the nausea, emesis, and weakness, her PMR had flared significantly. She continues to have significant joint pain, that is much worse than usual for her. Patient History Medical History Asthma (Chronic) CHF (congestive heart failure) (Resolved) Diverticular disease (Chronic) GERD (gastroesophageal reflux disease) (Chronic) GI bleeding (Chronic 03/2017) H. pylori infection (Chronic) Heart murmur (Chronic) Hyperlipidemia (Chronic) Hypertension (Chronic) NSTEMI (non-ST elevated myocardial infarction) (Inactive) Polymyalgia rheumatica (Chronic) Vitamin B12 deficiency (Acute) Surgical History History of carpal tunnel repair (Resolved) History of cataract removal with insertion of prosthetic lens (Resolved) History of hemicolectomy (Resolved 10/2005) Status post appendectomy (Resolved) Status post arthroscopy (Resolved) Status post cardiac catheterization (Resolved 1998) Status post vaginal hysterectomy (Resolved 1999) Family & Social History Social History: household members children Prior Living Arrangements House Safety & Behavioral: Feels Safe in Current Yes Environment Been Physically Hurt or No Threatened By a Person Suicidal Ideation Description None Suicide Plan Description No Plan Tobacco & Substance use: Tobacco type cigarettes Smoking Status Former smoker alcohol intake current alcohol intake frequency holiday/special occasion Substance Use Type does not use Meds Home Medications and Allergies Home Medications Medication Instructions Recorded Confirmed Type ibuprofen [Advil] 200 mg PO PRN PRN 07/15/18 10/20/19 History Disabled Parking #2 each 09/10/18 10/20/19 Rx omeprazole 20 mg tablet,delayed 20 mg PO QPM #90 tab 10/14/18 10/20/19 Rx release apixaban [Eliquis] 5 mg PO BID 02/16/19 10/20/19 History nebivolol [Bystolic] 10 mg PO DAILY 05/01/19 10/20/19 History prednisone 1 mg tablet 2 mg PO DAILY #180 tab 07/04/19 10/20/19 Rx prednisone 10 mg tablet 10 mg PO DAILY #100 tab 07/04/19 10/20/19 Rx nifedipine 30 mg tablet,extended 30 mg PO DAILY 07/07/19 10/20/19 History release tramadol 50 mg tablet 50 mg PO Q6H PRN #30 tab 09/01/19 10/20/19 Rx trazodone 100 mg tablet 100 mg PO BEDTIME #90 tab 09/15/19 10/20/19 Rx famotidine 40 mg PO DAILY 10/20/19 10/20/19 History olmesartan 40 mg PO QPM 10/20/19 10/20/19 History Allergies Allergy/AdvReac Type Severity Reaction Status Date / Time methocarbamol [METHOCARBAMOL] Allergy Mild RASH/ROBAXI Verified 10/20/19 14:10 N Penicillins [PENICILLINS] Allergy Mild Rash Verified 10/20/19 15:10 piroxicam [PIROXICAM] Allergy Mild RASH/FELDEN Verified 10/20/19 14:10 E ciprofloxacin [CIPROFLOXACIN] AdvReac Severe MUSCLE PAIN Verified 10/20/19 15:10 metoprolol AdvReac Intermediate Dizziness Verified 10/20/19 15:10 nitrofurantoin AdvReac Intermediate Horrible Verified 10/20/19 14:10 Nausea temazepam [TEMAZEPAM] AdvReac Mild NERVOUNESS/ Verified 10/20/19 15:10 RESTORIL Review of Systems Constitutional Constitutional: Denies chills, Reports fatigue, Denies fever(s), Reports lack of energy, Reports poor appetite and Reports weakness ENT Ears, Nose, Mouth, and Throat: No ear pain, No nasal congestion, Yes neck pain, No sinus pressure and No sore throat Cardiovascular Cardiovascular: Denies chest pain, Denies generalize swelling, Denies rapid, pounding, or irregular heartbeat and Denies shortness of breath Respiratory Respiratory: Denies cough, Denies dyspnea and Denies wheezing Gastrointestinal Gastrointestinal: Denies abdominal pain, Denies melena, Denies hematochezia, Denies change in bowel habits, Denies constipation, Denies loose stools, Reports nausea, Reports vomiting and Denies hematemesis Genitourinary Genitourinary: Denies hematuria and Denies urinary frequency Musculoskeletal Musculoskeletal: Denies abnormal gait, Reports back pain, Reports arthralgias, Reports neck pain and Reports stiffness Neurologic Neurologic: Denies abnormal gait, Denies focal weakness and Reports weakness Endocrine Endocrine: Reports fatigue and Denies palpitations Allergic/Immunologic Allergic/Immunologic: Denies wheezing Exam Vital Signs (past 8 hours): - 10/21/19 03:40 10/21/19 08:25 Temperature 99.2 F 98.5 F Pulse Rate 88 96 H Respiratory Rate 16 16 Blood Pressure 128/70 140/75 Pulse Oximetry 99 97 Oxygen Delivery Method Room Air Oxygen Flow Rate 0 Narrative Exam Narrative: GEN - alert, cooperative and no distress, appears very fatigued HEENT - normocephalic and atraumatic, sclera white, moist mucus membranes NECK - FROM, no adenopathy, no JVD HEART - RRR, S1, S2 normal, no S3 or S4, grade 2/6 systolic murmur LUNGS - symmetric chest rise, no accessory muscles, clear to auscultation bilaterally ABD - flat, nondistended, normal bowel sounds, soft, nontender and no hepatomegaly, splenomegaly or masses EXT - no cyanosis, clubbing or edema SKIN - no rashes or suspicious lesions NEURO - no gross deficits Objective Labs Result Diagrams: 10/20/19 16:00 10/20/19 16:00 Labs: Laboratory Results - last 24 hr 10/20/19 10/20/19 10/20/19 16:00 16:00 16:00 WBC 12.3 H RBC 3.67 L Hgb 10.0 L Hct 30.8 L MCV 83.8 MCH 27.2 MCHC 32.5 RDW 14.6 Plt Count 195 Neut % (Auto) 80.2 H Lymph % (Auto) 7.6 L [place] % (Auto) 11.7 Eos % (Auto) 0.2 L Baso % (Auto) 0.3 Neut # (Auto) 9800 H Lymph # (Auto) 900 L [place] # (Auto) 1400 H Eos # (Auto) 0 Baso # (Auto) 0 PT 18.4 H INR 1.6 H APTT 37 H D Sodium 132 L Potassium 3.7 Chloride 96 L Carbon Dioxide 24 BUN 15 Creatinine 1.30 H Estimated GFR 39.5 L BUN/Creatinine Ratio 11.5 Glucose 72 L Calcium 8.6 Total Bilirubin 1.9 H AST 22 ALT 8 Alkaline Phosphatase 41 Total Creatine Kinase CK-MB (CK-2) CK-MB (CK-2) Rel Index Troponin I Total Protein 6.7 Albumin 3.6 Globulin 3.1 Albumin/Globulin Ratio 1.2 Lipase 27 10/20/19 16:00 WBC RBC Hgb Hct MCV MCH MCHC RDW Plt Count Neut % (Auto) Lymph % (Auto) [place] % (Auto) Eos % (Auto) Baso % (Auto) Neut # (Auto) Lymph # (Auto) [place] # (Auto) Eos # (Auto) Baso # (Auto) PT INR APTT Sodium Potassium Chloride Carbon Dioxide BUN Creatinine Estimated GFR BUN/Creatinine Ratio Glucose Calcium Total Bilirubin AST ALT Alkaline Phosphatase Total Creatine Kinase 55 CK-MB (CK-2) TNP CK-MB (CK-2) Rel Index TNP Troponin I 0.066 H Total Protein Albumin Globulin Albumin/Globulin Ratio Lipase Assessment & Plan Assessment & Plan narrative: Pt is a 79yo woman with PMR, atrial fibrillation, hx of diverticulitis, hx of NSTEMI, CKD, HTN, and chronic anemia who presented with significant weakness and nausea. CT scan completed in the ER showed mild diverticulitis vs colitis. 1) Diverticulitis vs colitis: Most likely cause of decreased appetite, nausea, however unusual that no associated abdominal pain or loose stools. H/H stable. - Contine Ceftriaxone and Metronidazole - Continue mIVF - Full liquid diet for now - Zofran for nausea 2) Weakness: Most likely due to decreased PO intake in addition to chronic deconditioning - Pt does not feel ready for PT/OT eval today, plan to have them see her tomorrow 3) PMR: With recent flare in symptoms - Increase Prednisone to 15mg daily - Tramadol PRN as at home 4) HTN, Atrial Fibrillation: - Continue home medications with Olmesartan, Eliquis, Nifedipine, Bystolic Code: Full Diet: Full liquid DVT Ppx: On Eliquis Dispo: Pending tolerating diet, improvement in nausea, weakness improving. May need brief stay in SNF after d/c. Anticipate 2 midnights.
[2019-10-21] MEDS: predniSONE 1 MG TABLET 2 MG PO (09:10)
[2019-10-21] MEDS: NIFEdipine 30 MG TAB ER PO (09:10)
[2019-10-21] MEDS: NEBIVOLOL 10 MG TABLET PO (09:10)
[2019-10-21] MEDS: CEFTRIAXONE 1 GM/50 ML FROZ.PIGGY IV ×2 (09:13→20:35)
[2019-10-21] MEDS: APIXABAN 5 MG TABLET PO ×2 (09:14→20:36)
[2019-10-21] MEDS: predniSONE 10 MG TABLET PO (09:14)
[2019-10-21] MEDS: ACETAMINOPHEN 325 MG TABLET 650 MG PO ×2 (09:14→15:57)
--- NOTE | 2019-10-21 09:28 | PC.NURSE ---
pt. stated she has no appetite.
[2019-10-21] MEDS: predniSONE 1 MG TABLET 3 MG PO (13:05)
[2019-10-21] MEDS: metroNIDAZOLE 500 MG/100 ML PIGGYBACK 100 MG IV ×2 (15:54→22:13)
[2019-10-21] MEDS: PANTOPRAZOLE 20 MG TABLET PO (15:59)
[2019-10-21] MEDS: TRAZODONE 100 MG TABLET PO (22:13)
[2019-10-21] MEDS: TRAMADOL 50 MG TABLET PO (22:16)
--- NOTE | 2019-10-21 23:52 | PC.NURSE ---
Evening note: Michelle is dozing occasionally, arouses to voice, oriented x 3 and situation. Reports all over body pains from polymyalgia, medicated with Tramadol. BP's low, 93/51 and retaken at 89/52. Patient denies feeling dizzy or lightheaded. I noticed she had a tupperware with 6 pill bottles on her bedside table. I asked her if she had taken any medications on her own, she said no--I wouldn't do that. I know better. My son was supposed to take those home. Meds now locked up in pharmacy. I notified Dr Trejo of low BP's and meds in room, she gave orders that if patient's SBP drops further & consistently in the low 80's, to give her a 1 time bolus of 250 ml NS. Order entered as communcation order. Patient still weak, able to feed self, can assist in repositioning. Has voided x 2 via bedpan. IVF continue to infuse at 100 ml/hour with no difficulty, IV antibiotics intermittent. Midline drsg to LUE is CDI. Pt with very poor appetite, refusing most of meal, did accept sorbet later tonight, refusing Ensure. Encouraged PO intake. Fall precautions in place, alarm active for safety.
[2019-10-22] VITALS (9 sets, daily range): BP systolic 92–110; BP diastolic 51–71; PULSE 63–95; RESP 18–20; TEMP 36.3–36.8; O2SAT 96–99
[2019-10-22] MEDS: metroNIDAZOLE 500 MG/100 ML PIGGYBACK 100 MG IV ×4 (02:49→22:34)
[2019-10-22] MEDS: DEXTROSE 5%-0.45% NS 1,000 ML 100 ML IV ×2 (04:42→18:56)
[2019-10-22] MEDS: TRAMADOL 50 MG TABLET PO ×2 (05:24→14:57)
[2019-10-22 05:37] LABS: Add Manual Diff / Slide Review NO; Basophils Absolute Auto 0 /uL (0-100); Basophils Percent Auto 0.2 % (0-2); Eosinophils Absolute Auto 0 /uL (0-450); Eosinophils Percent Auto 0.1 % (2-4); Hematocrit 25.1 % (36-46); Hemoglobin 8.5 g/dL (12.0-16.0); Lymphocytes Absolute Auto 500 /uL (1100-4500); Mean Corpuscular Hemoglobin 27.9 PG (26-34); Mean Corpuscular Volume 82.3 fL (80-100); Monocytes Absolute Auto 800 /uL (0-900); Monocytes Percent Auto 9.6 % (3-14); Neutrophils Absolute Auto 7300 /uL (1500-7000); Neutrophils Percent Auto 84.1 % (50-75); Platelet Count 172 X10^3/uL (150-400); Red Blood Cell Count 3.05 X10^6/uL (4.0-5.2); Red Cell Distribution Width 14.7 % (11.6-14.8); White Blood Cell Count 8.6 X10^3/uL (4.5-11.0)
[2019-10-22 05:45] LABS: BUN Creatinine Ratio 9.1 (6-22); Blood Urea Nitrogen 10 mg/dL (7-17); Carbon Dioxide 22 mmol/L (22-32); Chloride 99 mmol/L (98-107); Estimated Glomerular Filt Rate 47.9 mL/min (>60); Glucose 172 mg/dL (80-110); HEMOLYSIS < 15 (0-50); Potassium 3.2 mmol/L (3.4-5.1); Sodium 130 mmol/L (137-145)
[2019-10-22 05:56] LABS: Calcium 7.2 mg/dL (8.4-10.2)
--- NOTE | 2019-10-22 08:09 | P.PN_ITS ---
Subjective Subjective Date Patient Seen: 10/22/19 Time Patient Seen: 07:50 Interval history: This morning the pt reports that her nausea has resolved. She continues to deny and abdominal pain or diarrhea. She doesn't have any appetite, and ate very little yesterday. She states that her joint pain is slightly improved from previously. Exam Vital Signs (past 8 hours): - 10/22/19 03:59 Temperature 97.9 F Pulse Rate 63 Respiratory Rate 20 Blood Pressure 92/60 Pulse Oximetry 97 Oxygen Delivery Method Room Air Oxygen Flow Rate 0 Narrative Exam Narrative: Gen: NAD, laying in bed, appears fatigued CV: RRR, grade 2/6 systolic murmur Resp: clear to auscultation bilaterally Abd: soft, nontender, nondistended, normoactive bowel sounds Ext: no edema Objective Labs Result Diagrams: 10/22/19 05:18 10/22/19 05:18 Labs: Laboratory Results - last 24 hr 10/22/19 10/22/19 05:18 05:18 WBC 8.6 RBC 3.05 L Hgb 8.5 L Hct 25.1 L MCV 82.3 MCH 27.9 MCHC 34.0 RDW 14.7 Plt Count 172 Neut % (Auto) 84.1 H Lymph % (Auto) 6.0 L [place] % (Auto) 9.6 Eos % (Auto) 0.1 L Baso % (Auto) 0.2 Neut # (Auto) 7300 H Lymph # (Auto) 500 L [place] # (Auto) 800 Eos # (Auto) 0 Baso # (Auto) 0 Sodium 130 L Potassium 3.2 L Chloride 99 Carbon Dioxide 22 BUN 10 Creatinine 1.10 H Estimated GFR 47.9 L BUN/Creatinine Ratio 9.1 Glucose 172 H D Calcium 7.2 L Assessment & Plan Assessment & Plan narrative: Pt is a 79yo woman with PMR, atrial fibrillation, hx of diverticulitis, hx of NSTEMI, CKD, HTN, and chronic anemia who presented with significant weakness and nausea. CT scan completed in the ER showed mild diverticulitis vs colitis. 1) Diverticulitis vs colitis: Most likely cause of decreased appetite, nausea, however unusual that no associated abdominal pain or loose stools. H/H with slight drop, likely dilutional. - Contine Ceftriaxone and Metronidazole - Continue mIVF - Full liquid diet for now - Zofran for nausea - Encouraged PO intake 2) Weakness: Most likely due to decreased PO intake in addition to chronic deconditioning. Chronic anemia potentially contributing as well. - PT/OT consulted today 3) PMR: With recent flare in symptoms - ContinuePrednisone to 15mg daily - Tramadol PRN as at home 4) HTN, Atrial Fibrillation: - Continue home medications with Olmesartan, Eliquis, Nifedipine, Bystolic. Will hold antihypertensives this morning due to relative hypotension. Code: Full Diet: Full liquid DVT Ppx: On Eliquis Dispo: Pending tolerating diet, weakness improving. May need brief stay in SNF after d/c.
[2019-10-22] MEDS: CEFTRIAXONE 1 GM/50 ML FROZ.PIGGY IV ×2 (08:51→20:37)
[2019-10-22] MEDS: predniSONE 10 MG TABLET PO (08:51)
[2019-10-22] MEDS: APIXABAN 5 MG TABLET PO ×2 (08:51→20:37)
[2019-10-22] MEDS: predniSONE 5 MG TABLET PO (08:52)
--- NOTE | 2019-10-22 11:07 | PT-IP ANOTE ---
pt refused PT sheri stated that she has not slept for 2 days and wants to rest and sleep. will check on pt in the afternoon and pt agreed.
--- NOTE | 2019-10-22 11:47 | CM.DANOTE ---
Addendum entered by Rizwana Mehta R.N. 10/22/19 16:13: Patient provider Dr. Trejo stopped by CM office and requested patient go to SNF for a few days. Patient was OBS and was not able to go to SNF placement due to not having three midnights for medicare. patient provider then agree for patient to get HH services to help build strength when she D/C home. Face to face was signed and [facility] was contacted to review patient for HH services. Patient was later today made into IP status and department will follow up with patient tomorrow 10/23/2019 about SNF options VS HH. Rizwana Mehta RN Original Note: DCP Assessment: EMR Reviewed: Patient was lying quietly in bed. Introduced self and role. Patient alert and oriented x3 but states feels very tired and did not sleep well last night. Patient reports lives at home with her son, Will, who does not work and is at home with her instrument worker. Patient admitted for weakness and severe nausea on 10/20/2019. PCP Dr. Trejo. Patient reports being independent with ADLs, driving self, and denies any use of DME. Patient reports her son Will is a big help and can offer her any support needed at home after discharge. Patient states she wants to go home. OT/PT pending at this time. I: Medicare/AARP P: DC home with son Will. Patient denies need for any other resources at this time. Care management will continue to monitor and adjust plan as needed pending PT/OT evaluations.. SN Rizwana Tang RN Discharge Planning/Care Management Discharge Assessment Start: 10/22/19 11:45 Freq: Status: Active Protocol: Document 10/22/19 11:45 HS (Rec: 10/22/19 11:47 HS [id number]) Discharge Planning Assessment Assigned Wellness Specialist Rizwana Mehta RN/SN [place] Advance Directives? Yes Advance Directives on File Yes History Provided By Patient,Medical Record Has Patient been admitted in last 30 No days? Prior Living Arrangements House Household Members children Type of transporation used prior to Drives own vehicle admit Independent with ADL's Yes Is patient alert and oriented? Yes Caregiver for Another No Barriers to Discharge No Discharge Plan Home Transportation Arrangement Son Additional Comment Home Health may be an option for patient, will be determined by progress in hospital Whiteboard Updated in Patient Room with Yes name and ext. # of Wellness Specialist Review Status In Process Next Review Type Continued Stay Review
--- NOTE | 2019-10-22 13:23 | PT.IIE ---
Surgical History (Last Reviewed 10/20/19 @ 14:22 by Aicha Jaramillo DO) History of carpal tunnel repair (Resolved) History of cataract removal with insertion of prosthetic lens (Resolved) History of hemicolectomy (Resolved 10/2005) Status post appendectomy (Resolved) Status post arthroscopy (Resolved) Status post cardiac catheterization (Resolved 1998) Status post vaginal hysterectomy (Resolved 1999) Medical History (Last Reviewed 10/20/19 @ 14:22 by Aicha Jaramillo DO) Asthma (Chronic) CHF (congestive heart failure) (Resolved) Diverticular disease (Chronic) GERD (gastroesophageal reflux disease) (Chronic) GI bleeding (Chronic 03/2017) H. pylori infection (Chronic) Heart murmur (Chronic) Hyperlipidemia (Chronic) Hypertension (Chronic) NSTEMI (non-ST elevated myocardial infarction) (Inactive) Polymyalgia rheumatica (Chronic) Vitamin B12 deficiency (Acute) Physical Therapy Inpatient Evaluation/Re-Eval M1 PT/OT-IP Prior Functional Status Start: 10/22/19 15:13 Freq: NEEDED Status: Active Protocol: Document 10/22/19 15:13 [facility] (Rec: 10/22/19 15:37 [facility] [id number]) Medical Review Prior Functional Status Medical History Reviewed Yes Diet/Fluid Consistency Full Liquids Communication Independent. Mobility and Gait Per pt independent with occasional use of SPC when her right hip flares up. Activities of Daily Living and IADL's Pt states completely independenet with ADL's, IADl' s, mows the lawn, yard word, droves, cooks , and does her own meds and finances. Pt states keeps a BSC upstairs by her bed due to the bathroom is located downstairs. Prior Functional Level (Other details) Pt states her son is home all the time to assist with her needs. Social History Household Members children Living Arrangements House Number of Floors (Floors) Two Floors Number of Stairs To Enter/Railing? 13 steps, right rail going up. Home Environment High Toilet,Tub/Shower,Ramp Home Equipment Front Wheel Walker,Four Wheel Walker,Straight Cane,Bedside Commode,Shower Seat with Backrest,Hand Held Shower,Bed Rails,Grab Bars Near Toilet, Grab Bars In Shower M1 PT/OT-IP Prior Functional Status Start: 10/22/19 16:50 Freq: NEEDED Status: Active Protocol: Document 10/22/19 13:23 AB (Rec: 10/22/19 17:05 [id number]) Medical Review Prior Functional Status Medical History Reviewed Yes Diet/Fluid Consistency Full Liquids Communication able to make needs known Mobility and Gait pt stated that she is modified independent with all mobilities and ambulation without AD but occasionally uses a SPC depending on hip pain Activities of Daily Living and IADL's per OT's note: Pt states completely independenet with ADL's, IADl's, mows the lawn, yard work, drives, cooks , and does her own meds and finances. Pt states that she keeps a BSC upstairs by her bed due to the bathroom is located downstairs. Social History Household Members children Living Arrangements House Number of Floors (Floors) Two Floors Number of Stairs To Enter/Railing? pt has a ramp to enter has 13 steps with R rail ascending to get to 2nd level bedroom Home Environment High Toilet,Tub/Shower,Ramp Home Equipment Front Wheel Walker,Four Wheel Walker,Straight Cane,Crutches, Bedside Commode,Shower Seat without Backrest,Hand Held Shower,Bed Rails,Grab Bars Near Toilet,Grab Bars In Shower Additional Social History Comment Son can assist pt M2 PT-IP Current Condition Start: 10/22/19 16:50 Freq: NEEDED Status: Active Protocol: Document 10/22/19 13:23 AB (Rec: 10/22/19 17:05 [id number]) Physical Therapy Current Condition Current Condition Evaluation Date 10/22/19 Treatment Diagnosis diverticulitis; weakness Onset Date 10/20/2019 M3 PT-IP Subjective Start: 10/22/19 16:50 Freq: NEEDED Status: Active Protocol: Document 10/22/19 13:23 AB (Rec: 10/22/19 17:05 [id number]) Subjective Physical Therapy Visit Type Type Initial Evaluation Visit Start Time 13:23 Visit Stop Time 13:47 Total Visit Minutes 24 Number of DONOR RECRUITER Visits 0 Physical Therapy Visit Comments Patient Comments c/o feeling tired and has not gotten any sleep Therapy Pain Assessment Pain When Pain Assessed At Rest Pain Present Pain Present Pain Reported Location Right Hip Intensity 4 Generalized Intensity 4 Scale Used stated due to her PMR Pain Management Techniques Re-positioning,Timing of Activity with Medications M4 PT-IP Mobility and Gait Start: 10/22/19 16:50 Freq: NEEDED Status: Active Protocol: Document 10/22/19 13:23 AB (Rec: 10/22/19 17:05 AB [id number]) PT-Bed Mobility Assessment Supine to Sit Supine to Sit Standby Assistance Sit to Supine Sit to Supine Standby Assistance Scooting Scooting to Edge of Bed Standby Assistance PT-Transfer Assessment Sit to and From Stand Sit to and from Stand Minimal Assistance,1 Person Assistance,Use of Upper Extremities Equipment Transfer Assistive Device Gait Belt,Front Wheeled Walker Orthotic/Prosthetic Devices or Brace: No Comments Mobility Comments pt hesistant to participate but agreed to do some PT. completed supine to sit SBA and cues. completed sit to stand min A. has increase posterior trunk leaning and requires cues to lean forward and to maintain sitting balance. was able to ambulate ~ 5 ft using FWW min A and cues. pt wants to go back to bed and completed sit to supine SBA and cues. Left pt with OT. Gait Assessment Gait Gait Assistance Required: Minimum Assistance,1 Person Assist Distance (Feet) 5 Able to Maintain Weight Bearing Status Yes During Gait Assistive Devices Assistive Device Gait Belt,Front Wheeled Walker Orthotic/Prosthetic Devices or Brace: No Gait Deviations General Gait Pattern Antalgic,Decreased Stride Length,Decreased Feet Clearance,Lateral Trunk Lean Factors Limiting Gait Function Factors Limiting Gait Function Decreased Activity Tolerance, Decreased Strength,Difficulty Following Directions,Limited Range of Motion,Pain,Poor Balance,Poor Safety Awareness PT-Balance Assessment Sitting Balance and Reactions Static Sitting Balance Ability Good Dynamic Sitting Balance Ability Fair Standing Balance and Reactions Static Standing Balance Ability Fair Dynamic Standing Balance Ability Poor Device Used FWW M5 PT-IP Objective Assessments Start: 10/22/19 16:50 Freq: NEEDED Status: Active Protocol: Document 10/22/19 13:23 AB (Rec: 10/22/19 17:05 AB [id number]) Orientation Orientation/Cognition Level of Alertness Alert Orientation Name,Place,Situation Safety Awareness Decreased Safety Awareness Memory Description Short Term Impaired Gross Range of Motion Lower Extremity ROM Assessment Within Functional Limits Strength Lower Extremity Strength Assessment Within Functional Limits Sensation Assessment Sensation Gross Sensation WNL Muscle Tone Muscle Tone WNL Yes M6 PT-IP Treatment Start: 10/22/19 16:50 Freq: NEEDED Status: Active Protocol: Document 10/22/19 13:23 AB (Rec: 10/22/19 17:05 AB [id number]) Physical Therapy Treatment Education Education Provided Safety M7 PT-IP Assessment and Plan Start: 10/22/19 16:50 Freq: NEEDED Status: Active Protocol: Document 10/22/19 13:23 AB (Rec: 10/22/19 17:05 AB [id number]) PT Summary Assessment and Plan Potential Rehabilitation Potential Fair Status of Condition at Evaluation Stable Summary Impairments Pain,ROM,Strength,Balance, Coordination,Sensation,Tone, Cognition,Bed Mobility, Transfers,Gait,Activity Tolerance Assessment Summary pt requiring min A with trnasfers and ambulation using FWW but unable to tolerate much activity with c/o feeling tired. d/c plan depending if pt's son will be able to provide necessary assistance to pt. pt may require homehealth PT if pt goes home. will have to conduct caregiver training and stair training when appropriate. Goals Bed Mobility Goal Standby Assistance Transfer Goal Standby Assistance,Front Wheeled Walker Gait Goal Standby Assistance,Front Wheel Walker Gait Distance 150 Other Goals up/down 13 steps R rail ascending SBA Days to Meet Goals 5 Frequency of Treatment Frequency Of Treatment Twice a Day Treatment Plan Physical Therapy Treatment Plan Bed Mobility Training,Transfer Training,Gait Training, Therapeutic Exercise,Balance Retraining,Discharge Planning, Hot or Cold Pack,Neuromuscular Re-ed,Coordination Retraining ,Manual Therapy Other Recommendations and Next Treatment ambulation, stair climbing Focus when appropriate Recommendations To Nursing Amount of Assist Needed 1 Person Assist Discharge Recommendations PT Discharge Recommendations Home with 19/03 Assist,Home Health Transportation Needs at Discharge Private Vehicle
--- NOTE | 2019-10-22 14:28 | OT.IP.EVAL ---
Past Medical History (Last Reviewed 10/20/19 @ 14:22 by Aicha Jaramillo DO) Asthma (Chronic) CHF (congestive heart failure) (Resolved) Diverticular disease (Chronic) GERD (gastroesophageal reflux disease) (Chronic) GI bleeding (Chronic 03/2017) H. pylori infection (Chronic) Heart murmur (Chronic) Hyperlipidemia (Chronic) Hypertension (Chronic) NSTEMI (non-ST elevated myocardial infarction) (Inactive) Polymyalgia rheumatica (Chronic) Vitamin B12 deficiency (Acute) Surgical History (Last Reviewed 10/20/19 @ 14:22 by Aicha Jaramillo DO) History of carpal tunnel repair (Resolved) History of cataract removal with insertion of prosthetic lens (Resolved) History of hemicolectomy (Resolved 10/2005) Status post appendectomy (Resolved) Status post arthroscopy (Resolved) Status post cardiac catheterization (Resolved 1998) Status post vaginal hysterectomy (Resolved 1999) Occupational Therapy Inpatient Evaluation/Re-Eval M1 PT/OT-IP Prior Functional Status Start: 10/22/19 15:13 Freq: NEEDED Status: Active Protocol: Document 10/22/19 15:13 [facility] (Rec: 10/22/19 15:37 [facility] [id number]) Medical Review Prior Functional Status Medical History Reviewed Yes Diet/Fluid Consistency Full Liquids Communication Independent. Mobility and Gait Per pt independent with occasional use of SPC when her right hip flares up. Activities of Daily Living and IADL's Pt states completely independent with ADL's, IADl' s, mows the lawn, yard work, drives, cooks , and does her own meds and finances. Pt states keeps a BSC upstairs by her bed due to the bathroom is located downstairs. Prior Functional Level (Other details) Pt states her son is home all the time to assist with her needs. Social History Household Members children Living Arrangements House Number of Floors (Floors) Two Floors Number of Stairs To Enter/Railing? 13 steps, right rail going up. Home Environment High Toilet,Tub/Shower,Ramp Home Equipment Front Wheel Walker,Four Wheel Walker,Straight Cane,Bedside Commode,Shower Seat with Backrest,Hand Held Shower,Bed Rails,Grab Bars Near Toilet, Grab Bars In Shower M2 OT-IP Current Condition Start: 10/22/19 15:13 Freq: Status: Active Protocol: Document 10/22/19 15:13 [facility] (Rec: 10/22/19 15:37 [facility] [id number]) Occupational Therapy Current Condition Current Condition Evaluation Date 10/22/19 Treatment Diagnosis weakness, decreased mobility Per MD diverticulitis versus colitis Diagnosis Onset Date 10/20/19 Weight Bearing Status Weight Bearing Status Weight Bear as Tolerated M3 OT- IP Subjective and Pain Start: 10/22/19 15:13 Freq: Status: Active Protocol: Document 10/22/19 15:13 [facility] (Rec: 10/22/19 15:37 [facility] [id number]) OT- Subjective Occupational Therapy Visit Type Type Initial Evaluation Visit Start Time 13:23 Visit Stop Time 13:55 Total Visit Minutes 32 Notes Saw pt with PT for OT eval due to pt very fatigued and decreased activity tolerance. Occupational Therapy Visit Comments Patient Comments Pt agreeable to try to get up. Patient/Caregiver Goals To go home. OT Pain Assessment Pain When Pain Assessed During Mobility Pain Present Pain Present Pain Reported Location Right Hip Intensity 9 Scale Used Numeric (1 - 10) M4 OT- IP ADL's Start: 10/22/19 15:13 Freq: Status: Active Protocol: Document 10/22/19 15:13 [facility] (Rec: 10/22/19 15:37 [facility] [id number]) OT [id number] Comments OT Self-Feeding Comments Pt currently on full liquid diet. OT ADL-Grooming Comments OT Grooming Comments Not performed as pt too fatigued to attempt. OT ADL-Oral Care Comments Oral Care Comments Not performed. OT ADL-Dressing General Eval Lower Body Dressing Ability Standby Assistance Comments OT Dressing Comments Pt able to sit at edge of the bed and cross her legs over to don her socks. At this time due to pt's decreased dynamic balance will need at least ANGELA for other LB dresing needs. OT ADL-Toileting Comments OT Toileting Comments Pt not having to go. OT ADL-Bathing Comments OT Bathing Comments Not performed as pt too fatigued. M5 OT- IP IADL's Start: 10/22/19 15:13 Freq: Status: Active Protocol: Document 10/22/19 15:13 [facility] (Rec: 10/22/19 15:37 [facility] [id number]) OT-Instrumental Activities of Daily Living Home Safety Awareness Home Safety Comments Pt a bit groogy and tired and states prior completely independent for all ADl and IADl needs. To reassess pt tomorrow when more alert and rested. M6 OT- IP Functional Cognition Start: 10/22/19 15:13 Freq: Status: Active Protocol: Document 10/22/19 15:13 [facility] (Rec: 10/22/19 15:37 [facility] [id number]) Cognitive Factors Limiting Selfcare Function Cognitive Ability Level of Alertness Alert,Drowsy Patient Orientation Name,Place,Situation Attention Span Ability Capable of Focused Attention, Capable of Sustained Attention Ability to Follow Commands Able to Follow One Step Commands Cognitive Comments Cognitive Assessment Comments Pt a bit groggy and fatigued able to follow one step commands. To assess tomorrow more in depth when pt more alert and rested. OT- Vision and Hearing OT- Hearing Assessment OT- Hearing Assessment WFL OT- Vision Assessment Visual Acuity Glasses For Reading Occular Pursuits WFL Visual Sanchez WFL M7 OT- IP Mobility and Balance Start: 10/22/19 15:13 Freq: Status: Active Protocol: Document 10/22/19 15:13 [facility] (Rec: 10/22/19 15:37 [facility] [id number]) OT- Bed Mobility Assessment Rolling Type of Rolling Roll to Right Level of Assistance Standby Assistance OT-Transfer Assessment Sit to and From Stand Sit to and from Stand Moderate Assistance,1 Person Assistance Transfers Transfer Ability Moderate Assistance,1 Person Assistance Technique Transfer Destination Bed Transfer Technique Stand Step Pivot Devices Transfer Assistive Devices Gait Belt,Front Wheeled Walker Comments Mobility Comments Per PT Min/MOD a to stand and with FWW due to pt unsteady on her feet at this time and only able to take minimal steps at this time. OT- Balance Assessment Sitting Balance and Reactions Static Sitting Balance Ability Good Dynamic Sitting Balance Ability Fair Standing Balance and Reactions Static Standing Balance Ability Poor Comments Other Balance Tests/Deviations/Treatment Initially, pt sitting with : posterior lean and needing cues to lean forwards. M8 OT- IP Objective Assessments Start: 10/22/19 15:13 Freq: Status: Active Protocol: Document 10/22/19 15:13 [facility] (Rec: 10/22/19 15:37 [facility] [id number]) OT Gross Range of Motion Upper Extremity Range of Motion Assessment Bilaterally Impaired OT Strength Comments Strength Comments RUE from 3-/5 to 4/5 from proximal to distal. LUE from 2+/5 to 4/5 from proximal to distal. OT-Muscle Tone Assessment Muscle Tone WNL Yes M9 OT- IP Assessment and Plan Start: 10/22/19 15:13 Freq: Status: Active Protocol: Document 10/22/19 15:13 [facility] (Rec: 10/22/19 15:37 [facility] [id number]) OT Summary Assessment and Plan Potential Rehabilitation Potential Good Analytic Complexity at Evaluation Low Summary OT Impairments Pain,Range of Motion,Strength, Balance,Functional Cognition, Functional Mobility,Grooming, Dressing,Toileting,Bathing, Toilet Transfers,Shower Transfers,Activity Tolerance Progress Towards Goals Slow Progress due to Medical Issues,Slow Progress due to Activity Tolerance,Slow Progress due to Cognition Assessment Summary Pt low complexity and here due to weakness for diverticulosis versus colitis per physician. Pt far form baseline of being Sun with all needs and only occasional use of SPC at home. Pt main barriers are decreased activity tolerance, dynamic balance, strength, and now needing one person assist for ADL and functional mobility needs. Pending medical status and caregiver training, suggest home with son to assist and home health. Goals Grooming Goal Independent Dressing Goal Independent Toileting Goal Independent Bathing Goal Independent Toilet Transfer Goal Independent Shower Transfer Goal Independent Patient/Caregiver Education Goal Demonstrate Energy Conservation and Pacing, Caregiver Independent Assisting Patient Days to Meet Goals 7 Frequency of Treatment Frequency Of Treatment Once a Day Treatment Plan OT Treatment Plan ADL Training,Functional Cognition Training,Functional Mobility,Patient/Family Education,Discharge Planning Other Treatment Recommendations and Next Stand at sink for grooming Treatment Focus needs with FWW. Discharge Recommendations OT Discharge Recommendations Home with Assistance,Home Health Transportation Needs at Discharge Private Vehicle
[2019-10-22] MEDS: POTASSIUM CHLORIDE 20 MEQ/15 ML UDC 40 MEQ PO (14:59)
[2019-10-22] MEDS: PANTOPRAZOLE 20 MG TABLET PO (17:43)
[2019-10-22] MEDS: OLMESARTAN 20 MG TABLET 40 MG PO (17:43)
[2019-10-22] MEDS: TRAZODONE 100 MG TABLET PO (22:35)
[2019-10-23] MEDS: metroNIDAZOLE 500 MG/100 ML PIGGYBACK 100 MG IV (02:42)
[2019-10-23 04:00] VITALS: BP 107/75; PULSE 86; RESP 18; TEMP 36.6; O2SAT 98
[2019-10-23 06:05] LABS: Add Manual Diff / Slide Review NO; Basophils Absolute Auto 0 /uL (0-100); Basophils Percent Auto 0.5 % (0-2); Eosinophils Absolute Auto 0 /uL (0-450); Eosinophils Percent Auto 0.2 % (2-4); Hematocrit 22.9 % (36-46); Hemoglobin 7.7 g/dL (12.0-16.0); Lymphocytes Absolute Auto 500 /uL (1100-4500); Lymphocytes Percent Auto 8.7 % (25-40); Mean Corpuscular HGB Conc 33.5 % (30-36); Mean Corpuscular Hemoglobin 27.7 PG (26-34); Mean Corpuscular Volume 82.7 fL (80-100); Monocytes Absolute Auto 500 /uL (0-900); Monocytes Percent Auto 8.7 % (3-14); Neutrophils Absolute Auto 4900 /uL (1500-7000); Neutrophils Percent Auto 81.9 % (50-75); Platelet Count 187 X10^3/uL (150-400); Red Blood Cell Count 2.78 X10^6/uL (4.0-5.2); Red Cell Distribution Width 14.9 % (11.6-14.8)
[2019-10-23 06:23] LABS: Blood Urea Nitrogen 8 mg/dL (7-17); Calcium 7.2 mg/dL (8.4-10.2); Carbon Dioxide 21 mmol/L (22-32); Chloride 103 mmol/L (98-107); Estimated Glomerular Filt Rate 53.5 mL/min (>60); Glucose 110 mg/dL (80-110); HEMOLYSIS < 15 (0-50); Potassium 3.6 mmol/L (3.4-5.1); Sodium 133 mmol/L (137-145)
[2019-10-23] MEDS: TRAMADOL 50 MG TABLET PO (08:47)
[2019-10-23] MEDS: APIXABAN 5 MG TABLET PO (08:47)
[2019-10-23] MEDS: predniSONE 10 MG TABLET PO (08:47)
[2019-10-23] MEDS: predniSONE 5 MG TABLET PO (08:48)
[2019-10-23 09:11] VITALS: BP 113/65; PULSE 91; RESP 16; TEMP 36.3; O2SAT 98
--- NOTE | 2019-10-23 09:13 | PM.PN.1 ---
Subjective Subjective Date Patient Seen: 10/23/19 Time Patient Seen: 08:15 Interval history: The pt reports feeling improved this morning. She has significantly more energy than previously. She denies any nausea, abdominal pain, or diarrhea and is actually feeling quite hungry this morning. She is very anxious to return home, as she feels she has not been able to get any sleep in the hospital. Exam Vital Signs (past 8 hours): - 10/23/19 04:00 10/23/19 09:11 Temperature 97.9 F 97.3 F L Pulse Rate 86 91 H Respiratory Rate 18 16 Blood Pressure 107/75 113/65 Pulse Oximetry 98 98 Oxygen Delivery Method Room Air Oxygen Flow Rate 0 Narrative Exam Narrative: Gen: NAD, laying in bed, appears more energetic than prior days CV: RRR, grade 2/6 systolic murmur Resp: clear to auscultation bilaterally Abd: soft, nontender, nondistended, normoactive bowel sounds Ext: no edema Objective Labs Result Diagrams: 10/23/19 05:44 10/23/19 05:44 Labs: Laboratory Results - last 24 hr 10/23/19 10/23/19 05:44 05:44 WBC 6.0 RBC 2.78 L Hgb 7.7 L Hct 22.9 L MCV 82.7 MCH 27.7 MCHC 33.5 RDW 14.9 H Plt Count 187 Neut % (Auto) 81.9 H Lymph % (Auto) 8.7 L [place] % (Auto) 8.7 Eos % (Auto) 0.2 L Baso % (Auto) 0.5 Neut # (Auto) 4900 Lymph # (Auto) 500 L [place] # (Auto) 500 Eos # (Auto) 0 Baso # (Auto) 0 Sodium 133 L Potassium 3.6 Chloride 103 Carbon Dioxide 21 L BUN 8 Creatinine 1.00 Estimated GFR 53.5 L BUN/Creatinine Ratio 8.0 Glucose 110 Calcium 7.2 L Assessment & Plan Assessment & Plan narrative: Pt is a 79yo woman with PMR, atrial fibrillation, hx of diverticulitis, hx of NSTEMI, CKD, HTN, and chronic anemia who presented with significant weakness and nausea. CT scan completed in the ER showed mild diverticulitis vs colitis. 1) Diverticulitis vs colitis: Most likely cause of decreased appetite, nausea, however unusual that no associated abdominal pain or loose stools. Symptoms completely resolved. H/H with continued drop, still likely largely dilutional. - D/C Ceftriaxone and Metronidazole - D/C mIVF - Advance to normal diet - Zofran for nausea - Repeat CBC this afternoon with iron studies to ensure stabilized. If evidence of iron deficiency, will start iron supplement. Pt would not consider transfusion unless anemia more severe and more symptomatic. 2) Weakness: Most likely due to decreased PO intake in addition to chronic deconditioning. Chronic anemia potentially contributing as well. - PT/OT consulted, recommend home with home health, 19/03 care yesterday 3) PMR: With recent flare in symptoms - Continue Prednisone to 15mg daily - Tramadol PRN as at home 4) HTN, Atrial Fibrillation: - Continue home medications Olmesartan, Eliquis - Nifedipine, Bystolic held due to low BPs Code: Full Diet: Full liquid DVT Ppx: On Eliquis Dispo: Possible d/c later today if tolerating PO diet and H/H stabilizes.
--- NOTE | 2019-10-23 11:19 | PT-IP ANOTE ---
Patient refused any mobility at this time with complaints of being too tired. She reports sleeping poorly last night. Will try back later today.
--- NOTE | 2019-10-23 12:26 | PT.IPTN ---
Current Diagnoses Diverticulitis of intestine, part unspecified, without perforation or abscess without bleeding (10/22/19) Physical Therapy Treatment Note M2 PT-IP Current Condition Start: 10/22/19 16:50 Freq: NEEDED Status: Active Protocol: Document 10/22/19 13:23 AB (Rec: 10/22/19 17:05 AB [id number]) Physical Therapy Current Condition Current Condition Evaluation Date 10/22/19 Treatment Diagnosis diverticulitis; weakness Onset Date 10/20/2019 M3 PT-IP Subjective Start: 10/22/19 16:50 Freq: NEEDED Status: Active Protocol: Document 10/23/19 12:26 DLM (Rec: 10/23/19 12:37 DLM [id number]) Subjective Physical Therapy Visit Type Type Treatment Note Visit Start Time 12:10 Visit Stop Time 12:26 Total Visit Minutes 16 Number of WEB APPLICATIONS ADMINISTRATOR Visits 0 Physical Therapy Visit Comments Patient Comments she reports she has been in bed a lot since being admitted Patient Goals she wants to go home Therapy Pain Assessment Pain When Pain Assessed During Mobility Pain Present Pain Present Denied Pain M4 PT-IP Mobility and Gait Start: 10/22/19 16:50 Freq: NEEDED Status: Active Protocol: Document 10/23/19 12:26 DLM (Rec: 10/23/19 12:37 DLM [id number]) PT-Bed Mobility Assessment Rolling Type of Rolling Roll to Right Level of Assist Independent Supine to Sit Supine to Sit Standby Assistance,Bedrails Scooting Scooting to Edge of Bed Independent PT-Transfer Assessment Sit to and From Stand Sit to and from Stand Standby Assistance,Use of Upper Extremities Equipment Transfer Assistive Device Gait Belt,Front Wheeled Walker Transfers Transfer Destination Chair Transfer Technique Stand Step Pivot Transfer Ability Level of Assist Standby Assistance,Use of Upper Extremities Comments Mobility Comments Pt up to recliner for lunch. She refused further gait at this time. She voices no concerns about going home. Gait Assessment Comments Gait Comments she describes chronic dizziness with getting out to bed that resolved quickly with rest breaks, she showed good awareness of how to manage these symptoms Stair Climbing Assessment Comments Stair Climbing Comments pt declined training PT-Balance Assessment Sitting Balance and Reactions Static Sitting Balance Ability Good Dynamic Sitting Balance Ability Good Standing Balance and Reactions Static Standing Balance Ability Good Dynamic Standing Balance Ability Good Device Used FWW M5 PT-IP Objective Assessments Start: 10/22/19 16:50 Freq: NEEDED Status: Active Protocol: Document 10/22/19 13:23 AB (Rec: 10/22/19 17:05 AB [id number]) Orientation Orientation/Cognition Level of Alertness Alert Orientation Name,Place,Situation Safety Awareness Decreased Safety Awareness Memory Description Short Term Impaired Gross Range of Motion Lower Extremity ROM Assessment Within Functional Limits Strength Lower Extremity Strength Assessment Within Functional Limits Sensation Assessment Sensation Gross Sensation WNL Muscle Tone Muscle Tone WNL Yes M6 PT-IP Treatment Start: 10/22/19 16:50 Freq: NEEDED Status: Active Protocol: Document 10/23/19 12:26 DLM (Rec: 10/23/19 12:37 DLM [id number]) Physical Therapy Treatment Education Education Provided Safety Other Treatments Other Treatment Performed home safety education offered, pt resistant to information M7 PT-IP Assessment and Plan Start: 10/22/19 16:50 Freq: NEEDED Status: Active Protocol: Document 10/23/19 12:26 DLM (Rec: 10/23/19 12:37 DLM [id number]) PT Summary Assessment and Plan Summary Impairments Pain,ROM,Strength,Balance, Coordination,Sensation,Tone, Cognition,Bed Mobility, Transfers,Gait,Activity Tolerance Progress Towards Goals Progressing Toward Goals Assessment Summary Michelle is alert but needs a lot of encouragement to get out of bed for any activity. She agreed to sit up in the recliner for lunch but declined any further gait. She is aware she has been in bed a lot since admission but voices no concerns about being able to go home. She appears to be able to do more mobility /gait than she did this visit but unclear how much more. Her Son is not present to discuss discharge issues. Goals Bed Mobility Goal Standby Assistance Transfer Goal Standby Assistance,Front Wheeled Walker Gait Goal Standby Assistance,Front Wheel Walker Gait Distance 150 Other Goals up/down 13 steps R rail ascending SBA Days to Meet Goals 5 Frequency of Treatment Frequency Of Treatment Twice a Day Treatment Plan Physical Therapy Treatment Plan Bed Mobility Training,Transfer Training,Gait Training, Therapeutic Exercise,Balance Retraining,Discharge Planning, Hot or Cold Pack,Neuromuscular Re-ed,Coordination Retraining ,Manual Therapy Other Recommendations and Next Treatment ambulation, stair climbing Focus when appropriate Recommendations To Nursing Amount of Assist Needed 1 Person Assist Discharge Recommendations PT Discharge Recommendations Home with 19/03 Assist,Home Health Transportation Needs at Discharge Private Vehicle
--- NOTE | 2019-10-23 12:35 | OT.IP.TRT ---
Current Diagnoses Diverticulitis of intestine, part unspecified, without perforation or abscess without bleeding (10/22/19) Occupational Therapy Treatment Note M2 OT-IP Current Condition Start: 10/22/19 15:13 Freq: Status: Active Protocol: Document 10/22/19 15:13 [facility] (Rec: 10/22/19 15:37 [facility] [id number]) Occupational Therapy Current Condition Current Condition Evaluation Date 10/22/19 Treatment Diagnosis weakness, decreased mobility Diagnosis Onset Date 10/20/19 Weight Bearing Status Weight Bearing Status Weight Bear as Tolerated M3 OT- IP Subjective and Pain Start: 10/22/19 15:13 Freq: Status: Active Protocol: Document 10/23/19 14:59 [facility] (Rec: 10/23/19 15:02 [facility] [id number]) OT- Subjective Occupational Therapy Visit Type Type Treatment Note Visit Start Time 12:35 Visit Stop Time 12:44 Total Visit Minutes 9 Occupational Therapy Visit Comments Patient Comments Pt not wanting to get up and states has no issues regarding OT needs, she states her son will assist if needed. Pt open to go over energy conservation suggestion and information sheet. Patient/Caregiver Goals To go home. OT Pain Assessment Pain When Pain Assessed At Rest Pain Present Pain Present Denied Pain M4 OT- IP ADL's Start: 10/22/19 15:13 Freq: Status: Active Protocol: Document 10/23/19 14:59 [facility] (Rec: 10/23/19 15:02 [facility] [id number]) OT ADL-Dressing Comments OT Dressing Comments Pt went over energy conservation for ADL's needs. Pt able to states will sit from dressing needs and be sure to take more rest breaks at needed. Prioritize needs, plan ahead, position and pace herself. M5 OT- IP IADL's Start: 10/22/19 15:13 Freq: Status: Active Protocol: Document 10/22/19 15:13 [facility] (Rec: 10/22/19 15:37 [facility] [id number]) OT-Instrumental Activities of Daily Living Home Safety Awareness Home Safety Comments Pt a bit groogy and tired and states prior completely independent for all ADl and IADl needs. To reassess pt tomorrow when more alert and rested. M6 OT- IP Functional Cognition Start: 10/22/19 15:13 Freq: Status: Active Protocol: Document 10/22/19 15:13 [facility] (Rec: 10/22/19 15:37 [facility] [id number]) Cognitive Factors Limiting Selfcare Function Cognitive Ability Level of Alertness Alert,Drowsy Patient Orientation Name,Place,Situation Attention Span Ability Capable of Focused Attention, Capable of Sustained Attention Ability to Follow Commands Able to Follow One Step Commands Cognitive Comments Cognitive Assessment Comments Pt a bit groogy and fatigued able to follow one rachel commands. To assess tomorrow more in depth when pt more alert and rested. OT- Vision and Hearing OT- Hearing Assessment OT- Hearing Assessment WFL OT- Vision Assessment Visual Acuity Glasses For Reading Occular Pursuits WFL Visual Sanchez WFL M7 OT- IP Mobility and Balance Start: 10/22/19 15:13 Freq: Status: Active Protocol: Document 10/22/19 15:13 [facility] (Rec: 10/22/19 15:37 [facility] [id number]) OT- Bed Mobility Assessment Rolling Type of Rolling Roll to Right Level of Assistance Standby Assistance OT-Transfer Assessment Sit to and From Stand Sit to and from Stand Moderate Assistance,1 Person Assistance Transfers Transfer Ability Moderate Assistance,1 Person Assistance Technique Transfer Destination Bed Transfer Technique Stand Step Pivot Devices Transfer Assistive Devices Gait Belt,Front Wheeled Walker Comments Mobility Comments Per PT Min/MOD a to stand and with FWW due to pt unstady on her feet at this time and only able to take minimal steps at this time. OT- Balance Assessment Sitting Balance and Reactions Static Sitting Balance Ability Good Dynamic Sitting Balance Ability Fair Standing Balance and Reactions Static Standing Balance Ability Poor Comments Other Balance Tests/Deviations/Treatment Initially, pt sitting wiht : posterior lean and needing cues to lean forwards. M8 OT- IP Objective Assessments Start: 10/22/19 15:13 Freq: Status: Active Protocol: Document 10/22/19 15:13 [facility] (Rec: 10/22/19 15:37 [facility] [id number]) OT Gross Range of Motion Upper Extremity Range of Motion Assessment Bilaterally Impaired OT Strength Comments Strength Comments RUE from 3-/5 to 4/5 from proximal to distal. LUE from 2+/5 to 4/5 from proximal to distal. OT-Muscle Tone Assessment Muscle Tone WNL Yes M9 OT- IP Assessment and Plan Start: 10/22/19 15:13 Freq: Status: Active Protocol: Document 10/22/19 15:13 [facility] (Rec: 10/22/19 15:37 [facility] [id number]) OT Summary Assessment and Plan Potential Rehabilitation Potential Good Analytic Complexity at Evaluation Low Summary OT Impairments Pain,Range of Motion,Strength, Balance,Functional Cognition, Functional Mobility,Grooming, Dressing,Toileting,Bathing, Toilet Transfers,Shower Transfers,Activity Tolerance Progress Towards Goals Slow Progress due to Medical Issues,Slow Progress due to Activity Tolerance,Slow Progress due to Cognition Assessment Summary Pt low complexity and here due to weakness for diverticulosis versus colitis per physician. Pt far form baseline of being Sun with all needs and only occasional use of SPC at home. Pt main barriers are decreased activity tolerance, dynamic balance, strength, and now needing one person asisst for ADL and fucntional mobility needs. Pending medical status and caregiver training, suggest home with son to assist and home health. Goals Grooming Goal Independent Dressing Goal Independent Toileting Goal Independent Bathing Goal Independent Toilet Transfer Goal Independent Shower Transfer Goal Independent Patient/Caregiver Education Goal Demonstrate Energy Conservation and Pacing, Caregiver Independent Assisting Patient Days to Meet Goals 7 Frequency of Treatment Frequency Of Treatment Once a Day Treatment Plan OT Treatment Plan ADL Training,Functional Cognition Training,Functional Mobility,Patient/Family Education,Discharge Planning Other Treatment Recommendations and Next Stand at sink for grooming Treatment Focus needs with FWW. Discharge Recommendations OT Discharge Recommendations Home with Assistance,Home Health Transportation Needs at Discharge Private Vehicle
[2019-10-23 13:07] VITALS: BP 102/59; PULSE 96; RESP 16; TEMP 36.5; O2SAT 100
[2019-10-23 15:01] LABS: Add Manual Diff / Slide Review NO; Basophils Absolute Auto 0 /uL (0-100); Basophils Percent Auto 0.1 % (0-2); Eosinophils Absolute Auto 0 /uL (0-450); Hematocrit 26.4 % (36-46); Hemoglobin 8.6 g/dL (12.0-16.0); Lymphocytes Absolute Auto 400 /uL (1100-4500); Mean Corpuscular HGB Conc 32.6 % (30-36); Mean Corpuscular Hemoglobin 27.4 PG (26-34); Mean Corpuscular Volume 84.1 fL (80-100); Monocytes Absolute Auto 400 /uL (0-900); Monocytes Percent Auto 4.8 % (3-14); Neutrophils Absolute Auto 6800 /uL (1500-7000); Neutrophils Percent Auto 90.1 % (50-75); Platelet Count 221 X10^3/uL (150-400); Red Blood Cell Count 3.14 X10^6/uL (4.0-5.2); Red Cell Distribution Width 14.8 % (11.6-14.8); White Blood Cell Count 7.6 X10^3/uL (4.5-11.0)
[2019-10-23 15:14] LABS: HEMOLYSIS < 15 (0-50); Iron 17 ug/dL (37-170)
[2019-10-23 15:24] LABS: Percent Iron Saturation 7 % (15-50); Total Iron Binding Capacity 250 ug/dL (265-497); Transferrin 220 mg/dL (206-381)
--- NOTE | 2019-10-23 15:46 | PC.NURSE ---
Patient is A&O x4, pleasant and happy to be going home today. IV d/c'd patient tolerated well. Student nurse in room during d/c education and in helping patient get dressed and ready to leave. Patient is aware of new rx at pharm to be picked up this ayanna, states understanding of all d/c education and is compliant w/ plan of care post d/c. Pt states she will call Dr. Trejo's office for a her one week f/u tomorrow. Awaiting son to arrive back to hospital to escort patient home.
[2019-10-23 16:11] VITALS: BP 142/70; PULSE 106; RESP 18; O2SAT 100
--- NOTE | 2019-10-24 13:06 | PM.DS.1 ---
History of Present Illness History of Present Illness Chief complaint: weakness Narrative: Pt is a 79yo woman with PMR, atrial fibrillation, hx of diverticulitis, hx of NSTEMI, CKD, HTN, and chronic anemia who presented with significant weakness. The pt reports that on the evening of 10/17 she started to feel very nauseous and weak. Then, on 10/18 she had multiple episodes of emesis. This continued into 10/19. Her weakness worsened, to the point that she wasn't really able to get out of bed. She ate very little to nothing for over a day. The emesis resolved the evening of 10/19, but the nausea persisted. Yesterday, when her son came to visit, he found her at home too weak to move. He had to help her scoot down the stairs on her bottom. She was brought to the ER for further evaluation. The pt denies any recent abdominal pain, diarrhea, fevers, chills, chest pain, SOB. Her emesis was nonbilious and had no blood in it. Prior to the nausea, emesis, and weakness, her PMR had flared significantly. She continues to have significant joint pain, that is much worse than usual for her. Discharge Providers Provider Date of admission: 10/22/19 16:05 Discharge Date: 10/23/19 Primary care physician: Mary Trejo MD Consults: 10/22/19 08:07 Consult to Occupational Therapy Evaluate & Treat Comment: Physician Instructions: Evaluate and treat Consult to Physical Therapy Evaluate & Treat Comment: Physician Instructions: Evaluate and Treat Discharge provider: Mary Trejo MD Summary Hospital Course Discharge Diagnosis: Colitis Diverticulitis Weakness Chronic anemia PMR Hypertension Atrial fibrillation Hospital Course: The pt presented with nausea, decreased PO intake, and profound weakness. CT abdomen showed evidence of diverticulitis vs colitis. She was started on IV antibiotics. The pts nausea resolved, and her diet was gradually advanced. At the time of discharge, she was tolerating a regular diet. The pts strength improved significantly during her hospitalization as well. PT/OT were consulted, and worked with the patient. She will be discharged home with home health services for ongoing PT/OT. The pt was noted to have ongoing anemia, with a further drop in her H/H, most likely dilutional. Iron studies completed did show evidence of iron deficiency, and the pt was started on an iron supplement at discharge. The pts PMR was significantly flared at the time of admission. Her steroid dose was increased, with good improvement in her symptoms. She will f/u in clinic in 1 week. Status at Discharge Cognitive/behavioral status at discharge: oriented Functional status at discharge: independent ambulation Overall status at discharge: patient is progressing back to baseline Time Spent with Patient Time spent: Greater than 30 minutes Exam Vital Signs (past 8 hours): Oxygen Delivery Method Room Air Oxygen Flow Rate 0 Narrative Exam Narrative: Gen: NAD, laying in bed CV: RRR, grade 2/6 systolic murmur Resp: clear to auscultation bilaterally Abd: soft, nontender, nondistended, normoactive bowel sounds Ext: no edema Objective Labs Result Diagrams: 10/23/19 14:45 10/23/19 05:44 Labs: Laboratory Results - last 24 hr 10/23/19 10/23/19 14:45 14:45 WBC 7.6 RBC 3.14 L Hgb 8.6 L Hct 26.4 L MCV 84.1 MCH 27.4 MCHC 32.6 RDW 14.8 Plt Count 221 Neut % (Auto) 90.1 H Lymph % (Auto) 5.0 L [place] % (Auto) 4.8 Eos % (Auto) 0.0 L Baso % (Auto) 0.1 Neut # (Auto) 6800 Lymph # (Auto) 400 L [place] # (Auto) 400 Eos # (Auto) 0 Baso # (Auto) 0 Iron 17 L TIBC 250 L % Saturation 7 L Transferrin 220 Discharge Plan Discharge Plan Patient Disposition: Home Health Service Discharge comment: Please check your blood pressure at home. If it is > 140/90, please contact the clinic. We are stopping your Nifedipine and Bystolic for now because your blood pressure has been low in the hospital. Please continue the higher dose of Prednisone, 15mg, daily. A prescription for 5mg pills was sent to [facility]. Discharge orders & Medications Prescriptions: New prednisone 5 mg Tablet 5 mg PO DAILY Qty: 30 RF: 0 Continued trazodone 100 mg tablet 100 mg PO BEDTIME Qty: 90 RF: 0 (DME) Disabled Parking 0 .MEDSUPPLY Qty: 2 RF: 0 omeprazole 20 mg tablet,delayed release (DR/EC) 20 mg PO QPM Qty: 90 RF: 3 prednisone 10 mg tablet 10 mg PO DAILY Qty: 100 RF: 3 tramadol 50 mg tablet 50 mg PO Q6H PRN (Reason: pain) Qty: 30 RF: 0 Eliquis 5 mg Tablet 5 mg PO BID RF: 0 famotidine 40 mg tablet 40 mg PO DAILY RF: 0 olmesartan 40 mg tablet 40 mg PO QPM RF: 0 Discontinued nifedipine 30 mg tablet extended release 30 mg PO DAILY RF: 0 prednisone 1 mg tablet 2 mg PO DAILY Qty: 180 RF: 3 ibuprofen [Advil] 200 mg Tablet 200 mg PO PRN PRN (Reason: pain) RF: 0 Bystolic 10 mg tablet 10 mg PO DAILY RF: 0 Follow up/Referrals: Mary Trejo MD [Primary Care Provider] - 1 Week (Dr. Mosley RN will call patient to schedule appointment. ) Diet/Activity/Treatments Diet: Diet as Tolerated Visit Report/Discharge Packet Instructions: Diverticulitis, DI for Diverticulitis, Prednisone (By mouth) Visit Report Forms: Patient Portal/API, Stroke Signs & Symptoms Discharge Data Primary Care Provider: Mary Trejo Discharges patient from system. Discharge Date/Time: 10/23/19 15:33
== END 2019-10-23 15:33 | disposition home health service (06) | DRG 392 ==
LOC: ED 19:41 → AC 19:49
PROVIDERS: Admitting Provider Internal Medicine; Emergency Provider Emergency Medicine; PCP Family Medicine; Visit Provider Family Medicine
DX: K57.92 Diverticulitis of intestine, part unspecified, without perforation or abscess without bleeding (principal); I48.20 Chronic atrial fibrillation, unspecified; K52.9 Noninfective gastroenteritis and colitis, unspecified; M35.3 Polymyalgia rheumatica; I12.9 Hypertensive chronic kidney disease with stage 1 through stage 4 chronic kidney disease, or unspecified chronic kidney disease; N18.9 Chronic kidney disease, unspecified; D50.9 Iron deficiency anemia, unspecified; R53.1 Weakness; Z87.891 Personal history of nicotine dependence; Z79.01 Long term (current) use of anticoagulants
CPT/HCPCS: 36415; 74177; 80048; 80053; 81003; 82550; 83540; 83550; 83690; 84484; 85025; 85610; 85730; 93005; 96361; 96365; 96367; 96375; 97161; 97165; 97530; 97535; 99220; 99232; 99238; 99284; G0378; J2405

== ENCOUNTER 2019-10-29 14:50 | Inpatient (IN) | payer MEDICARE, SELFPAY ==
[2019-10-29 15:08] VITALS: BMI 21.4
--- NOTE | 2019-10-29 15:17 | DI.CT.S_ITS ---
PROCEDURE: CT ABDOMEN PELVIS W CON INDICATIONS: persistent vomiting, hx diverticulitis TECHNIQUE: After the administration of intravenous contrast, 5 mm thick sections acquired from the diaphragm to the symphysis. 5 mm coronal and sagittal reformats were acquired. For radiation dose reduction, the following was used: automated exposure control, adjustment of mA and/or kV according to patient size. COMPARISON: [facility], US, US RENAL COMPLETE, 06/13/2019, 11:11. [facility], CT, CT ABDOMEN PELVIS W CON, 10/20/2019, 17:16. [facility], CT, CT ABDOMEN PELVIS W CON, 11/14/2018, 21:16. FINDINGS: Image quality: Excellent. ABDOMEN: Lung bases: Lung bases are clear except for atelectasis adjacent to bilateral pleural effusions, scanned on the left and small to moderate on the right, water in density without internal septations or pleural thickening and enhancement.. Heart size is normal. Solid organs: Liver is normal in size and enhancement. Gallbladder is partially contracted, and at its dependent margin appears to contain a small amount of layering calcification, possibly small calcified gallstones or milk of calcium within the gallbladder lumen. Biliary system is non dilated. Pancreas enhances normally. Spleen is normal in size and enhancement. No adrenal nodules. Kidneys demonstrate normal size and enhancement, without hydronephrosis. Peritoneum and bowel: Bowel loops demonstrate normal wall thickness and caliber. No free fluid or air. Nodes and vessels: No retroperitoneal or mesenteric adenopathy by size criteria. Aorta and inferior vena cava are normal in size. Miscellaneous: No ventral hernias. PELVIS: Genitourinary: Bladder wall thickness is normal. Miscellaneous: No inguinal hernias or adenopathy. Bones: No suspicious bony lesions. No vertebral body compression fractures. IMPRESSION: 1. There is no sign of intestinal obstruction or perforation, or active diverticulitis. Note is made of a small amount of posterior layering calcification at the gallbladder, within the lumen, which is partially contracted. No biliary distention is associated. A small amount of calcified sludge or very small gallstones would be suspected but more accurately identified with ultrasound if clinically warranted. No biliary distention. 2. The prior CT scan from 10/20/19 is not demonstrate significant pleural effusions. There is now a scant effusion on the left and a small to moderate simple appearing effusion on the right which shows no evidence of a pleural inflammation process as the underlying cause. Cardiogenic etiology would be suspected. Dictated by: Manoj Crum M.D. on 10/29/2019 at 17:04 Approved by: Manoj Crum M.D. on 10/29/2019 at 17:11
[2019-10-29] MEDS: SODIUM CHLORIDE 0.9% 1,000 ML 100 ML IV (15:57)
[2019-10-29 16:01] LABS: Add Manual Diff / Slide Review NO; Basophils Absolute Auto 0 /uL (0-100); Basophils Percent Auto 0.2 % (0-2); Eosinophils Absolute Auto 0 /uL (0-450); Eosinophils Percent Auto 0.1 % (2-4); Hematocrit 27.8 % (36-46); Hemoglobin 9.2 g/dL (12.0-16.0); Lymphocytes Absolute Auto 600 /uL (1100-4500); Lymphocytes Percent Auto 9.2 % (25-40); Mean Corpuscular Hemoglobin 27.3 PG (26-34); Mean Corpuscular Volume 82.7 fL (80-100); Monocytes Absolute Auto 400 /uL (0-900); Monocytes Percent Auto 5.1 % (3-14); Neutrophils Absolute Auto 6000 /uL (1500-7000); Neutrophils Percent Auto 85.4 % (50-75); Platelet Count 393 X10^3/uL (150-400); Red Blood Cell Count 3.36 X10^6/uL (4.0-5.2); Red Cell Distribution Width 15.1 % (11.6-14.8)
[2019-10-29 16:05] VITALS: BP 133/99; PULSE 121; RESP 18; TEMP 36.7; O2SAT 100
[2019-10-29 16:13] LABS: Alanine Aminotransferase 90 IU/L (<35); Albumin 3.8 g/dL (3.5-5.0); Albumin Globulin Ratio 1.3 (1.0-2.8); Alkaline Phosphatase 47 U/L (38-126); Aspartate Aminotransferase 248 IU/L (14-36); Bilirubin Total 0.8 mg/dL (0.2-1.3); Blood Urea Nitrogen 27 mg/dL (7-17); Calcium 9.7 mg/dL (8.4-10.2); Carbon Dioxide 20 mmol/L (22-32); Chloride 104 mmol/L (98-107); Estimated Glomerular Filt Rate 27.1 mL/min (>60); Globulin 2.9 g/dL (1.7-4.1); Glucose 106 mg/dL (80-110); HEMOLYSIS < 15 (0-50); Lipase 110 U/L (23-300); Potassium 4.5 mmol/L (3.4-5.1); Sodium 139 mmol/L (137-145); Total Protein 6.7 g/dL (6.3-8.2)
--- NOTE | 2019-10-29 16:31 | PM.HP.1 ---
History of Present Illness History of Present Illness Date Patient Seen: 10/29/19 Time Patient Seen: 15:30 Chief complaint: Colitis, diverticulitis Narrative: Pt is a 79yo woman with PMR, atrial fibrillation, hx of diverticulitis, hx of NSTEMI, CKD, HTN, and chronic anemia who presented with significant weakness, nausea, and vomiting. She was hospitalized from 10/21-10/23 for colitis/diverticulitis. She was treated with IV Cetriaxone and Metronidazole. She had significant improvement in her symptoms, and at the time of discharge was tolerating a normal diet. When she went home, she reportedly ate a small meal that night. She then started to feel nauseous again that evening. By the next day, her nausea had returned to the same level as it was before her admission. She was only able to take small sips of liquid. 2 days ago, she started to have repeated emesis again. She has not been able to keep her medications down. She has been taking the Ondansetron intermittently, but does not find it very helpful. She has just been laying in bed, eating ice chips. She is only able to make it to the restroom with significant assistance from her son due to extreme weakness. It took her son 15 minutes to get her down the stairs, sliding on her bottom. She does endorse loose BMs, but no víctor diarrhea. She has not had any significant abdominal pain. No fevers, but she does feel sweaty at times. Patient History Family & Social History Social History: household members children Prior Living Arrangements House Safety & Behavioral: Feels Safe in Current Yes Environment Been Physically Hurt or No Threatened By a Person Suicidal Ideation Description None Suicide Plan Description No Plan Tobacco & Substance use: Tobacco type cigarettes Smoking Status Former smoker alcohol intake current alcohol intake frequency holiday/special occasion Substance Use Type does not use Meds Home Medications and Allergies Home Medications Medication Instructions Recorded Confirmed Type Disabled Parking #2 each 09/10/18 10/29/19 Rx omeprazole 20 mg tablet,delayed 20 mg PO QPM #90 tab 10/14/18 10/29/19 Rx release Eliquis 5 mg PO BID 02/16/19 10/29/19 History trazodone 100 mg tablet 100 mg PO BEDTIME #90 tab 09/15/19 10/29/19 Rx famotidine 40 mg PO DAILY 10/20/19 10/29/19 History olmesartan 40 mg PO QPM 10/20/19 10/29/19 History prednisone 5 mg PO DAILY #30 tab 10/23/19 10/29/19 Rx ferrous gluconate 324 mg (37.5 mg 324 mg PO BID #180 tab 10/24/19 10/29/19 Rx iron) tablet tramadol 50 mg tablet 50 mg PO Q6H PRN #30 tab 10/27/19 10/29/19 Rx prednisone 10 mg tablet 15 mg PO DAILY tab 10/29/19 10/29/19 History Allergies Allergy/AdvReac Type Severity Reaction Status Date / Time methocarbamol [METHOCARBAMOL] Allergy Mild RASH/ROBAXI Verified 10/29/19 14:14 N Penicillins [PENICILLINS] Allergy Mild Rash Verified 10/29/19 14:14 piroxicam [PIROXICAM] Allergy Mild RASH/FELDEN Verified 10/29/19 14:14 E ciprofloxacin [CIPROFLOXACIN] AdvReac Severe MUSCLE PAIN Verified 10/29/19 14:14 metoprolol AdvReac Intermediate Dizziness Verified 10/29/19 14:14 nitrofurantoin AdvReac Intermediate Horrible Verified 10/29/19 14:14 Nausea temazepam [TEMAZEPAM] AdvReac Mild NERVOUNESS/ Verified 10/29/19 14:14 RESTORIL Review of Systems Constitutional Constitutional: Denies chills, Reports fatigue, Denies fever(s), Reports poor appetite and Reports weakness ENT Ears, Nose, Mouth, and Throat: Yes dry mouth, No ear pain, No nasal congestion and No sinus pain Cardiovascular Cardiovascular: Denies chest pain, Denies fainting, Reports fast heart rate, Denies leg swelling, Denies lightheadedness and Denies shortness of breath Respiratory Respiratory: Denies cough, Denies dyspnea and Denies wheezing Gastrointestinal Gastrointestinal: Denies abdominal pain, Denies melena, Reports change in bowel habits, Denies constipation, Reports loose stools, Reports nausea and Reports vomiting Musculoskeletal Musculoskeletal: Reports arthralgias Neurologic Neurologic: Denies syncope and Reports weakness Endocrine Endocrine: Reports fatigue Allergic/Immunologic Allergic/Immunologic: Denies wheezing Exam Vital Signs (past 8 hours): - 10/29/19 16:05 Temperature 98.1 F Pulse Rate 121 H Respiratory Rate 18 Blood Pressure 133/99 H Pulse Oximetry 100 Narrative Exam Narrative: GEN - alert, cooperative and no distress, appears very fatigued HEENT - normocephalic and atraumatic, sclera white, moist mucus membranes NECK - FROM, no adenopathy, no JVD HEART - irregularly irregular rhythm, tachycardic, S1, S2 normal, no S3 or S4, grade 2/6 systolic murmur LUNGS - symmetric chest rise, no accessory muscles, clear to auscultation bilaterally ABD - flat, nondistended, normal bowel sounds, soft, nontender and no hepatomegaly, splenomegaly or masses EXT - no cyanosis, clubbing or edema SKIN - no rashes or suspicious lesions NEURO - no gross deficits Objective Labs Result Diagrams: 10/29/19 15:42 10/29/19 15:42 Labs: Laboratory Results - last 24 hr 10/29/19 10/29/19 15:42 15:42 WBC 7.0 RBC 3.36 L Hgb 9.2 L Hct 27.8 L MCV 82.7 MCH 27.3 MCHC 33.0 RDW 15.1 H Plt Count 393 Neut % (Auto) 85.4 H Lymph % (Auto) 9.2 L [place] % (Auto) 5.1 Eos % (Auto) 0.1 L Baso % (Auto) 0.2 Neut # (Auto) 6000 Lymph # (Auto) 600 L [place] # (Auto) 400 Eos # (Auto) 0 Baso # (Auto) 0 Sodium 139 Potassium 4.5 Chloride 104 Carbon Dioxide 20 L BUN 27 H Creatinine 1.80 H Estimated GFR 27.1 L BUN/Creatinine Ratio 15.0 Glucose 106 Calcium 9.7 Total Bilirubin 0.8 AST 248 H ALT 90 H Alkaline Phosphatase 47 Total Protein 6.7 Albumin 3.8 Globulin 2.9 Albumin/Globulin Ratio 1.3 Lipase 110 D Assessment & Plan Assessment & Plan narrative: Pt is a 79yo woman with PMR, atrial fibrillation, hx of diverticulitis, hx of NSTEMI, CKD, HTN, and chronic anemia who presented with significant weakness, nausea, and vomiting. Recent hospitalization for colitis/diverticulitis, now with return of the same symptoms. Pt with evidence of dehydration with significant tachycardia, MAKENNA. 1) Nausea and vomiting: Liver enzymes are elevated this hospitalization, no elevation bilirubin. Due to recent hx of colitis/diverticulitis, still high suspicion for this, although symptoms not entirely consistent. No abdominal pain or elevated bilirubin to suggest cholecystitis. Overall etiology not yet clear. - Clear liquid diet - Zofran PRN for nausea - Abdominal CT pending - Hold antibiotics pending results of CT scan 2) Weakness: Due to decreased PO intake, mild dehydration, and chronic deconditioning - PT/OT consulted 3) MAKENNA: Most likely due to dehydration - mIVF - Continue to trend 4) PMR: - Continue Prednisone to 15mg daily - Tramadol PRN as at home 5) HTN, Chronic Atrial Fibrillation: - Continue home medications with Olmesartan, Eliquis, Nifedipine, Bystolic 6) Chronic iron deficiency anemia: - Continue iron supplement Code: Full Diet: Clear liquid diet DVT Ppx: On Eliquis Dispo: Pending tolerating diet, improvement in nausea, weakness improving. May need brief stay in SNF after d/c. Anticipate 2 midnights. Quality VTE Deep Vein Thrombosis/Pulmonary Embolism Present on Admission: No
--- NOTE | 2019-10-29 17:12 | DI.US.S_ITS ---
PROCEDURE: US ABDOMEN LIMITED INDICATIONS: ABNORMAL GALLBLADDER ON CT; ELEVATED LFTS TECHNIQUE: Real-time scanning was performed of the abdominal and retroperitoneal organs, with image documentation. COMPARISON: None. FINDINGS: Liver: Liver is normal in size and homogeneous in echotexture. Gallbladder: Nonmobile areas of increased echogenicity are noted layering in the dependent gallbladder. Wall thickness is within normal limits measuring 1.8 mm. Biliary ducts: Intrahepatic bile ducts are non-dilated. Extrahepatic bile duct caliber measures 4.4 mm. Normal is 6-7 mm or less in diameter, or 10 mm or less post-cholecystectomy. Miscellaneous: No free abdominal fluid. Trace right effusion. IMPRESSION: Small dependent hyper echogenicities within the gallbladder without wall thickening likely sludge. Dictated by: Prema Townsend M.D. on 10/29/2019 at 18:57 Approved by: Prema Townsend M.D. on 10/29/2019 at 18:58
--- NOTE | 2019-10-29 17:13 | DI.RAD.S_ITS ---
PROCEDURE: XR CHEST 2V INDICATIONS: pleural effusions TECHNIQUE: 2 views of the chest were acquired. COMPARISON: [facility], CR, XR CHEST 1V, 05/01/2019, 14:09. FINDINGS: Surgical changes and devices: None. Lungs and pleura: There is trace blunting of the costophrenic angles, unchanged and likely teleservices representative of scarring. Mediastinum: Mediastinal contours are normal. Heart size is mildly enlarged. Bones and chest wall: No suspicious bony abnormalities. Soft tissues appear unremarkable. IMPRESSION: Trace costophrenic angle blunting, unchanged and suggestive of scarring. Dictated by: Prema Townsend M.D. on 10/29/2019 at 18:02 Approved by: Prema Townsend M.D. on 10/29/2019 at 18:03
[2019-10-29 20:28] VITALS: BP 144/78; PULSE 115; RESP 19; TEMP 36.8; O2SAT 100
[2019-10-29] MEDS: FERROUS GLUCONATE 324 MG TABLET PO (21:06)
[2019-10-29] MEDS: raNITIdine 150 MG CAPSULE PO (21:06)
[2019-10-29] MEDS: APIXABAN 5 MG TABLET PO (21:06)
[2019-10-29] MEDS: TRAZODONE 100 MG TABLET PO (21:06)
[2019-10-30] VITALS: BP 121/72; PULSE 96; RESP 16; TEMP 36.3; O2SAT 100
--- NOTE | 2019-10-30 04:57 | PC.NURSE ---
Shift note: AxOx3, denies falls, VSS on RA Patient reported pain was 8/10 but is low for her and that typically pain is outta this world. Declined interventions During patient checks, pt reporting not sleeping well, otherwise uneventful night. IV site is protected with tube gauze and arm board as patient is a difficult access, 24 g. Remains patent on IV fluids infusing. Bed alarm on and functioning, call light in reach and uses appropriately.
[2019-10-30] MEDS: SODIUM CHLORIDE 0.9% 1,000 ML 100 ML IV (05:23)
[2019-10-30 05:27] LABS: Add Manual Diff / Slide Review NO; Basophils Absolute Auto 0 /uL (0-100); Basophils Percent Auto 0.2 % (0-2); Eosinophils Absolute Auto 0 /uL (0-450); Eosinophils Percent Auto 0.1 % (2-4); Hematocrit 25.7 % (36-46); Hemoglobin 8.4 g/dL (12.0-16.0); Lymphocytes Absolute Auto 1500 /uL (1100-4500); Lymphocytes Percent Auto 22.9 % (25-40); Mean Corpuscular HGB Conc 32.6 % (30-36); Mean Corpuscular Hemoglobin 26.8 PG (26-34); Monocytes Absolute Auto 800 /uL (0-900); Monocytes Percent Auto 12.6 % (3-14); Neutrophils Absolute Auto 4200 /uL (1500-7000); Neutrophils Percent Auto 64.2 % (50-75); Platelet Count 333 X10^3/uL (150-400); Red Blood Cell Count 3.14 X10^6/uL (4.0-5.2); Red Cell Distribution Width 15.2 % (11.6-14.8); White Blood Cell Count 6.5 X10^3/uL (4.5-11.0)
[2019-10-30 05:32] LABS: Alanine Aminotransferase 91 IU/L (<35); Albumin 3.3 g/dL (3.5-5.0); Albumin Globulin Ratio 1.2 (1.0-2.8); Alkaline Phosphatase 87 U/L (38-126); Aspartate Aminotransferase 193 IU/L (14-36); BUN Creatinine Ratio 14.7 (6-22); Bilirubin Total 0.7 mg/dL (0.2-1.3); Blood Urea Nitrogen 28 mg/dL (7-17); Calcium 8.8 mg/dL (8.4-10.2); Carbon Dioxide 20 mmol/L (22-32); Chloride 105 mmol/L (98-107); Estimated Glomerular Filt Rate 25.5 mL/min (>60); Globulin 2.8 g/dL (1.7-4.1); Glucose 93 mg/dL (80-110); HEMOLYSIS < 15 (0-50); Potassium 4.1 mmol/L (3.4-5.1); Sodium 136 mmol/L (137-145); Total Protein 6.1 g/dL (6.3-8.2)
[2019-10-30 06:00] VITALS: BP 134/96; PULSE 100; RESP 18; TEMP 36.3; O2SAT 100
[2019-10-30 08:00] VITALS: BP 130/90; PULSE 136; RESP 18; TEMP 36.4; O2SAT 98
[2019-10-30] MEDS: FERROUS GLUCONATE 324 MG TABLET PO ×2 (08:41→20:33)
[2019-10-30] MEDS: APIXABAN 5 MG TABLET PO ×2 (08:41→20:33)
[2019-10-30] MEDS: predniSONE 5 MG TABLET PO (08:41)
--- NOTE | 2019-10-30 09:15 | PM.PN.1 ---
Subjective Subjective Date Patient Seen: 10/30/19 Time Patient Seen: 08:50 Interval history: The pt reports having ongoing nausea this morning. She has not received her Ondansetron recently. She states that she got no sleep last night. She still feels extremely weak. She was able to eat a small amount of her clears this morning. Exam Vital Signs (past 8 hours): - 10/30/19 06:00 10/30/19 08:00 Temperature 97.3 F L 97.6 F Pulse Rate 100 H 136 H Respiratory Rate 18 18 Blood Pressure 134/96 H 130/90 Pulse Oximetry 100 98 Oxygen Delivery Method Room Air Oxygen Flow Rate 0 Narrative Exam Narrative: GEN - alert, cooperative and no distress, appears very fatigued NECK - no adenopathy HEART - irregularly irregular rhythm, tachycardic, grade 2/6 systolic murmur LUNGS - clear to auscultation bilaterally ABD - nondistended, normal bowel sounds, soft, nontender EXT - no cyanosis, clubbing or edema Objective Labs Result Diagrams: 10/30/19 04:55 10/30/19 04:55 Labs: Laboratory Results - last 24 hr 10/29/19 10/29/19 10/30/19 15:42 15:42 04:55 WBC 7.0 6.5 RBC 3.36 L 3.14 L Hgb 9.2 L 8.4 L Hct 27.8 L 25.7 L MCV 82.7 82.0 MCH 27.3 26.8 MCHC 33.0 32.6 RDW 15.1 H 15.2 H Plt Count 393 333 Neut % (Auto) 85.4 H 64.2 D Lymph % (Auto) 9.2 L 22.9 L [place] % (Auto) 5.1 12.6 Eos % (Auto) 0.1 L 0.1 L Baso % (Auto) 0.2 0.2 Neut # (Auto) 6000 4200 Lymph # (Auto) 600 L 1500 [place] # (Auto) 400 800 Eos # (Auto) 0 0 Baso # (Auto) 0 0 Sodium 139 Potassium 4.5 Chloride 104 Carbon Dioxide 20 L BUN 27 H Creatinine 1.80 H Estimated GFR 27.1 L BUN/Creatinine Ratio 15.0 Glucose 106 Calcium 9.7 Total Bilirubin 0.8 AST 248 H ALT 90 H Alkaline Phosphatase 47 Total Protein 6.7 Albumin 3.8 Globulin 2.9 Albumin/Globulin Ratio 1.3 Lipase 110 D 10/30/19 04:55 WBC RBC Hgb Hct MCV MCH MCHC RDW Plt Count Neut % (Auto) Lymph % (Auto) [place] % (Auto) Eos % (Auto) Baso % (Auto) Neut # (Auto) Lymph # (Auto) [place] # (Auto) Eos # (Auto) Baso # (Auto) Sodium 136 L Potassium 4.1 Chloride 105 Carbon Dioxide 20 L BUN 28 H Creatinine 1.90 H Estimated GFR 25.5 L BUN/Creatinine Ratio 14.7 Glucose 93 Calcium 8.8 Total Bilirubin 0.7 AST 193 H ALT 91 H Alkaline Phosphatase 87 Total Protein 6.1 L Albumin 3.3 L Globulin 2.8 Albumin/Globulin Ratio 1.2 Lipase Assessment & Plan Assessment & Plan narrative: Pt is a 79yo woman with PMR, atrial fibrillation, hx of diverticulitis, hx of NSTEMI, CKD, HTN, and chronic anemia who presented with significant weakness, nausea, and vomiting. Recent hospitalization for colitis/diverticulitis, now with return of the same symptoms. Pt with evidence of dehydration with significant tachycardia, MAKENNA. 1) Nausea and vomiting: Liver enzymes are elevated this hospitalization, no elevation bilirubin. CT can and ultrasound not suggestive of colitis, diverticulitis, or cholecystitis. Possible gastroenteritis. Will continue with symptomatic treatment at this time. Liver enzymes slightly downtrending. - Continue to trend liver enzymes - Clear liquid diet - Zofran PRN for nausea - Continue to hold antibiotics 2) Weakness: Due to decreased PO intake, mild dehydration, and chronic deconditioning - PT/OT consulted 3) MAKENNA: Most likely due to dehydration. Creatinine increasing slightly. - mIVF, increase rate to 125cc/hr - Continue to trend 4) PMR: - Continue Prednisone to 15mg daily - Tramadol PRN as at home 5) HTN, Chronic Atrial Fibrillation: - Continue home medications with Olmesartan, Eliquis, Nifedipine, Bystolic 6) Chronic iron deficiency anemia: - Continue iron supplement Code: Full Diet: Clear liquid diet DVT Ppx: On Eliquis Dispo: Pending tolerating diet, improvement in nausea, weakness improving. May need brief stay in SNF after d/c. Quality VTE Deep Vein Thrombosis/Pulmonary Embolism Present on Admission: No
[2019-10-30] MEDS: ONDANSETRON 4 MG/2 ML INJ IV ×3 (09:19→21:01)
--- NOTE | 2019-10-30 11:58 | PT-IP ANOTE ---
Received PT orders and reviewed chart. Contacted pt for evaluation, but pt stated she was feeling to nauseated and tired to participate. She suggested I come back later in the afternoon. Confirmed details of prior level with pt and her son, Will. Will attempt to initiate evaluation this PM.
[2019-10-30 11:59] VITALS: BP 125/75; PULSE 120; RESP 16; TEMP 37.1; O2SAT 99
--- NOTE | 2019-10-30 12:31 | PC.NURSE ---
Patient resting in bed with dry washcloth over eyes, her son is at the bedside. They request not to be disturbed at this time. Her son states 7 or 8 people have come to check on her and talk to her about various things, and I appreciate that but she has not slept and needs to rest now. Patient has call light within reach, and agrees to call for assistance.
--- NOTE | 2019-10-30 12:32 | CM.DANOTE ---
DCP: Case received, EMR reviewed and met with patient. SonArjun, who is primary caregiver, was also at bedside. Introduced self and role. Was able to obtain information from patient and son regarding baseline health, activity level, and living situation. DCP assessment completed with information currently available. Patient is a 79 year old female who admitted yesterday afternoon to the care of the hospitalist team. PCP: Dr. Trejo. Payer: confirmed: Medicare/[employer]. Patient came to the hospital due to nausea, as well as emesis and weakness. Patient had been here at the hospital recently from 10/21-10/23 for colitis. When she had gone home, she was on a regular diet, but then, started to develop some nausea, which resulted in emesis, and limited intake. Spoke to patient, and sonAjrun. Confirmed that patient lives on [facility] with son. Son, Arjun, stated, she has been weak since she has been home from the hospital, and mostly in bed. Son mentioned that they had received a notice from [employer], which was originally ordered at OR, that they do not go on [facility], so no home health agency had yet seen patient. Let him know that the [place] agency [place] [facility] [place] [facility]. Patient is alert and laying in bed, but weak. Discussed possibility of going to skilled/rehab, secondary to weakness. Patient stated, I don't really want to go, my is already in a facility. Let patient know that this would be temporary until she gets stronger. Arjun was also encouraging patient, since he is primary caregiver, that skilled rehab for a while may be a good idea. Went ahead and retrieved a Medicare Choice List and gave it to son to review. He will also discuss with his mother. Patient's , Casper, is residing at [facility]. P: DCP to continue to follow and collaborate with son, as well as P.T. Will continue to encourage patient to go to skilled rehab. Other option would be home health with [facility], but will have to see how patient progresses here in hospital. Sofya Durant RN/Marketing Communications Coordinator
--- NOTE | 2019-10-30 13:57 | OT.IP.EVAL ---
Current Diagnoses Nausea with vomiting, unspecified (10/29/19) Past Medical History (Last Reviewed 10/20/19 @ 14:22 by Aicha Jaramillo DO) Asthma (Chronic) CHF (congestive heart failure) (Resolved) Diverticular disease (Chronic) GERD (gastroesophageal reflux disease) (Chronic) GI bleeding (Chronic 03/2017) H. pylori infection (Chronic) Heart murmur (Chronic) Hyperlipidemia (Chronic) Hypertension (Chronic) NSTEMI (non-ST elevated myocardial infarction) (Inactive) Polymyalgia rheumatica (Chronic) Vitamin B12 deficiency (Acute) Surgical History (Last Reviewed 10/20/19 @ 14:22 by Aicha Jaramillo DO) History of carpal tunnel repair (Resolved) History of cataract removal with insertion of prosthetic lens (Resolved) History of hemicolectomy (Resolved 10/2005) Status post appendectomy (Resolved) Status post arthroscopy (Resolved) Status post cardiac catheterization (Resolved 1998) Status post vaginal hysterectomy (Resolved 1999) Occupational Therapy Inpatient Evaluation/Re-Eval M1 PT/OT-IP Prior Functional Status Start: 10/30/19 11:02 Freq: NEEDED Status: Active Protocol: Document 10/30/19 14:02 AW (Rec: 10/30/19 14:35 AW [id number]) Medical Review Prior Functional Status Medical History Reviewed Yes Diet/Fluid Consistency Clear Liquids Communication WNL Mobility and Gait Pt reports she was independent for ambulation and stair climbing with only occasional use of a SPC when experiencing increased right hip pain Activities of Daily Living and IADL's Per previous OT notes: Independent. Pt uses a BSC next to her bed since there is no toilet upstairs. The BSC saves her from going up/down 13 steps at night. Prior Functional Level (Other details) Pt is active, taking care of her own meds, finances, yard work, driving Social History Household Members children Living Arrangements House Number of Floors (Floors) Two Floors Number of Stairs To Enter/Railing? Ramped entry. 13 steps up to pt's room on second floor. Railing is on the right side going up. Home Environment High Toilet,Tub/Shower,Ramp Home Equipment Front Wheel Walker,Four Wheel Walker,Straight Cane,Bedside Commode,Shower Seat with Backrest,Hand Held Shower,Bed Rails,Grab Bars Near Toilet, Grab Bars In Shower M2 OT-IP Current Condition Start: 10/30/19 17:21 Freq: Status: Active Protocol: Document 10/30/19 13:57 PJM (Rec: 10/30/19 17:39 PJ [id number]) Occupational Therapy Current Condition Current Condition Evaluation Date 10/30/19 Treatment Diagnosis decr'd activity tolerance, mobility, ADLS. DX:recurrent gastroenteritis vs diverticulitis Diagnosis Onset Date 10/29/19 Post Operative Precautions Other Precautions persistent nausea/vomiting, fall risk M3 OT- IP Subjective and Pain Start: 10/30/19 17:21 Freq: Status: Active Protocol: Document 10/30/19 13:57 PJM (Rec: 10/30/19 17:39 PJ [id number]) OT- Subjective Occupational Therapy Visit Type Type Initial Evaluation Visit Start Time 13:40 Visit Stop Time 13:57 Total Visit Minutes 17 Notes Pt seen with P.T. due to very limited activity tolerance Occupational Therapy Visit Comments Patient Comments if I could just get rid of this nausea I could move around a lot better. Patient/Caregiver Goals to return to independence in all daily tasks at home OT Pain Assessment Pain When Pain Assessed After Treatment Pain Present Pain Present Denied Pain M4 OT- IP ADL's Start: 10/30/19 17:21 Freq: Status: Active Protocol: Document 10/30/19 13:57 PJM (Rec: 10/30/19 17:39 PJ [id number]) OT OQD-[id number]-Pneaqpr General Evaluation Diet Level for Self-Feeding clear liquids Self-Feeding Ability Independent Comments OT Self-Feeding Comments pt has poor appetite due to N/V OT ADL-Grooming General Evaluation Grooming Ability Standby Assistance Areas Needing Assistance Face Washing Comments OT Grooming Comments seated OT ADL-Oral Care Comments Oral Care Comments did not occur OT ADL-Dressing General Eval Lower Body Dressing Ability Maximum Assistance Areas Needing Assistance Socks Comments OT Dressing Comments pt does not want to reach down to feet due to nausea OT ADL-Toileting General Evaluation Toileting Ability Standby Assistance Areas Needing Assistance Perform Perineal Hygiene Comments OT Toileting Comments after urination on BSC OT ADL-Bathing Comments OT Bathing Comments to be assessed as activity tolerance improves M5 OT- IP IADL's Start: 10/30/19 17:21 Freq: Status: Active Protocol: Document 10/30/19 13:57 PJM (Rec: 10/30/19 17:39 [facility] [id number]) OT-Instrumental Activities of Daily Living Deficits IADL Deficits Identified Deficits Home Safety Awareness Awareness of Need for Assistance at Home Good Awareness Ability to Problem Solve Emergency Able to Problem Solve Situations Home Safety Comments son has been assisting pt at home Medication Management Medication Management No Deficits Identified Money Management Money Management No Deficits Identified Meal Preparation Meal Preparation Caregiver Provides Assist Meal Preparation Comments son to assist until pt able Marbleizer Marbleizer Caregiver Provides Assist Marbleizer Comments son to assist until pt able Driving Driving Caregiver Provides Assist Driving Comments son to assist until pt able M6 OT- IP Functional Cognition Start: 10/30/19 17:21 Freq: Status: Active Protocol: Document 10/30/19 13:57 PJM (Rec: 10/30/19 17:39 [facility] [id number]) Cognitive Factors Limiting Selfcare Function Cognitive Ability Level of Alertness Alert Patient Orientation Name,Age,Birthday,Month,Date, Year,Day of Week,Place, Situation Attention Span Ability Capable of Focused Attention, Capable of Sustained Attention Ability to Follow Commands Able to Follow One Step Commands Memory Description No Deficits Noted Safety Awareness No Deficits Noted Problem Solving Ability No deficits Noted Cognitive Comments Cognitive Assessment Comments Cognition appears WFL OT- Vision and Hearing OT- Hearing Assessment OT- Hearing Assessment WFL OT- Vision Assessment Visual Acuity WFL,Glasses For Reading M7 OT- IP Mobility and Balance Start: 10/30/19 17:21 Freq: Status: Active Protocol: Document 10/30/19 13:57 PJM (Rec: 10/30/19 17:39 [facility] [id number]) OT- Bed Mobility Assessment Rolling Type of Rolling Roll to Right Level of Assistance Standby Assistance,1 Person Assistance,Head of Bed Elevated Supine to Sit Supine to Sit Assist Standby Assistance,1 Person Assistance,Head of Bed Elevated Scooting Scooting to Edge of Bed Standby Assistance,1 Person Assistance OT-Transfer Assessment Sit to and From Stand Sit to and from Stand Contact Guard Assistance,1 Person Assistance Transfers Transfer Ability Contact Guard Assistance,1 Person Assistance Technique Transfer Destination Bedside Commode,Chair Transfer Technique Stand Step Pivot Devices Transfer Assistive Devices Gait Belt,Front Wheeled Walker OT- Gait Assessment Comments Gait Ability Comments did not occur this session OT- Balance Assessment Sitting Balance and Reactions Static Sitting Balance Ability Good Standing Balance and Reactions Static Standing Balance Ability Good Dynamic Standing Balance Ability Good Comments Other Balance Tests/Deviations/Treatment pt had c/o dizziness but no : LOB during standing for lower body clothing management with FWW M8 OT- IP Objective Assessments Start: 10/30/19 17:21 Freq: Status: Active Protocol: Document 10/30/19 13:57 PJM (Rec: 10/30/19 17:39 PJM [id number]) OT Gross Range of Motion Upper Extremity Range of Motion Assessment Within Functional Limits OT Strength Upper Extremity Strength Assessment Within Functional Limits OT- Coordination Assessment Upper Extremity Finger to Nose Test Within Functional Limits OT-Muscle Tone Assessment Muscle Tone WNL Yes OT Sensation Assessment Comments Summary Comments Pt denies deficits in BUE's Edema Edema Absent M9 OT- IP Assessment and Plan Start: 10/30/19 17:21 Freq: Status: Active Protocol: Document 10/30/19 13:57 PJM (Rec: 10/30/19 17:39 PJM [id number]) OT Summary Assessment and Plan Potential Rehabilitation Potential Good Analytic Complexity at Evaluation Low Summary OT Impairments Functional Mobility,Grooming, Dressing,Toileting,Bathing, Toilet Transfers,Shower Transfers,Activity Tolerance Assessment Summary Low complexity OT assessment completed on this 79 yr old female readmitted after 5 days at home with recurrent severe nausea/vomiting, dehydration with MAKENNA. DX is recurrent diverticulitis vs gastroenteritis. Pt was here -09/2719 with same symptoms. Pt's primary performance deficit is decreased activity tolerance due to severe nausea /vomiting and deconditioning from 8+ days of severe GI issues. Pt also has performance deficits in functional mobility/ transfers, standing grooming and all self care skills. Anticipate pt may improve quickly once medical issues are resolved due to her recent baseline level of function. Pt adamantly declines SNF at present due to bad experience with her . She strongly prefers home d/c with assist from son who lives with her and services. Goals Grooming Goal Standby Assistance Dressing Goal Standby Assistance Toileting Goal Standby Assistance Bathing Goal Standby Assistance,Grab Bars, Hand Held Shower Sprayer Toilet Transfer Goal Standby Assistance Shower Transfer Goal Standby Assistance,Walk-in Shower,Shower Chair Patient/Caregiver Education Goal Demonstrate Energy Conservation and Pacing, Caregiver Independent Assisting Patient Days to Meet Goals 5 Frequency of Treatment Frequency Of Treatment Once a Day Treatment Plan OT Treatment Plan ADL Training,Functional Mobility,Patient/Family Education,Discharge Planning Discharge Recommendations OT Discharge Recommendations Home with Assistance,Home Health Other Discharge Recommendations pending progress here Transportation Needs at Discharge Private Vehicle
--- NOTE | 2019-10-30 13:59 | PC.NURSE ---
Addendum entered by Sonny Ho R.N. 10/30/19 14:00: Shift update. Patient was able to sleep undisturbed for a little while (do not disturb sign was placed on her door per her son's request). Lab was unable to draw blood for hepatitis lab pending, they will attempt again later on today. Patient being seen by PT and OT at this time. Requesting additional zofran, which is not yet available per orders. Call placed to Dr. Bernstein office to relay anti nausea medication request as well as that lab has no been drawn. Awaiting return call. Continue to monitor. Original Note: Discussed increased heart rate with Dr. Trejo this morning when she came by to see patient, she states she thinks its related to the dehydration and will order increased IV fluid intake. (see MAR). Continue to monitor patient.
--- NOTE | 2019-10-30 14:35 | PT.IIE ---
Current Diagnoses Nausea with vomiting, unspecified (10/29/19) Surgical History (Last Reviewed 10/20/19 @ 14:22 by Aicha Jaramillo DO) History of carpal tunnel repair (Resolved) History of cataract removal with insertion of prosthetic lens (Resolved) History of hemicolectomy (Resolved 10/2005) Status post appendectomy (Resolved) Status post arthroscopy (Resolved) Status post cardiac catheterization (Resolved 1998) Status post vaginal hysterectomy (Resolved 1999) Medical History (Last Reviewed 10/20/19 @ 14:22 by Aicha Jaramillo DO) Asthma (Chronic) CHF (congestive heart failure) (Resolved) Diverticular disease (Chronic) GERD (gastroesophageal reflux disease) (Chronic) GI bleeding (Chronic 03/2017) H. pylori infection (Chronic) Heart murmur (Chronic) Hyperlipidemia (Chronic) Hypertension (Chronic) NSTEMI (non-ST elevated myocardial infarction) (Inactive) Polymyalgia rheumatica (Chronic) Vitamin B12 deficiency (Acute) Physical Therapy Inpatient Evaluation/Re-Eval M1 PT/OT-IP Prior Functional Status Start: 10/30/19 11:02 Freq: NEEDED Status: Active Protocol: Document 10/30/19 14:02 AW (Rec: 10/30/19 14:35 AW [id number]) Medical Review Prior Functional Status Medical History Reviewed Yes Diet/Fluid Consistency Clear Liquids Communication WNL Mobility and Gait Pt reports she was independent for ambulation and stair climbing with only occasional use of a SPC when experiencing increased right hip pain Activities of Daily Living and IADL's Per previous OT notes: Independent. Pt uses a BSC next to her bed since there is no toilet upstairs. The BSC saves her from going up/down 13 steps at night. Prior Functional Level (Other details) Pt is active, taking care of her own meds, finances, yard work, driving Social History Household Members children Living Arrangements House Number of Floors (Floors) Two Floors Number of Stairs To Enter/Railing? Ramped entry. 13 steps up to pt's room on second floor. Railing is on the right side going up. Home Environment High Toilet,Tub/Shower,Ramp Home Equipment Front Wheel Walker,Four Wheel Walker,Straight Cane,Bedside Commode,Shower Seat with Backrest,Hand Held Shower,Bed Rails,Grab Bars Near Toilet, Grab Bars In Shower M2 PT-IP Current Condition Start: 10/30/19 11:02 Freq: NEEDED Status: Active Protocol: Document 10/30/19 14:02 AW (Rec: 10/30/19 14:35 AW [id number]) Physical Therapy Current Condition Current Condition Evaluation Date 10/30/19 Treatment Diagnosis weakness, difficulty in walking Onset Date 10/29/19 M3 PT-IP Subjective Start: 10/30/19 11:02 Freq: NEEDED Status: Active Protocol: Document 10/30/19 14:02 AW (Rec: 10/30/19 14:35 AW [id number]) Subjective Physical Therapy Visit Type Type Initial Evaluation Visit Start Time 13:39 Visit Stop Time 13:57 Total Visit Minutes 18 Notes Pt refused mobility in the AM, citing nausea as too intense. This session, approached pt with OT in order to cluster cares with pt stating nausea better controlled. Co-tx with OT Any Number of MILL WASHER Visits 0 Physical Therapy Visit Comments Patient Comments Pt feels her nausea has improved and is willing to participate with therapy Patient Goals Pt prefers to avoid SNF rehab but is open to HH if she is able to discharge home. M4 PT-IP Mobility and Gait Start: 10/30/19 11:02 Freq: NEEDED Status: Active Protocol: Document 10/30/19 14:02 AW (Rec: 10/30/19 14:35 AW [id number]) PT-Bed Mobility Assessment Scooting Scooting to Edge of Bed Standby Assistance PT-Transfer Assessment Sit to and From Stand Sit to and from Stand Contact Guard Assistance,Use of Upper Extremities Equipment Transfer Assistive Device Gait Belt,Front Wheeled Walker Transfers Transfer Destination Chair,Bedside Commode Transfer Technique Stand Step Pivot Transfer Ability Level of Assist Contact Guard Assistance,Use of Upper Extremities Comments Mobility Comments Pt sitting up EOB working with student RN upon PT/OT arrival . PT/OT took over care. Pt stood from EOB CGA using FWW. Assist was required due to unsteadiness. She transferred to the BSC and then to the chair CGA using the FWW. She was positioned in the chair with warm blanket and extra pillows. Pt agreed not to get out of the chair without assistance. Notified RN that pt was left without chair alarm but with call light and table within reach. Gait Assessment Gait Gait Assistance Required: Contact Guard Assist Distance (Feet) 3 Assistive Devices Assistive Device Gait Belt,Front Wheeled Walker Gait Deviations General Gait Pattern Decreased Stride Length, Decreased Feet Clearance, Flexed Trunk,Narrow Based Gait Factors Limiting Gait Function Factors Limiting Gait Function Decreased Activity Tolerance, Decreased Strength,Poor Balance Comments Gait Comments See mobility comments. Pt fatigued easily with transfer and was unable to participate in gait assessement this visit . Stair Climbing Assessment Comments Stair Climbing Comments Not assessed. PT-Balance Assessment Sitting Balance and Reactions Static Sitting Balance Ability Good Dynamic Sitting Balance Ability Good Standing Balance and Reactions Static Standing Balance Ability Good Dynamic Standing Balance Ability Fair Device Used FWW M5 PT-IP Objective Assessments Start: 10/30/19 11:02 Freq: NEEDED Status: Active Protocol: Document 10/30/19 14:02 AW (Rec: 10/30/19 14:35 AW [id number]) Orientation Orientation/Cognition Level of Alertness Lethargic Orientation Name,Date,Place,Situation Language Function Ability No Deficits Noted Safety Awareness Understands Safety Issues Memory Description No Deficits Noted Gross Range of Motion Lower Extremity ROM Assessment Within Functional Limits Strength Lower Extremity Strength Assessment Bilaterally Impaired Hip 4-/5 Knee 4/5 Ankle 4+/5 Sensation Assessment Sensation Gross Sensation WNL Muscle Tone Muscle Tone WNL Yes M6 PT-IP Treatment Start: 10/30/19 11:02 Freq: NEEDED Status: Active Protocol: Document 10/30/19 14:02 AW (Rec: 10/30/19 14:35 AW [id number]) Physical Therapy Treatment Education Education Provided Safety M7 PT-IP Assessment and Plan Start: 10/30/19 11:02 Freq: NEEDED Status: Active Protocol: Document 10/30/19 14:02 AW (Rec: 10/30/19 14:35 AW [id number]) PT Summary Assessment and Plan Potential Rehabilitation Potential Good Status of Condition at Evaluation Stable Summary Impairments Pain,ROM,Strength,Balance,Bed Mobility,Transfers,Gait, Activity Tolerance Assessment Summary Michelle is a 79 yo woman readmitted with nausea, vomiting, and weakness after recent hospital stay for diverticulitis/colitis. Her son states she went home on and safely made it up the stairs but has been limited in her mobility since that time. Pt was discharged with orders for home health but they never initiated due to geographical service area boundaries. At baseline, pt is independent in all regards. On evaluation, she required CGA for all mobility due to unsteadiness/weakness. Pt states strong preference to avoid SNF rehab and further notes she will be able to stay on the main level of her home at discharge if she and her son acquire a hospital bed for the lower level. This pt would benefit from home health services to improve BLE strength and to enhance safety in her home, reducing risk of falls and complications associated with immobility. Goals Bed Mobility Goal Independent Transfer Goal Independent,Four Wheeled Walker Gait Goal Standby Assistance,Front Wheel Walker Gait Distance 150 Other Goals - up/down 13 steps with R rail ascending SBA Days to Meet Goals 5 Frequency of Treatment Frequency Of Treatment Once a Day Treatment Plan Physical Therapy Treatment Plan Bed Mobility Training,Transfer Training,Gait Training, Therapeutic Exercise,Balance Retraining,Discharge Planning, Hot or Cold Pack Other Recommendations and Next Treatment assess bed mobility, progress Focus gait distance with FWW if able Recommendations To Nursing Amount of Assist Needed 1 Person Assist Discharge Recommendations PT Discharge Recommendations Home with / Assist,Home Health Transportation Needs at Discharge Private Vehicle
[2019-10-30] MEDS: SODIUM CHLORIDE 0.9% 1,000 ML 125 ML IV ×2 (14:55→23:28)
[2019-10-30 16:40] VITALS: BP 137/90; PULSE 112; RESP 16; TEMP 36.3; O2SAT 100
[2019-10-30] MEDS: OLMESARTAN 20 MG TABLET 40 MG PO (17:58)
--- NOTE | 2019-10-30 18:30 | PC.NURSE ---
Addendum entered by Lynn Bhat R.N. 10/30/19 21:04: x 1 episode nausea, no emesis. Zofran IV administered with adequate relief. Original Note: Starr shift note: Patient awake, alert, and calm. States did not sleep very well last night and would like to sleep this evening. No c/o nausea or vomiting, tolerating clear diet, however poor appetite. Abdomen, soft and non tender. IVF infusing. Refuses SCDs, encouraged plantar/dorsi flexion while in bed and mobility. Calls appropriately for staff assistance.
[2019-10-31 00:09] VITALS: BP 126/78; PULSE 119; RESP 18; TEMP 36.8; O2SAT 99
--- NOTE | 2019-10-31 06:02 | PC.NURSE ---
Pt alert and oriented x4. Denies any pain. No complaints of nausea. Pt refusing to wear SCDs. Pt upset when staff wakes her up for care and refusing care. Pt refusing labs this AM. Lab will come back and try again once patient is awake. Pt asymptomatic tachycardia throughout the night, pt denies any shortness of breath or chest pain.
[2019-10-31] MEDS: SODIUM CHLORIDE 0.9% 1,000 ML 125 ML IV ×2 (06:21→14:19)
[2019-10-31 06:22] VITALS: PULSE 99
[2019-10-31] MEDS: TRAMADOL 50 MG TABLET PO (08:33)
[2019-10-31] MEDS: predniSONE 10 MG TABLET 15 MG PO (08:34)
[2019-10-31] MEDS: APIXABAN 5 MG TABLET PO (08:34)
[2019-10-31] MEDS: raNITIdine 150 MG CAPSULE PO ×2 (08:34→21:00)
[2019-10-31 08:37] LABS: Hemoglobin 8.3 g/dL (12.0-16.0); Mean Corpuscular HGB Conc 33.3 % (30-36); Mean Corpuscular Hemoglobin 27.5 PG (26-34); Mean Corpuscular Volume 82.7 fL (80-100); Platelet Count 281 X10^3/uL (150-400); Red Blood Cell Count 3.02 X10^6/uL (4.0-5.2); Red Cell Distribution Width 15.3 % (11.6-14.8); White Blood Cell Count 6.6 X10^3/uL (4.5-11.0)
[2019-10-31 08:40] LABS: Add Manual Diff / Slide Review YES
[2019-10-31] MEDS: ONDANSETRON 4 MG/2 ML INJ IV ×3 (08:44→17:58)
[2019-10-31 08:47] LABS: Alanine Aminotransferase 130 IU/L (<35); Albumin Globulin Ratio 1.2 (1.0-2.8); Alkaline Phosphatase 109 U/L (38-126); Aspartate Aminotransferase 233 IU/L (14-36); BUN Creatinine Ratio 14.4 (6-22); Bilirubin Total 0.6 mg/dL (0.2-1.3); Blood Urea Nitrogen 23 mg/dL (7-17); Calcium 7.8 mg/dL (8.4-10.2); Carbon Dioxide 16 mmol/L (22-32); Chloride 111 mmol/L (98-107); Estimated Glomerular Filt Rate 31.1 mL/min (>60); Globulin 2.6 g/dL (1.7-4.1); Glucose 59 mg/dL (80-110); HEMOLYSIS 16 (0-50); Potassium 3.6 mmol/L (3.4-5.1); Sodium 135 mmol/L (137-145); Total Protein 5.6 g/dL (6.3-8.2)
[2019-10-31 08:52] VITALS: BP 136/79; PULSE 122; RESP 20; TEMP 36; O2SAT 98
[2019-10-31 09:14] LABS: Anisocytosis 1+; Burr Cells 2+; Neutrophils Absolute Manual 4224 /uL (3000-5900); Nucleated Red Blood Cells 1 #/Diff; Polychromasia 1+; Total Cells Counted 100
--- NOTE | 2019-10-31 10:02 | PT-IP ANOTE ---
Pt refused therapy x2 this morning, stating she was too tired and wanted to rest. At this time, pt is agreeable to work w/ PT this afternoon.
[2019-10-31] MEDS: METOPROLOL IR 25 MG TABLET 12.5 MG PO (10:13)
[2019-10-31] MEDS: CALCIUM CARBONATE 500 MG TAB 1000 MG PO (12:54)
--- NOTE | 2019-10-31 13:38 | PT.IPTN ---
Current Diagnoses Nausea with vomiting, unspecified (10/29/19) Physical Therapy Treatment Note M2 PT-IP Current Condition Start: 10/30/19 11:02 Freq: NEEDED Status: Active Protocol: Document 10/30/19 14:02 AW (Rec: 10/30/19 14:35 AW [id number]) Physical Therapy Current Condition Current Condition Evaluation Date 10/30/19 Treatment Diagnosis weakness, difficulty in walking Onset Date 10/29/19 M3 PT-IP Subjective Start: 10/30/19 11:02 Freq: NEEDED Status: Active Protocol: Document 10/31/19 13:12 KS (Rec: 10/31/19 14:56 KS [id number]) Subjective Physical Therapy Visit Type Type Treatment Note Visit Start Time 13:12 Visit Stop Time 13:38 Total Visit Minutes 26 Notes ABATEMENT WORKER present during first half of treatment. Pt agreeable to try to work w/ therapy. Number of DATA WAREHOUSING MANAGER Visits 1 Physical Therapy Visit Comments Patient Comments Pt reported feelings of nausea and weakness. M4 PT-IP Mobility and Gait Start: 10/30/19 11:02 Freq: NEEDED Status: Active Protocol: Document 10/31/19 13:12 KS (Rec: 10/31/19 14:56 KS [id number]) PT-Bed Mobility Assessment Scooting Scooting to Edge of Bed Standby Assistance,Contact Guard Assistance Scooting Up and Down in Bed Maximum Assistance PT-Transfer Assessment Sit to and From Stand Sit to and from Stand Minimal Assistance,1 Person Assistance,Use of Upper Extremities Equipment Transfer Assistive Device Gait Belt,Front Wheeled Walker Orthotic/Prosthetic Devices or Brace: No Transfers Transfer Destination Bed,Bedside Commode Transfer Technique pt ambulated w/ FWW Transfer Ability Level of Assist Minimal Assistance,1 Person Assistance Comments Mobility Comments Pt was sitting EOB w/ ABATEMENT WORKER in preparation to use BSC. Pt at first stated that she did not want to participate w/ therapy d/t nausea but then agreed to have DATA WAREHOUSING MANAGER assist her getting to commode. Pt was SBA to CGA for scooting to EOB and Min A and cues to push up from bed for sit<>stand. Pt then ambulated CGA and cues for FWW managemwent ~3ft to BSC. CGA and cues for stand<>sit. ABATEMENT WORKER present during pts use of commode. Min A and cues for hand placement for sit<.stand from BSC and CGA for ambulation back to bed. Min A for sup<>sit for LE guidance back into bed. Once in bed, pt continued to c/o nausea, but agreed to LE strengthening exercises including ankle pumps, heel slides, quad sets, and glute sets. Pt then agreeable to attempt ambulation w/ encouragement from DATA WAREHOUSING MANAGER and pts son. Min A and cues for sup<>sit, CGA for scooting EOB. Min A for sit<> stand. Upon standing pt stated I can't do this, I am too nauseous and sat back down. Min A for LE guidance back to bed. Max A x2 for scooting up in bed. Pt left in bed w/ all needs in reach and son in room . Gait Assessment Gait Gait Assistance Required: Contact Guard Assist Distance (Feet) 3 Assistive Devices Assistive Device Gait Belt,Front Wheeled Walker Gait Deviations General Gait Pattern Decreased Stride Length, Decreased Feet Clearance, Flexed Trunk,Narrow Based Gait Factors Limiting Gait Function Factors Limiting Gait Function Decreased Activity Tolerance, Decreased Strength,Poor Balance Comments Gait Comments Please refer to mobility section for details. Stair Climbing Assessment Comments Stair Climbing Comments Not assessed. PT-Balance Assessment Sitting Balance and Reactions Static Sitting Balance Ability Good Dynamic Sitting Balance Ability Good Standing Balance and Reactions Static Standing Balance Ability Fair Dynamic Standing Balance Ability Fair Device Used FWW M5 PT-IP Objective Assessments Start: 10/30/19 11:02 Freq: NEEDED Status: Active Protocol: Document 10/30/19 14:02 AW (Rec: 10/30/19 14:35 AW [id number]) Orientation Orientation/Cognition Level of Alertness Lethargic Orientation Name,Date,Place,Situation Language Function Ability No Deficits Noted Safety Awareness Understands Safety Issues Memory Description No Deficits Noted Gross Range of Motion Lower Extremity ROM Assessment Within Functional Limits Strength Lower Extremity Strength Assessment Bilaterally Impaired Hip 4-/5 Knee 4/5 Ankle 4+/5 Sensation Assessment Sensation Gross Sensation WNL Muscle Tone Muscle Tone WNL Yes M6 PT-IP Treatment Start: 10/30/19 11:02 Freq: NEEDED Status: Active Protocol: Document 10/31/19 13:12 KS (Rec: 10/31/19 14:56 KS [id number]) Physical Therapy Treatment Exercises Exercises Ankle Pumps,Gluteal Sets,Quad Sets,Heel Slides M7 PT-IP Assessment and Plan Start: 10/30/19 11:02 Freq: NEEDED Status: Active Protocol: Document 10/31/19 13:12 KS (Rec: 10/31/19 14:56 KS [id number]) PT Summary Assessment and Plan Potential Rehabilitation Potential Good Status of Condition at Evaluation Stable Summary Impairments Pain,ROM,Strength,Balance,Bed Mobility,Transfers,Gait, Activity Tolerance Assessment Summary Pt continues to report severe nausea which is limiting her ability to tolerate ambulation and transfers at this time. Pt is Min A for sup<>sit and sit<>stand w/ cues for hand placement. CGA for ambulation w/ cues for FWW management. Pt is becoming more agreeable to SNF rehab, which at this point in time is an appropriate option for her d/t her low tolerance for activity and weakness. Will meet w/ pt and son for treatment tomorrow at 10 AM in hopes of pt feeling better and being more motivated to ambulate. Goals Bed Mobility Goal Independent Transfer Goal Independent,Four Wheeled Walker Gait Goal Standby Assistance,Front Wheel Walker Gait Distance 150 Other Goals - up/down 13 steps with R rail ascending SBA Days to Meet Goals 5 Frequency of Treatment Frequency Of Treatment Once a Day Treatment Plan Physical Therapy Treatment Plan Bed Mobility Training,Transfer Training,Gait Training, Therapeutic Exercise,Balance Retraining,Discharge Planning, Hot or Cold Pack Other Recommendations and Next Treatment assess bed mobility, progress Focus gait distance with FWW if able Recommendations To Nursing Amount of Assist Needed 1 Person Assist Discharge Recommendations PT Discharge Recommendations Home with 19/03 Assist,Home Health,SNF Rehab Transportation Needs at Discharge Private Vehicle
--- NOTE | 2019-10-31 14:14 | PM.PN.1 ---
Subjective Subjective Date Patient Seen: 10/31/19 Time Patient Seen: 07:45 Interval history: The pt reports feeling somewhat improved today. Her nausea was better last night. She is feeling hungry, and would like to try eating more today. She continues to deny any abdominal pain. She slept little last night, and primarily complains of fatigue this morning. When checking in with nursing this afternoon, they report that the pt has not consumed anything today. She has persistent nausea. Exam Vital Signs (past 8 hours): - 10/31/19 06:22 10/31/19 08:52 Temperature 96.8 F L Pulse Rate 99 H 122 H Respiratory Rate 20 Blood Pressure 136/79 Pulse Oximetry 98 Oxygen Delivery Method Room Air Oxygen Flow Rate 0 Narrative Exam Narrative: GEN - alert, cooperative and no distress NECK - no adenopathy HEART - irregularly irregular rhythm, regular rhythm, grade 2/6 systolic murmur LUNGS - clear to auscultation bilaterally ABD - nondistended, normal bowel sounds, soft, nontender EXT - no cyanosis, clubbing or edema Objective Labs Result Diagrams: 10/31/19 08:24 10/31/19 08:24 Labs: Laboratory Results - last 24 hr 10/31/19 10/31/19 08:24 08:24 WBC 6.6 RBC 3.02 L Hgb 8.3 L Hct 25.0 L MCV 82.7 MCH 27.5 MCHC 33.3 RDW 15.3 H Plt Count 281 Neut % (Auto) Not Reportable Lymph % (Auto) Not Reportable [place] % (Auto) Not Reportable Eos % (Auto) Not Reportable Baso % (Auto) Not Reportable Lymph # (Auto) Not Reportable [place] # (Auto) Not Reportable Baso # (Auto) Not Reportable Total Counted 100 Seg Neutrophils % 62.0 Band Neutrophils % 2.0 L Lymphocytes % (Manual) 24.0 L Monocytes % (Manual) 11.0 Eosinophils % (Manual) 1.0 L Neutrophils # (Manual) 4224 Nucleated RBCs 1 H RBC Morphology See below Polychromasia 1+ H Anisocytosis 1+ H Ang Cells 2+ H Sodium 135 L Potassium 3.6 Chloride 111 H Carbon Dioxide 16 L BUN 23 H Creatinine 1.60 H Estimated GFR 31.1 L BUN/Creatinine Ratio 14.4 Glucose 59 L Calcium 7.8 L Total Bilirubin 0.6 AST 233 H ALT 130 H Alkaline Phosphatase 109 Total Protein 5.6 L Albumin 3.0 L Globulin 2.6 Albumin/Globulin Ratio 1.2 Assessment & Plan Assessment & Plan narrative: Pt is a 79yo woman with PMR, atrial fibrillation, hx of diverticulitis, hx of NSTEMI, CKD, HTN, and chronic anemia who presented with significant weakness, nausea, and vomiting. Recent hospitalization for colitis/diverticulitis, now with return of the same symptoms. Pt with evidence of dehydration with significant tachycardia, MAKENNA. 1) Nausea and vomiting: Still unclear etiology overall. Liver enzymes are elevated this hospitalization, no elevation bilirubin. Liver enzymes rising today, unclear etiology. CT can and ultrasound not suggestive of colitis, diverticulitis, or cholecystitis. Nausea not yet improving significantly. - Continue to trend liver enzymes - Advance to full liquid diet at pts request - Zofran PRN for nausea - Continue to hold antibiotics - Hepatitis panel ordered yesterday not yet completed, will be done today - Surgery consulted due to persistent symptoms. Appreciate their recommendations and care. 2) Weakness: Due to decreased PO intake, mild dehydration, and chronic deconditioning - PT/OT consulted 3) MAKENNA: Most likely due to dehydration. Creatinine improving. - Continue mIVF at 125cc/hr - Continue to trend 4) PMR: - Continue Prednisone to 15mg daily - Tramadol PRN as at home 5) HTN, Chronic Atrial Fibrillation: - Continue home medications with Olmesartan, Eliquis, Nifedipine, Bystolic 6) Chronic iron deficiency anemia: Based on further review of chart, pt with positive FIT in 04/2019, supposed to have Colonoscopy in July that she never went to. - Continue iron supplement Code: Full Diet: Full liquid diet DVT Ppx: On Eliquis Dispo: Pending tolerating diet, improvement in nausea, weakness improving. PT/OT recommended home with home help. Quality VTE Deep Vein Thrombosis/Pulmonary Embolism Present on Admission: No
--- NOTE | 2019-10-31 14:50 | OT.IPNOTE ---
Per nursing pt had midline just placed in , nut okay to check on the pt for therapy. Pt states too tired and just wanting to rest. Therefore check on pt tomorrow for OT treatment.
--- NOTE | 2019-10-31 15:39 | PC.NURSE ---
GI: SI'm so sick to my stomach I can't eat. Bites only at bkft and lunch. recieved zofran x2, tums x1, minimal relief of nausea. Did try to get up and work with PT but had to much nausea to be able to do so. has been up to void. Does have active BT's. Pt reports she just doesn't feel good. Dr. Trejo made aware of gi status. Skin - pt has an area at the lt elbow which is swollen, has some redness, fluid filled, she has a tiny skin tear in this area and the fluid is leaking through it. She denies any injury to this area. Dressing has been changed x2. Dr. Trejo is aware of this as well. Cont w/poc.
--- NOTE | 2019-10-31 16:03 | CM.DPNOTE ---
DCP Cont Reviewed DCP w/ Dr Trejo today; PT recommending return home w/HH so she expected that pt would DC back home, likely Sunday w/ HH. This HEAVY MEDIA OPERATOR placed call to [facility], updated re: pt's DC and Lashell w/ Ziyad stated pt was on the schedule for f/u Sunday. Upon review of F2F, still needs to be signed, will request physician do this Sunday. Signed F2F, HH order and DC Summary need to be faxed to [facility] upon pt's DC. LILIBETH
[2019-10-31 16:48] VITALS: BP 137/78; PULSE 118; RESP 18; TEMP 36.4; O2SAT 99
[2019-10-31] MEDS: OLMESARTAN 20 MG TABLET 40 MG PO (17:06)
--- NOTE | 2019-10-31 17:53 | PM.CN ---
History of Present Illness Consult details Date Patient Seen: 10/31/19 Time Patient Seen: 17:53 Chief complaint: Colitis, diverticulitis Reason for consult: nausea Narrative: This is a 79yo woman with history of PMR on chronic steroids, atrial fibrillation, hx of diverticulitis, hx of NSTEMI, CKD, HTN, and chronic anemia who was admitted through the ER two days ago with weakness, nausea, and vomiting. She was hospitalized from 10/21-10/23 for colitis/diverticulitis and treated with IV antibiotics. Her abdominal pain and nausea improved, and she was discharged on a regular diet. When she went home, she reportedly ate a small meal, and then began to feel nauseated again. On the next day her nausea had returned to the same level as it was before her admission. She came back into the ER because of dehydration. She had a repeat CT scan which showed no diverticulitis. She has had RUQ US which shows minimal significant findings in the gall bladder, maybe some sludge adherent to the emdondson. The patient says that she has had nausea off and on for her entire life, and she was always someone who easily developed ?tummy trouble.? She says that she has always dealt with this, but it is much more severe right now she is not even able to keep down fluids keep herself hydrated. She says she is quite miserable right now and wants to do whatever she can to resolve these symptoms. Review of her chart shows she had EGD and colonoscopy by Dr. Mccormick in 2014. On the EGD she was found to have mild gastritis and Wood's esophagus. ROS: Constitutional: Denies chills, Reports fatigue, Denies fever(s), Reports poor appetite and Reports weakness Ears, Nose, Mouth, and Throat: Yes dry mouth, No ear pain, No nasal congestion and No sinus pain Cardiovascular: Denies chest pain, Denies fainting, Reports fast heart rate, Denies leg swelling, Denies lightheadedness and Denies shortness of breath Respiratory: Denies cough, Denies dyspnea and Denies wheezing Gastrointestinal: Denies abdominal pain, Denies melena, Reports change in bowel habits, Denies constipation, Reports loose stools, Reports nausea and Reports vomiting Musculoskeletal: Reports arthralgias Neurologic: Denies syncope and Reports weakness Endocrine: Reports fatigue Allergic/Immunologic: Denies wheezing PE: GENERAL: Alert, in mild distress due to persistent nausea. Appears stated age. Answers questions promptly and appropriately. Vital signs noted. HENT: Normocephalic, atraumatic. Hearing intact. Oral mucosa is pink and moist. EYES: Conjunctiva pink, sclera white, no periorbital swelling. CARDIOVASCULAR: Regular rate. No pedal edema. RESPIRATORY: Non-tachypneic, breathing comfortably on room air. GASTROINTESTINAL: Abdomen soft and non-distended, very very mild tenderness to deep palpation in the left lower quadrant, no epigastric tenderness, no right upper quadrant tenderness or flank tenderness, no masses or hernias. GENITALURINARY: No flank tenderness. No CVA tenderness. MUSCULOSKELETAL: Equal tone and mass bilaterally. SKIN: Warm, dry, soft, appropriate color for ethnicity. No other lesions, rashes, or wounds. NEURO: Alert and Oriented X 3. No gross sensory deficits, or cognitive issues. PSYCH: Appropriate affect and mood. Meds Home Medications and Allergies Home Medications Medication Instructions Recorded Confirmed Type Disabled Parking #2 each 09/10/18 10/30/19 Rx omeprazole 20 mg tablet,delayed 20 mg PO QPM #90 tab 10/14/18 10/30/19 Rx release Eliquis 5 mg PO BID 02/16/19 10/30/19 History trazodone 100 mg tablet 100 mg PO BEDTIME #90 tab 09/15/19 10/30/19 Rx famotidine 40 mg PO DAILY 10/20/19 10/30/19 History olmesartan 40 mg PO QPM 10/20/19 10/30/19 History ferrous gluconate 324 mg (37.5 mg 324 mg PO BID #180 tab 10/24/19 10/30/19 Rx iron) tablet tramadol 50 mg tablet 50 mg PO Q6H PRN #30 tab 10/27/19 10/30/19 Rx prednisone 10 mg tablet 15 mg PO DAILY tab 10/29/19 10/30/19 History nebivolol [Bystolic] 10 mg PO DAILY 10/30/19 10/30/19 History ondansetron 4 mg PO PRN PRN 10/30/19 10/30/19 History prednisone 5 mg PO DAILY 10/30/19 10/30/19 History Allergies Allergy/AdvReac Type Severity Reaction Status Date / Time methocarbamol [METHOCARBAMOL] Allergy Mild RASH/ROBAXI Verified 10/29/19 14:14 N Penicillins [PENICILLINS] Allergy Mild Rash Verified 10/29/19 14:14 piroxicam [PIROXICAM] Allergy Mild RASH/FELDEN Verified 10/29/19 14:14 E ciprofloxacin [CIPROFLOXACIN] AdvReac Severe MUSCLE PAIN Verified 10/29/19 14:14 metoprolol AdvReac Intermediate Dizziness Verified 10/29/19 14:14 nitrofurantoin AdvReac Intermediate Horrible Verified 10/29/19 14:14 Nausea temazepam [TEMAZEPAM] AdvReac Mild NERVOUNESS/ Verified 10/29/19 14:14 RESTORIL Exam Vital Signs (past 8 hours): - 10/31/19 16:48 Temperature 97.5 F L Pulse Rate 118 H Respiratory Rate 18 Blood Pressure 137/78 Pulse Oximetry 99 Oxygen Delivery Method Room Air Oxygen Flow Rate [address] scan - abdomen: My impression: I reviewed both CT scans and her right upper quadrant ultrasound which were done in the last few days. She has diverticulosis, with resolving diverticulitis. She has some sludge in the gallbladder which may just be thickened bile adherent to the edmondson of the gallbladder. Normal bile ducts with no dilation. Labs Result Diagrams: 10/31/19 08:24 10/31/19 08:24 Labs: Laboratory Results - last 24 hr 10/31/19 10/31/19 08:24 08:24 WBC 6.6 RBC 3.02 L Hgb 8.3 L Hct 25.0 L MCV 82.7 MCH 27.5 MCHC 33.3 RDW 15.3 H Plt Count 281 Neut % (Auto) Not Reportable Lymph % (Auto) Not Reportable [place] % (Auto) Not Reportable Eos % (Auto) Not Reportable Baso % (Auto) Not Reportable Lymph # (Auto) Not Reportable [place] # (Auto) Not Reportable Baso # (Auto) Not Reportable Total Counted 100 Seg Neutrophils % 62.0 Band Neutrophils % 2.0 L Lymphocytes % (Manual) 24.0 L Monocytes % (Manual) 11.0 Eosinophils % (Manual) 1.0 L Neutrophils # (Manual) 4224 Nucleated RBCs 1 H RBC Morphology See below Polychromasia 1+ H Anisocytosis 1+ H Ang Cells 2+ H Sodium 135 L Potassium 3.6 Chloride 111 H Carbon Dioxide 16 L BUN 23 H Creatinine 1.60 H Estimated GFR 31.1 L BUN/Creatinine Ratio 14.4 Glucose 59 L Calcium 7.8 L Total Bilirubin 0.6 AST 233 H ALT 130 H Alkaline Phosphatase 109 Total Protein 5.6 L Albumin 3.0 L Globulin 2.6 Albumin/Globulin Ratio 1.2 Assessment & Plan Assessment and plan (1) Diverticulitis: Current visit: No Status: Acute (2) Weakness: Current visit: No Status: Acute (3) Occult blood in stools: Current visit: No Status: Acute (4) Iron deficiency anemia: Current visit: No Status: Acute (5) Stage 3 chronic kidney disease: Current visit: No Status: Chronic (6) Degenerative joint disease of right hip: Current visit: No Status: Chronic (7) Arrhythmia: Current visit: No Status: Chronic (8) Hypokalemia: Current visit: No Status: Resolved (9) CHF (congestive heart failure): Problem details: EF 40-45% on 06/2018 Current visit: No Status: Resolved (10) Atrial fibrillation: Qualifiers: Atrial fibrillation type: unspecified Qualified Code(s): I48.91 - Unspecified atrial fibrillation Current visit: No Status: Acute (11) Polymyalgia rheumatica: Current visit: No Status: Chronic (12) Essential hypertension: Current visit: No Status: Chronic (13) Back pain at L4-L5 level: Current visit: No Status: Chronic (14) Intractable nausea and vomiting: Current visit: Yes Status: Acute (15) Barretts esophagus: Current visit: Yes Status: Acute (16) Anemia: Current visit: Yes Status: Acute (17) Transaminitis: Current visit: Yes Status: Acute Assessment & Plan narrative: This is a 79-year-old woman with complex medical history whose main complaint is persistent nausea. She has there is no clear outstanding etiology of her nausea, however, she does have several potential contributing sources which should be evaluated. In the differential we should consider biliary dyskinesia, gastritis, H pylori, peptic ulcers, and medication side effect. She has some sludge in the gallbladder and she has elevated LFTs. With her persistent nausea, these are symptoms potentially indicative of biliary dyskinesia. However recommend HIDA scan to rule that out. She has a known history of gastritis, and Wood's esophagus. With guaiac-positive stools, an EGD should be done to evaluate for a source of her anemia in the upper GI tract, as well as to rule out H pylori and active gastritis. She is on a PPI, but I would consider increasing the dose and giving it in IV form since she is not tolerating much p.o. at this point. Her nausea may also be at least somewhat contributed to by several of her medications which can cause nausea. I would recommend going through her medication list and identifying anything that may be contributing to the nausea and considering holiday or substitution. Recommendations: Consider b.i.d. IV PPI -- I will order HIDA to rule out biliary dyskinesia (I will order) EGD with biopsies to rule out H pylori, gastritis, and peptic ulcer (also needs surveillance for Wood's diagnosed 5 years ago) -- will try to do Sunday or Sunday if patient agrees Hold Eliquis for EGD with biopsies (right now patient wants to wait, but may be willing to do it Sunday or Sunday) -- I will put in DC order Scopolamine patch for symptoms (I will order) Please review her home medications for meds that may be contributing to nausea (such as Eliquis) Thank you for the consult. I will continue to see her this weekend. I will be out on Sunday and Dr. Falk will be covering for me on that day.
[2019-10-31] MEDS: SCOPOLAMINE 1 PATCH TOP (18:36)
[2019-10-31 19:53] VITALS: BP 134/93; PULSE 112; RESP 18; TEMP 35.9; O2SAT 98
[2019-10-31] MEDS: TRAZODONE 100 MG TABLET PO (21:00)
[2019-10-31] MEDS: PANTOPRAZOLE 40 MG VIAL IV (21:00)
[2019-10-31 23:59] VITALS: BP 124/96; PULSE 123; RESP 20; TEMP 36.2; O2SAT 99
[2019-11-01] MEDS: SODIUM CHLORIDE 0.9% 1,000 ML 125 ML IV ×2 (06:09→14:23)
[2019-11-01 06:15] LABS: INR 2.2 (0.9-1.3); Prothrombin Time 25.3 SECONDS (10.1-12.7)
[2019-11-01 06:18] LABS: PTT Partial Thromboplastin Tim 33 SECONDS (26.4-36.2)
[2019-11-01 06:28] LABS: Hematocrit 28.6 % (36-46); Hemoglobin 9.2 g/dL (12.0-16.0); Mean Corpuscular HGB Conc 32.1 % (30-36); Mean Corpuscular Hemoglobin 26.9 PG (26-34); Mean Corpuscular Volume 83.9 fL (80-100); Platelet Count 280 X10^3/uL (150-400); Red Blood Cell Count 3.41 X10^6/uL (4.0-5.2); Red Cell Distribution Width 15.6 % (11.6-14.8); White Blood Cell Count 9.1 X10^3/uL (4.5-11.0)
[2019-11-01 06:32] LABS: Add Manual Diff / Slide Review YES
--- NOTE | 2019-11-01 06:47 | PC.NURSE ---
Attempted to draw off midline, got blood return but was difficult to get blood out sufficiently and labs ended up hemolyzed.
[2019-11-01 07:37] LABS: Neutrophils Absolute Manual 6825 /uL (3000-5900); Nucleated Red Blood Cells 3 #/Diff; Total Cells Counted 100
[2019-11-01 07:39] LABS: Burr Cells 1+
[2019-11-01 07:40] LABS: Platelet Estimate Adequate on smear; Poikilocytosis 1+; Polychromasia 1+
[2019-11-01 07:53] LABS: Alanine Aminotransferase 307 IU/L (<35); Albumin Globulin Ratio 1.2 (1.0-2.8); Alkaline Phosphatase 111 U/L (38-126); Aspartate Aminotransferase 710 IU/L (14-36); BUN Creatinine Ratio 15.6 (6-22); Bilirubin Total 0.8 mg/dL (0.2-1.3); Blood Urea Nitrogen 25 mg/dL (7-17); Calcium 7.7 mg/dL (8.4-10.2); Carbon Dioxide 12 mmol/L (22-32); Chloride 112 mmol/L (98-107); Estimated Glomerular Filt Rate 31.1 mL/min (>60); Globulin 2.6 g/dL (1.7-4.1); Glucose 66 mg/dL (80-110); HEMOLYSIS < 15 (0-50); Potassium 4.3 mmol/L (3.4-5.1); Sodium 134 mmol/L (137-145); Total Protein 5.6 g/dL (6.3-8.2)
--- NOTE | 2019-11-01 08:01 | P.PN_ITS ---
Subjective Subjective Interval history: Patient seen and evaluated this morning. She says she feels exactly the same. Still nauseated no pain. Patient is now NPO except ice chips. She is started on a scopolamine patch and has a dry mouth. Had a surgical consultation yesterday which is appreciated. Patient has a HIDA scan scheduled for this morning. Depending on the results of that may undergo an EGD. Her main complaint today is she wants to sleep she feels so tired. She is ambulatory at home does not walk with a cane or a walker. She is able to get out of bed but requires a little bit of assistance she has a walker here in the hospital she says only because the nurses maker use it. Her anticoagulation is stopped. She has SCDs on the. Has a history of atrial fibrillation and at risk for embolic stroke Exam Vital Signs (past 8 hours): Oxygen Delivery Method Room Air Oxygen Flow Rate 0 Narrative Exam Narrative: Gen.: Alert good historian HEENT: Pupils equal round and reactive or mucosa is dry. Neck is supple Cardio: S1-S2 irregular rate and rhythm Respiratory: Lungs are clear to auscultation no wheezes or crackles normal respiratory effort. Abdomen: Soft nontender no rebound or guarding no liver spleen enlargement no appreciable hernias Extremities: Trace edema on lower extremities Neurologic: Grossly intact. Objective Labs Result Diagrams: 11/01/19 05:32 11/01/19 07:05 Labs: Laboratory Results - last 24 hr 10/31/19 10/31/19 11/01/19 08:24 08:24 05:32 WBC 6.6 9.1 RBC 3.02 L 3.41 L Hgb 8.3 L 9.2 L Hct 25.0 L 28.6 L MCV 82.7 83.9 MCH 27.5 26.9 MCHC 33.3 32.1 RDW 15.3 H 15.6 H Plt Count 281 280 Neut % (Auto) Not Reportable Not Reportable Lymph % (Auto) Not Reportable Not Reportable Dixon % (Auto) Not Reportable Not Reportable Eos % (Auto) Not Reportable Not Reportable Baso % (Auto) Not Reportable Not Reportable Lymph # (Auto) Not Reportable Not Reportable Dixon # (Auto) Not Reportable Not Reportable Baso # (Auto) Not Reportable Not Reportable Total Counted 100 100 Seg Neutrophils % 62.0 70.0 Band Neutrophils % 2.0 L 5.0 Lymphocytes % (Manual) 24.0 L 15.0 L Monocytes % (Manual) 11.0 9.0 Eosinophils % (Manual) 1.0 L Metamyelocytes % 1.0 H Neutrophils # (Manual) 4224 6825 H Nucleated RBCs 1 H 3 H Platelet Estimate Adequate on smear RBC Morphology See below See below Polychromasia 1+ H 1+ H Poikilocytosis 1+ H Anisocytosis 1+ H Ang Cells 2+ H 1+ H PT INR APTT Sodium 135 L Potassium 3.6 Chloride 111 H Carbon Dioxide 16 L BUN 23 H Creatinine 1.60 H Estimated GFR 31.1 L BUN/Creatinine Ratio 14.4 Glucose 59 L Calcium 7.8 L Total Bilirubin 0.6 AST 233 H ALT 130 H Alkaline Phosphatase 109 Total Protein 5.6 L Albumin 3.0 L Globulin 2.6 Albumin/Globulin Ratio 1.2 11/01/19 11/01/19 05:32 07:05 WBC RBC Hgb Hct MCV MCH MCHC RDW Plt Count Neut % (Auto) Lymph % (Auto) Dixon % (Auto) Eos % (Auto) Baso % (Auto) Lymph # (Auto) Dixon # (Auto) Baso # (Auto) Total Counted Seg Neutrophils % Band Neutrophils % Lymphocytes % (Manual) Monocytes % (Manual) Eosinophils % (Manual) Metamyelocytes % Neutrophils # (Manual) Nucleated RBCs Platelet Estimate RBC Morphology Polychromasia Poikilocytosis Anisocytosis [place] Cells PT 25.3 H INR 2.2 H APTT 33 D Sodium 134 L Potassium 4.3 Chloride 112 H Carbon Dioxide 12 L BUN 25 H Creatinine 1.60 H Estimated GFR 31.1 L BUN/Creatinine Ratio 15.6 Glucose 66 L Calcium 7.7 L Total Bilirubin 0.8 AST 710 H ALT 307 H Alkaline Phosphatase 111 Total Protein 5.6 L Albumin 3.0 L Globulin 2.6 Albumin/Globulin Ratio 1.2 Assessment & Plan Assessment & Plan narrative: Nausea and vomiting: No change. Surgical consultation today. Further workup of gallbladder initiated with HIDA scan due to elevated liver enzymes possible sludge on ultrasound. She is NPO today except for ice chips scopolamine patch has been started. Patient has some dry mouth nausea is the same. HIDA scan is normal. Patient is going to undergo an upper endoscopy. Patient not eating. Lots of oral medications. Also contributing factors to her nausea potentially. Weakness: Multifactorial. She says she is tired today. Although from what is been reported she had a great night sleep last night. - PT/OT consulted MAKENNA: Resolved. Due to dehydration. Continue with IV fluids monitor closely electrolytes. PMR: Chronic. On chronic prednisone. On appropriate doses for this. HTN, blood pressure stable. On appropriate blood pressure medication. Blood pressure stable Chronic Atrial Fibrillation: A time still little bit tachycardic. Eliquis on hold. Due to potential procedures. SCDs on. Does not need bridging therapy at this point. At risk for cerebrovascular embolic but nausea needs to be worked up. Chronic iron deficiency anemia: Guaiac-positive stool. Needs further evaluation with endoscopy and colonoscopy. Previous admissions showed colitis infectious etiology. Disposition and plan NPO stop Eliquis HIDA scan today if normal proceed with EGD if abnormal consider cholecystectomy. Medications reviewed for potential causes of nausea. Quality VTE Deep Vein Thrombosis/Pulmonary Embolism Present on Admission: No
--- NOTE | 2019-11-01 10:09 | PT.IPTN ---
Current Diagnoses Iron deficiency anemia, unspecified (10/29/19) Anemia, unspecified (10/29/19) Hypokalemia (10/29/19) Essential (primary) hypertension (10/29/19) Unspecified atrial fibrillation (10/29/19) Cardiac arrhythmia, unspecified (10/29/19) Heart failure, unspecified (10/29/19) Wood's esophagus without dysplasia (10/29/19) Diverticulitis of intestine, part unspecified, without perforation or abscess without bleeding (10/29/19) Unilateral primary osteoarthritis, right hip (10/29/19) Polymyalgia rheumatica (10/29/19) Low back pain (10/29/19) Chronic kidney disease, stage 3 (moderate) (10/29/19) Nausea with vomiting, unspecified (10/29/19) Other fecal abnormalities (10/29/19) Weakness (10/29/19) Nonspecific elevation of levels of transaminase and lactic acid dehydrogenase [LDH] (10/29/19) Physical Therapy Treatment Note M2 PT-IP Current Condition Start: 10/30/19 11:02 Freq: NEEDED Status: Active Protocol: Document 10/30/19 14:02 AW (Rec: 10/30/19 14:35 AW [id number]) Physical Therapy Current Condition Current Condition Evaluation Date 10/30/19 Treatment Diagnosis weakness, difficulty in walking Onset Date 10/29/19 M3 PT-IP Subjective Start: 10/30/19 11:02 Freq: NEEDED Status: Active Protocol: Document 11/01/19 14:06 KS (Rec: 11/01/19 14:07 KS [id number]) Subjective Physical Therapy Visit Type Type Administrative Note Visit Start Time 10:08 Visit Stop Time 10:09 Total Visit Minutes 1 Notes Per RN, avoid therapy until this afternoon d/t pts high level of fatigue.
[2019-11-01] MEDS: predniSONE 10 MG TABLET 15 MG PO (10:40)
[2019-11-01] MEDS: raNITIdine 150 MG CAPSULE PO ×2 (10:40→20:25)
[2019-11-01] MEDS: NEBIVOLOL 10 MG TABLET PO (10:41)
[2019-11-01] MEDS: PANTOPRAZOLE 40 MG VIAL IV ×2 (10:41→20:22)
[2019-11-01 10:44] VITALS: BP 144/77; PULSE 113; RESP 16; TEMP 36.5; O2SAT 97
[2019-11-01] MEDS: ONDANSETRON 4 MG/2 ML INJ IV ×3 (10:47→20:18)
--- NOTE | 2019-11-01 11:09 | OT.IPNOTE ---
Per nursing to HOLD therapy due to pt very nauseated and awaiting to get a HIDA scan.
--- NOTE | 2019-11-01 15:03 | PT.IPTN ---
Current Diagnoses Iron deficiency anemia, unspecified (10/29/19) Anemia, unspecified (10/29/19) Hypokalemia (10/29/19) Essential (primary) hypertension (10/29/19) Unspecified atrial fibrillation (10/29/19) Cardiac arrhythmia, unspecified (10/29/19) Heart failure, unspecified (10/29/19) Wood's esophagus without dysplasia (10/29/19) Diverticulitis of intestine, part unspecified, without perforation or abscess without bleeding (10/29/19) Unilateral primary osteoarthritis, right hip (10/29/19) Polymyalgia rheumatica (10/29/19) Low back pain (10/29/19) Chronic kidney disease, stage 3 (moderate) (10/29/19) Nausea with vomiting, unspecified (10/29/19) Other fecal abnormalities (10/29/19) Weakness (10/29/19) Nonspecific elevation of levels of transaminase and lactic acid dehydrogenase [LDH] (10/29/19) Physical Therapy Treatment Note M2 PT-IP Current Condition Start: 10/30/19 11:02 Freq: NEEDED Status: Active Protocol: Document 10/30/19 14:02 AW (Rec: 10/30/19 14:35 AW [id number]) Physical Therapy Current Condition Current Condition Evaluation Date 10/30/19 Treatment Diagnosis weakness, difficulty in walking Onset Date 10/29/19 M3 PT-IP Subjective Start: 10/30/19 11:02 Freq: NEEDED Status: Active Protocol: Document 11/01/19 14:43 KS (Rec: 11/01/19 15:23 KS [id number]) Subjective Physical Therapy Visit Type Type Treatment Note Visit Start Time 14:43 Visit Stop Time 15:03 Total Visit Minutes 20 Notes Pt agreeable to work w/ therapy, but reports nausea. Physical Therapy Visit Comments Patient Comments Pt reported feelings of nausea and weakness. M4 PT-IP Mobility and Gait Start: 10/30/19 11:02 Freq: NEEDED Status: Active Protocol: Document 11/01/19 14:43 KS (Rec: 11/01/19 15:23 KS [id number]) PT-Bed Mobility Assessment Rolling Type of Rolling Bilateral Level of Assist Minimal Assistance,1 Person Assistance Supine to Sit Supine to Sit Moderate Assistance,1 Person Assistance,Head of Bed Elevated,Bedrails Sit to Supine Sit to Supine Minimal Assistance,1 Person Assistance Scooting Scooting to Edge of Bed Minimal Assistance Scooting Up and Down in Bed Maximum Assistance PT-Transfer Assessment Comments Mobility Comments Pt was in bed upon arrival fom therapy. Attempted to get pt up to use BSC, but unsuccessful d/t pts reported severe nausea. Mod A for sup<> sit w/ HOB elevated and use of hand rails. Min A for scooting w/ cues and use of grab bar. Once pt was sitting, her nausea increased and she layed back down. Attempted again to sit up and scoot EOB, but pt stated she was unable and just too nauseous. Pt requested to lay back in bed. Min A for sit<>sup for LE guidance into bed. ENVIRONMENTAL SCIENCES PROFESSOR called to help reposition pt in bed. Min A for logroll to L and R for drawsheet replacement. Max A x2 for scooting up in bed. Pt left in bed w/ all needs in reach. Gait Assessment Comments Gait Comments unable at this time. Stair Climbing Assessment Comments Stair Climbing Comments Not assessed. PT-Balance Assessment Sitting Balance and Reactions Static Sitting Balance Ability Fair Dynamic Sitting Balance Ability Fair M5 PT-IP Objective Assessments Start: 10/30/19 11:02 Freq: NEEDED Status: Active Protocol: Document 10/30/19 14:02 AW (Rec: 10/30/19 14:35 AW [id number]) Orientation Orientation/Cognition Level of Alertness Lethargic Orientation Name,Date,Place,Situation Language Function Ability No Deficits Noted Safety Awareness Understands Safety Issues Memory Description No Deficits Noted Gross Range of Motion Lower Extremity ROM Assessment Within Functional Limits Strength Lower Extremity Strength Assessment Bilaterally Impaired Hip 4-/5 Knee 4/5 Ankle 4+/5 Sensation Assessment Sensation Gross Sensation WNL Muscle Tone Muscle Tone WNL Yes M6 PT-IP Treatment Start: 10/30/19 11:02 Freq: NEEDED Status: Active Protocol: Document 10/31/19 13:12 KS (Rec: 10/31/19 14:56 KS [id number]) Physical Therapy Treatment Exercises Exercises Ankle Pumps,Gluteal Sets,Quad Sets,Heel Slides M7 PT-IP Assessment and Plan Start: 10/30/19 11:02 Freq: NEEDED Status: Active Protocol: Document 11/01/19 14:43 KS (Rec: 11/01/19 15:23 KS [id number]) PT Summary Assessment and Plan Potential Rehabilitation Potential Fair Status of Condition at Evaluation Stable Summary Impairments Pain,ROM,Strength,Balance,Bed Mobility,Transfers,Gait, Activity Tolerance Assessment Summary Pt continues to be very limited by high reported feelings of nausea. Mod A and HOB elevated for sup<>sit, Min A and cues for scooting. Min A for sit<>sup and logroll for drawsheet replacement. Max A x2 for scooting up in bed. Attempted to get pt to [facility], but she was only able to sup<> sit and unable to scoot all the way to edge of bed and transfer. After second attempt for sup<>sit, pt requested to lay back down because of nausea. Depending on progress, pt will likely benefit from SNF rehab over Home w/ 19/03 asssit at this time to progress bed mobility, transfers, ambulation, and strength deficits. Goals Bed Mobility Goal Independent Transfer Goal Independent,Four Wheeled Walker Gait Goal Standby Assistance,Front Wheel Walker Gait Distance 150 Other Goals - up/down 13 steps with R rail ascending SBA Days to Meet Goals 5 Frequency of Treatment Frequency Of Treatment Once a Day Treatment Plan Physical Therapy Treatment Plan Bed Mobility Training,Transfer Training,Gait Training, Therapeutic Exercise,Balance Retraining,Discharge Planning, Hot or Cold Pack Other Recommendations and Next Treatment assess bed mobility, progress Focus gait distance with FWW if able Recommendations To Nursing Amount of Assist Needed 1 Person Assist Discharge Recommendations PT Discharge Recommendations Home with 19/03 Assist,Home Health,SNF Rehab Transportation Needs at Discharge Private Vehicle
[2019-11-01] MEDS: OLMESARTAN 20 MG TABLET 40 MG PO (16:37)
--- NOTE | 2019-11-01 16:56 | PC.NURSE ---
Addendum entered by Lynn Bhat R.N. 11/01/19 21:19: Dr. Oswald at bedside this evening, updated patient regarding plan of care. No transfer to outside facility today. IVF changed, addition of Dextrose and KCL. Emesis x 1 this shift, Zofran administered with relief. Addendum entered by Lynn Bhat R.N. 11/01/19 17:52: Patient voided 250 ml via bedpan, attempted BSC, however too weak to get up out of bed. Original Note: Starr shift note: Noted Glucose level on serum CMP 66 mg/dl at 0705, checked CBG at 1610 BG 71 mg/dl, patient on clear diet, tolerating. Will encourage PO intake and monitor for s/sx of hypoglycemia. Patient did not void for dayshift, last noted void at 0500. Bladder scan to follow. Refusing SCDs, discussed importance of use, agreed to keep in place at all times while in bed. Patient continue with generalized weakness, states no nausea at rest, provoked with movement/activity. Pallor to face, skin dry and warm. IVF infusing. Update son Arjun and Evi regarding plan of care via phone call.
[2019-11-01 17:20] VITALS: BP 122/81; PULSE 122; RESP 16; TEMP 35.7; O2SAT 98
--- NOTE | 2019-11-01 17:46 | PM.DS.1 ---
History of Present Illness History of Present Illness Chief complaint: Colitis, diverticulitis Discharge Providers Provider Date of admission: 10/29/19 14:50 Discharge Date: 11/02/19 Primary care physician: Mary Trejo MD Consults: 10/30/19 09:13 Consult to Occupational Therapy Evaluate & Treat Comment: Physician Instructions: Evaluate and treat Consult to Physical Therapy Evaluate & Treat Comment: Physician Instructions: Evaluate and Treat Discharge provider: Edwin Oswald MD Summary Hospital Course Discharge Diagnosis: Cardiopulmonary arrest Acute hepatitis Liver failure Nausea with dehydration Acute kidney injury Atrial fibrillation intermittent with chronic anticoagulation Cardiomyopathy Polymyalgia rheumatica on chronic prednisone Hypertension Hyperlipidemia Hospital Course: 79-year-old female who was admitted the hospital with weakness nausea and poor p.o. intake. She was discharged from the hospital approximately a week previously after being hospital for number of days with a diagnosis of diverticulitis colitis. She had improved pain nausea vomiting and discomfort with treatment of her colitis with ceftriaxone and metronidazole was discharged home. After being discharged home a few days later she began to become quite ill again. Became more and more sick nauseated an inability to the eat and came back and was evaluated and admitted to the hospital. Please see admission hospital note for details. Her hospital stay. Patient had a gradual rehydration monitoring of electrolytes. Placed on her home blood pressure medication cardiac medication over the next day she had improvement of her kidney function. And initial elevation of her liver enzymes went down. Following day patient's liver enzymes went back up patient was still nauseated and not feeling well in taking poor p.o. intake. Patient had a repeat evaluation of her abdomen with a CT scan and ultrasound. Fairly unrevealing other than biliary sludge possible stones. That point surgery was consulted for evaluation of the patient. Surgery evaluated the patient to rule out underlying gallbladder disease and initial evaluation was started to workup the patient for this including a HIDA scan and possible EGD to rule out underlying gastritis is the cause of nausea. Following data patient's liver enzymes went from mid 200s to 700. Patient's initial coagulation studies which were 1.5 her INR went to 2.2. Patient still had nausea poor p.o. to intake in the hospital stay. Discussing the case with the surgeons. [place] less likely be due to biliary dyskinesia biliary disease a more likely due to intrinsic liver processes that point discussion with transport team at the [facility]. After discussing with her hospitalist there. And there concerns about their inability to do anything they recommended transferred to a higher liver facility. Discussion with [facility] ensued. Patient was put on a waiting list to be transferred there. The following day patient was seen and evaluated liver enzyme Lyme had stabilized. We contacted with general surgery here. About new updated liver ultrasound findings recommended MRCP which was ordered. Patient was started on antibiotics because of elevated white blood cell count although she was afebrile. Vital signs remained stable on my evaluation at 12:00 p.m.. Patient approximately 2: 230. Nurses noted that she became unresponsive and a code was called. Code ensued. Patient was intubated. CPR was started. For approximately 45 minutes rapid response and code was ensued. Patient then . Exam Vital Signs (past 8 hours): - 11/01/19 10:44 11/01/19 17:20 Temperature 97.7 F 96.3 F L Pulse Rate 113 H 122 H Respiratory Rate 16 16 Blood Pressure 144/77 H 122/81 Pulse Oximetry 97 98 Oxygen Delivery Method Room Air Oxygen Flow Rate 0 Objective Labs Result Diagrams: 11/02/19 07:53 11/02/19 07:53 Labs: Laboratory Results - last 24 hr 11/01/19 11/01/19 11/01/19 05:32 05:32 07:05 WBC 9.1 RBC 3.41 L Hgb 9.2 L Hct 28.6 L MCV 83.9 MCH 26.9 MCHC 32.1 RDW 15.6 H Plt Count 280 Neut % (Auto) Not Reportable Lymph % (Auto) Not Reportable [place] % (Auto) Not Reportable Eos % (Auto) Not Reportable Baso % (Auto) Not Reportable Lymph # (Auto) Not Reportable [place] # (Auto) Not Reportable Baso # (Auto) Not Reportable Total Counted 100 Seg Neutrophils % 70.0 Band Neutrophils % 5.0 Lymphocytes % (Manual) 15.0 L Monocytes % (Manual) 9.0 Metamyelocytes % 1.0 H Neutrophils # (Manual) 6825 H Nucleated RBCs 3 H Platelet Estimate Adequate on smear RBC Morphology See below Polychromasia 1+ H Poikilocytosis 1+ H Ang Cells 1+ H PT 25.3 H INR 2.2 H APTT 33 D Sodium 134 L Potassium 4.3 Chloride 112 H Carbon Dioxide 12 L BUN 25 H Creatinine 1.60 H Estimated GFR 31.1 L BUN/Creatinine Ratio 15.6 Glucose 66 L Calcium 7.7 L Total Bilirubin 0.8 AST 710 H ALT 307 H Alkaline Phosphatase 111 Total Protein 5.6 L Albumin 3.0 L Globulin 2.6 Albumin/Globulin Ratio 1.2 Discharge Plan Discharge Plan Patient Disposition: Discharge Data Primary Care Provider: Mary Trejo Discharges patient from system. Discharge Date/Time: 11/02/19 15:30 Quality VTE Deep Vein Thrombosis/Pulmonary Embolism Present on Admission: No
[2019-11-01 18:14] VITALS: PULSE 112; O2SAT 98
--- NOTE | 2019-11-01 18:34 | DI.US.S_ITS ---
PROCEDURE: US ABDOMEN LIMITED INDICATIONS: ELEVATED LFTS.ABNORMAL BILLIARY PROCESS TECHNIQUE: Real-time scanning was performed of the abdominal and retroperitoneal organs, with image documentation. COMPARISON: [facility], , US ABDOMEN LIMITED, 10/29/2019, 18:12. FINDINGS: This is a limited study. Left lateral decubitus views were not obtained. Liver: Liver is normal in size and homogeneous in echotexture. Gallbladder: The gallbladder is partially contracted. The gallbladder wall measures up to 4.6 mm in diameter. Trace pericholecystic fluid is present. The patient endorses a sonographic Frances's sign during the study. No definite gallstones were visualized; however this was a limited study due to patient positioning. Biliary ducts: Intrahepatic bile ducts are non-dilated. Extrahepatic bile duct caliber measures 10 mm. Normal is 6-7 mm or less in diameter, or 10 mm or less post-cholecystectomy. Pancreas: Visualized portions of the pancreas are sonographically normal. Miscellaneous: There is incidentally noted right pleural effusion which is incompletely characterized. IMPRESSION: 1. Mildly contracted gallbladder with findings suggestive of gallbladder wall thickening and pericholecystic fluid. These findings may be associated with early acute cholecystitis. Please correlate clinically. 2. Right pleural effusion which is incompletely characterized on this limited view. 3. No sonographic findings for cholelithiasis; however this is a limited study. 4. Mild dilatation of the common bile duct which may be associated with choledocholithiasis. If further characterization is warranted, and the patient can perform an adequate breath hold, MRCP could be used to further evaluate the biliary tree. Dictated by: Bella Monsivais M.D. on 11/02/2019 at 9:42 Approved by: Bella Monsivais M.D. on 11/02/2019 at 9:46
[2019-11-01 19:59] VITALS: BP 120/86; PULSE 102; RESP 16; TEMP 35.8; O2SAT 100
[2019-11-01] MEDS: DEXTROSE 5%-0.45NS W/KCL 20MEQ 1,000 ML 125 MEQ IV (20:18)
[2019-11-01] MEDS: TRAZODONE 100 MG TABLET PO (20:25)
[2019-11-01] MEDS: FERROUS GLUCONATE 324 MG TABLET PO (20:25)
[2019-11-01 23:10] VITALS: BP 147/58; PULSE 110; RESP 18; TEMP 37.4; O2SAT 98
[2019-11-01] MEDS: CALCIUM CARBONATE 500 MG TAB 1000 MG PO (23:16)
[2019-11-02] MEDS: ONDANSETRON 4 MG/2 ML INJ IV ×4 (00:03→14:32)
[2019-11-02] MEDS: DEXTROSE 5%-0.45NS W/KCL 20MEQ 1,000 ML 125 MEQ IV (05:53)
[2019-11-02 06:02] VITALS: BP 137/89; PULSE 116; RESP 21; TEMP 37.2; O2SAT 99
--- NOTE | 2019-11-02 06:15 | PC.NURSE ---
Pt is fatigued, pale. Continuously nauseous, Zofran q4h helps a bit. No bowel tones heard, Pt reports no flatus and says her last BM was a while ago. Abdomen mildly distended. @0400- vomitted 100cc clear bile Had a smear bowel movement that was greenish-black and mostly thin textured. Oliguric, voided 200cc on BSC; Bladder scanned for PVR showing 70cc. Denies any pain Pt has non-pitting edema throughout. Midline was not able to draw back blood this morning. Flushing well. Pt stands up poorly, she gets dizzy and nauseous. 2P FWW to BSC
[2019-11-02 08:33] VITALS: BP 130/85; PULSE 105; RESP 20; TEMP 35.9; O2SAT 95
[2019-11-02 09:11] LABS: INR 2.1 (0.9-1.3); Prothrombin Time 23.5 SECONDS (10.1-12.7)
[2019-11-02 09:14] LABS: PTT Partial Thromboplastin Tim 30 SECONDS (26.4-36.2)
[2019-11-02 09:18] LABS: Hematocrit 31.1 % (36-46); Hemoglobin 9.9 g/dL (12.0-16.0); Mean Corpuscular Hemoglobin 26.6 PG (26-34); Mean Corpuscular Volume 83.1 fL (80-100); Platelet Count 285 X10^3/uL (150-400); Red Blood Cell Count 3.74 X10^6/uL (4.0-5.2); Red Cell Distribution Width 15.8 % (11.6-14.8); White Blood Cell Count 13.6 X10^3/uL (4.5-11.0)
[2019-11-02 09:19] LABS: BUN Creatinine Ratio 19.4 (6-22); Blood Urea Nitrogen 31 mg/dL (7-17); Calcium 7.8 mg/dL (8.4-10.2); Carbon Dioxide 13 mmol/L (22-32); Chloride 110 mmol/L (98-107); Estimated Glomerular Filt Rate 31.1 mL/min (>60); Glucose 237 mg/dL (80-110); HEMOLYSIS 18 (0-50); Potassium 4.9 mmol/L (3.4-5.1); Sodium 132 mmol/L (137-145)
[2019-11-02 09:20] LABS: Alanine Aminotransferase 327 IU/L (<35); Albumin Globulin Ratio 1.1 (1.0-2.8); Alkaline Phosphatase 131 U/L (38-126); Aspartate Aminotransferase 501 IU/L (14-36); Bilirubin Total 0.7 mg/dL (0.2-1.3); Bilirubin Unconjugated 0.5 mg/dL (0.0-1.1); Globulin 2.7 g/dL (1.7-4.1); HEMOLYSIS 18 (0-50); Total Protein 5.7 g/dL (6.3-8.2)
[2019-11-02 09:30] LABS: Add Manual Diff / Slide Review YES
[2019-11-02] MEDS: PANTOPRAZOLE 40 MG VIAL IV (09:32)
[2019-11-02 09:37] LABS: Neutrophils Absolute Manual 10200 /uL (3000-5900); Nucleated Red Blood Cells 3 #/Diff; Total Cells Counted 100
[2019-11-02 09:38] LABS: Anisocytosis 1+; Poikilocytosis 1+; Polychromasia 1+
[2019-11-02 09:50] LABS: Cortisol AM (Before 10AM) 16.1 ug/dL (4.46-22.7)
[2019-11-02 09:55] LABS: Ferritin 157 ng/mL (11-264)
--- NOTE | 2019-11-02 11:00 | PT-IP ANOTE ---
Pt refused all mobility this AM, requesting PT check on her in the afternoon in case nausea symptoms have improved.
[2019-11-02 11:35] VITALS: BP 121/86; PULSE 119; RESP 20; TEMP 36.8; O2SAT 99
--- NOTE | 2019-11-02 12:39 | P.PN_ITS ---
Subjective Subjective Date Patient Seen: 11/02/19 Time Patient Seen: 12:39 Interval history: Patient seen and evaluated this afternoon. Nurse's notes were reviewed discussed with the nursing staff today. Medication labs were also reviewed today. Patient seen and examined at bedside. She is weak refused physical therapy she still complaining of nausea no abdominal pain had a few sips of fluid did not really want her medication this morning. She knows that I am Dr. Oswald she knows it is May she knows she is at [facility]. Mental status seems to be changed a little bit from yesterday. She is not as clear headed seems to be a little bit more tired. She is having good urine outputs. No significant concerns with bowel movements. Exam Vital Signs (past 8 hours): - 11/02/19 06:02 11/02/19 08:33 11/02/19 11:35 Temperature 98.9 F 96.7 F L 98.2 F Pulse Rate 116 H 105 H 119 H Respiratory Rate 21 20 20 Blood Pressure 137/89 130/85 121/86 Pulse Oximetry 99 95 99 Oxygen Delivery Method Room Air Oxygen Flow Rate 0 Narrative Exam Narrative: Gen.: Alert somewhat sleepy and somnolent HEENT: Pupils equal round and reactive or mucosa is dry Cardio: S1-S2 systolic murmur not appreciated regular rate and rhythm Respiratory: Decrease breath sounds at bases with some fine crackles Abdomen: Soft nontender nondistended Extremities: Patient has edema lower extremities Objective Labs Result Diagrams: 11/02/19 07:53 11/02/19 07:53 Labs: Laboratory Results - last 24 hr 11/02/19 11/02/19 11/02/19 07:53 07:53 07:53 WBC RBC Hgb Hct MCV MCH MCHC RDW Plt Count Neut % (Auto) Lymph % (Auto) Cottle % (Auto) Eos % (Auto) Baso % (Auto) Lymph # (Auto) Cottle # (Auto) Baso # (Auto) Total Counted Seg Neutrophils % Band Neutrophils % Lymphocytes % (Manual) Atypical Lymphs % Monocytes % (Manual) Metamyelocytes % Myelocytes % Neutrophils # (Manual) Nucleated RBCs RBC Morphology Polychromasia Poikilocytosis Anisocytosis PT 23.5 H INR 2.1 H APTT 30 D Sodium 132 L Potassium 4.9 Chloride 110 H Carbon Dioxide 13 L BUN 31 H Creatinine 1.60 H Estimated GFR 31.1 L BUN/Creatinine Ratio 19.4 Glucose 237 H D Calcium 7.8 L Ferritin 157 Total Bilirubin 0.7 Conjugated Bilirubin 0.0 Unconjugated Bilirubin 0.5 AST 501 H ALT 327 H Alkaline Phosphatase 131 H Total Protein 5.7 L Albumin 3.0 L Globulin 2.7 Albumin/Globulin Ratio 1.1 Cortisol AM Sample 16.1 11/02/19 07:53 WBC 13.6 H RBC 3.74 L Hgb 9.9 L Hct 31.1 L MCV 83.1 MCH 26.6 MCHC 32.0 RDW 15.8 H Plt Count 285 Neut % (Auto) Not Reportable Lymph % (Auto) Not Reportable Cottle % (Auto) Not Reportable Eos % (Auto) Not Reportable Baso % (Auto) Not Reportable Lymph # (Auto) Not Reportable Cottle # (Auto) Not Reportable Baso # (Auto) Not Reportable Total Counted 100 Seg Neutrophils % 73.0 H Band Neutrophils % 2.0 L Lymphocytes % (Manual) 10.0 L Atypical Lymphs % 2.0 H Monocytes % (Manual) 9.0 Metamyelocytes % 2.0 H Myelocytes % 2.0 H Neutrophils # (Manual) 48022 H Nucleated RBCs 3 H RBC Morphology See below Polychromasia 1+ H Poikilocytosis 1+ H Anisocytosis 1+ H PT INR APTT Sodium Potassium Chloride Carbon Dioxide BUN Creatinine Estimated GFR BUN/Creatinine Ratio Glucose Calcium Ferritin Total Bilirubin Conjugated Bilirubin Unconjugated Bilirubin AST ALT Alkaline Phosphatase Total Protein Albumin Globulin Albumin/Globulin Ratio Cortisol AM Sample Assessment & Plan Assessment & Plan narrative: Acute hepatitis. Intrinsic liver process AST ALT markedly elevated mildly decreased today. Patient now more somnolent not quite as a good historian. Probably intrinsic liver process as alkaline phosphatase and bilirubin are not significantly elevated. Not due to Budd-Chiari. Ferritin serial plasmin sedimentation rate and CRP SAUNDRA are sent off or unrevealing at this point. Acute hepatitis panel is pending. No significant liver toxic medications. No history of alcohol misuse. Question etiology of acute intrinsic liver it injury. HIDA scan tomorrow as discussed by surgery. Closer evaluation of liver as recommended by [facility]. Yesterday talked with Susan Blair who did not want to accept the patient as a did not have anything to offer recommended [facility]. Discussed with [facility] transport team patient is currently on a waiting list to be transferred down there. Nausea vomiting. Continue with Zofran scopolamine patch. Not improved if anything worse. Continue with IV fluids. Switch to dextrose containing IV fluids as she has had poor eat p.o. intake. May have to consider some type of long-term nutrition option. MAKENNA: Resolved. Kidney function at baseline. Monitoring electrolytes. Hyponatremia chronic. Adjust fluids to normal saline with dextrose. PMR: Chronic. On chronic prednisone. On appropriate doses for this. Cortisol this morning shows no signs of acute adrenal dysfunction. HTN, blood pressure stable. On appropriate blood pressure medication. Blood pressure stable Chronic Atrial Fibrillation: A time still little bit tachycardic. Eliquis on hold. Due to potential procedures. SCDs on. Does not need bridging therapy at this point. At risk for cerebrovascular embolic but nausea needs to be worked up. Chronic iron deficiency anemia: Disposition and plan liver enzymes have stabilized in decreased a little bit. Patient is more somnolent I am assuming because of the liver injury. Still significant nausea vomiting. On potential waiting list for transfer. Proceed w ith HIDA scan tomorrow. Send up of dish in all laboratory testings for further workup and evaluation of intrinsic liver disease. Question ongoing concern about abnormal gallbladder ultrasound. Now has a mildly elevated white blood cell count but she is afebrile at this point watch closely for signs of acute cholecystitis. Quality VTE Deep Vein Thrombosis/Pulmonary Embolism Present on Admission: No
[2019-11-02] MEDS: DEXTROSE 5%-NS W/KCL 20MEQ 1,000 ML 125 MEQ IV (13:06)
[2019-11-02] MEDS: PROMETHAZINE 25 MG TABLET PO (13:08)
[2019-11-02 13:27] LABS: C-Reactive Protein Quant 1.3 mg/dL (<1.0)
--- NOTE | 2019-11-02 13:46 | PC.NURSE ---
Addendum entered by Randee German R.N. 11/02/19 14:26: At [address] Oswald, aware of elevated HR, trending tachycardia, no new orders. Addendum entered by Randee German R.N. 11/02/19 14:14: At 1310, prn Phenergan po given with 2 sips of water to pt. Within a few minutes, pt had 50ml emesis of clear liquid. Pt repositioned in bed using JERZY bed tilt and HOB elevated at 25-30 degrees. Original Note: Day Shift- Spoke with Dr. Oswald at 1250, updated regarding changing IVF solution, Call Physician if pt has elevated temperature. Dr. Oswald called at 1310 for update. Orders rec'd for Zosyn 3.375 Q8hr, TPN, midline is currently placed, if not able to handle TPN, then place order for PICC line. MRCP order placed as well. Spoke with Tesfaye at [facility]-IV management at 1330 on unit, aware pt also needs PICC line for TPN. Evi called around 1340, spoke with Evi for 10 mins, update given, okay by pt to speak to Evi. Evi phone is [phone].
[2019-11-02] MEDS: PIPERACILLIN-TAZO 3.375 GM/50 ML FROZ.PIGGY IV (14:28)
[2019-11-02 14:42] VITALS: PULSE 150; RESP 10
--- NOTE | 2019-11-02 15:28 | CM.DPC ---
DCP Cont: Per previous SW note, pt and son had been hopeful for pt to be stable enough for d/c home to [facility] with [facility] in place. Per PT, pt has medically declined the past day and has been continuously nauseous and now 2PA and recommending SNF. SW was about to start working on SNF plan with pt and son but then rapid response called to patient's room and pt ended up needing to be intubated in the afternoon today and moved to ICU. Plan: SW to follow very closely tomorrow to determine how pt does overnight and if she will be able to be successfully extubated and her d/c needs of likely SNF if not transfer. Coby Sears MSW
--- NOTE | 2019-11-02 16:35 | PC.NURSE ---
Addendum entered by Randee German R.N. 11/02/19 17:17: Pt had been last verbally responding to this RN around 1400, repositioned in bed, HOB elevated, pt did not want any water, prn TUMS at this time. Asked if the TUMS were orange flavored. Another RN administered prn Zofran IV and schedule Zosyn around 1430. Pt spot checked by this RN but did did not talk with pt at that time. Original Note: At 1445, [employer] had bladder scanned pt and results were for approx 73 mls as pt had not voided this shift and her brief was dry. [employer]PPL[employer] SALESPERSONCezar Love had reported to this RN at that time that pt did not respond to her. Upon this RN's assessment, pt was not responding to verbal stimuli when name called, would not open her eyes, Did not respond with sternal rub. BP initially checked for 144/73, pulse 83, unable to obtain O2 sat. Assist called for rapid response. At 1450, blood glucose finger stick was 345. Pt remained not responding with sternal rub or verbal/painful stimuli, Code blue called at 1450. Dr. Guajardo came to pt room, brief summary given. Dr. Oswald primary physician was notified by community health nurse staff. Pt moved to ICURefer to Code blue flowsheet for further assessment/medication administration. Called pt's contact, her son Arjun at 1520. Spoke to Arjun and made aware that pt's heart had stopped, CPR was initiated, pt moved to ICU, and he should come to see pt in hospital. Arjun said he has been sick and has been told to stay at home until feeling better. This RN instructed Arjun that this is the time to come see pt, to wash his hands and wear a mask when in hospital. Arjun said he will come to see pt. Pt's son Arjun and his partner Evi arrived to hospital escorted with Dr. Oswald in [facility], family has taken pt's personal belongings.
--- NOTE | 2019-11-02 18:28 | PC.NURSE ---
Discussion with family regrding disposition of remains. The elected to call [facility]. Organ donor center called, declined donation. Nep Soc called and they aleksandra be here within 2hr to tke possession of the body.
--- NOTE | 2019-11-02 20:52 | PC.NURSE ---
Picked up by [facility] @[id number].
[2019-11-04 09:03] LABS: Hepatitis A Antibody IgM NONREACTIVE; Hepatitis Acute Panel Interp 0.01; Hepatitis B Core Antibody IgM NONREACTIVE; Hepatitis B Surface Antigen NONREACTIVE; Hepatitis C Antibody NONREACTIVE
== END 2019-11-02 15:30 | disposition expired | DRG 442 ==
PROVIDERS: Family Medicine; Surgery; Admitting Provider Family Medicine; PCP Family Medicine; Referring Provider Family Medicine; Visit Provider Family Medicine
DX: B17.9 Acute viral hepatitis, unspecified (principal); N17.9 Acute kidney failure, unspecified; I48.20 Chronic atrial fibrillation, unspecified; E87.1 Hypo-osmolality and hyponatremia; K72.90 Hepatic failure, unspecified without coma; I46.9 Cardiac arrest, cause unspecified; N18.3 Chronic kidney disease, stage 3 (moderate); E86.0 Dehydration; M35.3 Polymyalgia rheumatica; D50.9 Iron deficiency anemia, unspecified; I12.9 Hypertensive chronic kidney disease with stage 1 through stage 4 chronic kidney disease, or unspecified chronic kidney disease; R11.0 Nausea; R53.1 Weakness; Z87.891 Personal history of nicotine dependence; Z79.01 Long term (current) use of anticoagulants; Z79.52 Long term (current) use of systemic steroids
CPT/HCPCS: 36415; 71046; 74177; 76705; 80048; 80053; 80074; 80076; 82390; 82533; 82728; 82962; 83690; 85025; 85610; 85730; 86140; 92950; 94770; 94799; 97110; 97161; 97165; 97530; 99223; 99232; 99233; 99238; C9113; J0171; J0282; J0330; J1642; J2405; J2543; J2704; J3475; Q9967